=== PATIENT | female | born 1940 | race Caucasian/White ===

== ENCOUNTER 2016-09-22 15:59 | Inpatient (IN) | payer OTHER ==
[~2016-09-22] VITALS: Ht 182.9 cm; Wt 104.8 kg
[~2016-09-22 15:59] MED LIST: ADVAIR DISKUS 51 DSK IH; ATIVAN0.5 MG PO; CORDARONE200 MG PO; ECOTRIN81 MG PO; FLAGYL250 MG PO; LACTINEX1 TAB.CHEW PO; LASIX20 MG PO; LEVAQUIN250 MG IV; LEVAQUIN500 MG PO; LOPRESSOR25 MG PO; MACROBID100 M1 PO; PERCOCET 325 MG1 TA4 PO; PLAVIX75 MG PO; SOMA350 MG PO; SPIRIVA MD18 MCG/CAP INH; VENTOLIN H0.09 MG/Ac IH; ZOCOR20 MG PO
--- NOTE | 2016-09-22 15:59 | NUR ---
Patient was BIBA at this time.
--- NOTE | 2016-09-22 16:08 | NUR ---
Patient taken to bed 05.
--- NOTE | 2016-09-22 16:10 | NUR ---
PATIENT PRESENTS TO ED WITH S/P TRIPPED AND FALL GETTING UP FROM BED. DENIES NECK AND BACK PAIN. NO LOC PER RUBBER AND PLASTICS WORKER. RT. CHEST NA. CATH. DONE CHEMOTHERAPY X9 YRS. AGO. HX: LT. BREAST CA.COPD. X2 RESP.TX FIELD .DENIES N/V/D; SKIN IS PINK/WARM/DRY;PT IS SLIGYTLY CONFUSED.PATIENT STATES PAIN OF 10/10 AT THIS TIME;PATIENT POSITIONED FOR COMFORT; HOB ELEVATED; BEDRAILS UP X2; BED DOWN. ER MD MADE AWARE OF PT STATUS.
[2016-09-22] MEDS ORDERED: NACL 0.9% 1,000 ML IV SCH (16:18)
[2016-09-22 16:19] VITALS: BP 164/85
[2016-09-22] MEDS ORDERED: IPRATROPIUM 0.02% 0.5 MG/2.5 ML NEBU INH ONE ×2 (16:20→16:50)
[2016-09-22] MEDS ORDERED: ONDANSETRON 4 MG/2 ML VIAL IVP ONE (16:20)
[2016-09-22] MEDS ORDERED: ALBUTEROL 0.083% 2.5 MG/3 ML NEBU INH ONE ×2 (16:20→16:50)
[2016-09-22] MEDS ORDERED: HYDROXYZINE PO (16:34)
[2016-09-22] MEDS ORDERED: ZESTRIL5 MG PO (16:34)
[2016-09-22] MEDS ORDERED: KLONOPIN0.5 MG PO (16:34)
[2016-09-22] MEDS ORDERED: MAG SULF 2000 MG/WATER PREMIX 50 ML IV ONE (16:50)
--- NOTE | 2016-09-22 16:53 | NUR ---
RT at bedside to give patient another breathing treatment.
--- NOTE | 2016-09-22 17:46 | NUR ---
PT RESTING ON BED;PT VERBALIZES RELIEF FROMSOB;O2 SAT AT 95%.WILL CONTINUE TO MONITOR PT.
--- NOTE | 2016-09-22 18:20 | NUR ---
PT SLEEPING;ALL MONITORS IN PLACED;SAFETY MASURES DONE;NO ACUTE DISTRESS NOTED;WILL CONTINUE TO MONITOR PT.
[2016-09-22] MEDS ORDERED: MORPHINE SULFATE 4 MG/ML SYR IVP ONE ×2 (18:55→21:35)
--- NOTE | 2016-09-22 19:30 | NUR ---
REPORT GIVEN TO ANDREA SHAFFER.
--- NOTE | 2016-09-22 19:30 | NUR ---
REPORT RECEIVED FROM ANDREA REYES
--- NOTE | 2016-09-22 19:35 | NUR ---
I/O FOR UA COLLECTED, PT TOLERATED WELL.
[2016-09-22] MEDS ORDERED: NON-FORMULARY ITEM (Oxycodone HCl/Acetaminophen (Percocet 10-325 mg Tablet) 1 TAB) PO PRN (21:35)
[2016-09-22] MEDS ORDERED: ONDANSETRON 4 MG/2 ML VIAL IVP PRN (21:35)
[2016-09-22] MEDS ORDERED: LORazepam 2 MG/ML VIAL IVP PRN (21:35)
[2016-09-22] MEDS ORDERED: ACETAMINOPHEN 325 MG TAB PO PRN (21:35)
[2016-09-22] MEDS ORDERED: LIDOCAINE 1% 500 MG/50 ML VIAL INJ SCH (21:50)
[2016-09-22] MEDS ORDERED: methylPREDNISolone SS 125 MG/2 ML VIAL IVP SCH (21:55)
--- NOTE | 2016-09-22 22:00 | NUR ---
CLOSED REDUCTION PROCEDURE DONE BY DR STEWART.
[2016-09-22] MEDS ORDERED: LIDOCAINE 1% ED 50 ML ONE (22:06)
--- NOTE | 2016-09-22 22:45 | NUR ---
PT TOLERATED CLOSED REDUCTION PROCEDURE WELL.
--- NOTE | 2016-09-22 23:44 | NUR ---
Patient will be admitted to care of DR TORRES. Admited to TELE. Will go to room 109A. Belongings list completed. Report to ANDREA MERCHANT.
--- NOTE | 2016-09-22 23:55 | NUR ---
PATIENT ADMIT DX CHF AND COPD PATIENT IS AWAKE ALERT ORIENTED DROWSY CONTINUES TO HAVE OXYGEN AT 4L VIA NASAL CANNULA IN PLACE 02SAT 94% VITALS TAKEN WNL. PATIENT DENIES ANY CHEST PAIN UPON ADMISSION OR SOB.SKIN CHECK DONE WITH MULTIPLE COIL WINDERRUBI POLLACK SKIN HAS DISCOLORATION AND DRYNESS.PATIENT HAS A DISCOLORATION TO RT LOWER LEG AND LT ARM DISCOLORATION. PATIENT HAS ALSO HEALED SCARS ON HER BODY.NO SKIN BREAKDOWN NOTED.PLAN OF CARE DISCUSSED WITH THE PATIENT.ORDERS WILL BE CHECKED AND CARRIED OUT.PATIENT WAS PLACED ON FALL PRECAUTIONS AND ALLERGY BAND PLACED.[facility] OF THE [facility] COLLECTED AND WILL BE SEND TO THE LAB.CALL LIGHT WITHIN REACH WILL CONTINUE TO MONITOR.
--- NOTE | 2016-09-23 00:05 | NUR ---
PATIENT HAS BEEN GIVEN SOME WATER TO DRINK SHE IS CURRENTLY ON A CARDIAC DIET.
--- NOTE | 2016-09-23 00:10 | NUR ---
LILLI BAKER PAGED WILL REPORT CURRENT TROPONIN.
--- NOTE | 2016-09-23 00:15 | NUR ---
MD BRIAN ALBA CALLED BACK I INFORMED HIM PATIENT ARRIVED ON THE FLOOR AND HE GAVE SOME ORDERS.WILL CARRY THEM OUT.
--- NOTE | 2016-09-23 00:16 | NUR ---
I PAGED LILLI BAKER AND INFORMED HIM OF INCREASE IN TROPONIN 0.124 MD BRIAN REEDER GAVE NO NEW ORDERS.HE WAS INFORMED THAT PATIENT IS CURRENTLY READING 106 HR ON TELEMONITOR AND READING SINUS TACHYCARDIA.PATIENT IS ASYMPTOMATIC AT THIS TIME. NOTIFIED OF B/P 97/80 HR 106 MD TORRESY GAVE NO NEW ORDERS.
[2016-09-23 00:24] VITALS: BP 97/80
--- NOTE | 2016-09-23 00:40 | NUR ---
I RECEIVED AN ORDER FOR THE PATIENT TO HAVE MALHOTRA CATHETER INSERTED FR#14 I EXPLAINED TO THE PATIENT WHY SHE NEEDS THE MALHOTRA CATHETER AND I ASKED HER IF SHE AGREES TO HAVE THE MALHOTRA INSERTED PATIENT SAID,"YES." MALHOTRA WAS INSERTED AT FIRST ATTEMPT GOOD URINE FLOW YA IN COLOR CURRENTLY DRAINING TO GRAVITY. PATIENT TOLERATED PROCEDURE WELL.
--- NOTE | 2016-09-23 01:07 | NUR ---
PATIENT RESTING COMFORTABLY IN BED IN NO DISTRESS.
--- NOTE | 2016-09-23 02:30 | NUR ---
PATIENT SLEEPING AT THIS TIME NO DISTRESS WILL CONTINUE TO MONITOR CALL LIGHT WITHIN REACH.
[2016-09-23 04:40] VITALS: BP 114/42
--- NOTE | 2016-09-23 05:50 | NUR ---
PATIENT IS CURRENTLY RESTING IN BED CONTINUES TO HAVE OXYGEN IN PLACE VIA NASAL CANNULA AT 3L AWAKENED I ASKED HER IF SHE IS HAVING ANY PAIN.PATIENT DENIES PAIN AT THIS TIME. CAST TO HER LEFT LEG IN PLACE AND ELEVATED ON A PILLOW.MALHOTRA CATHETER IN PLACE DRAINING TO GRAVITY AND HAS SCD ONLY TO RT FOOT FOR DVT PROPHALAXIS.WILL CONTINUE TO MONITOR.
[2016-09-23] MEDS: HYDROcodone/APAP 5/325 MG 1 TAB TAB PO PRN ×2 (06:48→17:46)
--- NOTE | 2016-09-23 07:07 | NUR ---
PATIENT HAS BEEN SCREENED AND CATEGORIZED MODERATE NUTRITION RISK. PATIENT WILL BE SEEN WITHIN 3-5 DAYS OF ADMISSION. 09/24/16-09/26/16 KECIA AGUILAR MS, RDN
--- NOTE | 2016-09-23 07:20 | NUR ---
RECEIVED PATIENT REPORT AT BEDSIDE. PATIENT AWAKE, ALERT AND ORIENTED. NO S/S OF DISTRESS NOTED. PATIENT ON 4L O2. IV LINE NOTED TO THE RIGHT FOREARM SALINE LOCKED. JAREN BANDAGE DRESSING NOTED TO THE LEFT LEG. DRESSING CLEAN DRY AND INTACT. MALHOTRA CATHETER IN PLACE, DRAINING CLEAR YELLOW URINE. PATIENT ON TELE MONITORING. BED LOWERED WITH CALL LIGHT WITHIN REACH. WILL CONTINUE TO MONITOR
--- NOTE | 2016-09-23 07:25 | NUR ---
PATIENT STABLE REPORT ENDORSED TO ANDREA VILLAREAL AT BEDSIDE HE WILL RESUME CARE OF THE PATIENT ENDORSED ABOUT THE HIGH TROPONIN AND THE CONSULTS PENDING FOR THE PATIENT.
[2016-09-23 08:00] VITALS: BP 107/49
[2016-09-23] MEDS ORDERED: SALMETEROL IH SCH (09:00)
[2016-09-23] MEDS: LISINOPRIL 5 MG TAB PO SCH (09:00)
[2016-09-23] MEDS ORDERED: FLUTICASONE IH SCH (09:00)
[2016-09-23] MEDS ORDERED: ALBUTEROL HFA MDI 90 MCG/ACTUATION 8 GM INH SCH (09:00)
[2016-09-23] MEDS: ECOTRIN 81 MG TABEC PO SCH (09:07)
[2016-09-23] MEDS: AMIODARONE 200 MG TAB PO SCH (09:07)
[2016-09-23] MEDS: CLOPIDOGREL 75 MG TAB PO SCH (09:08)
[2016-09-23] MEDS: FUROSEMIDE 20 MG TAB PO SCH (09:08)
[2016-09-23] MEDS: CARISOPRODOL 350 MG TAB PO SCH (09:08)
[2016-09-23] MEDS: clonazePAM 0.5 MG TAB PO SCH ×3 (09:13→16:41)
--- NOTE | 2016-09-23 09:30 | NUR ---
THERE IS NO MDI IN PATIENTS BOX OR IN PIXES. DR BEAVERS IS IN TO SEE PT. ASKED HIM TO CHANGED IT TO [facility]. WILL WRITE NEW ORDERS. WILL FOLLOW.
--- NOTE | 2016-09-23 10:00 | NUR ---
PATIENT SEEN BY DR CASILLAS. DRESSING ON THE LEFT FRACTURE CHANGED AT BEDSIDE
--- NOTE | 2016-09-23 10:47 | NUR ---
PATIENT LEFT FOR CT OF THE CHEST
[2016-09-23] MEDS ORDERED: LEVOFLOXACIN 500 MG/D5W PREMIX 100 ML IV SCH (11:00)
[2016-09-23 12:00] VITALS: BP 110/44
[2016-09-23] MEDS: ALBUTEROL 0.083% 2.5 MG/3 ML NEBU INH PRN (12:55)
[2016-09-23] MEDS: IPRATROPIUM 0.02% 0.5 MG/2.5 ML NEBU INH PRN (12:55)
--- NOTE | 2016-09-23 13:06 | NUR ---
HHN PRN TX GIVEN FOR SOB AND WHEEZING. INDUCED SPUTUM WITH 3% SODIUM CHLORIDE. EXPLAINED TO PT THAT SHE NEEDS TO GIVE A SAMPLE. CUP IS WITHIN REACH. ANDREA BOWSER AWARE. WILL CONTINUE TO MONITOR.
[2016-09-23] MEDS: CLINDAMYCIN 600 MG in DEXTROSE 5% 50 ML IV SCH ×2 (13:45→20:07)
--- NOTE | 2016-09-23 14:30 | NUR ---
PATIENT COMFORTABLY RESTING IN BED. NO S/S OF DISTRESS NOTED
[2016-09-23 16:00] VITALS: BP 101/57
--- NOTE | 2016-09-23 19:17 | NUR ---
PATIENT REPORT GIVEN AT BEDSIDE. ENDORSED PATIENT IN STABLE CONDITION
--- NOTE | 2016-09-23 19:21 | NUR ---
RECEIVED REPORT FROM DAY SHIFT NURSE. PT IS RESTING, ON TELE MONITOR, NOT IN DISTRESS. HAS NO S/S OF RESPIRATORY DISTRESS/DISCOMFORT NOTED. IV SITE, PATENT, DRY, SALINE LOCK. SAFETY MEASURES CHECKED, CALL LIGHT WITHIN REACH. WILL CONTINUE TO MONITOR.
[2016-09-23 20:00] VITALS: BP 98/39
[2016-09-23] MEDS: methylPREDNISolone SS 40 MG/ML VIAL IVP SCH (20:06)
[2016-09-23] MEDS: hydrOXYzine HCL 10 MG TAB PO SCH (20:06)
--- NOTE | 2016-09-23 20:14 | NUR ---
DUE MEDS GIVEN. PROVIDED DRUG INFO, BENEFITS AND S/E, VERBALIZED UNDERSTANDING. PT TOLERATED WELL.
[2016-09-24] VITALS: BP 99/44
--- NOTE | 2016-09-24 00:49 | NUR ---
V/S CHECKED, BREATHING EVEN AND UNLABORED. CALL LIGHT WITHIN REACH.
--- NOTE | 2016-09-24 02:15 | NUR ---
EYES CLOSED, BREATHING EVEN AND UNLABORED. NO S/S OF DISTRESS. ON NASAL CANNULA, HAS NO S/S OF RESPIRATORY DISTRESS/DISCOMFORT. CALL LIGHT WITHIN REACH.
[2016-09-24] MEDS: HYDROcodone/APAP 5/325 MG 1 TAB TAB PO PRN ×4 (03:45→23:43)
--- NOTE | 2016-09-24 03:58 | NUR ---
PT COMPLAINED OF PAIN 11/19. V/S CHECKED AND STABLE. MEDICATED WITH PAIN MEDICATION PER MD ORDERED.
[2016-09-24 04:00] VITALS: BP 108/51
[2016-09-24] MEDS: CLINDAMYCIN 600 MG in DEXTROSE 5% 50 ML IV SCH ×3 (04:11→20:04)
--- NOTE | 2016-09-24 06:09 | NUR ---
PT UNABLE TO PRODUCE SPUTUM. PROVIDED HEALTH TEACHING, VERBALIZED UNDERSTANDING.
[2016-09-24] MEDS: ALBUTEROL 0.083% 2.5 MG/3 ML NEBU INH SCH ×4 (06:48→19:04)
--- NOTE | 2016-09-24 07:00 | NUR ---
PT UNABLE TO PRODUCE SPUTUM AT THIS TIME
--- NOTE | 2016-09-24 07:30 | NUR ---
REPORT GIVEN TO DAY SHIFT NURSE FOR CONTINUITY OF CARE. PT IN STABLE CONDITION.
--- NOTE | 2016-09-24 07:31 | NUR ---
RECEIVED PT FROM THE TIMBER TRIMMER NURSE AT BEDSIDE FOR CONTINUITY OF CARE. PT IS ASLEEP. WILL BE BACK TO ASSESS PT. NO SIGNS OF DISTRESS.
[2016-09-24 08:00] VITALS: BP 121/55
--- NOTE | 2016-09-24 08:00 | NUR ---
PT IS AWAKE AND ALERT. PT IS WEARING A NC, O2 AT 4L . PT HAS AN IV ON R FA 20G SL. PT ALSO HAS A PORT A CATH ON R UPPER CHEST. NOTED SOME BRUISING IN HER L ARM. PT HAS A L LOWER LEG CAST, WRAPPED. BREATHING IN NORMAL LIMITS. V/S IN NORMAL LIMITS. SHE IS COMPLAINING OF LEG PAIN 12/20. HELPED FEED HER BREAKFAST. ATE 15-20%. WILL BRING MORNING MEDS. WILL CONTINUE TO MONITOR PT.
[2016-09-24] MEDS: LEVOFLOXACIN 250 MG/D5 PREMIX 50 ML IV SCH (09:17)
[2016-09-24] MEDS: methylPREDNISolone SS 40 MG/ML VIAL IVP SCH ×2 (09:17→20:01)
[2016-09-24] MEDS: CLOPIDOGREL 75 MG TAB PO SCH (09:18)
[2016-09-24] MEDS: clonazePAM 0.5 MG TAB PO SCH ×3 (09:18→17:03)
[2016-09-24] MEDS: ECOTRIN 81 MG TABEC PO SCH (09:18)
[2016-09-24] MEDS: CARISOPRODOL 350 MG TAB PO SCH (09:19)
[2016-09-24] MEDS: AMIODARONE 200 MG TAB PO SCH (09:19)
[2016-09-24] MEDS: LISINOPRIL 5 MG TAB PO SCH (09:19)
[2016-09-24] MEDS: FUROSEMIDE 20 MG TAB PO SCH (09:20)
--- NOTE | 2016-09-24 09:25 | NUR ---
ADMINISTERED MORNING MEDS. PT TOLERATED WELL. WILL CONTINUE TO MONITOR PT.
--- NOTE | 2016-09-24 11:24 | NUR ---
PT GETTING BREATHING TX. PT IS RESTING COMFORTABLY. NO SIGNS OF DISTRESS. WILL CONTINUE TO MONITOR PT.
[2016-09-24 12:00] VITALS: BP 111/41
--- NOTE | 2016-09-24 12:44 | NUR ---
ADMINISTERED AFTERNOON MEDS. PT TOLERATED WELL. STARTED FEEDING HER LUNCH. EATING MUCH BETTER TODAY. EDUCATED PT ABOUT GOOD NUTRITION. WAX CUTTER TOOK OVER FEEDING PT. WILL CONTINUE TO MONITOR PT.
--- NOTE | 2016-09-24 13:40 | NUR ---
DR. SOMERS CAME AND ASSESSED PT. PER , PT HAS TO HAVE A BM. WILL ORDER SENNA AND MAYBE FLEET ENEMA. WILL MONITOR HER TODAY. HOPEFULLY HER KIDNEY FUNCTION WILL IMPROVE. NOTED HER MALHOTRA CATH. PT VERBALIZED UNDERSTANDING.
--- NOTE | 2016-09-24 15:00 | NUR ---
PT SLEEPING SOUNDLY. NO SIGNS OF DISTRESS. WILL CONTINUE TO MONITOR PT.
--- NOTE | 2016-09-24 15:31 | NUR ---
FAXED INFORMATION TO [facility] [phone] PHONE [phone]
[2016-09-24 16:00] VITALS: BP 109/49
--- NOTE | 2016-09-24 17:47 | NUR ---
PT RESTING COMFORTABLY. GETTING READY FOR DINNER. NO SIGNS OF DISTRESS. NORCO HELPED WITH THE PAIN. WILL CONTINUE TO MONITOR PT.
--- NOTE | 2016-09-24 19:28 | NUR ---
ENDORSED PT TO THE RESPIRATORY THERAPIST NURSE AT BEDSIDE FOR CONTINUITY OF CARE. PT IS IN STABLE CONDITION.
--- NOTE | 2016-09-24 19:30 | NUR ---
RECEIVED REPORT FROM DAY SHIFT NURSE. PT IS AAOX4, ON TELE MONITOR, DENIES PAIN. ON NASAL CANNULA, HAS NO S/S OF RESPIRATORY DISTRESS/DISCOMFORT NOTED. IV SITE IS PATENT AND INTACT, SALINE LOCK. LEFT LOWER EXTREMITY NOTED WITH CASTING, ELEVATED WITH PILLOW, ON AIR MATRES NOTED. PLAN OF CARE DISCUSSED, VERBALIZED UNDERSTANDING. SAFETY MEASURES CHECKED, CALL LIGHT WITHIN REACH. WILL CONTINUE TO MONITOR.
[2016-09-24 20:00] VITALS: BP 90/43
[2016-09-24] MEDS: SENNA 8.6 MG TAB PO SCH (20:01)
[2016-09-24] MEDS: hydrOXYzine HCL 10 MG TAB PO SCH (20:01)
--- NOTE | 2016-09-24 20:05 | NUR ---
DUE MEDS GIVEN. PROVIDED DRUG INFO, BENEFITS AND S/E, VERBALIZED UNDERSTANDING. PT TOLERATED WELL.
--- NOTE | 2016-09-24 21:00 | NUR ---
IV SITE LEAKED, DISCONTINUE IV SITE TO THE RIGHT FA.
[2016-09-25] VITALS: BP 91/45
--- NOTE | 2016-09-25 00:39 | NUR ---
CALLED DR LAINEZ, CLARIFIED ORDER FOR TOMORROW FOR X-RAY FOR SERVICE DATE. SAID OK TO CHANGE THE TIME TO 09/25/16 AT 0700.
--- NOTE | 2016-09-25 02:15 | NUR ---
PT AWAKE, WATCHING TV. DENIES ANY PAIN. CALL LIGHT WITHIN REACH. WILL CONTINUE TO MONITOR.
[2016-09-25 04:00] VITALS: BP 105/48
--- NOTE | 2016-09-25 04:00 | NUR ---
V/S CHECKED AND STABLE. NO S/S OF RESPIRATORY DISTRESS/DISCOMFORT NOTED. CALL LIGHT WITHIN REACH
[2016-09-25] MEDS: CLINDAMYCIN 600 MG in DEXTROSE 5% 50 ML IV SCH ×3 (04:37→21:17)
[2016-09-25] MEDS: ALBUTEROL 0.083% 2.5 MG/3 ML NEBU INH SCH ×4 (06:32→20:30)
--- NOTE | 2016-09-25 07:01 | NUR ---
RECEIVED A CRITICAL VALUE OF BUN 61, WILL REPORT TO ATTENDING MD.
--- NOTE | 2016-09-25 07:05 | NUR ---
NATHAN ISABEL. WAITING FOR CALL BACK.
--- NOTE | 2016-09-25 07:10 | NUR ---
CALL BACK RECEIVED. SPOKE TO Ruthy ENAMORADO REPORTED BUN VALUE OF 61. NO NEW ORDER MADE.
--- NOTE | 2016-09-25 07:15 | NUR ---
REPORT GIVEN TO DAY SHIFT NURSE FOR CONTINUITY OF CARE. PT IN STABLE CONDITION.
--- NOTE | 2016-09-25 07:25 | NUR ---
RECEIVED PT ON BED AAOX4. NO SOB NOTED. NO C/O PAIN AT THIS TIME. PORTACATH TO RT UPPER CHEST, DRY, CLEAN AND PATENT. LEFT UPPER EXTREMITY SWOLLEN +1 NON PITTING.CHEST, DIMINISHED AIR ENTRY TO THE BASES. ABDOMEN SOFT, BOWEL SOUNDS PRESENT. LEFT LEG ELEVATED IN BED WITH BRACE S/P CLOSED REDUCTION 09/22/2016. WITH MALHOTRA DRAINING MODERATE AMOUNTS OF CLEAR YA URINE. WILL REPOSITION PT EVERY 2 HRS. INSTRUCTED PT TO CALL FOR ASSISTANCE, CALL LIGHT WITHIN REACH. PT VERBALIZED UNDERSTANDING.
[2016-09-25 08:00] VITALS: BP_SYST 102; BP_SYST 107; BP_DIAS 52; BP_DIAS 64
--- NOTE | 2016-09-25 09:00 | NUR ---
PHYSICAL THERAPY ON GOING AT THE BEDSIDE.
[2016-09-25] MEDS: LEVOFLOXACIN 250 MG/D5 PREMIX 50 ML IV SCH (09:20)
[2016-09-25] MEDS: ECOTRIN 81 MG TABEC PO SCH (09:20)
[2016-09-25] MEDS: methylPREDNISolone SS 40 MG/ML VIAL IVP SCH ×2 (09:20→21:18)
[2016-09-25] MEDS: AMIODARONE 200 MG TAB PO SCH (09:21)
[2016-09-25] MEDS: FUROSEMIDE 20 MG TAB PO SCH (09:21)
[2016-09-25] MEDS: CLOPIDOGREL 75 MG TAB PO SCH (09:21)
[2016-09-25] MEDS: HYDROcodone/APAP 5/325 MG 1 TAB TAB PO PRN ×4 (09:22→22:25)
[2016-09-25] MEDS: clonazePAM 0.5 MG TAB PO SCH ×3 (09:22→18:38)
[2016-09-25] MEDS: CARISOPRODOL 350 MG TAB PO SCH (09:35)
[2016-09-25] MEDS: SENNA 8.6 MG TAB PO SCH ×2 (09:35→21:17)
--- NOTE | 2016-09-25 10:24 | NUR ---
LATE ENTRY, RECEIVED CALL FROM [facility] AT [facility] ON 09/24/16 STATING THEY CANNOT ACCEPT THE PATIENT. I INFORMED MIRA MENDEZ TO INFORM DR. Juvencio TORRES.
--- NOTE | 2016-09-25 11:55 | NUR ---
09/25/16 RD INITIAL ASSESSMENT COMPLETED PLEASE REFER TO NUTRITION ASSESSMENT UNDER CARE ACTIVITY FOR ESTIMATED NUTRITIONAL NEEDS. RD RECOMMENDATIONS: 1. CONTINUE ON CARDIAC DIET TOLERATED. 2. ENCOURAGE PO INTAKES, INCREASED PROTEIN NEEDS --NOTE RD WILL MONITOR RENAL LABS. 3. RD TO ADD HEALTH SHAKES BID FOR ADDED 600 KCAL AND 18 GM PROTEIN PER DAY. 3. RD WILL F/U 3-5 DAYS; MODERATE RISK. MIKE LEIGH, RD
[2016-09-25 12:00] VITALS: BP 106/53
[2016-09-25] MEDS: DEXTROSE 5% 1,000 ML IV SCH (13:44)
--- NOTE | 2016-09-25 14:30 | NUR ---
ERIC FROM [facility] (asset coordinator) IS AT THE BEDSIDE INTERVIEWING THE PT.
--- NOTE | 2016-09-25 15:09 | NUR ---
SS NOTE: PER ERIC FROM [facility] [place] ([phone]), THEY ARE ABLE TO ACCEPT PT UPON DISCHARGE.
[2016-09-25 16:00] VITALS: BP 102/52
--- NOTE | 2016-09-25 17:30 | NUR ---
PT SEEN BY DR. CASILLAS. LIST OF SUPPLIES FOR DRESSING CHANGE TOMORROW PLACED AT PT'S BEDSIDE.
--- NOTE | 2016-09-25 18:15 | NUR ---
LEFT FOOT XRAY ON GOING AT THE BEDSIDE.
--- NOTE | 2016-09-25 19:04 | NUR ---
PT AWAKE, WATCHING TV. NO SOB NOTED. NO COMPLAINTS MADE. WILL ENDORSE TO NEXT SHIFT NURSE FOR CONTINUITY OF CARE.
--- NOTE | 2016-09-25 19:32 | NUR ---
RECEIVED REPORT FROM DAY RN FOR CONTINUITY OF CARE. PATIENT IS A&OX4, DISCUSSED PLAN OF CARE WITH PATIENT, VERBALIZED UNDERSTANDING. SHIFT ASSESSMENT DONE, VS TAKEN, STABLE. NO S/S OF RESPIRATORY DISTRESS NOTED ON 3L NC. PT DENIES PAIN AT THIS TIME. PORTACATH TO LT UPPER CHEST PATENT AND INFUSING FLUIDS WELL. MALHOTRA CATHETER DRAINING CLEAR YELLOW URINE. PT ON WOUND BED FOR LT FOOT S/P CLOSED REDUCTION WRAPPED WITH BRACE. BRUISING NOTED TO RT LEG AND UPPER EXTREMITIES. APPLIED WRISTBAND TO LEFT EXTREMITY FOR NO B/P OR VENIPUNCTURE. PT STATES SHE HAS NOT HAD A BM SINCE 09/22 REFUSED FLEET ENEMA AT THIS TIME. SAFETY/ FALL PRECAUTIONS ENFORCED. CALL LIGHT WITHIN REACH. WILL CONTINUE TO MONITOR.
[2016-09-25 20:00] VITALS: BP 100/48
[2016-09-25] MEDS: hydrOXYzine HCL 10 MG TAB PO SCH (21:18)
--- NOTE | 2016-09-25 21:18 | NUR ---
DUE MEDICATIONS ADMINISTERED, TOLERATED WELL. CALL LIGHT WITHIN REACH.
--- NOTE | 2016-09-25 22:40 | NUR ---
SPOKE TO Juvencio LOWE, RECEIVED ORDERS FOR PAIN MEDICATION AND MUSCLE SPASMS, WILL FOLLOW OUT GIVEN.
[2016-09-25] MEDS: BACLOFEN 10 MG TAB PO SCH (23:30)
--- NOTE | 2016-09-25 23:30 | NUR ---
DUE MEDICATION ADMINISTERED, TOLERATED WELL. VS TAKEN, STABLE. PT REPOSITIONED FOR COMFORT. CALL LIGHT WITHIN REACH. WILL CONTINUE TO MONITOR.
[2016-09-26] VITALS: BP 127/71
[2016-09-26] MEDS: MORPHINE SULFATE 2 MG/ML SYR IVP PRN ×4 (01:43→23:18)
--- NOTE | 2016-09-26 01:43 | NUR ---
PT C/O SHORTNESS OF BREATH AND ABDOMINAL PAIN, PAGED RT FOR BREATHING TX, AND ADMINISTERED PAIN MEDICATION PER MD ORDER. VS STABLE, CALL LIGHT IN REACH.
[2016-09-26] MEDS: ALBUTEROL 0.083% 2.5 MG/3 ML NEBU INH PRN (02:10)
[2016-09-26 04:00] VITALS: BP 130/69
--- NOTE | 2016-09-26 04:00 | NUR ---
VS TAKEN, STABLE AT THIS TIME. REPOSITIONED PATIENT AND MADE COMFORTABLE. EMPTIED MALHOTRA CATHETER 1800 ML. CALL LIGHT WITHIN REACH.
[2016-09-26] MEDS: HYDROcodone/APAP 10/325 MG 1 TAB TAB PO PRN (05:49)
[2016-09-26] MEDS: CLINDAMYCIN 600 MG in DEXTROSE 5% 50 ML IV SCH ×3 (05:49→20:37)
--- NOTE | 2016-09-26 05:56 | NUR ---
PT C/O PANIC ATTACK, VS TAKEN, ELEVATED HR, MEDICATED WITH ATIVAN PER MD ORDER. WILL CONTINUE TO MONITOR.
[2016-09-26] MEDS: ALBUTEROL 0.083% 2.5 MG/3 ML NEBU INH SCH ×5 (06:39→23:46)
--- NOTE | 2016-09-26 06:39 | NUR ---
AWAKE AND ALERT RESPONSIVE TO EARLY CHILDHOOD DIRECTOR IN LFW POSITION C/O BACK PAIN WILL ADVISE AM RN PATIENT STATES THAT HOME OXYGEN USE AT 3 LPM POST HHN THERAPY INCREASED FIO2 TO 3LPM VIA NC JIM/RN NOTIFIED
--- NOTE | 2016-09-26 07:05 | NUR ---
SPOKE WITH DR. MIGUEL, PER MD IF OK WITH DR. TORRES HE WOULD LIKE TO DO SURGERY FOR PATIENT ON SATURDAY AND DISCHARGE CAN BE ARRANGED AFTER. DR. MIGUEL TO COME BY TODAY EXPLAIN PROCEDURE TO PATIENT AND OBTAIN CONSENT.
--- NOTE | 2016-09-26 07:20 | NUR ---
RECEIVED REPORT FROM NIGHT NURSE. PT IS AAOX4, ON O2 3L VIA NC, PORT A CATH RIGHT UPPER CHEST, MALHOTRA IN PLACE DRAINING CLEAR YELLOW URINE, BRUISES TO UPPER ARMS AND RIGHT LEG. LEFT LEG BRAISE S/P CLOSE ANKLE REDUCTION. INITIAL ASSESSMENT COMPLETED, REVIEWED PLAN OF CARE WITH PT, PT VERBALIZED UNDERSTANDING, ALL SAFETY PRECAUTIONS MET, ALL NEEDS MET. CALL LIGHT WITHIN REACH. WILL CONTINUE TO MONITOR.
--- NOTE | 2016-09-26 07:20 | NUR ---
ENDORSED PATIENT TO DAY RN FOR CONTINUITY OF CARE, PATIENT IS IN STABLE CONDITION.
[2016-09-26 08:00] VITALS: BP 127/67
[2016-09-26] MEDS: BACLOFEN 10 MG TAB PO SCH ×3 (09:26→16:16)
[2016-09-26] MEDS: SENNA 8.6 MG TAB PO SCH ×2 (09:26→20:37)
[2016-09-26] MEDS: ECOTRIN 81 MG TABEC PO SCH (09:26)
[2016-09-26] MEDS: CARISOPRODOL 350 MG TAB PO SCH (09:26)
[2016-09-26] MEDS: CLOPIDOGREL 75 MG TAB PO SCH (09:26)
[2016-09-26] MEDS: clonazePAM 0.5 MG TAB PO SCH ×3 (09:27→16:17)
[2016-09-26] MEDS: AMIODARONE 200 MG TAB PO SCH (09:27)
[2016-09-26] MEDS: methylPREDNISolone SS 40 MG/ML VIAL IVP SCH ×2 (09:27→20:36)
[2016-09-26] MEDS: LEVOFLOXACIN 250 MG/D5 PREMIX 50 ML IV SCH (09:28)
--- NOTE | 2016-09-26 09:33 | NUR ---
DUE MEDICATIONS GIVE, PT CURRENTLY WORKING WITH PT, PAIN MEDICATION GIVEN.
[2016-09-26] MEDS ORDERED: METHYLPREDNISOL IVP (09:52)
[2016-09-26] MEDS ORDERED: MORPHINE SU2 MG/1 ML IVP (09:52)
[2016-09-26] MEDS ORDERED: PROVENTIL2.5 MG/3 M INH (09:52)
[2016-09-26] MEDS ORDERED: ACETAMINOPHEN325 M2 PO (09:52)
[2016-09-26] MEDS ORDERED: BACLOFEN10 M1 PO (09:52)
[2016-09-26] MEDS ORDERED: ACETAMINOPHEN &1 TA1 PO (09:52)
[2016-09-26] MEDS ORDERED: LEVAQUIN750 MG PO (09:52)
[2016-09-26] MEDS ORDERED: SENNA CONCENTR8.6 MG PO (09:52)
[2016-09-26] MEDS ORDERED: ATROVENT 00.5 MG/3 M INH (09:52)
[2016-09-26 11:58] VITALS: BP 126/59
[2016-09-26] MEDS: DEXTROSE 5% 1,000 ML IV SCH (12:16)
--- NOTE | 2016-09-26 12:19 | NUR ---
DUE MEDICATIONS GIVEN, PT TOLERATED WELL. ALL NEEDS MET. CALL LIGHT WITHIN REACH. WILL CONTINUE TO MONITOR.
--- NOTE | 2016-09-26 14:19 | NUR ---
PT CURRENTLY SLEEPING, NO S/S OF RESPIRATORY DISTRESS NOTED. CALL LIGHT WITHIN REACH. WILL CONTINUE TO MONITOR.
[2016-09-26 16:00] VITALS: BP 143/75
--- NOTE | 2016-09-26 16:20 | NUR ---
PT C/O OF PAIN 02/19 AND SOB, RT CALLED AND BREATHING TREATMENT WAS GIVEN. MEDICATED FOR PAIN PER MD ORDERS. ALL NEEDS MET. CALL LIGHT WITHIN REACH. WILL CONTINUE TO MONITOR. Addendum: 09/26/16 at 1858 by Arlyn Barajas RN TIME OF INTERVENTION [id number]
--- NOTE | 2016-09-26 17:05 | NUR ---
PT CURRENTLY SLEEPING, NO S/S OF RESPIRATORY DISTRESS NOTED. CALL LIGHT WITHIN REACH WILL CONTINUE TO MONITOR.
--- NOTE | 2016-09-26 19:20 | NUR ---
RECEIVED PT SLEEPING, EASILY AROUSABLE, AAOX4, DENIES ANY PAIN, VITAL SIGNS STABLE, NO SOB NOTED, ON O2 AT 3L/NC, IVF INFUSING WELL VIA RT UPPER CHEST NA CATH, DRESSING DRY AND INTACT, LEFT LOWER LEG BRACE WITH JAREN BANDAGE NOTED, ABLE TO WIGGLE TOES AND GOOD CAP REFILL, LEFT LEG ELEVATED WITH PILLOW, MALHOTRA CATH IN PLACE DRAINING YELLOW OUTPUT, ON WOUND BED, POC DISCUSSED, SAFETY MEASURES IN PLACE, CALL LIGHT WITHIN REACH.
--- NOTE | 2016-09-26 19:20 | NUR ---
ENDORSED PLAN OF CARE TO NIGHT NURSE,PT IN STABLE CONDITION.
[2016-09-26 20:00] VITALS: BP 125/73
[2016-09-26] MEDS: hydrOXYzine HCL 10 MG TAB PO SCH (20:37)
--- NOTE | 2016-09-26 20:40 | NUR ---
DUE MEDICATIONS ADMINISTERED, REPOSITIONED Q2H AND OFFLOAD PRESSURE AREAS, ALL NEEDS ATTENDED.
--- NOTE | 2016-09-26 23:30 | NUR ---
PT WHEEZING, SAT-95%, HOB ELEVATED, REPOSITIONED FOR COMFORT, RT JOZEF MADE AWARE.
[2016-09-27] VITALS: BP 148/80
--- NOTE | 2016-09-27 02:10 | NUR ---
ROUNDED ON PT, SLEEPING, NO SIGNS OF DISTRESS, MONITORED CLOSELY.
[2016-09-27 04:00] VITALS: BP 138/72
--- NOTE | 2016-09-27 04:00 | NUR ---
VITAL SIGNS STABLE, CONTINUE TO REPOSITION Q2H, IVF INFUSING WELL.
[2016-09-27] MEDS: DEXTROSE 5% 1,000 ML IV SCH (04:40)
[2016-09-27] MEDS: MORPHINE SULFATE 2 MG/ML SYR IVP PRN (04:56)
[2016-09-27] MEDS: CLINDAMYCIN 600 MG in DEXTROSE 5% 50 ML IV SCH ×3 (04:57→20:17)
--- NOTE | 2016-09-27 05:00 | NUR ---
MEDICATED PRN FOR PAIN, DUE IV ANTIBIOTIC CONTINUED, MONITORED CLOSELY.
--- NOTE | 2016-09-27 06:40 | NUR ---
DR MIGUEL CALLED WITH NEW ORDERS, NPO AFTER MIDNIGHT, OBTAIN CONSENT FOR ORIF LEFT ANKLE, AM LABS, DR Williams TORRES FOR CARDIAC CLEARANCE, SUPERVISOR AGRICULTURAL EDUCATION FAIRY MADE AWARE.
--- NOTE | 2016-09-27 07:15 | NUR ---
PT SLEEPING, NO SIGNS OF DISTRESS, REPORT GIVEN TO ANDREA ECHOLS FOR CONTINUITY OF CARE.
--- NOTE | 2016-09-27 07:15 | NUR ---
RECEIVED REPORT FROM NIGHT NURSE. PT IS AAOX4, ON O2 3L VIA NC, PORT A CATH RIGHT UPPER CHEST, MALHOTRA IN PLACE DRAINING CLEAR YELLOW URINE, BRUISES TO UPPER ARMS AND RIGHT LEG. LEFT LEG BRACE S/P CLOSE ANKLE REDUCTION. INITIAL ASSESSMENT COMPLETED, REVIEWED PLAN OF CARE WITH PT, PT VERBALIZED UNDERSTANDING, ALL SAFETY PRECAUTIONS MET, ALL NEEDS MET. CALL LIGHT WITHIN REACH. WILL CONTINUE TO MONITOR.
[2016-09-27] MEDS: ALBUTEROL 0.083% 2.5 MG/3 ML NEBU INH SCH ×3 (07:35→18:57)
[2016-09-27 07:45] VITALS: BP 128/71
[2016-09-27] MEDS: methylPREDNISolone SS 40 MG/ML VIAL IVP SCH ×2 (08:51→20:17)
[2016-09-27] MEDS: ECOTRIN 81 MG TABEC PO SCH (08:51)
[2016-09-27] MEDS: LEVOFLOXACIN 250 MG/D5 PREMIX 50 ML IV SCH (08:51)
[2016-09-27] MEDS: CARISOPRODOL 350 MG TAB PO SCH (08:52)
[2016-09-27] MEDS: SENNA 8.6 MG TAB PO SCH ×2 (08:52→20:18)
[2016-09-27] MEDS: CLOPIDOGREL 75 MG TAB PO SCH (08:52)
[2016-09-27] MEDS: AMIODARONE 200 MG TAB PO SCH (08:52)
--- NOTE | 2016-09-27 08:57 | NUR ---
DUE MEDICATIONS GIVEN. PT TOLERATED WELL. ALL NEEDS MET. CALL LIGHT WITHIN REACH. WILL CONTINUE TO MONITOR.
[2016-09-27] MEDS: clonazePAM 0.5 MG TAB PO SCH ×3 (09:00→16:42)
[2016-09-27] MEDS: BACLOFEN 10 MG TAB PO SCH ×3 (09:09→16:41)
[2016-09-27] MEDS: HYDROcodone/APAP 10/325 MG 1 TAB TAB PO PRN ×2 (09:19→20:27)
[2016-09-27 12:00] VITALS: BP 128/62
--- NOTE | 2016-09-27 12:35 | NUR ---
DUE MEDICATION GIVEN. KLONOPIN NOT GIVEN, PT CURRENTLY ASLEEP AND ONLY AWAKENS TO TOUCH.
[2016-09-27] MEDS: ALBUTEROL 0.083% 2.5 MG/3 ML NEBU INH PRN (15:21)
--- NOTE | 2016-09-27 15:45 | NUR ---
PT CURRENTLY SLEEPING, NO S/S OF RESPIRATORY DISTRESS NOTED.
[2016-09-27 16:00] VITALS: BP 138/60
--- NOTE | 2016-09-27 18:15 | NUR ---
PT SLEEPING, AWAKENS TO VOICE, ENCOURAGE PT TO EAT DINNER. ALL NEEDS MET. CALL LIGHT WITHIN REACH. WILL CONTINUE TO MONITOR.
--- NOTE | 2016-09-27 19:21 | NUR ---
ENDORSED PLAN OF CARE TO NIGHT NURSE. PT IN STABLE CONDITION
--- NOTE | 2016-09-27 19:30 | NUR ---
RECEIVED REPORT FROM KINZA MENDEZ AT BEDSIDE. PT IS ALERT AWAKE ORIENTED X4. INITIAL ASSESSMENT DONE. NO S/S OF RESPIRATORY DISTRESS OR SOB NOTED. ON O2 @ 3L/MIN VIA NASAL CANULA. NO C/O PAIN OR ANY DISCOMFORT AT THIS TIME. PLAN OF CARE REVIEWED TO PT AND VERBALIZED UNDERSTANDING. CALL LIGHT WITHIN REACH. WILL CONTINUE TO MONITOR.
--- NOTE | 2016-09-27 19:45 | NUR ---
LILLI LOWE CAME TO SEE PT AND NEW ORDERS WERE GIVEN (PLS SEE CPOE). NEW ORDERS NOTED AND CARRIED OUT. WILL CONTINUE TO MONITOR.
[2016-09-27 20:00] VITALS: BP 148/75
[2016-09-27] MEDS: hydrOXYzine HCL 10 MG TAB PO SCH (20:18)
--- NOTE | 2016-09-27 21:00 | NUR ---
DR. AGUILAR CAME TO SEE PT AND NO NEW ORDERS WERE GIVEN. WILL CONTINUE TO MONITOR.
[2016-09-28] VITALS: BP 143/72
--- NOTE | 2016-09-28 00:30 | NUR ---
PT IS SLEEPING RIGHT NOW BUT EASILY AROUSABLE. NO S/S OF ANY DISCOMFORT AT THIS TIME. ALL NEEDS ARE ATTENDED. CALL LIGHT WITHIN REACH. WILL CONTINUE TO MONITOR.
[2016-09-28] MEDS: DEXTROSE 5% 1,000 ML IV SCH ×2 (00:35→19:59)
[2016-09-28 04:00] VITALS: BP 135/73
[2016-09-28] MEDS: CLINDAMYCIN 600 MG in DEXTROSE 5% 50 ML IV SCH ×3 (04:15→20:06)
--- NOTE | 2016-09-28 05:00 | NUR ---
AM CARE RENDERED. BED LINEN CHANGED. REPOSITIONED PATIENT. KEPT CLEAN AND DRY. CALL LIGHT WITHIN REACH. WILL CONTINUE TO MONITOR.
[2016-09-28] MEDS: HYDROcodone/APAP 10/325 MG 1 TAB TAB PO PRN ×2 (05:09→19:06)
--- NOTE | 2016-09-28 07:19 | NUR ---
PT HAS NO S/S OF ANY DISCOMFORT. PLAN OF CARE ENDORSED TO AM SHIFT NURSE FOR CONTINUITY OF CARE.
--- NOTE | 2016-09-28 07:25 | NUR ---
RECEIVED REPORT FROM ANDREA WELLINGTON. PT IS RESTING IN BED, A/OX4, PORT CATH ON THE RT SIDE OF THE CHEST, PATENT, INTACT, FLUSHING WELL, BRUISING NOTED ON BILATERAL ARMS, PT IS ON 3L O2 NC, NO S/S OF RESPIRATORY DISTRESS OR DISCOMFORT NOTED, MALHOTRA CATHETER IS IN PLACE WITH 400ML CLEAR YELLOW URINE, SAFETY/FALL PRECAUTIONS ARE IN PLACE, DISCUSSED PLAN OF CARE WITH PT, PT VERBALIZED UNDERSTANDING, CALL LIGHT IS WITHIN REACH, WILL CONTINUE TO MONITOR.
[2016-09-28] MEDS: ALBUTEROL 0.083% 2.5 MG/3 ML NEBU INH SCH ×4 (07:31→19:22)
--- NOTE | 2016-09-28 07:31 | NUR ---
AWAKE AND ALERT RESPONSIVE PATIENT C/O NASAL DRYNESS WITH SUPPLEMENTAL OXYGEN USE POST THERAPY ADDED HUMIDIFIER
[2016-09-28 08:00] VITALS: BP 135/65
[2016-09-28] MEDS: methylPREDNISolone SS 40 MG/ML VIAL IVP SCH ×2 (08:56→20:07)
[2016-09-28] MEDS: LEVOFLOXACIN 250 MG/D5 PREMIX 50 ML IV SCH (08:56)
[2016-09-28] MEDS: SENNA 8.6 MG TAB PO SCH ×2 (09:00→20:09)
[2016-09-28] MEDS: CARISOPRODOL 350 MG TAB PO SCH (09:00)
[2016-09-28] MEDS: BACLOFEN 10 MG TAB PO SCH ×3 (09:00→17:28)
[2016-09-28] MEDS: AMIODARONE 200 MG TAB PO SCH (09:00)
[2016-09-28] MEDS: clonazePAM 0.5 MG TAB PO SCH ×3 (09:00→17:29)
[2016-09-28] MEDS: MORPHINE SULFATE 2 MG/ML SYR IVP PRN ×2 (09:09→16:54)
--- NOTE | 2016-09-28 09:54 | NUR ---
PT OFF UNIT TO HAVE PROCEDURE DONE IN OR. PT LEFT IN STABLE CONDITIONS.
[2016-09-28] MEDS ORDERED: ONDANSETRON 4 MG/2 ML VIAL ONE (09:58)
[2016-09-28] MEDS ORDERED: DEXAMETHASONE 4 MG/ML VIAL ONE (09:58)
[2016-09-28] MEDS ORDERED: PROPOFOL 200 MG/20 ML VIAL IV ONE (09:58)
[2016-09-28] MEDS ORDERED: SEVOFLURANE 250 ML BTL INH ONE (09:58)
[2016-09-28] MEDS ORDERED: fentaNYL 0.05 MG/ML VIAL ONE (10:01)
[2016-09-28] MEDS ORDERED: BUPIVACAINE-MPF 0.5% 30 ML VIAL INJ ONE (10:23)
--- NOTE | 2016-09-28 10:56 | NUR ---
P.T. NOTES HOLD P.T. TX TODAY; POSSIBLE ANKLE ORIF TODAY; WILL AWAIT P.T. RE EVAL ORDER POST OP.
--- NOTE | 2016-09-28 11:44 | NUR ---
PATIENT OUT OF ROOM SURGERY CONFIRMED BY CHERYLE/RN FOAM GUN OPERATOR TO ATTEMPT HHN THERAPY AT A LATER TIME
[2016-09-28] MEDS ORDERED: ONDANSETRON 4 MG/2 ML VIAL IVP PRN (11:55)
[2016-09-28] MEDS ORDERED: fentaNYL 0.05 MG/ML VIAL IVP PRN (11:55)
[2016-09-28] MEDS ORDERED: HYDROmorphone PFS 2 MG/ML SYR ONE (12:04)
[2016-09-28 13:30] VITALS: BP 129/65
--- NOTE | 2016-09-28 13:30 | NUR ---
PT RETURNED TO UNIT FROM SURGERY, PT HAS A SPLIT CAST ON THE LEFT LEG WRAPPED WITH BANDAGE. PT STABLE UPON ARRIVAL.
[2016-09-28] MEDS ORDERED: CLINDAMYCIN 600 MG/4 ML VIAL ONE (14:31)
[2016-09-28] MEDS ORDERED: SODIUM POLYSTYRENE 15 GM/60 ML UDBTL PO SCH (15:00)
--- NOTE | 2016-09-28 15:35 | NUR ---
PT SLEEPING IN BED, NO S/S OF RESPIRATORY DISTRESSING OR DISCOMFORT NOTED, CALL LIGHT IS WITHIN REACH, WILL CONTINUE TO MONITOR.
[2016-09-28 16:00] VITALS: BP 117/70
--- NOTE | 2016-09-28 16:08 | NUR ---
AWAKE AND ALERT RESPONSIVE TOLERATED INCENTIVE SPIROMETRY (IS) PROCEDURE WELL WITHOUT INCIDENT ENCOURAGED PATIENT TO USE IS EVERY 2 HOURS WHILE AWAKE
--- NOTE | 2016-09-28 17:35 | NUR ---
PT SLEEPING IN BED AT THIS TIME.
--- NOTE | 2016-09-28 18:45 | NUR ---
RECEIVED A PHONE CALL FROM DR. MIGUEL, PER DR. MIGUEL HE IS OKAY WITH THE PT BEING DISCHARGED TO A SNF, IF PT STABLE.
--- NOTE | 2016-09-28 19:15 | NUR ---
ENDORSED PT TO [facility]. FOR CONTINUITY OF CARE, PT STABLE AT THIS TIME.
--- NOTE | 2016-09-28 19:20 | NUR ---
RECEIVED REPORT, ASSUMED CARE. AAOX4, LYING COMFORTABLY IN BED. PT DENIES PAIN AT THIS TIME. NO ACTIVE BLEEDING TO THE SURGICAL SITE AT THIS TIME. CAST TO LEFT LOWER EXT PRESENT, CLEAN AND DRY. MALHOTRA CATH IN PLACE, DRAINING WELL. NO HEMATURIA AT THIS TIME. NA CATH TO RIGHT UPPER CHEST, CLEAN, INTACT AND PATENT. CALL LIGHT PLACED WITHIN EASY REACH. WILL CONTINUE TO MONITOR.
--- NOTE | 2016-09-28 19:55 | NUR ---
DR. TORRES CALLED AND NOTIFIED PT'S CONDITION WITH V/S ARE STABLE NO S/S OF BLEEDING ON SURGICAL SITE. WILL CONTINUE TO MONITOR.
[2016-09-28] MEDS: hydrOXYzine HCL 10 MG TAB PO SCH (20:07)
[2016-09-28 20:38] VITALS: BP 138/68
[2016-09-28] MEDS: oxyCODONE/APAP 5/325 MG 1 TAB TAB PO PRN (21:32)
--- NOTE | 2016-09-28 22:35 | NUR ---
ROUNDS MADE, PT STILL AWAKE, COMPLAINS OF PAIN TO LEFT LOWER EXT. REPOSITIONED FOR COMFORT AND ENCOURAGED AND EDUCATED ABOUT DEEP BREATHING EXERCISES, RELAXATION. PT VERBALIZED UNDERSTANDING. WILL CONTINUE TO MONITOR. CALL LIGHT WITHIN REACH.
[2016-09-29] VITALS: BP 143/64
[2016-09-29] MEDS: HYDROcodone/APAP 10/325 MG 1 TAB TAB PO PRN (02:07)
[2016-09-29 04:00] VITALS: BP 130/57
[2016-09-29] MEDS: CLINDAMYCIN 600 MG in DEXTROSE 5% 50 ML IV SCH ×3 (04:56→20:31)
[2016-09-29] MEDS: MORPHINE SULFATE 2 MG/ML SYR IVP PRN ×3 (05:17→19:30)
[2016-09-29] MEDS: ALBUTEROL 0.083% 2.5 MG/3 ML NEBU INH SCH ×4 (07:28→19:17)
--- NOTE | 2016-09-29 07:28 | NUR ---
PT AWAKE AT THIS TIME, VERBALLY RESPONSIVE. NO C/O PAIN, NO S/S RESPIRATORY DISTRESS. ENDORSED TO NEXT SHIFT FOR CONTINUITY OF CARE. PT IN STABLE CONDITION
--- NOTE | 2016-09-29 07:29 | NUR ---
PT AWAKE AND ALERT AND ORIENTED X4, NO SIGNS OF ACUTE DISTRESS, BREATHING EVEN AND UNLABORED BILATERALLY, BOWEL SOUNDS ACTIVE IN ALL 4 QUADRANTS, BEDREST, SKIN INTACT EXCEPT S/P ORIF LEFT ANKLE, CAST COVERING LLE DRY AND INTACT NO DRAINAGE NOTED, PORT A CATH TO RIGHT UPPER CHEST PATENT WITH NO REDNESS AROUND SITE, BED IN LOW POSITION WITH BILATERAL HALF SIDE RAILS UP, CALL LIGHT WITHIN REACH.
[2016-09-29 08:00] VITALS: BP 135/63
[2016-09-29] MEDS: BACLOFEN 10 MG TAB PO SCH ×3 (08:33→16:35)
[2016-09-29] MEDS: AMIODARONE 200 MG TAB PO SCH (08:34)
[2016-09-29] MEDS: SENNA 8.6 MG TAB PO SCH ×2 (08:34→20:31)
[2016-09-29] MEDS: CARISOPRODOL 350 MG TAB PO SCH (08:34)
[2016-09-29] MEDS: methylPREDNISolone SS 40 MG/ML VIAL IVP SCH ×2 (08:35→20:31)
[2016-09-29] MEDS: clonazePAM 0.5 MG TAB PO SCH ×3 (08:35→16:36)
[2016-09-29] MEDS: oxyCODONE/APAP 5/325 MG 1 TAB TAB PO PRN ×2 (08:45→15:42)
--- NOTE | 2016-09-29 09:49 | NUR ---
09/29/16 RD FOLLOW UP COMPLETED PLEASE REFER TO NUTRITION PROGRESS NOTE UNDER CARE ACTIVITY FOR ESTIMATED NUTRITION NEEDS. RD RECOMMENDATIONS: 1. CONTINUE ON RENAL DIET TOLERATED. 2. RD WILL F/U 5-7 DAYS; LOW RISK. KECIA AGUILAR MS, RDN
[2016-09-29] MEDS ORDERED: SODIUM POLYSTYRENE 15 GM/60 ML UDBTL PO SCH (09:50)
[2016-09-29 12:00] VITALS: BP 114/62
[2016-09-29 16:00] VITALS: BP 115/47
[2016-09-29] MEDS: DEXTROSE 5% 1,000 ML IV SCH (16:37)
--- NOTE | 2016-09-29 19:30 | NUR ---
PT AWAKE AND ALERT, NO SIGNS OF ACUTE DISTRESS. BED IN LOW POSITION WITH BILATERAL HALF SIDE RAILS UP, CALL LIGHT WITHIN REACH. ENDORSED TO [employer]PER[employer] PRODUCER NURSE FOR CONTINUITY OF CARE.
--- NOTE | 2016-09-29 19:31 | NUR ---
RECEIVED REPORT, ASSUMED CARE. AAOX4, LYING COMFORTABLY IN BED. PT DENIES PAIN AT THIS TIME. NO ACTIVE BLEEDING TO THE SURGICAL SITE AT THIS TIME. CAST TO LEFT LOWER EXT PRESENT, CLEAN AND DRY. MALHOTRA CATH IN PLACE, DRAINING WELL. NO HEMATURIA AT THIS TIME. PORT A CATH TO RIGHT UPPER CHEST, CLEAN, INTACT AND PATENT. CALL LIGHT PLACED WITHIN EASY REACH. WILL CONTINUE TO MONITOR.
[2016-09-29 20:00] VITALS: BP 135/62
--- NOTE | 2016-09-29 20:24 | NUR ---
PT HAD THE URGE TO HAVE A BM, BED MARKHAM PROVIDED, PT SAID "ITS THERE BUT IT'S TOO HARD", SEEN WITH STOOL, DISIMPACT WITH VERY HARD STOOL MODERATE AMOUNT, NO BLEEDING NOTED, VERBALIZED FEELING BETTER, PERINEAL CARE DONE, REPOSITION Q2H.
[2016-09-29] MEDS: hydrOXYzine HCL 10 MG TAB PO SCH (20:31)
--- NOTE | 2016-09-29 22:49 | NUR ---
ROUNDS MADE, PT STILL AWAKE, WATCHING TV AT THIS TIME. ENCOURAGED TO TAKE SOME REST AND SLEEP. PT VERBALIZED UNDERSTANDING. PT INTERMITTENTLY C/O PAIN TO LEFT LEG S/P ORIF. REPOSITIONED FOR COMFORT. WILL CONTINUE TO MONITOR. CALL LIGHT WITHIN EASY REACH.
[2016-09-30] VITALS: BP 110/88
[2016-09-30] MEDS: MORPHINE SULFATE 2 MG/ML SYR IVP PRN (00:54)
--- NOTE | 2016-09-30 00:54 | NUR ---
PT C/O PAIN TO LEFT LOWER EXTREMITY SURGICAL SITE 02/19. ADMINISTER MORPHINE ORDERED. WILL CONTINUE TO MONITOR AND REASSESS FOR EFFECTIVENESS.
--- NOTE | 2016-09-30 02:30 | NUR ---
ROUNDS MADE, PT SOUND ASLEEP AT THIS TIME WITH NO S/S OF RESPIRATORY DISTRESS. NO FACIAL GRIMACING OR MOANING INDICATING PAIN. WILL CONTINUE TO MONITOR.
[2016-09-30 04:00] VITALS: BP 114/56
[2016-09-30] MEDS: oxyCODONE/APAP 5/325 MG 1 TAB TAB PO PRN ×2 (05:26→12:11)
--- NOTE | 2016-09-30 07:05 | NUR ---
RECEIVED REPORT FROM NIGHT NURSE AT BEDSIDE. PT IS SLEEPING COMFORTABLY WITH NO S/S OF DISTRESS ON 3L O2 VIA NC. PT HAS NOTED LFT LEG CAST DRY AND INTACT AND ELEVATED. PT HAS MALHOTRA CATHETER WITH YA URINE. PT BED IS LOWERED WITH CALL LIGHT WITHIN REACH. WILL CONTINUE TO MONITOR.
[2016-09-30] MEDS: ALBUTEROL 0.083% 2.5 MG/3 ML NEBU INH SCH ×2 (07:16→12:00)
--- NOTE | 2016-09-30 07:30 | NUR ---
PT SOUND ASLEEP AT THIS TIME. NO C/O PAIN, NO S/S RESPIRATORY DISTRESS. ENDORSED TO NEXT SHIFT FOR CONTINUITY OF CARE. PT IN STABLE CONDITION.
[2016-09-30 07:51] VITALS: BP 137/59
--- NOTE | 2016-09-30 08:00 | NUR ---
PT STATES SHE DOES NO WANT TO EAT BREAKFAST.
[2016-09-30] MEDS: BACLOFEN 10 MG TAB PO SCH ×2 (09:37→13:00)
[2016-09-30] MEDS: AMIODARONE 200 MG TAB PO SCH (09:38)
[2016-09-30] MEDS: SENNA 8.6 MG TAB PO SCH (09:39)
[2016-09-30] MEDS: methylPREDNISolone SS 40 MG/ML VIAL IVP SCH (09:40)
[2016-09-30] MEDS: clonazePAM 0.5 MG TAB PO SCH ×2 (09:43→13:00)
[2016-09-30] MEDS: HYDROcodone/APAP 10/325 MG 1 TAB TAB PO PRN (09:58)
--- NOTE | 2016-09-30 10:00 | NUR ---
ADMINISTERED SCHEDULED MEDICATION. PT TOLERATED WELL. PT IN BED AAOX4 ON 3L O2 VIA NC WITH NO S/S OF DISTRESS NOTED. WATCHING TV NOW.
[2016-09-30 12:00] VITALS: BP 109/62
--- NOTE | 2016-09-30 12:00 | NUR ---
GAVE REPORT TO KIMMIE AT [facility]. CALLED NEXT OF KIN HOWEVER NOT ABLE TO LEAVE A VOICEMAIL.
[2016-09-30] MEDS: IPRATROPIUM 0.02% 0.5 MG/2.5 ML NEBU INH PRN (12:04)
--- NOTE | 2016-09-30 12:15 | NUR ---
PT FOUND WITH SATURATION LEVEL OF 85%. PT IS BEING SEEN BY LV JOSE. WILL MONITOR.
--- NOTE | 2016-09-30 12:17 | NUR ---
POST HHN THERAPY INCREASED SUPPLEMENTAL OXYGEN TO 4 LPM VIA NC TO KEEP SATURATION GREATER THAN 88% LOW/RN AWARE FOUNDER AND CHIEF EXECUTIVE OFFICER TO MONITOR
--- NOTE | 2016-09-30 12:20 | NUR ---
PT IS BEING PLACED ON 4L VIA OXYMIZER. PT SATURATION AT 90%
[2016-09-30] MEDS: DEXTROSE 5% 1,000 ML IV SCH (12:40)
--- NOTE | 2016-09-30 13:00 | NUR ---
SCHEDULED MEDICATIONS NOT ADMINISTERED BC PT IN THE PROCESS OF BEING TRANSPORTED [place] [facility].
--- NOTE | 2016-09-30 13:30 | NUR ---
TRANSPORTERS ON SITE. GAVE REPORT TO VALERIE FROM [facility].
--- NOTE | 2016-09-30 14:00 | NUR ---
PT HAS BEEN DISCHARGED. ALL DISCHARGE INSTRUCTIONS GIVEN AND PAPERWORK SIGNED. ALL QUESTIONS ANSWERED. ALL BELONGINGS IN PT POSSESSION. TELE MONITOR REMOVED. [facility] TRANSFERRED PT [facility]. PT IN STABLE CONDITION.
[2016-12-03] MEDS ORDERED: ATIVAN0.5 MG PO (12:20)
[2016-12-07] MEDS ORDERED: LASIX40 MG PO (10:28)
[2016-12-07] MEDS ORDERED: PREDNISONE20 MG PO (10:28)
[2016-12-07] MEDS ORDERED: CARVEDILOL3.125 MG PO (11:13)
[2016-12-07] MEDS ORDERED: PULMICORT0.5 MG/2 M INH (11:13)
== END 2016-09-30 14:00 | DRG 853 ==
LOC: MED 15:59 → MTU 21:55
PROVIDERS: ADMIT Preventive Medicine Preventive Medicine/Occupational Environmental Medicine; ATTEND Preventive Medicine Preventive Medicine/Occupational Environmental Medicine
PROC: 2W3TX1Z Immobilization of Left Foot using Splint (ICD-10-PCS; principal; 2016-09-22)
PROC: 0QSHXZZ Reposition Left Tibia, External Approach (ICD-10-PCS; 2016-09-22)
PROC: 0QSKXZZ Reposition Left Fibula, External Approach (ICD-10-PCS; 2016-09-22)
PROC: 0QSH04Z Reposition Left Tibia with Internal Fixation Device, Open Approach (ICD-10-PCS; 2016-09-29)
PROC: BW1C1ZZ Fluoroscopy of Lower Extremity using Low Osmolar Contrast (ICD-10-PCS; 2016-09-29)
PROC: 0QSK04Z Reposition Left Fibula with Internal Fixation Device, Open Approach (ICD-10-PCS; 2016-09-29)
DX: A41.9 Sepsis, unspecified organism (principal); J18.9 Pneumonia, unspecified organism; E43 Unspecified severe protein-calorie malnutrition; N39.0 Urinary tract infection, site not specified; N17.9 Acute kidney failure, unspecified; J44.0 Chronic obstructive pulmonary disease with (acute) lower respiratory infection; J44.1 Chronic obstructive pulmonary disease with (acute) exacerbation; I13.0 Hypertensive heart and chronic kidney disease with heart failure and stage 1 through stage 4 chronic kidney disease, or unspecified chronic kidney disease; S82.852A Displaced trimalleolar fracture of left lower leg, initial encounter for closed fracture; D64.9 Anemia, unspecified; R73.9 Hyperglycemia, unspecified; I50.9 Heart failure, unspecified; N18.9 Chronic kidney disease, unspecified; I48.91 Unspecified atrial fibrillation; D47.3 Essential (hemorrhagic) thrombocythemia; E83.41 Hypermagnesemia; E88.09 Other disorders of plasma-protein metabolism, not elsewhere classified; E83.52 Hypercalcemia; E87.5 Hyperkalemia; R07.89 Other chest pain; K74.60 Unspecified cirrhosis of liver; T38.0X5A Adverse effect of glucocorticoids and synthetic analogues, initial encounter; W01.0XXA Fall on same level from slipping, tripping and stumbling without subsequent striking against object, initial encounter; Y92.009 Unspecified place in unspecified non-institutional (private) residence as the place of occurrence of the external cause; Z90.10 Acquired absence of unspecified breast and nipple; Z90.5 Acquired absence of kidney; Y93.89 Activity, other specified; Y99.8 Other external cause status; Z88.2 Allergy status to sulfonamides; Z79.899 Other long term (current) drug therapy; Z68.31 Body mass index [BMI] 31.0-31.9, adult; Z85.3 Personal history of malignant neoplasm of breast; Z86.73 Personal history of transient ischemic attack (TIA), and cerebral infarction without residual deficits

== ENCOUNTER 2016-12-03 11:57 | Inpatient (IN) | payer OTHER ==
[~2016-12-03] VITALS: Ht 167.6 cm; Wt 100.7 kg
--- NOTE | 2016-12-03 11:55 | NUR ---
PT BROUGHT TO ED ON CPAP FOR RESPIRATORY DISTRESS THEN AT [address] PL[address] ON JAIRO V60 BIPAP WITH SETTINGS 12\5 RR12 FIO2 40% B\S WHEEZING BILATERALLY, LARGE FACE MASK WITH PROTETIC GEL IN PLACE AMBU BAG AT SIDE OF BIPAP AND BIPAP PLUGGED INTO RED OUTLET ALARMS ON AND FUNCTIONING PROPERLY AT 1205 ABG DRAWN ON RR WITHOUT INCIDENT AND AT 1210 RESULTS GIVEN TO GHASSAN ABBOTT, CHANGED FACE MASK TO MED SIZE
[~2016-12-03 11:57] MED LIST changes: +ACET-1182 PO; +ACET-3783 PO; +ACET-4275 PO; -ADVAIR DISKUS 51 DSK IH; +ALBU0.0912 IH; +AMIO200T PO; +ASPI-1093 PO; +ATA10 PO; -ATIVAN0.5 MG PO; +ATRN INH; +BACL10TA4 PO; +CLON0.5T PO; +CLOP75TA PO; -CORDARONE200 MG PO; -ECOTRIN81 MG PO; -FLAGYL250 MG PO; +FLUT1DSK4 IH; -LACTINEX1 TAB.CHEW PO; -LASIX20 MG PO; -LEVAQUIN250 MG IV; -LEVAQUIN500 MG PO; -LOPRESSOR25 MG PO; -MACROBID100 M1 PO; -PERCOCET 325 MG1 TA4 PO; -PLAVIX75 MG PO; +PRON INH; +SENN8.6T99 PO; -SOMA350 MG PO; -SPIRIVA MD18 MCG/CAP INH; -VENTOLIN H0.09 MG/Ac IH; -ZOCOR20 MG PO
--- NOTE | 2016-12-03 11:57 | NUR ---
Patient BIBA to bed 3 at this time.
[2016-12-03 12:00] VITALS: BP 99/75
--- NOTE | 2016-12-03 12:00 | NUR ---
RT at bedside with Bi-pap
[2016-12-03] MEDS ORDERED: AZITHROMYCIN 500 MG in DEXTROSE 5% 250 ML IV ONE (12:05)
[2016-12-03] MEDS ORDERED: cefTRIAXone 1,000 MG in DEXT 5% MINI-BAG PLUS 50 ML IV ONE (12:05)
--- NOTE | 2016-12-03 12:05 | NUR ---
DR FERRELL EVALUATING PT AT BEDSIDE ON BIPAP
[2016-12-03 12:06] VITALS: BP 99/75
--- NOTE | 2016-12-03 12:10 | NUR ---
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 ER MD MADE AWARE OF PT STATUS.
[2016-12-03 12:13] LABS: BLOOD GAS PCO2 50.7 mmHg (20-50); BLOOD GAS PH 7.381 (7.35-7.45)
[2016-12-03 12:14] LABS: BLOOD GAS BASE EXCESS 3.5 mmol/L (-2.0-2.0); BLOOD GAS HCO3 29.4 mmol/L; BLOOD GAS O2 SAT% 99.7 % (92.0-98.5)
[2016-12-03] MEDS ORDERED: ALBUTEROL 0.083% 2.5 MG/3 ML NEBU INH ONE (12:15)
[2016-12-03] MEDS ORDERED: methylPREDNISolone SS 125 MG/2 ML VIAL IVP ONE (12:15)
[2016-12-03] MEDS ORDERED: ALBUTEROL SULFATE/IPRATROPIU 3 ML SOL IH ONE (12:15)
[2016-12-03] MEDS ORDERED: AZITHROMYCIN 500 MG INJ VIAL IV ONE (12:18)
[2016-12-03] MEDS ORDERED: cefTRIAXone 1,000 MG VIAL ONE (12:18)
[2016-12-03] MEDS ORDERED: ATI.5 PO (12:20)
[2016-12-03 12:34] LABS: HEMOGLOBIN 10.6 g/dL (12.0-16.0); MEAN CORPUSCULAR HEMOGLOBIN 29 pg (27-31); MEAN CORPUSCULAR HGB CONC 32 g/dL (33-37); MEAN CORPUSCULAR VOLUME 92 fL (80-94); PLATELET COUNT (AUTO) 303 K/uL (140-450); RED CELL DISTRIBUTION WIDTH 15.1 % (11.6-13.7); WHITE BLOOD COUNT (AUTO) 13.5 K/uL (4.8-10.8)
[2016-12-03 12:50] LABS: ANION GAP 9.2 (8-16); CALCIUM 8.8 mg/dL (8.5-10.1); CARBON DIOXIDE 32.4 mmol/L (21-32); CHLORIDE 99 mmol/L (98-107); CREATININE 1.1 mg/dL (0.6-1.3); GLUCOSE 152 mg/dL (74-106); POTASSIUM 4.6 mmol/L (3.5-5.1); SODIUM SERUM 136 mmol/L (136-145); UREA NITROGEN, BLOOD 18 mg/dL (7-18)
[2016-12-03 12:56] LABS: ALANINE AMINOTRANSFERASE 11 U/L (14-59); ALBUMIN 2.7 g/dL (3.4-5.0); ALKALINE PHOSPHATASE 106 U/L (46-116); ASPARTATE AMINOTRANSFERASE 12 U/L (15-37); BAND % (MANUAL) 8 % (0-8); LYMPHOCYTES % (MANUAL) 10 % (20-46); MONOCYTES % (MANUAL) 2 % (5-12); NEUTROPHILS % (MANUAL) 80 (43-65); TOTAL BILIRUBIN 0.6 mg/dL (0.0-1.0); TOTAL PROTEIN, SERUM 6.9 g/dL (6.4-8.2)
[2016-12-03 13:00] LABS: PARTIAL THROMBOPLASTIN TIME 30.2 secs (22-35.6); PROTHROMBIN TIME 10.5 secs (10.8-13.4)
[2016-12-03 13:14] LABS: LACTIC ACID 1.2 mmol/L (0.4-2.0)
--- NOTE | 2016-12-03 13:47 | NUR ---
BIPAP CHECK, READJUSTED FACE MASK, PT IS SLEEPING WITH FAMILY AT BEDSIDE NO CHANGES MADE TO BIPAP
[2016-12-03] MEDS: NACL 0.9% 1,000 ML IV SCH (14:09)
[2016-12-03] MEDS ORDERED: HYDROcodone/APAP 7.5/325 MG 1 TAB PO PRN (14:10)
[2016-12-03] MEDS ORDERED: DOCUSATE SODIUM 100 MG GELCAP PO PRN (14:10)
[2016-12-03] MEDS ORDERED: ACETAMINOPHEN 325 MG TAB PO PRN (14:10)
--- NOTE | 2016-12-03 14:10 | NUR ---
PT PLACED ON 45% VENTI MASK AND DR. FERRELL NOTIFIED OF CHANGES MADE
--- NOTE | 2016-12-03 14:35 | NUR ---
Patient will be admitted to care of DR PAREDES. Admited to TELE. Will go to room 124A. Belongings list completed. Report to ANDREA MCCORD.
[2016-12-03] MEDS ORDERED: FUROSEMIDE 20 MG/2 ML VIAL IVP SCH (14:47)
[2016-12-03 14:51] LABS: CHOL/HDL RATIO 2.9 (1-4.5); FREE T4 (FREE THYROXINE) 1.59 ng/dL (0.76-1.46)
--- NOTE | 2016-12-03 14:52 | NUR ---
RECEIVED REPORT FROM JOSE MENDEZ IN ER. PT AWAKE AND ALERT, NO SIGNS OF ACUTE DISTRESS. BOWEL SOUNDS ACTIVE IN ALL 4 QUADRANTS, BOWEL AND BLADDER INCONTINENCE. SKIN INTACT WITH DRESSING AROUND LEFT ANKLE FROM PREVIOUS FRACTURE. BEDBOUND. PORT O CATH ON RIGHT UPPER CHEST PATENT AND ASYMPTOMATIC. ORIENTED PATIENT TO HOSPITAL AND TO UNIT, PT VERBALIZED UNDERSTANDING, NEEDS REINFORCEMENT. BED IN LOW POSITION WITH BED ALARM ON, CALL LIGHT WITHIN REACH, TELE MONITOR IN PLACE. WILL CONTINUE TO MONITOR.
[2016-12-03] MEDS ORDERED: ALBUTEROL SULFATE/IPRATROPIU 3 ML SOL IH PRN (14:55)
--- NOTE | 2016-12-03 15:13 | NUR ---
PT PLACED ON 3LNC TO KEEP O2 SAT ABOVE 92%. O2 SAT IS 95% PT IS RESTING WITH NO SIGNS OF DISTRESS NOTED AT THIS TIME
--- NOTE | 2016-12-03 17:00 | NUR ---
PATIENT SLEEPING, NO SIGNS OF ACUTE DISTRESS. BED IN LOW POSTION WITH SAFETY CHECKS ON, CALL LIGHT WITHIN REACH. OXYGEN SATURATION 94% ON 3L NC. WILL CONTINUE TO MONITOR.
[2016-12-03 18:15] VITALS: BP 112/72
[2016-12-03] MEDS: ALBUTEROL SULFATE/IPRATROPIU 3 ML SOL IH SCH (19:04)
--- NOTE | 2016-12-03 19:29 | NUR ---
PT SLEEPING, NO SIGNS OF ACUTE DISTRESS. ENDORSED TO SATIN FINISHER NURSE FOR CONTINUITY OF CARE.
--- NOTE | 2016-12-03 19:30 | NUR ---
RECEIVED REPORT FROM AM NURSE. PT IS AOX4, ASLEEP, BUT AROUSABLE TO VOICE. NO S/S OF DISTRESS. NO COMPLAINTS OF PAIN AT THIS TIME. WITH AN IV ON THE RIGHT CHEST PORTACATH, INTACT. WITH AN O2 INHALATION VIA NC AT 3L, SATURATING AT 94%. RE-ORIENTED PT TO UNIT. WILL CONTINUE TO MONITOR. CALL LIGHT WITHIN REACH. SAFETY CHECKS IN PLACE.
[2016-12-03 20:00] VITALS: BP 126/59
[2016-12-03] MEDS: MORPHINE SULFATE 2 MG/ML SYR IVP PRN (20:24)
[2016-12-03] MEDS ORDERED: traZODone 50 MG TAB PO SCH (21:25)
--- NOTE | 2016-12-03 21:30 | NUR ---
DUE MEDS GIVEN, NO S/S OF DISTRESS. WILL CONTINUE TO MONITOR.
[2016-12-03] MEDS: methylPREDNISolone SS 125 MG/2 ML VIAL IVP SCH (21:35)
[2016-12-04] VITALS (10 sets, daily range): BP systolic 104–133; BP diastolic 47–74
--- NOTE | 2016-12-04 | NUR ---
VITAL SIGNS TAKEN AND IS STABLE. NO S/S OF DISTRESS. NO COMPLAINTS OF PAIN. WILL CONTINUE TO MONITOR. CALL LIGHT WITHIN REACH. SAFETY CHECKS IN PLACE.
[2016-12-04] MEDS: ALBUTEROL SULFATE/IPRATROPIU 3 ML SOL IH SCH ×5 (01:36→23:00)
[2016-12-04] MEDS: BUDESONIDE 0.5 MG/2 ML NEBU INH SCH ×3 (01:39→19:02)
--- NOTE | 2016-12-04 02:20 | NUR ---
MADE ROUNDS, PT SEEN ASLEEP. NO S/S OF DISTRESS. WILL CONTINUE TO MONITOR. SAFETY CHECKS IN PLACE. CALL LIGHT WITHIN REACH.
--- NOTE | 2016-12-04 04:15 | NUR ---
VS TAKEN, STABLE. NO S/S OF DISTRESS. NO COMPLAINTS OF PAIN. WILL CONTINUE TO MONITOR. SAFETY CHECKS IN PLACE.
[2016-12-04] MEDS: methylPREDNISolone SS 125 MG/2 ML VIAL IVP SCH ×2 (04:40→12:40)
--- NOTE | 2016-12-04 04:50 | NUR ---
EDUCATED TO THE PATIENT THAT WHEN HE NEEDS TO GO URINATE TO URINATE INTO THE CUP, NEEDS RE-INFORCEMENT.
[2016-12-04] MEDS: MORPHINE SULFATE 2 MG/ML SYR IVP PRN (05:42)
[2016-12-04 06:14] LABS: BASOPHILS % (AUTO) 0.3 % (0.0-2.0); EOSINOPHILS # (AUTO) 0.1 K/uL (0-0.4); EOSINOPHILS % (AUTO) 1.4 % (0.0-4.0); HEMATOCRIT 31.3 % (36-48); LYMPHOCYTES # (AUTO) 0.3 K/uL (2.5-16.5); LYMPHOCYTES % (AUTO) 6.1 % (20.5-51.1); MEAN CORPUSCULAR HEMOGLOBIN 29 pg (27-31); MEAN CORPUSCULAR HGB CONC 32 g/dL (33-37); MEAN CORPUSCULAR VOLUME 91 fL (80-94); MONOCYTES % (AUTO) 0.4 % (1.7-9.3); NEUTROPHILS # (AUTO) 4.7 K/uL (1.8-7.7); NEUTROPHILS % (AUTO) 91.8 % (42.2-75.2); PLATELET COUNT (AUTO) 274 K/uL (140-450); RED BLOOD CELL COUNT(AUTO) 3.43 MIL/uL (4.20-5.40); RED CELL DISTRIBUTION WIDTH 14.5 % (11.6-13.7)
[2016-12-04 06:33] LABS: ALBUMIN 2.4 g/dL (3.4-5.0); PHOSPHORUS 4.6 mg/dL (2.5-4.9)
[2016-12-04] MEDS: NACL 0.9% 1,000 ML IV SCH (06:45)
[2016-12-04 07:03] LABS: CHLORIDE 100 mmol/L (98-107); POTASSIUM 4.5 mmol/L (3.5-5.1); SODIUM SERUM 139 mmol/L (136-145); WHITE BLOOD COUNT (AUTO) 5.1 K/uL (4.8-10.8)
[2016-12-04 07:04] LABS: ANION GAP 8.2 (8-16); CALCIUM 8.8 mg/dL (8.5-10.1); CARBON DIOXIDE 35.3 mmol/L (21-32); CREATININE 1.2 mg/dL (0.6-1.3); GLUCOSE 145 mg/dL (74-106); UREA NITROGEN, BLOOD 21 mg/dL (7-18)
--- NOTE | 2016-12-04 07:07 | NUR ---
PLACED PT ON 3L N\C PER PT HOME USE AT 3L
--- NOTE | 2016-12-04 07:17 | NUR ---
ENDORSED TO AM NURSE FOR CONTINUITY OF CARE. IN STABLE CONDITION.
--- NOTE | 2016-12-04 07:18 | NUR ---
RECEIVED PT IN BED. AWAKE. ALERT ORIENTEDX3. NO SOB NOTED. ON O2 AT 3LPM VIA NC. SATING AT 96%. DENIES ANY PAIN OR DISCOMFORT AT THIS TIME. POSITIVE BOWEL SOUNDS NOTED ON FOUR QUADRANTS. PT ON BEDREST. PT INCONTINENT. KEPT CLEAN AND DRY. SAFETY PRECAUTION IN PLACE. CALL LIGHT WITHIN REACH.
[2016-12-04] MEDS ORDERED: FUROSEMIDE 100 MG/10 ML VIAL IV SCH (08:44)
[2016-12-04 08:49] LABS: T4 (THYROXINE) 13.3 ug/dL (4.5-12.0)
[2016-12-04] MEDS: CLOPIDOGREL 75 MG TAB PO SCH (08:56)
[2016-12-04] MEDS: oxyCODONE/APAP 5/325 MG 1 TAB TAB PO PRN ×3 (08:56→21:45)
[2016-12-04] MEDS: ECOTRIN 81 MG TABEC PO SCH (08:56)
[2016-12-04] MEDS: AMIODARONE 200 MG TAB PO SCH (08:56)
--- NOTE | 2016-12-04 09:00 | NUR ---
PHYSICAL THERAPIST CAME TO SEE PT.
--- NOTE | 2016-12-04 09:15 | NUR ---
DR. CARVALHO MADE AWARE OF LATEST BLOOD PRESSURE 105/47 HR 92 AND PT HAS AN ORDER FOR LASIX 40MG IVP. WITH ORDERS MADE AND CARRIED OUT
--- NOTE | 2016-12-04 09:15 | NUR ---
PATIENT HAS BEEN SCREENED AND CATEGORIZED HIGH NUTRITION RISK. PATIENT WILL BE SEEN WITHIN 1-2 DAYS OF ADMISSION. 12/04/16-12/05/[address]
[2016-12-04] MEDS ORDERED: FUROSEMIDE 20 MG/2 ML VIAL IVP SCH (09:26)
--- NOTE | 2016-12-04 10:29 | NUR ---
RADIOLOGY STAFF KAVITHA CAME TO RIDING COACH PT FOR CT OF HEAD. PT AWAKE. ALERT ORIENTEDX3. PT ON O2 AT 3LPM NC. TRANSPORTED WITH BED. LATEST VITAL SIGNS FOLLOWS. BP 127/65 HR 98 RR 21. NO SOB NOTED. DENIES ANY PAIN OR DISCOMFORT AT THIS TIME. PROVIDED TICKET TO RIDE. PAIR OF EARRINGS AND NECKLACE WAS REMOVED AND PLACED IN A LOCK DOORS PREFITTER MST STATION. TO BE RETURNED WHEN PT COMES BACK AND PT VERBALIZED UNDERSTANDING.
--- NOTE | 2016-12-04 10:54 | NUR ---
RADIOLOGY STAFF KAVITHA CAME TO BRING PT BACK FROM HEAD CT. PT ALERT, AWAKE ABLE TO MAKE NEEDS KNOW. PAIR OF ROUND EARRINGS GIVEN BACK TO PT AND HER NECKLACE. ASSISTED PT ON PUTTING THEM ON. PT VERBALIZED THAT THOSE ARE HER JEWELRY AND SAFETY LOCKED UPON WEARING IT BACK. CHARGE NURSE MIRA MENDEZ WITNESSED. HOOKED BACK TO IVF. AND PT MAINTAINED ON O2 AT 3LPM VIA NC.
--- NOTE | 2016-12-04 11:38 | NUR ---
COLLECTED URINE SPECIMEN FOR URINALYSIS PROFILE AND URINE DRUG SCREEN VIA STRAIGHT CATHETER. PT COOPERATIVE. SENT TO LABS.
[2016-12-04 11:56] LABS: APPEARANCE,URINE CLEAR (CLEAR); BILIRUBIN,URINE NEGATIVE (NEGATIVE); BLOOD, URINE NEGATIVE (NEGATIVE); COLOR,URINE YELLOW (YELLOW); LEUKOCYTE ESTERASE ,URINE NEGATIVE (NEGATIVE); NITRITE, URINE NEGATIVE (NEGATIVE); PROTEIN,URINE NEGATIVE (NEGATIVE); UGLUCOSE NEGATIVE (NEGATIVE); UROBILINOGEN,URINE 0.2 EU/dL (0.2 - 1)
[2016-12-04 12:02] LABS: AMPHETAMINE, URINE NEG. ng/ml (NEG <=1000); BARBITURATE, URINE NEG. ng/ml (NEG <=200); BENZODIAZEPINE, URINE NEG. ng/mL (NEG <=200); CANNABINOID, URINE NEG. ng/mL (NEG <=50); COCAINE, URINE NEG. ng/mL (NEG <=300); OPIATE, URINE POS. ng/mL (NEG <=2000); PHENCYCLIDINE SCREEN,URINE NEG. ng/mL (NEG <=25)
[2016-12-04 12:48] LABS: BACTERIA,URINE None Seen /HPF (None Seen); RBC,URINE NONE SEEN /HPF (0-5); SQUAMOUS EPITHELIAL CELL,UR 0-3 (FEW) /LPF (0-3 (FEW)); WBC,URINE 0-5 (RARE) /HPF (0-5)
--- NOTE | 2016-12-04 19:28 | NUR ---
PT KEPT CLEAN, DRY AND COMFORTABLE, NEEDS ATTENDED. DENIES ANY PAIN OR DISCOMFORT AT THIS TIME. MAINTAINED ON O2 AT 3LPM SATING AT 94-96%. ENDORSED TO NEXT SHIFT ON STABLE CONDITION FOR CONTINUITY OF CARE.
--- NOTE | 2016-12-04 19:30 | NUR ---
RECEIVED PT IN STABLE CONDITION FROM AM NURSE. AWAKE,ALERT AND ORIENTED X4. ON TELE MONITOR. BEDREST. WITH O23L/NC. NO ACUTE DISTRESS NOR DISCOMFORT NOTED. IVF INFUSING WELL ON THE RT CHEST NA CATH. CLEAR AND PATENT. LT FOOT WITH JAREN WRAP ELEVATED ON PILLOW. NO C/O PAIN AT THIS TIME. PLAN OF CARE DISCUSSED AND VERBALIZED UNDERSTANDING. BED ON LOW POSITION. CALL LIGHT PLACED WITHIN EASY REACH. WILL CONTINUE TO MONITOR.
[2016-12-04] MEDS ORDERED: methylPREDNISolone SS 40 MG/ML VIAL IVP SCH (20:50)
[2016-12-04] MEDS: methylPREDNISolone SS 40 MG/ML VIAL IVP SCH (21:35)
--- NOTE | 2016-12-04 21:35 | NUR ---
dr Francois order bipap for the pt, placed bipap in the room, explained pt that she needs to keep the mask for the night, and pt start yelling that she can not do it, refusing to used.RN notified and on nc her sat are 98%, without any resp distress,
[2016-12-04] MEDS ORDERED: methylPREDNISolone SS 40 MG/ML VIAL ONE (21:39)
--- NOTE | 2016-12-04 23:59 | NUR ---
PT C/O ANXIETY. PAGED DR. BUCHANAN AND CALLED BACK. MADE AWARE .
[2016-12-05] MEDS: LORazepam 0.5 MG TAB PO PRN ×2 (00:29→21:21)
[2016-12-05] MEDS: ALBUTEROL SULFATE/IPRATROPIU 3 ML SOL IH SCH ×2 (03:00→07:00)
--- NOTE | 2016-12-05 03:35 | NUR ---
PT REFUSED HHN TX AGAIN, SHE SAID THAT SHE STEEL SHAKING , RN NOTIFIED , RN KNEW THAT PT COMPLAINED. PT IS NOT SOB, SAT 98% ON 3L NC, BS ARE BILAT DIMINISHED
[2016-12-05 04:00] VITALS: BP 136/70
[2016-12-05] MEDS: methylPREDNISolone SS 40 MG/ML VIAL IVP SCH ×2 (05:35→13:03)
[2016-12-05] MEDS ORDERED: LORazepam 2 MG/ML VIAL IVP PRN (05:55)
[2016-12-05 06:12] LABS: BASOPHILS % (AUTO) 0.4 % (0.0-2.0); EOSINOPHILS # (AUTO) 0.1 K/uL (0-0.4); EOSINOPHILS % (AUTO) 1.1 % (0.0-4.0); HEMATOCRIT 30.9 % (36-48); HEMOGLOBIN 9.9 g/dL (12.0-16.0); LYMPHOCYTES # (AUTO) 0.4 K/uL (2.5-16.5); LYMPHOCYTES % (AUTO) 6.2 % (20.5-51.1); MEAN CORPUSCULAR HEMOGLOBIN 29 pg (27-31); MEAN CORPUSCULAR HGB CONC 32 g/dL (33-37); MEAN CORPUSCULAR VOLUME 91 fL (80-94); MONOCYTES # (AUTO) 0.1 K/uL (0.8-1.0); NEUTROPHILS # (AUTO) 5.4 K/uL (1.8-7.7); NEUTROPHILS % (AUTO) 90.3 % (42.2-75.2); PLATELET COUNT (AUTO) 336 K/uL (140-450); RED BLOOD CELL COUNT(AUTO) 3.41 MIL/uL (4.20-5.40); RED CELL DISTRIBUTION WIDTH 14.8 % (11.6-13.7)
[2016-12-05 06:31] LABS: PARTIAL THROMBOPLASTIN TIME 26.8 secs (22-35.6); PROTHROMBIN TIME 10.1 secs (10.8-13.4)
[2016-12-05 06:37] LABS: CALCIUM 8.6 mg/dL (8.5-10.1); CREATININE 1.2 mg/dL (0.6-1.3); GLUCOSE 138 mg/dL (74-106); UREA NITROGEN, BLOOD 32 mg/dL (7-18)
[2016-12-05 06:41] LABS: MAGNESIUM 2.2 mg/dL (1.8-2.4); PHOSPHORUS 3.7 mg/dL (2.5-4.9)
[2016-12-05 06:42] LABS: ANION GAP 8.9 (8-16); CARBON DIOXIDE 34.7 mmol/L (21-32); CHLORIDE 99 mmol/L (98-107); POTASSIUM 4.6 mmol/L (3.5-5.1); SODIUM SERUM 138 mmol/L (136-145)
[2016-12-05] MEDS: NACL 0.9% 1,000 ML IV SCH (06:49)
--- NOTE | 2016-12-05 07:20 | NUR ---
TALKED TO DR. FRANK @4797 RE: ATIVAN PRN WHICH IS NOT DUE YET AND PT STILL ANXIOUS. HE SAID WILL SEE PT THIS AM AND WILL TAKE CARE OF THIS. ENDORSED IN STABLE CONDITION TO AM NURSE FOR CONTINUITY OF CARE.
--- NOTE | 2016-12-05 07:21 | NUR ---
RECEIVED PT FROM TRINY RN AT BEDSIDE. PT IS ALERT AWAKE AND ORIENTED. PT HAS R CHEST ISBELL CATH RUNNING NS@10ML/HR. NO DISTRESS NOTED. PT IS ON NC 2L SAT 94%. PT STATED SHE IS ANXIOUS. WILL SPEAK TO REGARDING ATIVAN ORDER. NO OTHER COMPLAINTS NO PAIN AT THIS TIME. CALL LIGHT WITHIN REACH. WILL CONTINUE TO MONITOR.
[2016-12-05 08:00] VITALS: BP 139/70
[2016-12-05] MEDS ORDERED: LORazepam 2 MG/ML VIAL IM/IVP PRN (08:00)
[2016-12-05] MEDS: BUDESONIDE 0.5 MG/2 ML NEBU INH SCH ×2 (08:00→19:30)
--- NOTE | 2016-12-05 08:00 | NUR ---
AWAKE AND ALERT RESPONSIVE TO MRI ASSISTANT VERBAL COMMANDS DR. ROX MANN AT BEDSIDE PATIENT REFUSING [place]ONE[place] HHN THERAPY DUE TO ADVERSE REACTIONS OF INCREASED HR AND SHAKINESS DR. ROX MANN TO DC Q4 AND LEAVE PRN PULMICORT GIVEN ORDERED RECEIVED ON SUPPLEMENTAL OXYGEN AT 2 LPM PATIENT STATES THAT SHE "STRUGGLES WITH THIS LPM" INCREASED FIO2 TO 3 LPM JAIRO V60 BIPAP AT BEDSIDE
[2016-12-05] MEDS ORDERED: IPRATROPIUM 0.02% 0.5 MG/2.5 ML NEBU INH PRN (08:25)
[2016-12-05 08:26] LABS: BLOOD GAS BASE EXCESS 8.3 mmol/L (-2.0-2.0); BLOOD GAS HCO3 33.1 mmol/L; BLOOD GAS O2 SAT% 93.7 % (92.0-98.5); BLOOD GAS PCO2 47.3 mmHg (20-50); BLOOD GAS PH 7.463 (7.35-7.45); BLOOD GAS PO2 69.9 mmHg
[2016-12-05] MEDS: ONDANSETRON 4 MG/2 ML VIAL IM/IVP PRN ×2 (08:45→13:04)
[2016-12-05] MEDS: FUROSEMIDE 20 MG/2 ML VIAL IVP SCH (08:45)
[2016-12-05] MEDS: CLOPIDOGREL 75 MG TAB PO SCH (08:51)
[2016-12-05] MEDS: CARVEDILOL 3.125 MG TAB PO SCH ×2 (08:51→20:47)
[2016-12-05] MEDS: ECOTRIN 81 MG TABEC PO SCH (08:51)
[2016-12-05] MEDS: AMIODARONE 200 MG TAB PO SCH (08:51)
[2016-12-05] MEDS: LORazepam 0.5 MG TAB PO SCH ×3 (08:51→16:47)
[2016-12-05] MEDS ORDERED: FUROSEMIDE 100 MG/10 ML VIAL IV SCH (09:00)
--- NOTE | 2016-12-05 09:00 | NUR ---
PT TOLERATED MORNING MEDS WELL. CALL LIGHT WITHIN REACH. WILL CONTINUE TO MONITOR.
--- NOTE | 2016-12-05 11:15 | NUR ---
REVIEWED PATIENT REFUSAL TO USE BIPAP WITH DR. NYDIA CARVALHO MD REFERRED TO DR. IBETH LAND PATIENT REFUSAL DOCUMENTED BY DR. CARVALHO BIPAP REMOVED FROM ROOM
--- NOTE | 2016-12-05 11:30 | NUR ---
PT HAS NO COMPLAINTS AT THIS TIME. CALL LIGHT WITHIN REACH. WILL CONTINUE TO MONITOR.
[2016-12-05] MEDS: IPRATROPIUM 0.02% 0.5 MG/2.5 ML NEBU INH SCH ×4 (11:58→23:18)
[2016-12-05 12:00] VITALS: BP 139/76
--- NOTE | 2016-12-05 13:00 | NUR ---
PT TOLERATED 1300 MEDS WELL. CALL LIGHT WITHIN REACH. WILL CONTINUE TO MONITOR.
[2016-12-05] MEDS: oxyCODONE/APAP 5/325 MG 1 TAB TAB PO PRN ×2 (13:55→21:21)
--- NOTE | 2016-12-05 14:12 | NUR ---
12/05/16 RD INITIAL ASSESSMENT COMPLETED PLEASE REFER TO NUTRITION ASSESSMENT UNDER CARE ACTIVITY FOR ESTIMATED NUTRITIONAL NEEDS. 1. CONTINUE CARDIAC DIET 2. RD TO FOLLOW-UP 2-3 DAYS; HIGH RISK GEORGINA RESENDEZ RD
--- NOTE | 2016-12-05 14:30 | NUR ---
PHYSICAL THERAPY WORKED WITH PT. PT WAS ABLE TO SIT AT THE EDGE OF BED FOR A WHILE BUT QUICKLY BECAME TIRED. BACK TO BED. CALL LIGHT WITHIN REACH. WILL CONTINUE TO MONITOR.
--- NOTE | 2016-12-05 15:56 | NUR ---
PHYSICAL THERAPY CO-SIGN The Physical Therapy Progress Notes documented by Field Marketing Specialist have been reviewed. Reviewed/Co-Signed by: Linnea Song PT Documentation Done by:MICHAEL SAEED PHARM SPEC POC REVIEWED W/PHARM SPEC; Pt STATES SHE IS NWB (L)MAHESH, H/O L ANKLE FX ORIF, USES CAMBOOT IN SNF, HOME O2, ABLE TO PROPEL W/C IN SNF; WILL BENEFIT W/ P.T. AFTER ACUTE STAY. Addendum: 12/05/16 at 1557 by Linnea Song PT Amended: Links added.
[2016-12-05 16:00] VITALS: BP 122/59
--- NOTE | 2016-12-05 16:00 | NUR ---
CLARICE LOBO. PT HAS NO COMPLAINTS AT THIS TIME. CALL LIGHT WITHIN REACH. WILL CONTINUE TO MONITOR.
--- NOTE | 2016-12-05 17:42 | NUR ---
ASSISTED PT WITH SETTING UP DINNER TRAY. PT SAT UP IN BED TO EAT DINNER. TOLERATING WELL. CALL LIGHT WITHIN REACH. WILL CONTINUE TO MONITOR.
--- NOTE | 2016-12-05 19:10 | NUR ---
ENDORSED CARE TO PROFESSOR OF LAW NURSE AT BEDSIDE. PT IN STABLE CONDITION.
--- NOTE | 2016-12-05 19:15 | NUR ---
RECEIVED REPORT FROM AM NURSE. PT RESTING IN BED, SEMIFOWLERS, AOX4, ABLE TO VERBALIZE NEEDS. PT DENIES CHEST PAIN, SOB OR S/S OF ACUTE DISTRESS. PT C/O PAIN ON LLE BUT CAN TOLERATE PAIN AT THIS TIME, DENIES PAIN MEDICATION AT THIS TIME, PT ENCOURAGED TO USE CALL LIGHT WHEN NEEDED. PT ON 3L O2 NC. RIGHT CHEST PORTACATH NOTED. JAREN BANDAGE ON LLE NOTED, CLEAN DRY AND INTACT. LEFT UPPER EXTREMITY PRECAUTIONS ENSURED. RIGHT CHEST PORTACATH, ASYMPTOMATIC, PATENT AND INTACT. IVF INFUSING WELL. DISCUSSED AND REVIEWED PLAN OF CARE WITH PT. PT VERBALIZED UNDERSTANDING. SAFETY MEASURES ENSURED. CALL LIGHT WITHIN REACH. WILL CONTINUE TO MONITOR.
[2016-12-05 20:00] VITALS: BP 116/58
[2016-12-05] MEDS: LISINOPRIL 5 MG TAB PO SCH (20:47)
--- NOTE | 2016-12-05 20:54 | NUR ---
ADMINISTERED DUE MEDICATIONS WITH EDUCATION. PT VERBALIZED UNDERSTANDING, TOLERATED MEDS WELL. SAFETY MEASURES ENSURED. CALL LIGHT WITHIN REACH. WILL CONTINUE TO MONITOR.
--- NOTE | 2016-12-05 21:22 | NUR ---
PT C/O ANXIETY, PRN ATIVAN ADMINISTERED WITH EDUCATION. PT C/O PAIN. SEE PAIN ASSESSMENT. ADMINISTERED PRN PERCOCET ORDERED. SAFETY MEASURES ENSURED. CALL LIGHT WITHIN REACH.
--- NOTE | 2016-12-05 22:00 | NUR ---
PT TURNED AND REPOSITIONED, OFFLOADED PRESSURE AREAS. PT TOLERATED WELL. SAFETY MEASURES ENSURED. CALL LIGHT WITHIN REACH. WILL CONTINUE TO MONITOR.
[2016-12-06] VITALS: BP 116/59
[2016-12-06] MEDS: IPRATROPIUM 0.02% 0.5 MG/2.5 ML NEBU INH SCH ×6 (03:00→23:00)
--- NOTE | 2016-12-06 03:30 | NUR ---
PT REFUSED HHN TX. WILL CONTINUE TO MONITOR.
--- NOTE | 2016-12-06 04:00 | NUR ---
PT CLEANED, TURNED AND REPOSITIONED BY CNAs, OFFLOADED PRESSURE AREAS. PT TOLERATED WELL. CONDITION STABLE. ALL NEEDS MET. SAFETY MEASURES ENSURED. CALL LIGHT WITHIN REACH. WILL CONTINUE TO MONITOR.
[2016-12-06 06:29] LABS: ANION GAP 6.5 (8-16); CALCIUM 8.5 mg/dL (8.5-10.1); CARBON DIOXIDE 38.9 mmol/L (21-32); CHLORIDE 99 mmol/L (98-107); CREATININE 1.2 mg/dL (0.6-1.3); GLUCOSE 106 mg/dL (74-106); POTASSIUM 4.4 mmol/L (3.5-5.1); SODIUM SERUM 140 mmol/L (136-145); UREA NITROGEN, BLOOD 34 mg/dL (7-18)
[2016-12-06 06:37] LABS: MAGNESIUM 2.2 mg/dL (1.8-2.4)
[2016-12-06] MEDS: NACL 0.9% 1,000 ML IV SCH (07:02)
--- NOTE | 2016-12-06 07:20 | NUR ---
RECEIVED REPORT FROM CHEVY MENDEZ AT BEDSIDE. PT IS A&OX4. PT C/O PAIN, WILL MEDICATE. PT HAS R UPPER CHEST PORT-A-CATH RUNNING NS@10. PT HAS ON 3L NC, O2 SAT 95-96%. NO DISTRESS NOTED. PT HAS L FOOT FRACTURE WRAPPED IN JAREN BANDAGE. CALL LIGHT WITHIN REACH. WILL CONTINUE TO MONITOR.
[2016-12-06] MEDS: BUDESONIDE 0.5 MG/2 ML NEBU INH SCH ×2 (07:48→18:57)
[2016-12-06 08:00] VITALS: BP 126/69
[2016-12-06] MEDS: FUROSEMIDE 20 MG/2 ML VIAL IVP SCH (08:52)
[2016-12-06] MEDS: CLOPIDOGREL 75 MG TAB PO SCH (08:53)
[2016-12-06] MEDS: oxyCODONE/APAP 5/325 MG 1 TAB TAB PO PRN ×3 (08:53→21:33)
[2016-12-06] MEDS: CARVEDILOL 3.125 MG TAB PO SCH ×2 (08:53→21:35)
[2016-12-06] MEDS: LORazepam 0.5 MG TAB PO SCH ×3 (08:53→16:52)
[2016-12-06] MEDS: ECOTRIN 81 MG TABEC PO SCH (08:53)
[2016-12-06] MEDS: ONDANSETRON 4 MG/2 ML VIAL IM/IVP PRN (09:06)
[2016-12-06] MEDS: AMIODARONE 200 MG TAB PO SCH (09:06)
--- NOTE | 2016-12-06 09:30 | NUR ---
PT TOLERATED MORNING MEDS WELL. NO COMPLAINTS AT THIS TIME. CALL LIGHT WITHIN REACH. WILL CONTINUE TO MONITOR.
--- NOTE | 2016-12-06 10:34 | NUR ---
SS NOTE: PER LUIS ENRIQUE FROM [facility] ([phone]), PT CAN GO TO ROOM 32B UNDER DR. ZAYDA ANDRDAE WHEN PT IS READY FOR DISCHARGE
--- NOTE | 2016-12-06 11:55 | NUR ---
PT SAT UP IN BED TO EAT LUNCH. TOLERATED WELL. CALL LIGHT WITHIN REACH. WILL CONTINUE TO MONITOR.
--- NOTE | 2016-12-06 12:10 | NUR ---
AWAKE AND ALERT RESPONSIVE TO ALUMINUM POLISHER VERBAL COMMANDS TOLERATED INCENTIVE SPIROMETRY THERAPY WELL WITHOUT ADVERSE REACTIONS NOTED ENCOURAGED PATIENT WITH ACKNOWLEDGEMENT TO USE EVERY 1-2 HOURS WHILE AWAKE
--- NOTE | 2016-12-06 13:00 | NUR ---
PT IS RESTING COMFORTABLY IN BED. CALL LIGHT WITHIN REACH. WILL CONTINUE TO MONITOR.
--- NOTE | 2016-12-06 14:00 | NUR ---
PT IS RESTING IN BED. NO DISTRESS NOTED. NO COMPLAINTS AT THIS TIME. CALL LIGHT WITHIN REACH. WILL CONTINUE TO MONITOR.
--- NOTE | 2016-12-06 14:00 | NUR ---
PT NOTES CHART REVIEWED AND CLEARED FOR PT BY LYDIA LAU. ATTEMPTED TO SEE PATIENT IN MORNING AND AT 1400 AFTER LUNCH. PT REFUSED ALL SKILLED INTERVENTION TODAY WITH BOTH ATTEMPTS. EDUCATED PT IMPORTANCE/BENEFITS WITH PERFORMING THER EX, THER ACT, AND OOB ACTIVITIES WITH PT HAVING A GOOD UNDERSTANDING. PT STATES, " I DO NOT WANT TO PARTICIPATE TODAY AND I AM SUPPOSED TO BE D/C BACK TO SNF TOMORROW. I WILL SIT AT [facility] TOMORROW." DISCUSSED WITH LYDIA LAU WITH PT REFUSING THERAPY TODAY. PVE(2) Addendum: 12/06/16 at 1510 by Linnea Song PT PHYSICAL THERAPY CO-SIGN The Physical Therapy Progress Notes documented by Leadlighter have been reviewed. Reviewed/Co-Signed by: Linnea Song PT Documentation Done by:MICHAEL SAEED BRIDGE CRANE OPERATOR WILL BENEFIT W/ P.T. AFTER ACUTE STAY, EMPHASIS ON SAFE TRANSFER TRNG, W/C MGMT, STRENGTHENING EXER, PRE GAIT TRNG.; NEEDS TO BE MOTIVATED.
[2016-12-06 16:00] VITALS: BP 120/50
--- NOTE | 2016-12-06 16:00 | NUR ---
VS WNL. NO DISTRESS NOTED. NO COMPLAINTS AT THIS TIME. CALL LIGHT WITHIN REACH. WILL CONTINUE TO MONITOR.
--- NOTE | 2016-12-06 18:00 | NUR ---
PT IS RESTING COMFORTABLY IN BED. NO DISTRESS NOTED. CALL LIGHT WITHIN REACH. WILL CONTINUE TO MONITOR.
--- NOTE | 2016-12-06 19:25 | NUR ---
RECEIVED PT IN STABLE CONDITION FROM AM NURSE. AWAKE,ALERT AND ORIENTED X4. ON O23L/NC. MED RSURG. WITH NO ACUTE DISTRESS NOTED. DENIES ANY PAIN . HAS IVF INFUSING WELL ON THE RT UPPER CHEST MEDIPORT. BEDREST. WITH LT ANKLE DRESSING, WRAPPED WITH JAREN BANDAGE. PLAN OF CARE DISCUSSED AND VERBALIZED UNDERSTANDING. CALL LIGHT PLACED WITHIN EASY REACH. WILL CONTINUE TO MONITOR.
--- NOTE | 2016-12-06 19:30 | NUR ---
ENDORSED CARE TO TRINY RN AT BEDSIDE. PT IN STABLE CONDITION.
[2016-12-06 21:27] VITALS: BP 120/59
[2016-12-06] MEDS: LISINOPRIL 5 MG TAB PO SCH (21:30)
--- NOTE | 2016-12-06 21:33 | NUR ---
C/O PAIN ON THE LT ANKLE. MEDICATED ORDERED. WILL CONTINUE TO MONITOR.
--- NOTE | 2016-12-06 23:08 | NUR ---
PATIENT STATED SHE FEELS GOOD AND REFUSED HER HHN AT THIS TIME
--- NOTE | 2016-12-07 00:30 | NUR ---
VITAL SIGNS TAKEN. STABLE. INCONTINENT, CLEANED AND KEPT DRY. REPOSITIONED FOR COMFORT.
--- NOTE | 2016-12-07 02:45 | NUR ---
MADE ROUNDS. PT IS ASLEEP. NO S/S OF ANY DISCOMFORT NOR PAIN NOTED. WILL CONTINUE TO MONITOR.
[2016-12-07] MEDS: IPRATROPIUM 0.02% 0.5 MG/2.5 ML NEBU INH SCH ×3 (03:00→10:52)
--- NOTE | 2016-12-07 04:30 | NUR ---
PT STILL SLEEPING . WITH NO S/S OF ANY DISCOMFORT NOR DISTRESS NOTED.
[2016-12-07 06:27] LABS: ANION GAP 6.9 (8-16); CALCIUM 8.7 mg/dL (8.5-10.1); CARBON DIOXIDE 37.3 mmol/L (21-32); CHLORIDE 100 mmol/L (98-107); CREATININE 1.2 mg/dL (0.6-1.3); GLUCOSE 97 mg/dL (74-106); POTASSIUM 4.2 mmol/L (3.5-5.1); SODIUM SERUM 140 mmol/L (136-145); UREA NITROGEN, BLOOD 30 mg/dL (7-18)
[2016-12-07 06:43] LABS: MAGNESIUM 2.1 mg/dL (1.8-2.4); PHOSPHORUS 3.3 mg/dL (2.5-4.9)
[2016-12-07] MEDS: NACL 0.9% 1,000 ML IV SCH (06:49)
[2016-12-07] MEDS: BUDESONIDE 0.5 MG/2 ML NEBU INH SCH (07:23)
--- NOTE | 2016-12-07 07:30 | NUR ---
ENDORSED PT IN STABLE CONDITION TO AM NURSE.
--- NOTE | 2016-12-07 07:31 | NUR ---
RECEIVED REPORT FROM THE TIP FIXER NURSE AT BEDSIDE FOR CONTINUITY OF CARE. PT IS AWAKE AND ORIENTED. R/T IS HERE FOR HER BREATHING TX. PT IS TOLERATING WELL. INTRODUCED MYSELF AND UPDATED THE BOARD. WILL BE BACK TO ASSESS PT.
[2016-12-07 08:00] VITALS: BP 144/76
--- NOTE | 2016-12-07 08:00 | NUR ---
PT IS RESTING COMFORTABLY. PT V/S WITHIN NORMAL RANGE. PT IS WEARING NC 3L O2. PT DENIES HAVING BM SINCE SHE ARRIVED ON UNIT. WILL SPEAK TO DR SINCLAIR. LAXATIVES. PT ALREADY ON COLACE. PT HAS A PORT ON R UPPER CHEST. NS AT 10ML. PT STATES SHE IS ANXIOUS. WOULD LIKE HER ATIVAN. WILL MEDICATE WITH MORNING MEDS. Addendum: 12/07/16 at 0845 by Kareen Freed RN SHE ALSO C/O NAUSEA. WILL ALSO GIVE HER ZOFRAN ALONG WITH HER MORNING MEDS.
[2016-12-07] MEDS: ECOTRIN 81 MG TABEC PO SCH (08:03)
[2016-12-07] MEDS: ONDANSETRON 4 MG/2 ML VIAL IM/IVP PRN (08:03)
[2016-12-07] MEDS: FUROSEMIDE 20 MG/2 ML VIAL IVP SCH (08:03)
[2016-12-07] MEDS: CARVEDILOL 3.125 MG TAB PO SCH (08:03)
[2016-12-07] MEDS: LORazepam 0.5 MG TAB PO SCH (08:03)
[2016-12-07] MEDS: AMIODARONE 200 MG TAB PO SCH (08:04)
[2016-12-07] MEDS: CLOPIDOGREL 75 MG TAB PO SCH (08:04)
--- NOTE | 2016-12-07 08:10 | NUR ---
ADMINISTERED MORNING MEDS. INCLUDING SCHEDULED ATIVAN AND ZOFRAN. PT TOLERATED WELL. PT WILL TRY AND EAT HER BREAKFAST. WILL CONTINUE TO MONITOR PT.
--- NOTE | 2016-12-07 09:55 | NUR ---
PT NOTE 939 Pt WAS CLEARED FOR PT PER RN; WAS SEEN ASLEEP BUT EASILY ROUSABLE TO VERBAL STIMULI, C/O NAUSEA BUT WAS MEDICATED PER Pt. Pt STATES THAT SHE IS BEING DC TODAY, REFUSED PT TX DESPITE OF EDUCATION ON BENEFITS OF PARTICIPATION WITH OOB. INSTRUCTED Pt TO PERFORM HEP IN BED INSTEAD, EXPRESSED UNDERSTANDING. RN NOTIFIED. PVE(1)
--- NOTE | 2016-12-07 10:09 | NUR ---
CM NOTE SPOKE WITH ANGELITA OF [facility] [phone], PATIENT WILL BE PICKED UP TODAY AT 1330 TIME GOING TO [facility] [place] RM 32B, NUMBER TO CALL FOR REPORT [phone]. NURSE SAJAN AND TOOL OPERATOR GEOFF STANLEY.
[2016-12-07] MEDS ORDERED: PRED20TA5 PO (10:28)
[2016-12-07] MEDS ORDERED: FURO-570 PO (10:28)
--- NOTE | 2016-12-07 10:53 | NUR ---
PT REFUSED HHN TX. WILL CONTINUE TO MONITOR.
[2016-12-07] MEDS ORDERED: CARV3.122 PO (11:13)
[2016-12-07] MEDS ORDERED: PUL.5N INH (11:13)
--- NOTE | 2016-12-07 11:15 | NUR ---
CALLED [facility] [phone], SPOKE TO ANDREA CHANG. GAVE FULL REPORT. PT IS TO BE GOING TO ROOM 32B, DR. ANDRADE ATTENDING. PT IS TO BE D/C'D HERE AT 1330. [facility] WILL BE HERE TO TRANSPORT. CALLED AND SPOKE TO JEN, SISTER, AND LET HERE KNOW OF THE TRANSFER.
[2016-12-07] MEDS: LORazepam 0.5 MG TAB PO PRN (11:52)
--- NOTE | 2016-12-07 12:02 | NUR ---
GAVE DISCHARGE INSTRUCTIONS. ANSWERED ALL QUESTIONS. PT VERBALIZED UNDERSTANDING. PT SIGNED APPROPRIATE FORMS. REMOVED ALL ID BANDS. DISCONNECTED HER IV. PT HAS A WAGNER NEEDLE IN HER PORT. WILL LEAVE. PT C/O BEING ANXIOUS. GAVE HER ANOTHER PRN ATIVAN. MISSILE INSPECTOR WILL GET HER READY TO BE TRANSPORTED. REFUSED LUNCH. SHE IS FEELING A BIT NAUSEATED AND ANXIOUS TO EAT. WILL AWAIT TRANSPORT.
--- NOTE | 2016-12-07 13:30 | NUR ---
GAVE REPORT TO [facility]. ANSWERED ALL QUESTION. PT IS READY TO GO.
--- NOTE | 2016-12-07 13:50 | NUR ---
[facility] CAME TO TRANSPORT PT. PT IN [facility] W/ O2. PT IN STABLE CONDITION.
== END 2016-12-07 13:50 | DRG 280 ==
LOC: MED 12:00 → MTU 14:23
PROVIDERS: ADMIT Family Medicine; ATTEND Family Medicine
PROC: 5A09357 Assistance with Respiratory Ventilation, Less than 24 Consecutive Hours, Continuous Positive Airway Pressure (ICD-10-PCS; principal; 2016-12-03)
DX: I11.0 Hypertensive heart disease with heart failure (principal); J96.22 Acute and chronic respiratory failure with hypercapnia; I21.4 Non-ST elevation (NSTEMI) myocardial infarction; E43 Unspecified severe protein-calorie malnutrition; J44.1 Chronic obstructive pulmonary disease with (acute) exacerbation; I50.43 Acute on chronic combined systolic (congestive) and diastolic (congestive) heart failure; I42.0 Dilated cardiomyopathy; I48.91 Unspecified atrial fibrillation; E78.5 Hyperlipidemia, unspecified; D64.9 Anemia, unspecified; E66.01 Morbid (severe) obesity due to excess calories; Z53.29 Procedure and treatment not carried out because of patient's decision for other reasons; R25.1 Tremor, unspecified; K59.00 Constipation, unspecified; G47.33 Obstructive sleep apnea (adult) (pediatric); F40.240 Claustrophobia; G62.82 Radiation-induced polyneuropathy; I27.2 Other secondary pulmonary hypertension; F41.1 Generalized anxiety disorder; I34.0 Nonrheumatic mitral (valve) insufficiency; R32 Unspecified urinary incontinence; I25.10 Atherosclerotic heart disease of native coronary artery without angina pectoris; E78.00 Pure hypercholesterolemia, unspecified; E05.80 Other thyrotoxicosis without thyrotoxic crisis or storm; Z85.3 Personal history of malignant neoplasm of breast; Z87.891 Personal history of nicotine dependence; Z88.2 Allergy status to sulfonamides; Z79.899 Other long term (current) drug therapy; Z90.12 Acquired absence of left breast and nipple; Z90.5 Acquired absence of kidney; Z90.710 Acquired absence of both cervix and uterus; Z82.49 Family history of ischemic heart disease and other diseases of the circulatory system; Z82.5 Family history of asthma and other chronic lower respiratory diseases; Z68.36 Body mass index [BMI] 36.0-36.9, adult
CPT/HCPCS: 36415; 36600; 70450; 71010; 80048; 80053; 80305; 81001; 82040; 82140; 82150; 82550; 82553; 82803; 83605; 83690; 83735; 83874; 83880; 84100; 84436; 84439; 84443; 84479; 84484; 85025; 85610; 85730; 87040; 87081; 87086; 93005; 93308; 94640; 94660; 97110; 97140; 97530; C1758; J0456; J0696; J1644; J1940; J2060; J2270; J2405; J2920; J2930; J7030; J7060; J7613; J7620; J7626; J7644; Q0092

== ENCOUNTER 2017-01-12 15:16 | Inpatient (IN) | payer OTHER ==
[~2017-01-12] VITALS: Ht 167.6 cm; Wt 94.8 kg
[~2017-01-12 15:16] MED LIST changes: -ALBU0.0912 IH; +ATI.5 PO; +CARV3.122 PO; -CLON0.5T PO; +FURO-570 PO; +PRED20TA5 PO; -PRON INH
--- NOTE | 2017-01-12 15:16 | NUR ---
PATIENT BIB [facility] TO ER BED 7.
[2017-01-12 15:20] VITALS: BP 126/62
--- NOTE | 2017-01-12 15:20 | NUR ---
PATIENT BIB EMS FROM HOME WITH C/O SOB X 1 DAY; RECENTLY D/[place] [facility] [place]NEE; HX; COPD, EMPHYSEMA, BRONCHITIS, LEFT BREAST CA, HTN, CHF, ANXIETY RX; --- DENIES N/V/D; SKIN IS PINK/WARM/DRY; AAOX4 WITH EVEN AND STEADY GAIT; LUNGS CLEAR BL; HR EVEN AND REGULAR; PT DENIES ANY FEVER, CP, OR COUGH AT THIS TIME; PATIENT STATES PAIN OF 0/10 AT THIS TIME; VSS; PATIENT POSITIONED FOR COMFORT; HOB ELEVATED; BEDRAILS UP X2; BED DOWN. ER MD MADE AWARE OF PT STATUS.
--- NOTE | 2017-01-12 15:20 | NUR ---
PATIENT BEING EVALUATED BY DR. MILLARD.
[2017-01-12] MEDS ORDERED: IPRATROPIUM 0.02% 0.5 MG/2.5 ML NEBU INH ONE (15:50)
[2017-01-12] MEDS ORDERED: methylPREDNISolone SS 125 MG/2 ML VIAL IVP ONE (15:50)
[2017-01-12] MEDS ORDERED: ASPIRIN 81 MG TAB.CHEW PO ONE (15:50)
[2017-01-12] MEDS ORDERED: ALBUTEROL 0.083% 2.5 MG/3 ML NEBU INH ONE (15:50)
[2017-01-12 16:21] LABS: BASOPHILS # (AUTO) 0.1 K/uL (0.00-0.22); BASOPHILS % (AUTO) 1.3 % (0.0-2.0); EOSINOPHILS # (AUTO) 0.1 K/uL (0-0.4); HEMATOCRIT 35.5 % (36-48); LYMPHOCYTES # (AUTO) 0.9 K/uL (2.5-16.5); LYMPHOCYTES % (AUTO) 15.5 % (20.5-51.1); MEAN CORPUSCULAR HEMOGLOBIN 28 pg (27-31); MEAN CORPUSCULAR HGB CONC 31 g/dL (33-37); MEAN CORPUSCULAR VOLUME 92 fL (80-94); MONOCYTES # (AUTO) 0.3 K/uL (0.8-1.0); MONOCYTES % (AUTO) 5.2 % (1.7-9.3); NEUTROPHILS # (AUTO) 4.3 K/uL (1.8-7.7); PLATELET COUNT (AUTO) 281 K/uL (140-450); RED BLOOD CELL COUNT(AUTO) 3.86 MIL/uL (4.20-5.40); RED CELL DISTRIBUTION WIDTH 16.7 % (11.6-13.7); WHITE BLOOD COUNT (AUTO) 5.7 K/uL (4.8-10.8)
[2017-01-12 16:38] LABS: ANION GAP 9.4 (8-16); CARBON DIOXIDE 33.8 mmol/L (21-32); CHLORIDE 101 mmol/L (98-107); CREATININE 1.3 mg/dL (0.6-1.3); GLUCOSE 126 mg/dL (74-106); POTASSIUM 4.2 mmol/L (3.5-5.1); SODIUM SERUM 140 mmol/L (136-145); UREA NITROGEN, BLOOD 20 mg/dL (7-18)
[2017-01-12 16:40] LABS: PROTHROMBIN TIME 10.3 secs (10.8-13.4)
[2017-01-12 16:43] LABS: ALBUMIN 3.2 g/dL (3.4-5.0); ASPARTATE AMINOTRANSFERASE 16 U/L (15-37); TOTAL BILIRUBIN 0.4 mg/dL (0.0-1.0)
[2017-01-12 17:52] LABS: APPEARANCE,URINE SL CLOUDY (CLEAR); BILIRUBIN,URINE NEGATIVE (NEGATIVE); BLOOD, URINE TRACE-L (NEGATIVE); COLOR,URINE YELLOW (YELLOW); LEUKOCYTE ESTERASE ,URINE 3+ (NEGATIVE); NITRITE, URINE POSITIVE (NEGATIVE); PH,URINE 6.5 (5.0-9.0); UGLUCOSE NEGATIVE (NEGATIVE)
[2017-01-12 17:54] LABS: RBC,URINE 3-10 (FEW) /HPF (0-5); WBC,URINE TOO MANY TO COUNT /HPF (0-5)
[2017-01-12] MEDS ORDERED: LEVOFLOXACIN 500 MG/D5W PREMIX 100 ML IV ONE ×2 (18:00→18:15)
[2017-01-12] MEDS ORDERED: ACETAMINOPHEN 325 MG TAB PO PRN ×2 (18:05→20:25)
[2017-01-12] MEDS ORDERED: ONDANSETRON 4 MG/2 ML VIAL IM/IVP PRN (18:05)
[2017-01-12] MEDS ORDERED: DOCUSATE SODIUM 100 MG GELCAP PO PRN (18:05)
[2017-01-12] MEDS ORDERED: ALBUTEROL 0.083% 2.5 MG/3 ML NEBU INH PRN (18:15)
[2017-01-12] MEDS ORDERED: ALBUTEROL SULFATE/IPRATROPIU 3 ML SOL IH SCH (19:00)
[2017-01-12 19:03] LABS: MAGNESIUM 2.1 mg/dL (1.8-2.4); PHOSPHORUS 4.1 mg/dL (2.5-4.9); THYROID STIMULATING HORMONE 1.63 uIU/mL (0.34-3.74)
[2017-01-12] MEDS: ALBUTEROL SULFATE/IPRATROPIU 3 ML SOL IH SCH ×2 (19:09→23:15)
[2017-01-12] MEDS: BUDESONIDE 0.25 MG/2 ML NEBU INH SCH (19:10)
--- NOTE | 2017-01-12 19:21 | NUR ---
Patient will be admitted to care of DR HAWLEY. Admited to TELE. Will go to room 120A. Belongings list completed. Report to ANDREA MICHEL.
[2017-01-12 19:40] VITALS: BP 113/51
--- NOTE | 2017-01-12 19:40 | NUR ---
ADMITTED A 76F FROM ER. CAME BY [facility] . ON TELE MONITOR. CAME DUE TO SOB FROM HOME. AWAKE ,ALERT AND ORIENTED X4. NO C/O ANY DISCOMFORT NOR PAIN AT THIS TIME. VITAL SIGNS STABLE. NO BP ON LT [id number] SAT 93%. BEDREST. GEN WEAKNESS. WITH SOME REDNESS ON THE LT INNER THIGH AND SKIN DISCOLORATIONS ,ALMOST HEALED SKIN DRYNESS ON LT LOWER LEG. PLAN OF CARE DISCUSSED AND VERBALIZED UNDERSTANDING. PLACED COMFORTABLY IN BED. BED ON LOW POSITION,. CALL LIGHT PLACED WITHIN REACH.
--- NOTE | 2017-01-12 20:00 | NUR ---
DR. MCCLAIN ,RESIDENT CAME AND SEEN PT.
[2017-01-12] MEDS ORDERED: FUROSEMIDE 40 MG TAB PO SCH (20:25)
[2017-01-12] MEDS: NACL 0.9% 1,000 ML IV SCH (20:53)
[2017-01-12] MEDS ORDERED: LEVOFLOXACIN 500 MG/D5W PREMIX 100 ML IV SCH (20:55)
[2017-01-12] MEDS: CARVEDILOL 3.125 MG TAB PO SCH (21:00)
[2017-01-12] MEDS: SENNA 8.6 MG TAB PO SCH (21:41)
[2017-01-12] MEDS: hydrOXYzine HCL 10 MG TAB PO SCH (21:43)
[2017-01-12] MEDS ORDERED: LORazepam 0.5 MG TAB PO SCH (21:50)
--- NOTE | 2017-01-12 22:00 | NUR ---
SLEEPING AT THIS TIME. WILL HOLD ATIVAN PO .
[2017-01-13 00:04] VITALS: BP 134/58
[2017-01-13] MEDS: NACL 0.9% 1,000 ML IV SCH ×4 (03:53→23:54)
[2017-01-13] MEDS: ALBUTEROL SULFATE/IPRATROPIU 3 ML SOL IH SCH ×3 (04:30→18:55)
--- NOTE | 2017-01-13 04:33 | NUR ---
PT ASLEEP COMFORTABLY, REQUESTS TO SLEEP AND HAVE TX GIVEN AT NEXT SCHEDULED TIME NO DISTRESS NOTED
[2017-01-13 04:45] VITALS: BP 134/65
[2017-01-13] MEDS ORDERED: HYDRAGUARD CREAM TP ONE (05:05)
--- NOTE | 2017-01-13 05:30 | NUR ---
PT VOIDED ON THE BEDPAN. CLEANED WITH MILD SOAP AND WATER . HYDRA GUARD NOT AVAILABLE . WILL ENDORSE TO AM NURSE.
--- NOTE | 2017-01-13 06:30 | NUR ---
MADE ROUNDS. ASLEEP. NO S/S OF ANY DISCOMFORT NOTED.
[2017-01-13] MEDS: BUDESONIDE 0.25 MG/2 ML NEBU INH SCH ×2 (06:48→18:53)
[2017-01-13] MEDS ORDERED: ALBUTEROL SULFATE/IPRATROPIU 3 ML SOL IH SCH (07:00)
--- NOTE | 2017-01-13 07:13 | NUR ---
ENDORSED PT IN STABLE CONDITION TO AM NURSE.
--- NOTE | 2017-01-13 07:15 | NUR ---
RECEIVED REPORT FROM PM NURSE FOR CONTINUITY OF CARE. PT AAO. ON TELE MONITOR. RESP EVEN AND UNLABORED. IV INTACT, NO REDNESS OR SWELLING NOTED. NO S/S OF DISTRESS, RESTLESSNESS OR SOB. SKIN IS WARM, LESIONS AND ERYTHEMA NOTED ON LEFT LOWER LEG. DISCUSSED PLAN OF CARE WITH PATIENT. PT VERBALIZED UNDERSTANDING. SAFETY MEASURES IN PLACED. SIDE RAILS UP, BED LOCKED IN LOW POSITION, CALL LIGHT WITHIN REACH. WILL CONTINUE TO MONITOR.
--- NOTE | 2017-01-13 07:28 | NUR ---
PATIENT HAS BEEN SCREENED AND CATEGORIZED MODERATE NUTRITION RISK. PATIENT WILL BE SEEN WITHIN 3-5 DAYS OF ADMISSION. 01/14/17-01/16/17 KECIA AGUILAR MS, RDN
[2017-01-13 08:00] VITALS: BP 116/53
[2017-01-13] MEDS ORDERED: predniSONE 20 MG TAB PO SCH (09:00)
[2017-01-13] MEDS: CARVEDILOL 3.125 MG TAB PO SCH ×2 (09:00→21:00)
[2017-01-13] MEDS: ECOTRIN 81 MG TABEC PO SCH (09:22)
[2017-01-13] MEDS: BACLOFEN 10 MG TAB PO SCH ×3 (09:23→17:34)
[2017-01-13] MEDS: LORazepam 0.5 MG TAB PO SCH ×3 (09:23→17:34)
[2017-01-13] MEDS: CLOPIDOGREL 75 MG TAB PO SCH (09:24)
[2017-01-13] MEDS: AMIODARONE 200 MG TAB PO SCH (09:24)
[2017-01-13] MEDS: SENNA 8.6 MG TAB PO SCH ×2 (09:24→21:49)
--- NOTE | 2017-01-13 10:03 | NUR ---
PT C/O LOWER LEG PAIN. OFFERED TYLENOL PER MD'S ORDER. PT REFUSED TYLENOL AND STATED SHE WANTS NORCO. INFORMED MD. AWAITING FOR ORDERS. WILL CONTINUE TO MONITOR.
[2017-01-13 12:00] VITALS: BP 124/59
[2017-01-13 13:52] LABS: BASOPHILS # (AUTO) 0.1 K/uL (0.00-0.22); BASOPHILS % (AUTO) 1.5 % (0.0-2.0); HEMATOCRIT 31.1 % (36-48); HEMOGLOBIN 9.9 g/dL (12.0-16.0); LYMPHOCYTES # (AUTO) 0.5 K/uL (2.5-16.5); LYMPHOCYTES % (AUTO) 9.7 % (20.5-51.1); MEAN CORPUSCULAR HEMOGLOBIN 29 pg (27-31); MEAN CORPUSCULAR HGB CONC 32 g/dL (33-37); MEAN CORPUSCULAR VOLUME 92 fL (80-94); MONOCYTES # (AUTO) 0.1 K/uL (0.8-1.0); MONOCYTES % (AUTO) 2.2 % (1.7-9.3); NEUTROPHILS # (AUTO) 4.2 K/uL (1.8-7.7); NEUTROPHILS % (AUTO) 85.6 % (42.2-75.2); PLATELET COUNT (AUTO) 255 K/uL (140-450); RED CELL DISTRIBUTION WIDTH 16.4 % (11.6-13.7); WHITE BLOOD COUNT (AUTO) 4.9 K/uL (4.8-10.8)
[2017-01-13] MEDS: methylPREDNISolone SS 125 MG/2 ML VIAL IVP SCH ×2 (13:54→21:12)
[2017-01-13] MEDS ORDERED: HYDRAGUARD CREAM TP SCH (14:00)
--- NOTE | 2017-01-13 14:00 | NUR ---
PT RESTING QUIETLY, AWAKENS EASILY. DENIES PAIN OR DISCOMFORT. NO S/S OF DISTRESS, SOB. SAFETY MEASURES IN PLACED. WILL CONTINUE TO MONITOR.
[2017-01-13 14:23] LABS: ANION GAP 9.5 (8-16); CARBON DIOXIDE 34.6 mmol/L (21-32); CHLORIDE 101 mmol/L (98-107); CREATININE 1.4 mg/dL (0.6-1.3); GLUCOSE 124 mg/dL (74-106); POTASSIUM 4.1 mmol/L (3.5-5.1); SODIUM SERUM 141 mmol/L (136-145); UREA NITROGEN, BLOOD 20 mg/dL (7-18)
[2017-01-13 14:29] LABS: PHOSPHORUS 3.9 mg/dL (2.5-4.9)
[2017-01-13 16:00] VITALS: BP 113/52
[2017-01-13] MEDS: HYDROcodone/APAP 5/325 MG 1 TAB TAB PO PRN (16:50)
--- NOTE | 2017-01-13 17:41 | NUR ---
PT SLEEPING, EASILY AWAKENS. RESP EVEN AND UNLABORED. DENIES ANY NEEDS AT THIS TIME. NO S/S OF DISTRESS, SOB, OR RESTLESSNESS. SAFETY MEASURES IN PLACED. WILL CONTINUE TO MONITOR.
--- NOTE | 2017-01-13 19:44 | NUR ---
ENDORSED CARE TO PM NURSE FOR CONTINUITY OF CARE. PT IN STABLE CONDITION.
--- NOTE | 2017-01-13 19:45 | NUR ---
RECD RESTING IN BED AWAKE, A/OX4, RESPIRATION EVEN AND UNLABORED. IV OF NS AT 90 ML/H INFUSING, RIGHT HAND G 22. ON AT 2 LITERS VIA N/C, SAT- 93%. PLAN OF CARE FOR THE SHIFT DISCUSSED. INSTRUCTED TO CALL NURSE WHEN NEEDING HELP. VERBALIZED UNDERSTANDING. ON BILATERAL LEG SEQUENTIALS. DENIES PAIN 0/10.
[2017-01-13 20:00] VITALS: BP 100/43
[2017-01-13] MEDS ORDERED: LEVOFLOXACIN 500 MG/D5W PREMIX 100 ML IV SCH (21:00)
--- NOTE | 2017-01-13 21:27 | NUR ---
Patient's Plan of Care was discussed and reviewed with RAIL TRACK MAINTAINER: OREN OCAMPO.
[2017-01-13] MEDS: hydrOXYzine HCL 10 MG TAB PO SCH (21:49)
--- NOTE | 2017-01-13 21:50 | NUR ---
PO MEDICATIONS FOR THE NIGHT GIVEN. HOLD COREG, BP IN THE LOW SIDE.
--- NOTE | 2017-01-13 22:00 | NUR ---
ASSISTED WITH BEDPAN, VOIDED ONLY 100 ML.
[2017-01-14] VITALS (8 sets, daily range): BP systolic 84–137; BP diastolic 40–58
--- NOTE | 2017-01-14 | NUR ---
SLEEPING COMFORTABLY IN BED.
[2017-01-14] MEDS: ALBUTEROL SULFATE/IPRATROPIU 3 ML SOL IH SCH ×4 (01:21→19:23)
[2017-01-14] MEDS: NACL 0.9% 1,000 ML IV SCH ×2 (02:07→13:14)
[2017-01-14] MEDS: HYDROcodone/APAP 5/325 MG 1 TAB TAB PO PRN ×3 (03:32→22:26)
[2017-01-14] MEDS ORDERED: hydrOXYzine 50 MG/ML VIAL IM ONE (04:55)
[2017-01-14] MEDS: methylPREDNISolone SS 125 MG/2 ML VIAL IVP SCH (05:21)
[2017-01-14 06:19] LABS: BASOPHILS # (AUTO) 0.1 K/uL (0.00-0.22); EOSINOPHILS # (AUTO) 0.1 K/uL (0-0.4); EOSINOPHILS % (AUTO) 1.5 % (0.0-4.0); HEMATOCRIT 31.5 % (36-48); LYMPHOCYTES # (AUTO) 0.4 K/uL (2.5-16.5); LYMPHOCYTES % (AUTO) 10.5 % (20.5-51.1); MEAN CORPUSCULAR HEMOGLOBIN 29 pg (27-31); MEAN CORPUSCULAR HGB CONC 32 g/dL (33-37); MEAN CORPUSCULAR VOLUME 92 fL (80-94); MONOCYTES % (AUTO) 1.1 % (1.7-9.3); NEUTROPHILS # (AUTO) 3.2 K/uL (1.8-7.7); NEUTROPHILS % (AUTO) 84.9 % (42.2-75.2); PLATELET COUNT (AUTO) 226 K/uL (140-450); RED BLOOD CELL COUNT(AUTO) 3.45 MIL/uL (4.20-5.40); RED CELL DISTRIBUTION WIDTH 16.2 % (11.6-13.7); WHITE BLOOD COUNT (AUTO) 3.8 K/uL (4.8-10.8)
[2017-01-14 06:51] LABS: ANION GAP 8.6 (8-16); CARBON DIOXIDE 33.7 mmol/L (21-32); CHLORIDE 102 mmol/L (98-107); CREATININE 1.2 mg/dL (0.6-1.3); GLUCOSE 122 mg/dL (74-106); POTASSIUM 4.3 mmol/L (3.5-5.1); SODIUM SERUM 140 mmol/L (136-145); UREA NITROGEN, BLOOD 19 mg/dL (7-18)
[2017-01-14] MEDS: BUDESONIDE 0.25 MG/2 ML NEBU INH SCH ×2 (07:16→19:23)
--- NOTE | 2017-01-14 07:25 | NUR ---
CONDITION REMAIN STABLE. SAFETY MAINTAINED DURING SHIFT. ENDORSED TO ANDREA FERNANDEZ FOR CONTINUITY OF CARE.
--- NOTE | 2017-01-14 07:32 | NUR ---
RECEIVED REPORT FROM RITA LOTT. PT IS AAOX4. PT IS ON O2 2L/MIN NC. IV TO RIGHT HAND #22 PATENT AND INTACT. REDNESS NOTED TO LEFT INNER THIGH WITH DRYNESS NOTED TO LEFT LOWER EXTREMITY. SKIN IS OTHERWISE INTACT. SAFETY PRECAUTIONS IN PLACE WITH BED IN LOWEST POSITION AND SIDE RAILS UP X2. CALL LIGHT WITHIN REACH. WILL CONTINUE TO MONITOR.
[2017-01-14 07:55] LABS: MAGNESIUM 2.1 mg/dL (1.8-2.4); PHOSPHORUS 3.7 mg/dL (2.5-4.9)
[2017-01-14] MEDS: SENNA 8.6 MG TAB PO SCH ×2 (08:21→20:57)
[2017-01-14] MEDS: CARVEDILOL 3.125 MG TAB PO SCH ×2 (08:21→20:57)
[2017-01-14] MEDS: CLOPIDOGREL 75 MG TAB PO SCH (08:21)
[2017-01-14] MEDS: AMIODARONE 200 MG TAB PO SCH (08:21)
[2017-01-14] MEDS: LORazepam 0.5 MG TAB PO SCH ×3 (08:21→16:08)
[2017-01-14] MEDS: ECOTRIN 81 MG TABEC PO SCH (08:22)
[2017-01-14] MEDS: BACLOFEN 10 MG TAB PO SCH ×3 (08:22→16:08)
--- NOTE | 2017-01-14 08:23 | NUR ---
CHECKED HR: 71 AND BP: 127/53. ADMINISTERED MEDICATION ORDERED. PT TOLERATED WELL.
[2017-01-14] MEDS ORDERED: HYDRAGUARD CREAM TP SCH (09:18)
[2017-01-14] MEDS: LACTOBACILLUS RHAMNOSUS GG 1 EACH CAP PO SCH ×2 (09:59→20:56)
--- NOTE | 2017-01-14 11:00 | NUR ---
CHECKED ON PT. ALL NEEDS MET AT THIS TIME. CALL LIGHT WITHIN REACH.
--- NOTE | 2017-01-14 11:29 | NUR ---
DR. ROSAS IN TO SEE PT. WILL FOLLOW UP ON ORDERS.
[2017-01-14] MEDS: methylPREDNISolone SS 40 MG/ML VIAL IVP SCH ×2 (12:38→20:56)
--- NOTE | 2017-01-14 12:46 | NUR ---
PT TOLERATED MEDS WELL.
--- NOTE | 2017-01-14 13:58 | NUR ---
PT C/O PAIN, 6/10 TO LEFT LOWER LEG. ADMINISTERED NORCO ORDERED FOR PRN PAIN. PT TOLERATED WELL. WILL REASSESS.
--- NOTE | 2017-01-14 14:48 | NUR ---
PT PLACED ON CONTACT ISOLATION WITH SIGNS POSTED OUTSIDE OF PT'S ROOM
--- NOTE | 2017-01-14 15:39 | NUR ---
DR. WATSON IN TO SEE PT. WILL FOLLOW UP ON ORDERS.
--- NOTE | 2017-01-14 16:16 | NUR ---
PT TOLERATED MEDS WELL.
--- NOTE | 2017-01-14 19:10 | NUR ---
ENDORSED CARE TO ANDREA WOLF. PT IN STABLE CONDITION.
--- NOTE | 2017-01-14 19:24 | NUR ---
RECEIVED FROM AM RN IN BED AWAKE AND ALERT. WITH 02 AT 2LPM/NC. NO SOB. ABLE TO VERBALIZE NEEDS WELL. NO COMPLAINTS OF ANY PAIN AT THIS TIME. CALL LIGHT WITH IN REACH AND CARE PLANS FOR THE NIGHT DISCUSSED WITH HER. AFEBRILE. TELEMETRY MONITORING. DX. OF COPD EXACERBATION WITH UTI.
[2017-01-14] MEDS: hydrOXYzine HCL 10 MG TAB PO SCH (20:57)
[2017-01-14] MEDS: HYDRAGUARD CREAM TP SCH (20:58)
--- NOTE | 2017-01-14 22:27 | NUR ---
AWAKE STILL AND WANTED PAIN RELIEVER. RE-CHECKED BP IF STILL LOW. WILL MEDICATE WITH NORCO NOW RT BP IS WNL. C/O LEG PAIN. ABLE TO VERBALIZE NEEDS WELL IN [place]. CALL LIGHT WITH IN REACH.
--- NOTE | 2017-01-14 23:30 | NUR ---
SLEEPING AT THIS TIME. TELEMETRY MONITORING. NO RESTLESSNESS NOTED.
[2017-01-15] MEDS: NACL 0.9% 1,000 ML IV SCH ×3 (00:21→22:35)
[2017-01-15 00:43] VITALS: BP 113/53
--- NOTE | 2017-01-15 01:00 | NUR ---
AWAKE AND ASSISTED TO BEDPAN USE. NO RESTLESSNESS NOTED.
[2017-01-15] MEDS: ALBUTEROL SULFATE/IPRATROPIU 3 ML SOL IH SCH ×3 (01:15→18:50)
--- NOTE | 2017-01-15 03:00 | NUR ---
SLEEPING. TELEMETRY MONITORING.
[2017-01-15 04:01] VITALS: BP 125/68
[2017-01-15] MEDS: methylPREDNISolone SS 40 MG/ML VIAL IVP SCH (04:46)
--- NOTE | 2017-01-15 06:15 | NUR ---
SLEEPING. NO RESTLESSNESS. KEPT COMFORTABLE. NO COMPLAINTS DONE THIS SHIFT.
[2017-01-15 06:29] LABS: BASOPHILS % (AUTO) 0.6 % (0.0-2.0); EOSINOPHILS # (AUTO) 0.1 K/uL (0-0.4); EOSINOPHILS % (AUTO) 1.5 % (0.0-4.0); HEMATOCRIT 31.3 % (36-48); HEMOGLOBIN 9.9 g/dL (12.0-16.0); LYMPHOCYTES # (AUTO) 0.5 K/uL (2.5-16.5); LYMPHOCYTES % (AUTO) 8.9 % (20.5-51.1); MEAN CORPUSCULAR HEMOGLOBIN 29 pg (27-31); MEAN CORPUSCULAR HGB CONC 32 g/dL (33-37); MEAN CORPUSCULAR VOLUME 92 fL (80-94); MONOCYTES # (AUTO) 0.1 K/uL (0.8-1.0); MONOCYTES % (AUTO) 1.9 % (1.7-9.3); NEUTROPHILS # (AUTO) 4.5 K/uL (1.8-7.7); NEUTROPHILS % (AUTO) 87.1 % (42.2-75.2); PLATELET COUNT (AUTO) 204 K/uL (140-450); RED BLOOD CELL COUNT(AUTO) 3.41 MIL/uL (4.20-5.40); RED CELL DISTRIBUTION WIDTH 16.3 % (11.6-13.7); WHITE BLOOD COUNT (AUTO) 5.2 K/uL (4.8-10.8)
[2017-01-15 06:50] LABS: ANION GAP 8.4 (8-16); CARBON DIOXIDE 33.7 mmol/L (21-32); CHLORIDE 104 mmol/L (98-107); CREATININE 1.1 mg/dL (0.6-1.3); GLUCOSE 131 mg/dL (74-106); POTASSIUM 4.1 mmol/L (3.5-5.1); SODIUM SERUM 142 mmol/L (136-145); UREA NITROGEN, BLOOD 20 mg/dL (7-18)
[2017-01-15 06:57] LABS: MAGNESIUM 2.3 mg/dL (1.8-2.4); PHOSPHORUS 3.5 mg/dL (2.5-4.9)
--- NOTE | 2017-01-15 07:15 | NUR ---
RECEIVED REPORT FROM MEDICAL CODING TECHNICIAN NURSE AT BEDSIDE FOR CONTINUITY OF CARE. PT IS AWAKE AND ORIENTED. INTRODUCED SELF AND UPDATED BOARD. PT ASSISTED TO BEDPAN BY TANK CAR MECHANIC. WILL CONTINUE TO MONITOR.
[2017-01-15] MEDS: BUDESONIDE 0.25 MG/2 ML NEBU INH SCH ×2 (07:45→18:50)
[2017-01-15 08:00] VITALS: BP 122/74
[2017-01-15] MEDS: LACTOBACILLUS RHAMNOSUS GG 1 EACH CAP PO SCH ×2 (09:20→21:13)
[2017-01-15] MEDS: CLOPIDOGREL 75 MG TAB PO SCH (09:20)
[2017-01-15] MEDS: SENNA 8.6 MG TAB PO SCH ×2 (09:20→21:13)
[2017-01-15] MEDS: ECOTRIN 81 MG TABEC PO SCH (09:20)
[2017-01-15] MEDS: BACLOFEN 10 MG TAB PO SCH ×3 (09:20→16:53)
--- NOTE | 2017-01-15 09:20 | NUR ---
ADMINISTERED SCHEDULED MEDS. PT TOLERATED WELL. VS ARE WNL. PT IS ON O2 NC @2L/MIN. ALERT AND ORIENTED X4. DENIES PAIN. IV IS ON RIGHT HAND 22G NS AT 90ML/HR. ERYTHEMA ON INNER THIGHS. PT HAS NO COMPLAINTS AT THIS TIME WILL CONTINUE TO MONITOR.
[2017-01-15] MEDS: CARVEDILOL 3.125 MG TAB PO SCH ×2 (09:21→21:14)
[2017-01-15] MEDS: AMIODARONE 200 MG TAB PO SCH (09:21)
[2017-01-15] MEDS: LORazepam 0.5 MG TAB PO SCH ×3 (09:22→16:53)
[2017-01-15] MEDS: HYDRAGUARD CREAM TP SCH ×2 (09:22→21:14)
[2017-01-15 12:00] VITALS: BP 131/67
[2017-01-15] MEDS: HYDROcodone/APAP 5/325 MG 1 TAB TAB PO PRN ×2 (12:04→18:25)
--- NOTE | 2017-01-15 12:04 | NUR ---
CHECKED ON PT IN ROOM. AWAKE AND STATED PAIN ON SCALE 6/10 ON LLE. ADMINISTERED NORCO FOR PAIN. PT TOLERATED WELL. CHECKED BS WAS 124. NO COVERAGE NEEDED. PT HAS NO COMPLAINTS AT THIS TIME. VS ARE WNL. WILL CONTINUE TO MONITOR.
--- NOTE | 2017-01-15 13:45 | NUR ---
PT IS SLEEPING IN ROOM. NO SIGNS OF DISTRESS. WILL CONTINUE TO MONITOR
[2017-01-15 16:00] VITALS: BP 124/54
--- NOTE | 2017-01-15 16:14 | NUR ---
SS NOTE: SENT PT INFORMATION TO [facility], RECEIVED FAX CONFIRMATION
--- NOTE | 2017-01-15 16:50 | NUR ---
ADMINISTERED SCHEDULED MEDS. PT TOLERATED WELL. PT IS TALKING ON PHONE AT THIS TIME. DENIES PAIN. WILL CONTINUE TO MONITOR.
--- NOTE | 2017-01-15 17:15 | NUR ---
CHECKED ON PT. RESTING COMFORTABLY IN BED. BS WAS 89. NO COVERAGE NEEDED. CHANGED EMPTY BAG OF NS 1,000ML TO NEW ONE. NS INFUSING AT 160ML/HR IV. PT HAS NO COMPLAINTS AT THIS TIME. WILL CONTINUE TO MONITOR. Addendum: 01/15/17 at 1725 by Kimberly Jackson RN CHARTED ON WRONG PT. DISMISS THIS NOTE.
--- NOTE | 2017-01-15 18:27 | NUR ---
PT STATED PAIN 6/10 ON LLE. ADMINISTERED NORCO FOR MODERATE PAIN. PT TOLERATED WELL. PT STATED SHE ATE MOST OF HER DINNER. SITTING IN BED WATCHING TV. NO COMPLAINTS AT THIS TIME. WILL CONTINUE TO MONITOR.
--- NOTE | 2017-01-15 19:15 | NUR ---
ENDORSED PT REPORT TO INTERNATIONAL ACCOUNTANT NURSE AT BEDSIDE FOR CONTINUITY OF CARE. PT IN STABLE CONDITION.
--- NOTE | 2017-01-15 19:30 | NUR ---
RECEIVED REPORT FROM AM NURSE. PT RESTING IN BED, AOX4, ABLE TO VERBALIZE NEEDS. PT DENIES CHEST PAIN, SOB OR S/S OF ACUTE DISTRESS. SPO2 95% AT O2 2L NC, 18 RR UNLABORED. RUNNER WORKER IN PLACE. RIGHT PORTACATH NOTED, UNUSED AT THIS TIME. ERYTHEMA NOTED AT BILAT INNER THIGH, WILL ADMINISTER HYDRAGUARD ORDERED. SCDs IN PLACE. IV ACCESS PATENT AND INTACT, IVF INFUSING WELL. PT ASSISTED TO TURN SELF, OFFLOADED PRESSURE AREAS. PT TOLERATED WELL. DISCUSSED AND REVIEWED PLAN OF CARE WITH PT. PT VERBALIZED UNDERSTANDING. ALL NEEDS MET. SAFETY MEASURES ENSURED. CALL LIGHT WITHIN REACH. WILL CONTINUE TO MONITOR.
[2017-01-15 20:00] VITALS: BP 121/50
[2017-01-15] MEDS: hydrOXYzine HCL 10 MG TAB PO SCH (21:13)
--- NOTE | 2017-01-15 21:17 | NUR ---
ADMINISTERED DUE MEDICATIONS WITH EDUCATION. PT VERBALIZED UNDERSTANDING, TOLERATED MEDS WELL. ASSISTED TO PT TO TURN SELF, OFFLOADED PRESSURE AREAS. PT TOLERATED WELL. IV ACCESS INFILTRATED, IV SITE REMOVED, CANNULA INTACT. WILL INSERT NEW IV LATER. ALL NEEDS MET. SAFETY MEASURE ENSURED. CALL LIGHT WITHIN REACH. WILL CONTINUE TO MONITOR.
[2017-01-16] VITALS: BP 122/51
--- NOTE | 2017-01-16 | NUR ---
PT SLEEPING COMFORTABLY IN BED BUT AROUSABLE. SPO2 96% AT O2 2L NC, RR 16 UNLABORED. NO S/S OF ACUTE DISTRESS. ASSISTED PT TO REPOSITION SELF, OFFLOADED PRESSURE AREAS. PT TOLERATED WELL. ALL NEEDS MET. IVF INFUSING WELL. SAFETY MEASURES ENSURED. CALL LIGHT WITHIN REACH. WILL CONTINUE TO MONITOR.
[2017-01-16] MEDS: ALBUTEROL SULFATE/IPRATROPIU 3 ML SOL IH SCH ×4 (00:08→18:59)
[2017-01-16 04:00] VITALS: BP 146/67
--- NOTE | 2017-01-16 04:00 | NUR ---
PT SLEEPING COMFORTABLY IN BED BUT AROUSABLE. SPO2 95% AT O2 2L NC, RR 18 UNLABORED. NO S/S OF ACUTE DISTRESS. ASSISTED PT TO REPOSITION SELF, OFFLOADED PRESSURE AREAS. PT TOLERATED WELL. ALL NEEDS MET. IVF INFUSING WELL. SAFETY MEASURES ENSURED. CALL LIGHT WITHIN REACH. WILL CONTINUE TO MONITOR.
--- NOTE | 2017-01-16 07:15 | NUR ---
ENDORSED PLAN OF CARE TO AM NURSE. CONDITION STABLE.
--- NOTE | 2017-01-16 07:17 | NUR ---
RECEIVED REPORT FROM PM NURSE FOR CONTINUITY OF CARE. PT SLEEPING BUT AWAKENS EASILY. INITIAL ASSESSMENT DONE. RESP EVEN AND UNLABORED. IV INTACT, NO SWELLING OR REDNESS NOTED. SKIN IS WARM AND DRY, ERYTHEMA NOTED ON BILAT INNER THIGHS, AND LESIONS ON LEFT LOWER LEG. DISCUSSED PLAN OF CARE WITH PT, VERBALIZED UNDERSTANDING. RESP TECH AT BEDSIDE. PT DENIES ANY FURTHER NEEDS AT THIS TIME. SAFETY MEASURES IN PLACED. BED LOCKED ON LOW POSITION, SIDE RAILS UP, CALL LIGHT WITHIN REACH. WILL CONTINUE TO MONITOR.
[2017-01-16] MEDS: BUDESONIDE 0.25 MG/2 ML NEBU INH SCH ×2 (07:30→19:00)
--- NOTE | 2017-01-16 07:55 | NUR ---
PATIENT C/O OF NASAL DRYNESS WITH SUPPLEMENTAL OXYGEN USE ADDED HUMIDIFIER
[2017-01-16 08:00] VITALS: BP 136/62
[2017-01-16 08:42] LABS: T4 (THYROXINE) 3.4 ug/dL (4.5 - 12.0)
[2017-01-16] MEDS: HYDRAGUARD CREAM TP SCH ×2 (09:00→21:11)
--- NOTE | 2017-01-16 09:29 | NUR ---
SS NOTE: PER CRISTAL FROM [facility], [facility] ARE UNABLE TO ACCEPT PT. SHE ALSO STATED THAT THEY EVALUATED PT LAST WEEK AT [facility] [place] AND THEY DECLINED PT AT THAT TIME WELL.
[2017-01-16] MEDS: LORazepam 0.5 MG TAB PO SCH ×3 (09:39→17:03)
[2017-01-16] MEDS: AMIODARONE 200 MG TAB PO SCH (09:39)
[2017-01-16] MEDS: BACLOFEN 10 MG TAB PO SCH ×3 (09:39→17:02)
[2017-01-16] MEDS: ECOTRIN 81 MG TABEC PO SCH (09:39)
[2017-01-16] MEDS: CARVEDILOL 3.125 MG TAB PO SCH ×2 (09:40→21:00)
[2017-01-16] MEDS: CLOPIDOGREL 75 MG TAB PO SCH (09:40)
[2017-01-16] MEDS: LACTOBACILLUS RHAMNOSUS GG 1 EACH CAP PO SCH ×2 (09:40→21:06)
[2017-01-16] MEDS: SENNA 8.6 MG TAB PO SCH ×2 (09:40→21:06)
--- NOTE | 2017-01-16 10:05 | NUR ---
PT RESTING QUIETLY, NO S/S OF DISTRESS, SOB OR DISCOMFORT. RESP EVEN AND UNLABORED. PT IN CONTACT ISOLATION. PURPLE DISCOLORATION NOTED ON PT'S BACK. PT DENIES FURTHER NEEDS AT THIS TIME. SAFETY MEASURE IN PLACED. WILL CONTINUE TO MONITOR.
--- NOTE | 2017-01-16 11:17 | NUR ---
SS NOTE: I SPOKE WITH PT BEDSIDE AND ASKED HER ABOUT THE OPTION OF [facility] SINCE SHE WAS NOT ACCEPTED WITH [facility]. PT STATED THAT SHE IS IN AGREEMENT WITH GOING TO [facility] IF ACCEPTED. SHE ALSO STATED THAT SHE WILL PAY FOR HOME CARE IF SHE IS NOT ACCEPTED TO [facility]. Addendum: 01/16/17 at 1511 by Pippa Gomes SS I ALSO INFORMED PT THAT I RECEIVED A CALL FROM PT'S SISTER, ELIGIO VIEIRA ([phone]). PT REPORTED THAT IT WAS OKAY TO GIVE HER AN UPDATE ON HER DISCHARGE PLAN.
[2017-01-16] MEDS: HYDROcodone/APAP 5/325 MG 1 TAB TAB PO PRN ×2 (11:56→21:07)
[2017-01-16 12:00] VITALS: BP 137/70
--- NOTE | 2017-01-16 12:00 | NUR ---
RN FROM [facility] AT BEDSIDE FOR EVALUATION
--- NOTE | 2017-01-16 12:05 | NUR ---
PHYSICAL THERAPIST AT BEDSIDE. PT AMBULATED WITH WALKER.
--- NOTE | 2017-01-16 13:15 | NUR ---
01/16/17 RD INITIAL ASSESSMENT COMPLETED PLEASE REFER TO NUTRITION ASSESSMENT UNDER CARE ACTIVITY FOR ESTIMATED NUTRITIONAL NEEDS. 1. CONTINUE CARDIAC DIET 2. ENCOURAGE INCREASED PO INTAKE TO TOLERANCE 3. PROVIDE NUTRITION THERAPY EDUCATION NEEDED 4. RD TO FOLLOW-UP 3-5 DAYS, MODERATE RISK GEORGINA RESENDEZ, KAILA
--- NOTE | 2017-01-16 14:18 | NUR ---
PT WATCHING TV. RESP EVEN AND UNLABORED. NO S/S OF DISTRESS, SOB, OR RESTLESSNESS. DENIES ANY FURTHER NEEDS AT THIS TIME. SAFETY MEASURES IN PLACED. WILL CONTINUE TO MONITOR.
--- NOTE | 2017-01-16 14:24 | NUR ---
SS NOTE: PER CLARISA FROM [facility] ([phone]), THEY ARE ABLE TO ACCEPT PT AND ARE WORKING ON A BED FOR HER. SHE ALSO STATED THAT THEY WILL TRY TO GET A BED FOR PT TODAY BUT THEY WILL PROBABLY HAVE A BED TOMORROW.
--- NOTE | 2017-01-16 14:30 | NUR ---
PHYSICAL THERAPY CO-SIGN The Physical Therapy Progress Notes documented by Health Program Analyst have been reviewed. Reviewed/Co-Signed by: Jayleen Baldwin, PT Documentation Done by: Tre Montes PTA I concur with the documentation of this BOOKING CLERK. Plan: continue PT as per plan of care if she remains in this hospital. Addendum: 01/16/17 at 1504 by Jayleen Baldwin PT Amended: Links added.
--- NOTE | 2017-01-16 14:41 | NUR ---
SS NOTE: I SPOKE WITH PT'S SISTER, ELIGIO ([phone]) AND PROVIDED HER WITH AN UPDATE ON PT'S ACCEPTANCE TO [facility].
[2017-01-16 16:00] VITALS: BP 117/51
--- NOTE | 2017-01-16 16:05 | NUR ---
ADMITTING CALLED TO SECURE PT'S VALUABLES.
--- NOTE | 2017-01-16 16:45 | NUR ---
PT WATCHING TV. RESP EVEN AND UNLABORED. NO S/S OF DISTRESS, SOB, OR RESTLESSNESS. DENIES ANY NEEDS AT THIS TIME. SAFETY MEASURES IN PLACED. WILL CONTINUE TO MONITOR.
--- NOTE | 2017-01-16 17:00 | NUR ---
DR MEDEROS AT BEDSIDE. Addendum: 01/16/17 at 1719 by Emilie Cox RN WRONG ENTRY, WRONG PATIENT.
--- NOTE | 2017-01-16 18:30 | NUR ---
PT UP TO BEDSIDE COMMODE WITH SOME ASSIST, + BM, PT RETURNED BACK TO BED. PT DENIES PAIN OR DISCOMFORT, DENIES ANY NEEDS, CALL LITTLE WITHIN REACH, WILL CONTINUE TO MONITOR.
--- NOTE | 2017-01-16 19:01 | NUR ---
24G R HAND IV CLOGGED, UNABLE TO FLUSH, NEW IV 22G STARTED TO RIGHT FOREARM, PT BELTRAN WELL, NS INFUSION RESUMED.
--- NOTE | 2017-01-16 19:16 | NUR ---
ENDORSED CARE TO PM NURSE FOR CONTINUITY OF CARE. PT IN STABLE CONDITION.
--- NOTE | 2017-01-16 19:17 | NUR ---
RECEIVED REPORT FROM DAY NURSE, PT IN STABLE CONDITION. PT IS AAOX4, PT IS ON 2L 02 VIA N/C. IV TO RIGHT HAND 22 G, INFUSING WELL, DRY AND INTACT. RESPIRATIONS ARE EVEN AND UNLABORED. BOWEL SOUNDS PRESENT IN ALL FOUR QUADRANTS. INITIAL ASSESSMENT COMPLETED. PLAN OF CARE DISCUSSED WITH PT, PT VERBALIZED UNDERSTANDING. ALL SAFETY PRECAUTIONS MET, CALL LIGHT WITHIN REACH, WILL CONTINUE TO MONITOR.
[2017-01-16 21:00] VITALS: BP 116/49
[2017-01-16] MEDS: hydrOXYzine HCL 10 MG TAB PO SCH (21:07)
--- NOTE | 2017-01-16 21:30 | NUR ---
DUE MEDICATIONS GIVEN, HELD PT'S B/P MEDICATION, CARVEDILOL BECAUSE PTS B/P LOW 116/49. ALL SAFETY PRECAUTIONS MET, CALL LIGHT WITHIN REACH, WILL CONTINUE TO MONITOR.
--- NOTE | 2017-01-16 22:30 | NUR ---
CHECKED IN ON PT. NO S/S OF DISTRESS NOTED. PT RESTING COMFORTABLY IN BED. ALL SAFETY PRECAUTIONS MET, CALL LIGHT WITHIN REACH, WILL CONTINUE TO MONITOR.
[2017-01-17] VITALS: BP 109/46
--- NOTE | 2017-01-17 00:15 | NUR ---
CHECKED IN ON PT, PT RESTING COMFORTABLY IN BED. NO S/S OF DISTRESS NOTED. ALL SAFETY PRECAUTIONS MET, CALL LIGHT WITHIN REACH, WILL CONTINUE TO MONITOR.
[2017-01-17] MEDS: NACL 0.9% 1,000 ML IV SCH ×2 (01:20→18:00)
[2017-01-17] MEDS: ALBUTEROL SULFATE/IPRATROPIU 3 ML SOL IH SCH ×4 (01:30→19:22)
--- NOTE | 2017-01-17 02:15 | NUR ---
CHECKED IN ON PT. PT RESTING IN BED COMFORTABLY, NO S/S OF DISTRESS NOTED. ALL SAFETY PRECAUTIONS MET, CALL LIGHT WITHIN REACH, WILL CONTINUE TO MONITOR.
[2017-01-17] MEDS: HYDROcodone/APAP 5/325 MG 1 TAB TAB PO PRN ×3 (03:07→20:46)
--- NOTE | 2017-01-17 03:07 | NUR ---
CHECKED IN ON PT. PT HAS 6/10 PAIN IN LEGS BILATERALLY, PT MEDICATED PER MD ORDERS. ALL SAFETY PRECAUTIONS MET, WILL REASSESS IN ONE HOUR
--- NOTE | 2017-01-17 04:30 | NUR ---
CHECKED IN ON PT. PT RESTING IN BED COMFORTABLY, NO S/S OF DISTRESS NOTED. ALL SAFETY PRECAUTIONS MET, CALL LIGHT WITHIN REACH, WILL CONTINUE TO MONITOR.
--- NOTE | 2017-01-17 07:18 | NUR ---
ENDORSED PLAN OF CARE TO DAY NURSE, PT IN STABLE CONDITION, NO S/S OF DISTRESS NOTED. ALL SAFETY PRECAUTIONS MET, CALL LIGHT WITHIN REACH.
--- NOTE | 2017-01-17 07:20 | NUR ---
RECEIVED REPORT FROM PM NURSE FOR CONTINUITY OF CARE. PT IS RESTING. INITIAL ASSESSMENT DONE. RESP EVEN AND UNLABORED. IV INTACT, NO SWELLING OR REDNESS NOTED. SKIN IS WARM AND DRY, ERYTHEMA NOTED ON BILAT INNER THIGHS, AND LESIONS ON LEFT LOWER LEG. DISCUSSED PLAN OF CARE WITH PT, VERBALIZED UNDERSTANDING. PT DENIES ANY FURTHER NEEDS AT THIS TIME. SAFETY MEASURES IN PLACED. BED LOCKED ON LOW POSITION, SIDE RAILS UP, CALL LIGHT WITHIN REACH. WILL CONTINUE TO MONITOR.
[2017-01-17] MEDS: BUDESONIDE 0.25 MG/2 ML NEBU INH SCH ×2 (07:25→19:22)
[2017-01-17 08:00] VITALS: BP 141/65
[2017-01-17] MEDS: SENNA 8.6 MG TAB PO SCH ×2 (09:00→20:51)
[2017-01-17] MEDS: CLOPIDOGREL 75 MG TAB PO SCH (09:00)
[2017-01-17] MEDS: LORazepam 0.5 MG TAB PO SCH ×3 (09:00→16:17)
[2017-01-17] MEDS: BACLOFEN 10 MG TAB PO SCH ×3 (09:00→16:17)
[2017-01-17] MEDS: ECOTRIN 81 MG TABEC PO SCH (09:00)
[2017-01-17] MEDS: CARVEDILOL 3.125 MG TAB PO SCH ×2 (09:00→20:52)
[2017-01-17] MEDS: HYDRAGUARD CREAM TP SCH ×2 (09:00→20:54)
[2017-01-17] MEDS: LACTOBACILLUS RHAMNOSUS GG 1 EACH CAP PO SCH ×2 (09:01→20:51)
[2017-01-17] MEDS: AMIODARONE 200 MG TAB PO SCH (09:01)
--- NOTE | 2017-01-17 09:31 | NUR ---
SS NOTE: PER CLARISA FROM [facility], THEIR PROTEIN PURIFICATION SCIENTIST HAS DECLINED PT. SHE ALSO STATED THAT THEY DO NOT FEEL THAT PT HAS A STRONG DISCHARGE PLAN AND DOES NOT HAVE SECONDARY INSURANCE.
--- NOTE | 2017-01-17 09:36 | NUR ---
PT WATCHING TV. RESP EVEN AND UNLABORED. PT DENIES FURTHER NEEDS AT THIS TIME. NO S/S OF DISTRESS OR DISCOMFORT. SAFETY MEASURES IN PLACED. WILL CONTINUE TO MONITOR.
--- NOTE | 2017-01-17 10:11 | NUR ---
PHYSICAL THERAPIST AT BEDSIDE. PT AMBULATED WITH WALKER IN THE ROOM.
--- NOTE | 2017-01-17 10:42 | NUR ---
PT C/O PAIN ON LOWER EXTREMITIES. MEDICATED PT WITH NORCO PER MD ORDER. TOLERATED WELL. WILL REASSESS THE PT IN AN HOUR. WILL CONTINUE TO MONITOR.
--- NOTE | 2017-01-17 11:09 | NUR ---
SS NOTE: I SPOKE WITH DONIS FROM A [facility] AND SHE STATED THAT SHE WILL COME AT NOON TO MEET WITH PT. I SPOKE WITH PT BEDSIDE AND INFORMED HER THAT WE WILL WORK ON FINDING HER AN ASSISTED LIVING FACILITY SINCE SHE WILL NOT RECEIVE ADDITIONAL SUPPORT AT HOME. PT STATED THAT SHE IS IN AGREEMENT WITH MEETING WITH DONIS AND BEING PLACED IN AN ASSISTED LIVING FACILITY.
[2017-01-17 11:33] LABS: FOLIC ACID 5.1 ng/mL (>3.0)
--- NOTE | 2017-01-17 11:59 | NUR ---
PT RESTING IN BED COMFORTABLY. RESP EVEN AND UNLABORED. NO S/S OF DISTRESS, OR SOB. PT DENIES NEEDS AT THIS TIME. SAFETY MEASURES IN PLACED. WILL CONTINUE TO MONITOR.
--- NOTE | 2017-01-17 13:31 | NUR ---
SS NOTE: PER RAGHU FROM [facility] ([phone]), SHE WILL COME TO MEET WITH PT THIS AFTERNOON TO PROVIDE HER WITH MORE INFORMATION REGARDING THEIR FACILITY.
--- NOTE | 2017-01-17 13:59 | NUR ---
PT WATCHING TV. RESP EVEN AND UNLABORED. NO S/S OF DISTRESS, SOB, OR RESTLESSNESS. DENIES NEEDS AT THIS TIME. SAFETY MEASURE IN PLACED. WILL CONTINUE TO MONITOR.
--- NOTE | 2017-01-17 14:52 | NUR ---
PT SLEEPING, EASILY AWAKENS. NO S/S OF SOB, OR DISTRESS, RESP EVEN AND UNLABORED. SAFETY MEASURES IN PLACED. WILL CONTINUE TO MONITOR.
--- NOTE | 2017-01-17 15:38 | NUR ---
SS NOTE: PER JANETH FROM [facility], THEY ARE UNABLE TO WORK WITH PT'S BUDGET PER RAGHU FROM [facility], SHE MET WITH PT BEDSIDE AND PT INFORMED HER THAT SHE IS ONLY WILLING TO SPEND $600 DUE TO HER OTHER BILLS. MESSAGE LEFT FOR TIMMY AT [facility] ([phone]) TO SEE IF SHE WOULD BE ABLE TO COME TO ASSESS PT TODAY
[2017-01-17 16:00] VITALS: BP 133/56
--- NOTE | 2017-01-17 17:05 | NUR ---
PT WATCHING TV. NO S/S OF DISTRESS. RESP EVEN AND UNLABORED. DENIES DISCOMFORT, PAIN, OR NEEDS AT THIS TIME. SAFETY MEASURES IN PLACED. WILL CONTINUE TO MONITOR.
--- NOTE | 2017-01-17 18:42 | NUR ---
PT ON THE PHONE. PT AAO. RESP EVEN AND UNLABORED. DENIES ANY NEEDS AT THIS TIME. NO S/S OF DISTRESS. NEPHEWPATRICIA, AT BEDSIDE.
--- NOTE | 2017-01-17 19:26 | NUR ---
ENDORSED TO PM SHIFT FOR CONTINUITY OF CARE, PT IN STABLE CONDITION.
--- NOTE | 2017-01-17 19:27 | NUR ---
RECEIVED REPORT FROM DAY NURSE, PT IN STABLE CONDITION. PT IS AAOX4, PT IS ON 2L 02 VIA N/C. IV TO RIGHT HAND 22 G, INFUSING WELL, DRY AND INTACT. PT HAS ERYTHEMA ON INNER THIGHS. RESPIRATIONS ARE EVEN AND UNLABORED. BOWEL SOUNDS PRESENT IN ALL FOUR QUADRANTS. INITIAL ASSESSMENT COMPLETED. PLAN OF CARE DISCUSSED WITH PT, PT VERBALIZED UNDERSTANDING. ALL SAFETY PRECAUTIONS MET, CALL LIGHT WITHIN REACH, WILL CONTINUE TO MONITOR.
[2017-01-17] MEDS: hydrOXYzine HCL 10 MG TAB PO SCH (20:51)
--- NOTE | 2017-01-17 20:55 | NUR ---
DUE MEDICATIONS GIVEN, PT TOLERATED WELL. ALL SAFETY PRECAUTIONS MET, CALL LIGHT WITHIN REACH WILL CONTINUE TO MONITOR.
--- NOTE | 2017-01-17 22:30 | NUR ---
PT SITTING IN BED WATCHING TV, NO S/S OF DISTRESS NOTED. ALL SAFETY PRECAUTIONS MET, CALL LIGHT WITHIN REACH WILL CONTINUE TO MONITOR.
--- NOTE | 2017-01-18 00:05 | NUR ---
CHECKED PTS VITALS, PT IN STABLE CONDITION. NO S/S OF DISTRESS NOTED. PT RESTING IN BED COMFORTABLY WITH TV ON. CALL LIGHT WITHIN REACH
[2017-01-18 00:30] VITALS: BP 137/49
[2017-01-18] MEDS: ALBUTEROL SULFATE/IPRATROPIU 3 ML SOL IH SCH ×3 (01:32→14:03)
--- NOTE | 2017-01-18 02:19 | NUR ---
PT RESTING IN BED, PT RESPONDS TO NAME. PT IS COMFORTABLE, GAVE PT EXTRA BLANKET, ALL SAFETY PRECAUTIONS MET, CALL LIGHT WITHIN REACH.
--- NOTE | 2017-01-18 04:41 | NUR ---
CHECKED IN ON PT, PT RESTING COMFORTABLY IN BED NO S/S OF DISTRESS NOTED. ALL SAFETY PRECAUTIONS MET, CALL LIGHT WITHIN REACH WILL CONTINUE TO MONITOR.
--- NOTE | 2017-01-18 05:15 | NUR ---
CHECKED IN ON PT, PT STATED SHE HAD 6/10 PAIN IN LEGS. PT WAS MEDICATED PER MD ORDERS, WILL CONTINUE TO MONITOR
[2017-01-18] MEDS: HYDROcodone/APAP 5/325 MG 1 TAB TAB PO PRN ×2 (05:17→11:36)
[2017-01-18] MEDS: NACL 0.9% 1,000 ML IV SCH ×2 (06:30→10:40)
--- NOTE | 2017-01-18 07:18 | NUR ---
ENDORSED PLAN OF CARE TO DAY NURSE, PT IN STABLE CONDITION NO S/S OF DISTRESS NOTED.
--- NOTE | 2017-01-18 07:20 | NUR ---
RECEIVED PATIENT REPORT AT BEDSIDE FROM NIGHT NURSE. PATIENT IS AAOX4 AND SHOWS NO S/S OF ACUTE DISTRESS ON O2 2L VIA NC. PATIENT DENIES PAIN AT THIS TIME. IV NOTED ON THE R H WITH IVF'S INFUSING WELL. ERYTHEMA ON CLIFFORD INNER THIGHS WITH BROWN DISCOLORATION TO CLIFFORD THIGHS; OTHERWISE, SKIN IS INTACT.. LLE NOTED HEALED SCABS. PATIENT IS AWARE OF POC FOR TODAY AND VERBALIZED UNDERSTANDING. PATIENT STATES SHE KNOWS HOW TO USE CALL LIGHT WHEN ASSISTANCE IS NEEDED. THE BED IS IN THE LOW POSITION WITH CALL LIGHT WITHIN REACH. WILL CONTINUE TO MONITOR.
[2017-01-18] MEDS: BUDESONIDE 0.25 MG/2 ML NEBU INH SCH (07:32)
[2017-01-18 08:00] VITALS: BP 132/60
[2017-01-18] MEDS: LACTOBACILLUS RHAMNOSUS GG 1 EACH CAP PO SCH (09:22)
[2017-01-18] MEDS: AMIODARONE 200 MG TAB PO SCH (09:22)
[2017-01-18] MEDS: ECOTRIN 81 MG TABEC PO SCH (09:22)
[2017-01-18] MEDS: LORazepam 0.5 MG TAB PO SCH ×2 (09:22→13:50)
--- NOTE | 2017-01-18 09:22 | NUR ---
ADMINISTERED SCHEDULED MEDICATIONS. PATIENT TOLERATED ACTIVITY WELL. PATIENT HAD MODERATE FORMED BROWN BM IN BSC AND CLEAR YELLOW URINE. PATIENT'S NEEDS MET AT THIS TIME. PATIENT SHOWS NO S/S OF ACUTE DISTRESS ON O2 2L VIA NC. BED IS LOW POSITION WITH CALL LIGHT WITHIN REACH.
[2017-01-18] MEDS: BACLOFEN 10 MG TAB PO SCH ×2 (09:23→13:51)
[2017-01-18] MEDS: CARVEDILOL 3.125 MG TAB PO SCH (09:23)
[2017-01-18] MEDS: CLOPIDOGREL 75 MG TAB PO SCH (09:23)
[2017-01-18] MEDS: HYDRAGUARD CREAM TP SCH (09:24)
[2017-01-18] MEDS: SENNA 8.6 MG TAB PO SCH (09:24)
--- NOTE | 2017-01-18 10:30 | NUR ---
PATIENT ASKED TO SPEAK WITH CARBIDE DIE MAKER, CALLED MICHAEL BOTELLO AND SAID SHE WILL SEE PATIENT.
--- NOTE | 2017-01-18 11:08 | NUR ---
Social Service Note: I met with patient at bedside and spoke with her regarding her discharge plan. Per patient, she stated her sister Yenni Chong hired a private caregiver to provide her with assistance with adls at home. Patient reported caregiver will be at her home 8 hours per day, 7 days per week. She also stated her nephew Remy Chong will be visiting her at home and help her with adls as well. She stated she would like to return home via [facility] [employer], reported she has returned home via [employer] before and is aware transportation cost is private pay and she is in agreement with paying, charge nurse [facility].
[2017-01-18] MEDS ORDERED: METH4TAB3 PO (11:12)
--- NOTE | 2017-01-18 11:20 | NUR ---
PATIENT BEING SEEN BY PHYSICAL THERAPY.
--- NOTE | 2017-01-18 11:35 | NUR ---
PATIENT C/O LLE 7/10 PAIN. ADMINISTERED NORCO 5/325 MG PO. WILL REASSESS IN ONE HR. PATIENT IS AWARE OF [facility] TO COME PICK HER UP AT 1500.
--- NOTE | 2017-01-18 12:07 | NUR ---
1120 Met with pt at bedside and discussed with her discharge plan for today. Pt stated that her sister has hired a caregiver. Informed pt that [facility] transport with [facility] has been arranged for 3pm today as she had informed the SW she has used the company prior and she is willing to pay. Provided pt with cost of transport per [facility]. Per Lulu at [facility] [phone] pt is in the system and to inform pt that the cost of transport with [facility] will be $61.50. After discussing with pt the discharge arrangements she then stated that she could not go home today as her hired caregiver would not start until tomorrow. Discussed with pt that her sister had also informed the SW that her nephew would be helping also. Informed pt that I would have the SW call her sister to inform her that the physician has written for discharge today.
--- NOTE | 2017-01-18 12:11 | NUR ---
Social Service Note: I called and spoke with patient's sister Yenni Chong , per Yenni, patient's new caregiver will be visiting patient at home today. I informed Yenni guy health services will be arranged for patient. She verbalized understanding. She is aware patient will be returning home today. I faxed inquiry to [facility], phone number , fax . Per Ashia from [facility], patient has been accepted and they will send a nurse to patient's home tomorrow.
--- NOTE | 2017-01-18 14:00 | NUR ---
ADMINISTERED SCHEDULED MEDICATIONS. PATIENT TOLERATED WELL. PATIENT'S BED IS IN LOW POSITION WITH CALL LIGHT WITHIN REACH. PATIENT IS AWARE [facility] WILL COME BY AT 1500 TO SPR[facility] INST[employer]ER .
--- NOTE | 2017-01-18 14:50 | NUR ---
PATIENT REFUSED TO HAVE PICTURES TAKEN OF LLE AND INNER THIGH.
--- NOTE | 2017-01-18 15:15 | NUR ---
[facility] ARRIVED ON UNIT. PATIENT IS AAOX4 AND SHOWS NO S/S OF ACUTE DISTRESS ON O2 2L VIA NC. PATIENT WAS GIVEN PERINEAL CARE AND DRESSED TO BE TRANSPORTED HOME. ALL DISCHARGE INSTRUCTION WERE GIVEN. PATIENT INDICATED PHARMACY WAS INCORRECT. DR MEDEROS IS AWARE AND WILL SEND OVER PRESCRIPTIONS TO [facility] IN [place]. ALL PAPER WORK WAS SIGNED. ALL QUESTIONS ANSWERED. PATIENT VERBALIZED UNDERSTANDING OF CONTINUITY OF CARE. ALL BELONGINGS IN PATIENT'S POSSESSION. IV WAS DISCONTINUED WITH CANNULA INTACT. PATIENT WAS TRANSFERRED FROM BED TO WHEELCHAIR. PATIENT LEFT UNIT IN STABLE CONDITION.
[2017-01-18] MEDS ORDERED: METH4TAB1 PO (15:36)
== END 2017-01-18 15:15 | disposition home health service (06) | DRG 291 ==
LOC: MED 15:16 → MTU 18:14
PROVIDERS: ADMIT Family Medicine; ATTEND Family Medicine
DX: I13.0 Hypertensive heart and chronic kidney disease with heart failure and stage 1 through stage 4 chronic kidney disease, or unspecified chronic kidney disease (principal); J96.22 Acute and chronic respiratory failure with hypercapnia; N17.0 Acute kidney failure with tubular necrosis; E44.0 Moderate protein-calorie malnutrition; E11.22 Type 2 diabetes mellitus with diabetic chronic kidney disease; I48.91 Unspecified atrial fibrillation; E11.42 Type 2 diabetes mellitus with diabetic polyneuropathy; I42.2 Other hypertrophic cardiomyopathy; J44.1 Chronic obstructive pulmonary disease with (acute) exacerbation; I50.43 Acute on chronic combined systolic (congestive) and diastolic (congestive) heart failure; N39.0 Urinary tract infection, site not specified; Z99.81 Dependence on supplemental oxygen; F41.9 Anxiety disorder, unspecified; N18.9 Chronic kidney disease, unspecified; S71.112A Laceration without foreign body, left thigh, initial encounter; E66.9 Obesity, unspecified; Z68.32 Body mass index [BMI] 32.0-32.9, adult; D64.9 Anemia, unspecified; Z85.3 Personal history of malignant neoplasm of breast; Z90.710 Acquired absence of both cervix and uterus; Z90.10 Acquired absence of unspecified breast and nipple; Z88.2 Allergy status to sulfonamides; Z82.49 Family history of ischemic heart disease and other diseases of the circulatory system; Z82.5 Family history of asthma and other chronic lower respiratory diseases; Z90.5 Acquired absence of kidney; Z87.891 Personal history of nicotine dependence; Z92.3 Personal history of irradiation; Z83.3 Family history of diabetes mellitus
CPT/HCPCS: 36415; 36600; 71010; 76770; 80048; 80053; 81001; 82607; 82728; 82746; 82803; 83036; 83540; 83605; 83735; 83880; 84100; 84436; 84443; 84479; 84484; 85025; 85045; 85610; 85730; 87040; 87081; 87086; 87186; 93005; 94640; 96374; 97110; 97116; 97140; 97530; 99285; J0696; J1956; J2405; J2920; J2930; J7030; J7060; J7512; J7613; J7620; J7626; J7644; Q0092

== ENCOUNTER 2017-01-19 03:53 | Inpatient (IN) | payer OTHER, MEDICARE ==
[~2017-01-19] VITALS: Ht 167.6 cm; Wt 93.4 kg
[~2017-01-19 03:53] MED LIST changes: -ACET-3783 PO; -ACET-4275 PO; +ACET-5636 PO; +HYDR-4924 PO; +METH4TAB1 PO; -PRED20TA5 PO; +SENN-89 PO; -SENN8.6T99 PO
--- NOTE | 2017-01-19 03:53 | NUR ---
PATIENT BIB [facility] TO ER BED 4.
[2017-01-19 03:56] VITALS: BP 142/60
--- NOTE | 2017-01-19 04:01 | NUR ---
76/F biba from home for evaluation of generalized weakness. Pt was discharged from here earlier this afternoon 1500. Pt states she went home and does not feel better. AOX4, clear speech. VSS.
--- NOTE | 2017-01-19 04:05 | NUR ---
PATIENT BEING EVALUATED BY DR. ALICEA.
[2017-01-19] MEDS ORDERED: ALBUTEROL SULFATE/IPRATROPIU 3 ML SOL IH ONE (04:10)
[2017-01-19] MEDS ORDERED: methylPREDNISolone SS 125 MG in WATER STERILE 2 ML IV ONE (04:25)
[2017-01-19 05:01] LABS: ANION GAP 8.2 (8-16); CARBON DIOXIDE 29.9 mmol/L (21-32); CHLORIDE 109 mmol/L (98-107); CREATININE 0.9 mg/dL (0.6-1.3); GLUCOSE 105 mg/dL (74-106); POTASSIUM 4.1 mmol/L (3.5-5.1); SODIUM SERUM 143 mmol/L (136-145); UREA NITROGEN, BLOOD 12 mg/dL (7-18)
[2017-01-19 05:07] LABS: ALBUMIN 2.8 g/dL (3.4-5.0); ASPARTATE AMINOTRANSFERASE 30 U/L (15-37); TOTAL BILIRUBIN 0.4 mg/dL (0.0-1.0)
[2017-01-19 05:08] LABS: HEMATOCRIT 31.8 % (36-48); HEMOGLOBIN 10.5 g/dL (12.0-16.0); MEAN CORPUSCULAR HEMOGLOBIN 30 pg (27-31); MEAN CORPUSCULAR HGB CONC 33 g/dL (33-37); MEAN CORPUSCULAR VOLUME 90 fL (80-94); PLATELET COUNT (AUTO) 185 K/uL (140-450); RED BLOOD CELL COUNT(AUTO) 3.53 MIL/uL (4.20-5.40); RED CELL DISTRIBUTION WIDTH 16.7 % (11.6-13.7); WHITE BLOOD COUNT (AUTO) 7.3 K/uL (4.8-10.8)
[2017-01-19 05:12] LABS: BASOPHILS % (MANUAL) 0 % (0-2); EOSINOPHILS % (MANUAL) 0 % (0-4); LYMPHOCYTES % (MANUAL) 19 % (20-46); MONOCYTES % (MANUAL) 7 % (5-12)
[2017-01-19 05:16] LABS: PROTHROMBIN TIME 10.1 secs (10.8-13.4)
[2017-01-19] MEDS ORDERED: ACETAMINOPHEN 325 MG TAB PO PRN ×2 (05:30→07:35)
[2017-01-19] MEDS ORDERED: HYDROcodone/APAP 7.5/325 MG 1 TAB PO PRN (05:30)
[2017-01-19] MEDS ORDERED: MORPHINE SULFATE 2 MG/ML SYR IVP PRN (05:30)
--- NOTE | 2017-01-19 05:56 | NUR ---
Patient resting comfortably in bed. VSS.
--- NOTE | 2017-01-19 06:41 | NUR ---
Patient will be admitted to care of Dr. Montes. Admited to Tele. Will go to room 118. Belongings list completed. Report to Garland MENDEZ.
--- NOTE | 2017-01-19 07:20 | NUR ---
REPORT RECEIVED FROM PM NURSE. PT IS SLEEPING SHOWING NO SIGNS OF ACUTE DISTRESS. IV ACCESS ON RIGHT HAND, PATENT AND ASYMPTOMATIC. BOWEL SOUNDS PRESENT ON ALL FOUR QUADRANTS. BEDBOUND, 02 2L VIA NC. SKIN IS INTACT, SWOLLEN LEFT UPPER OUTER ARMPIT AREA NOTED. BED ON LOW POSITION , BILATERAL HALF SIDE RAILS UP, CALL LIGHT WITHIN REACH. WILL CONTINUE TO MONITOR.
[2017-01-19 07:23] LABS: MAGNESIUM 2.1 mg/dL (1.8-2.4); PHOSPHORUS 3.1 mg/dL (2.5-4.9)
--- NOTE | 2017-01-19 07:26 | NUR ---
PT ON UNIT FROM ER. PT RESTING IN BED. NO S/S OF ACUTE DISTRESS. AAOX4. IV SITE PATENT AND INTACT. PT DENIES PAIN. PT ORIENTED TO ROOM. ENDORSED PLAN OF CARE TO DAY RN. PT REMAINS STABLE.
[2017-01-19 08:00] VITALS: BP 131/61
[2017-01-19] MEDS ORDERED: FUROSEMIDE 40 MG TAB PO SCH (08:14)
[2017-01-19] MEDS: PSYLLIUM 12.2 GM/PKT PO SCH (09:00)
--- NOTE | 2017-01-19 09:15 | NUR ---
STARTED PATIENT ON IVF NS.
[2017-01-19] MEDS: CLOPIDOGREL 75 MG TAB PO SCH (09:27)
[2017-01-19] MEDS: CARVEDILOL 3.125 MG TAB PO SCH ×2 (09:27→20:42)
[2017-01-19] MEDS: HYDROcodone/APAP 10/325 MG 1 TAB TAB PO PRN ×2 (09:28→23:25)
[2017-01-19] MEDS: SENNA 8.6 MG TAB PO SCH ×2 (09:28→20:42)
[2017-01-19] MEDS: AMIODARONE 200 MG TAB PO SCH (09:29)
[2017-01-19] MEDS: LORazepam 0.5 MG TAB PO SCH ×3 (09:30→17:00)
[2017-01-19] MEDS: BACLOFEN 10 MG TAB PO SCH ×3 (09:30→17:00)
--- NOTE | 2017-01-19 09:30 | NUR ---
ASSISTED PT TO USE BEDPAN, PT TOLERATED WELL. BED IN LOW POSITION, BILATERAL HALF SIDE RAILS UP, BED ALARM ON, CALL LIGHT WITHIN REACH, WILL CONTINUE TO MONITOR
[2017-01-19] MEDS: ECOTRIN 81 MG TABEC PO SCH (09:31)
[2017-01-19] MEDS: HYDRAGUARD CREAM TP SCH ×2 (09:31→20:46)
[2017-01-19] MEDS: NACL 0.9% 1,000 ML IV SCH ×2 (09:37→15:29)
--- NOTE | 2017-01-19 11:45 | NUR ---
PT WATCHING TV IN BED, NO SIGNS OF ACUTE DISTRESS. BED IN LOW POSITION, BILATERAL HALF SIDE RAILS UP, BED ALARM ON, CALL LIGHT WITHIN REACH, WILL CONTINUE TO MONITOR
[2017-01-19 12:00] VITALS: BP 132/68
--- NOTE | 2017-01-19 14:00 | NUR ---
ASSISTED PT WITH BEDPAN, NO SIGNS OF ACUTE DISTRESS. BED IN LOW POSITION, BILATERAL HALF SIDE RAILS UP, BED ALARM ON, CALL LIGHT WITHIN REACH, WILL CONTINUE TO MONITOR
[2017-01-19] MEDS: ALBUTEROL SULFATE/IPRATROPIU 3 ML SOL IH SCH ×2 (15:29→23:25)
[2017-01-19 16:00] VITALS: BP 123/49
--- NOTE | 2017-01-19 16:00 | NUR ---
ADMINISTERED BACLOFEN AND ATIVAN PO AT 1600, ORDERED FOR 1300. WILL NON-ADMIN 1700 DOSES, THEY ARE TOO CLOSE TOGETHER.
--- NOTE | 2017-01-19 17:48 | NUR ---
PT IS EATING DINNER COMFORTABLY IN BED, NO SIGNS OF ACUTE DISTRESS. BED IN LOW POSITION, BILATERAL HALF SIDE RAILS UP, BED ALARM ON, CALL LIGHT WITHIN REACH, WILL CONTINUE TO MONITOR
--- NOTE | 2017-01-19 17:49 | NUR ---
RECEIVED NEW ORDER FROM DR. FRANCO TO CHANGE NS FLUIDS TO 10 ML/HR NOTED, WILL CARRY OUT.
--- NOTE | 2017-01-19 19:05 | NUR ---
GAVE REPORT TO PM NURSE FOR CONTINUITY OF CARE. PT IS STABLE.
--- NOTE | 2017-01-19 19:28 | NUR ---
RECEIVED FROM AM RN IN BED SITTING UP AND EATING DINNER. ABLE TO VERBALIZE NEEDS WELL. NO SOB AT THIS TIME. NO COMPLAINT OF PAIN . RE-ORIENTED TO CALL LIGHT USE FOR ANY HELP SHE MAY NEED OR IF SHE IS IN PAIN. NEEDS WILL BE ANTICIPATED AND WILL BE MET. LEFT HAND IVF INTACT AND WITH NS AT 10 ML/H. GOOD BLOOD RETURN. SEQUENTIALS IN PLACE.
[2017-01-19 20:36] VITALS: BP 130/64
[2017-01-19] MEDS: hydrOXYzine HCL 10 MG TAB PO SCH (20:42)
[2017-01-19 23:23] VITALS: BP 132/62
--- NOTE | 2017-01-19 23:26 | NUR ---
PT. STILL AWAKE WATCHING TV. MEDICATED WITH PAIN RELIEVER REQUESTED. ABLE TO VERBALIZE NEEDS WELL.
--- NOTE | 2017-01-20 01:14 | NUR ---
SLEEPING AT THIS TIME. CALL LIGHT WITH N REACH. NO SOB. ON AT 3LPM/NC. NEEDS ANTICIPATED AND WILL BE MET. TURNED Q 2H.
[2017-01-20 04:21] VITALS: BP 122/50
--- NOTE | 2017-01-20 04:29 | NUR ---
PT. REQUESTED FOR BEDPAN. KEPT CLEAN AND DRY. PT. TURNED Q 2H . ABLE TO HELP TURN HERSELF. PILLOW SUPPORT TO PRESSURE AREAS.
--- NOTE | 2017-01-20 06:00 | NUR ---
PT. TURNED TO SIDES BY NATURALIST AND PILLOW SUPPORT TO PRESSURE AREAS. NO COMPLAINTS DONE. ISOLATION PRECAUTION IN PLACE RT HX. URINE MDRO. TELEMETR MONITORING. ABLE TO VERBALIZE NEEDS WELL. NO SOB.
[2017-01-20] MEDS: ALBUTEROL SULFATE/IPRATROPIU 3 ML SOL IH SCH ×3 (07:07→23:42)
--- NOTE | 2017-01-20 07:23 | NUR ---
ENDORSED TO THE NEXT RN FOR CONTINUITY OF CARE. AWAKE AND ALERT. BREATHING TREATMENT ON GOING.
--- NOTE | 2017-01-20 07:24 | NUR ---
RECEIVED REPORT FROM PARK GUIDE NURSE AT BEDSIDE FOR CONTINUITY OF CARE. PT IS AWAKE AND ORIENTED. INTRODUCED SELF AND UPDATED BOARD. RT IS GIVING BREATHING TREATMENT TO PT RIGHT NOW. WILL RETURN WITH SCHEDULED MEDS.
[2017-01-20 08:00] VITALS: BP 135/54
[2017-01-20] MEDS: ECOTRIN 81 MG TABEC PO SCH (08:16)
[2017-01-20] MEDS: BACLOFEN 10 MG TAB PO SCH ×3 (08:17→16:49)
[2017-01-20] MEDS: CLOPIDOGREL 75 MG TAB PO SCH (08:17)
[2017-01-20] MEDS: SENNA 8.6 MG TAB PO SCH ×2 (08:18→20:47)
[2017-01-20] MEDS: CARVEDILOL 3.125 MG TAB PO SCH ×2 (08:18→20:47)
[2017-01-20] MEDS: LORazepam 0.5 MG TAB PO SCH ×3 (08:18→16:49)
[2017-01-20] MEDS: AMIODARONE 200 MG TAB PO SCH (08:18)
[2017-01-20] MEDS: HYDROcodone/APAP 10/325 MG 1 TAB TAB PO PRN ×2 (08:19→14:47)
[2017-01-20] MEDS: PSYLLIUM 12.2 GM/PKT PO SCH (08:19)
[2017-01-20] MEDS: HYDRAGUARD CREAM TP SCH ×2 (08:19→20:58)
--- NOTE | 2017-01-20 08:19 | NUR ---
PT IS EATING BREAKFAST RIGHT NOW. PT STATED PAIN 10/20. ADMINISTERED NORCO FOR MODERATE PAIN AND SCHEDULED MEDS. PT TOLERATED WELL. INFORMED PT OF NEED FOR URINE SAMPLE AND TO CALL WHEN NEEDING TO USE BEDPAN. PT VERBALIZED UNDERSTANDING. PT HAS NO COMPLAINTS AT THIS TIME. WILL CONTINUE TO MONITOR.
[2017-01-20] MEDS: NACL 0.9% 1,000 ML IV SCH (08:59)
--- NOTE | 2017-01-20 10:45 | NUR ---
1044 D/C'D NS. SWITCHED FROM OBSERVATION TO ADMISSION PER MD ORDERS.
--- NOTE | 2017-01-20 11:45 | NUR ---
CHECKED ON PT IN ROOM. RESTING COMFORTABLY IN BED. DENIES ANY DIFFICULTY BREATHING. STATED PAIN IS RELIEVED. WILL CONTINUE TO MONITOR.
[2017-01-20 12:00] VITALS: BP 125/44
--- NOTE | 2017-01-20 14:47 | NUR ---
PT COMPLAINED OF PAIN ON HER LE 10/20. ADMINISTERED NORCO FOR MODERATE PAIN. PT TOLERATED WELL. SHANK BONER IS ASSISTING PT TO USE BEDPAN. WILL CONTINUE TO MONITOR.
--- NOTE | 2017-01-20 15:10 | NUR ---
REFUSED HHN THERAPY "WANTS TO SLEEP" NO SOB NOTED
[2017-01-20 16:00] VITALS: BP 124/55
--- NOTE | 2017-01-20 16:50 | NUR ---
ADMINISTERED SCHEDULED MEDS. PT TOLERATED WELL. PT IS TALKING ON PHONE WITH FAMILY MEMBER. STATED PAIN IN BLE IS RELIEVED. NO COMPLAINTS AT THIS TIME. WILL CONTINUE TO MONITOR.
[2017-01-20 18:23] LABS: BILIRUBIN,URINE NEGATIVE (NEGATIVE); BLOOD, URINE NEGATIVE (NEGATIVE); COLOR,URINE YELLOW (YELLOW); LEUKOCYTE ESTERASE ,URINE 3+ (NEGATIVE); NITRITE, URINE NEGATIVE (NEGATIVE); UGLUCOSE NEGATIVE (NEGATIVE)
[2017-01-20 18:24] LABS: APPEARANCE,URINE SLIGHTLY HAZY (CLEAR)
[2017-01-20 18:27] LABS: RBC,URINE 0-5 (RARE) /HPF (0-5); WBC,URINE 16-25 (MOD) /HPF (0-5)
--- NOTE | 2017-01-20 19:20 | NUR ---
ENDORSED PT TO THE PAINT PREP TECHNICIAN NURSE AT BEDSIDE FOR CONTINUITY OF CARE. PT IS IN STABLE CONDITION.
--- NOTE | 2017-01-20 19:25 | NUR ---
RECEIVED REPORTS FROM DAY RN, PATIENT RESTING IN BED, AWAKE ALERT ORIENTED X4. NO S/S OF ACUTE DISTRESS NOTED, PATIENT IS ON 02 NC 2L, RESPIRATION EVEN AND UNLABORED, FLUSHED 10ML NS TO THE IV, INTACT AND PATENT. PLAN OF CARE DISCUSSED, VERBALIZED UNDERSTANDING, CALL LIGHT WITHIN REACH, SAFETY MEASURE ENSURED, WILL CONTINUE TO MONITOR.
[2017-01-20 20:00] VITALS: BP 121/53
[2017-01-20] MEDS: hydrOXYzine HCL 10 MG TAB PO SCH (20:47)
--- NOTE | 2017-01-20 21:00 | NUR ---
PM MEDICATION GIVEN, PATIENT TOLERATED WELL. NO S/S OF ACUTE DISTRESS NOTED, RESPIRATION EVEN AND UNLABORED, REPOSITIONED PATIENT TO HER COMFORTABLE POSITION WITH THE CAN, DHYRAGUARD APPLIED TO THE LEFT INNER THIGH. CALL LIGHT WITHIN REACH, SAFETY MEASURE ENSURED, WILL CONTINUE TO MONITOR.
--- NOTE | 2017-01-20 22:50 | NUR ---
PATIENT RESTING IN BED, NO S/S OF ACUTE DISTRESS NOTED, RESPIRATION EVEN AND UNLABORED, WILL CONTINUE TO MONITOR.
[2017-01-21] VITALS: BP 123/54
--- NOTE | 2017-01-21 00:25 | NUR ---
VITAL SIGNS WITH IN NORMAL RANGE, NO S/S OF ACUTE DISTRESS NOTED, RESPIRATION EVEN AND UNLABORED, CHANGED GOWN FOR THE PATIENT AND REPOSITIONED PATIENT TO HER COMFORTABLE POSITION. CALL LIGHT WITHIN REACH, SAFETY MEASURE ENSURED, WILL CONTINUE TO MONITOR.
[2017-01-21] MEDS: HYDROcodone/APAP 10/325 MG 1 TAB TAB PO PRN ×4 (02:51→21:25)
--- NOTE | 2017-01-21 02:55 | NUR ---
PATIENT REPORTED ANKLE PAIN, 6/10. PAIN MEDICATION GIVEN ORDERED, CALL LIGHT WITHIN REACH, SAFETY MEASURE ENSURED, WILL CONTINUE TO MONITOR.
[2017-01-21 04:00] VITALS: BP 119/60
--- NOTE | 2017-01-21 04:27 | NUR ---
ASSISTED PATIENT TO USE THE BEDPAN, VOID X1. NO S/S OF ACUTE DISTRESS, RESPIRATION EVEN AND UNLABORED, CALL LIGHT WITHIN REACH, SAFETY MEASURE ENSURED, WILL CONTINUE TO MONITOR.
[2017-01-21] MEDS: NACL 0.9% 1,000 ML IV SCH (05:16)
--- NOTE | 2017-01-21 06:19 | NUR ---
PATIENT IS SLEEPING AT THIS TIME. NO S/S OF ACUTE DISTRESS NOTED, RESPIRATION EVEN AND UNLABORED, CALL LIGHT WITHIN REACH, SAFETY MEASURE ENSURED, WILL CONTINUE TO MONITOR.
--- NOTE | 2017-01-21 07:05 | NUR ---
ENDORSED PLAN OF CARE TO DAY RN, PATIENT IS SLEEPING, NO S/S OF ACUTE DISTRESS NOTED, RESPIRATION EVEN AND UNLABORED.
--- NOTE | 2017-01-21 07:06 | NUR ---
RECEIVED PATIENT REPORT AT BEDSIDE FROM EVENING NURSE. PATIENT IS ASLEEP IN BED. NO SIGNS AND SYMPTOMS OF DISTRESS NOTED. IV SITE NOTED ON RIGHT HAND. IVF INFUSING WELL. BED IN LOWEST POSITION, SIDE RAILS UP AND CALL LIGHT WITH REACH. WILL CONTINUE TO MONITOR.
[2017-01-21] MEDS: ALBUTEROL SULFATE/IPRATROPIU 3 ML SOL IH SCH ×3 (07:29→22:12)
[2017-01-21 08:00] VITALS: BP 127/62
[2017-01-21] MEDS: AMIODARONE 200 MG TAB PO SCH (08:51)
[2017-01-21] MEDS: SENNA 8.6 MG TAB PO SCH ×2 (08:51→21:25)
[2017-01-21] MEDS: CLOPIDOGREL 75 MG TAB PO SCH (08:51)
[2017-01-21] MEDS: BACLOFEN 10 MG TAB PO SCH ×3 (08:51→16:49)
[2017-01-21] MEDS: LORazepam 0.5 MG TAB PO SCH ×3 (08:51→16:49)
[2017-01-21] MEDS: CARVEDILOL 3.125 MG TAB PO SCH ×2 (08:52→21:24)
[2017-01-21] MEDS: ECOTRIN 81 MG TABEC PO SCH (08:52)
[2017-01-21] MEDS: PSYLLIUM 12.2 GM/PKT PO SCH (09:00)
--- NOTE | 2017-01-21 09:14 | NUR ---
PATIENT HAS BEEN SCREENED AND CATEGORIZED MODERATE NUTRITION RISK. PATIENT WILL BE SEEN WITHIN 3-5 DAYS OF ADMISSION. 01/22/17-01/24/[address]
[2017-01-21] MEDS: Z-GUARD PASTE TP SCH (09:25)
[2017-01-21] MEDS: HYDRAGUARD CREAM TP SCH ×2 (09:25→21:27)
--- NOTE | 2017-01-21 09:30 | NUR ---
ASSISTED PATIENT WITH BED MARKHAM. PATIENT VOIDED A SMALL AMOUNT. URINE WAS LIGHT YELLOW. LENNY CARE DONE. NO SIGNS AND SYMPTOMS OF DISTRESS NOTED.
--- NOTE | 2017-01-21 11:30 | NUR ---
RECRUITING SPECIALIST AT BEDSIDE
[2017-01-21 11:51] VITALS: BP 134/58
--- NOTE | 2017-01-21 11:59 | NUR ---
PATIENT SEEN BY DR. BRENNAN
--- NOTE | 2017-01-21 13:12 | NUR ---
DR ANDRADE TO BEDSIDE, DR ANDRADE WOULD LIKE TO BE NOTIFIED OF WHERE PT WILL GET DISCHARGED TO, WILL CALL DR ANDARDE WITH NAME OF ASSISTED LIVING FACILITY WHEN DETERMINED.
--- NOTE | 2017-01-21 14:11 | NUR ---
Social Service Note: I met with patient at bedside and spoke with her regarding her discharge plan. At first she stated she wanted to pay to stay at [facility] for one week. She explained to me she is planning to move into one of her friend's home after that one week. When I inquired if she had confirmed whether she could move into her friend's home, she replied she has not and has not talked to her friend since September 2016. She reported her home is too small for her and that is one of the main reasons why she would like to move out. I asked her if she had considered moving into an assisted living facility; I explained to her that the cost of snfs were much higher than assisted living facilities and she would have the option of staying longer at an assisted living facility within her financial budge. She verbalized understanding. She stated she is agreeable to moving into an assisted living. At first she stated she could only afford $1,630 per month. I explained to her I was going to call agency/agencies which could assist with placement. She verbalized understanding. I called and spoke with Anastacio from [facility] . He stated the cost of assisted livings are usually at least $2,000 (monthly). I asked him if he could speak with patient, he agreed. I called Anastacio again, this time using hospital phone in patient's room. Anastacio spoke with patient and she agreed to pay $2,000 for assisted living. Per Anastacio, liaisons from different assisted living facilities will come and evaluate patient today.
--- NOTE | 2017-01-21 14:15 | NUR ---
1130 MET WITH PT AT BEDSIDE TO DISCUSS DISCHARGE PLAN AND WHY PT WAS READMITTED TO HOSPITAL. PT STATED THAT SHE HAD GONE TO THE BR AND HER SISTER WAS UNABLE TO ASSIST HER BACK TO BED AND BECAME FRUSTRATED AND CALLED 911. PT STATES THAT HER SISTER JEN SAID THAT SHE CANNOT RETURN TO HER HOME SHE CANNOT TAKE CARE OF HER. DISCUSSED WITH PT THAT SHE COULD OBTAIN A BEDSIDE COMMODE AND PT STATED "MY SISTER WON'T ALLOW IT". DISCUSSED WITH HER THAT SHE WAS ABLE TO GET UP WITH PT WITH MIN ASSIST AND IF SHE HAD A COMMODE SHE WOULD BE ABLE TO USE IT INDEPENDENTLY. PT INSISTED THAT HER SISTER WILL NOT ALLOW HER TO RETURN TO THE HOME. DISCUSSED WITH PT THAT IT WAS DISCUSSED WITH HER LAST VISIT THE POSSIBILITY OF AN ASSISTED LIVING BUT SHE WAS NOT WILLING TO RELINQUISH HER INCOME AND SHE WOULD NOT BE ABLE TO FIND AN ASSISTED LIVING FOR $800-1000 A MONTH. INFORMED HER THAT I WOULD HAVE SW CALL HER SISTER.
--- NOTE | 2017-01-21 14:22 | NUR ---
[address] PT WITH DR MEDEROS PRESENT AND INFORMED PT THAT DORITA MICHAEL HAD TALKED TO SISTERS NEPHEW AND HE INDICATED THAT THEY WERE GETTING THE SAME CAREGIVER THAT THEY HAD LAST WEEK TO COME AND ASSIST PT. PT SEEMED VERY RELUCTANT TO GO HOME AND SHE INSISTED THAT HER SISTER WOULD NOT ALLOW HER TO GO HOME. SHE THEN ASKED WHO THE NEPHEW WAS AND I INFORMED HER THAT I WOULD HAVE MICHAEL KEVIN SPEAK TO HER SHE WAS THE ONE TO HAVE THE CONVERSATION. INFORMED HER THAT HE HAD EXPRESSED THAT PT WAS DIFFICULT TO MANAGE AND FELT IT WAS DUE TO TOO MUCH MEDICATION. PT THEN STATED THAT SHE HAD A SON IN [place] AND WHEN ASKED IF SHE COULD POSSIBLY MOVE THERE SHE SAID "NO HE JUST GOT A NEW JOB AND WOULDN'T BE ABLE TO COME HERE". PT THEN STATED THAT SHE WOULD BE WILLING TO PAY [facility]. DISCUSSED WITH HER THAT IT WOULD BE MORE COST EFFECTIVE TO USE THAT MONEY FOR AN ASSISTED LIVING. PT IS RELUCTANT TO TRY ANY SUGGESTIONS AND PUTS UP BARRIERS TO DISCHARGE.
[2017-01-21 16:00] VITALS: BP 134/59
--- NOTE | 2017-01-21 16:22 | NUR ---
PT C/O LEFT LEG PAIN, 6/, NORCO GIVEN PER PRN ORDER, WILL CONTINUE TO MONITOR.
[2017-01-21] MEDS: LACTOBACILLUS RHAMNOSUS GG 1 EACH CAP PO SCH (16:49)
--- NOTE | 2017-01-21 18:38 | NUR ---
TELE MONITOR REMOVED PER ORDER TO TRANSFER PT TO MEDSUR STATUS.
--- NOTE | 2017-01-21 19:26 | NUR ---
PATIENT REPORT GIVEN AT BEDSIDE TO EVENING NURSE. PATIENT IS IN STABLE CONDITION.
--- NOTE | 2017-01-21 19:27 | NUR ---
RECD. RESTING IN BED, AWAKE, A/0X3, RESPIRATION EVEN AND UNLABORED. ON 02 AT 2 LITERS VIA N/C, 02 SAT - 94%. IV OF NS AT 10 ML PER/HR INFUSING, RIGHT HAND G22. WITH LET SUBCLAVIAN BONNIE CATH. BRUISING NOTED AT THE RIGHT UPPER ARM. WITH SKIN DISCOLORATION AT THE THIGHS AND BUTTOCKS, STATED DUE TO HER ALLERGIC REACTION TO SOME MEDICATIONS. USES BED MARKHAM. WITH SCABS AT THE LEFT LOWER EXTREMITY. ON BILATERAL LEG SEQUENTIALS. SAFETY MEASURES ENFORCED. DENIES PAIN 0/10.
[2017-01-21 20:00] VITALS: BP 131/70
--- NOTE | 2017-01-21 20:00 | NUR ---
Patient's Plan of Care was discussed and reviewed with RELAY TECHNICIAN: TERRENCE.
[2017-01-21] MEDS: hydrOXYzine HCL 10 MG TAB PO SCH (21:24)
--- NOTE | 2017-01-21 21:25 | NUR ---
DUE PO MEDICATIONS GIVEN AND CRACKERS REQUESTED.
[2017-01-22] VITALS: BP 124/62
--- NOTE | 2017-01-22 | NUR ---
SLEEPING COMFORTABLY IN BED.
--- NOTE | 2017-01-22 04:00 | NUR ---
CLEANSED AND MADE COMFORTABLE IN BED WITH PILLOWS AND WARM BLANKETS.
[2017-01-22] MEDS: NACL 0.9% 1,000 ML IV SCH (05:29)
[2017-01-22] MEDS: ALBUTEROL SULFATE/IPRATROPIU 3 ML SOL IH SCH ×3 (06:33→22:44)
--- NOTE | 2017-01-22 07:00 | NUR ---
ASSISTED WITH BEDPAN TWO TIMES DURING SHIFT.
--- NOTE | 2017-01-22 07:30 | NUR ---
ENDORSED TO ANDREA ZAPIEN FOR CONTINUITY OF CARE.
--- NOTE | 2017-01-22 07:31 | NUR ---
REPORT RECEIVED FROM BATCH ROLLER OPERATOR NURSE OREN PT SLEEPING QUIETLY IN NAD, RESP EVEN UNLABORED ON 2L NC, PT AROUSES EASILY, DENIES PAIN OR DISCOMFORT, PLAN OF CARE REVIEWED, PT VERBALIZED UNDERSTANDING, SAFETY MEASURES IN PLACE, CALL LITTLE WITHIN REACH, SIDE RAILS UP X2, BED LOCKED IN LOW POSITION, WILL CONTINUE TO MONITOR.
[2017-01-22 08:00] VITALS: BP 118/63
[2017-01-22] MEDS: ECOTRIN 81 MG TABEC PO SCH (08:57)
[2017-01-22] MEDS: LACTOBACILLUS RHAMNOSUS GG 1 EACH CAP PO SCH ×2 (08:57→16:30)
[2017-01-22] MEDS: AMIODARONE 200 MG TAB PO SCH (08:58)
[2017-01-22] MEDS: LORazepam 0.5 MG TAB PO SCH ×3 (08:58→16:31)
[2017-01-22] MEDS: CLOPIDOGREL 75 MG TAB PO SCH (08:59)
[2017-01-22] MEDS: CARVEDILOL 3.125 MG TAB PO SCH ×2 (08:59→21:34)
[2017-01-22] MEDS: BACLOFEN 10 MG TAB PO SCH ×3 (08:59→16:31)
[2017-01-22] MEDS: PSYLLIUM 12.2 GM/PKT PO SCH (09:00)
[2017-01-22] MEDS: SENNA 8.6 MG TAB PO SCH ×2 (09:00→21:34)
--- NOTE | 2017-01-22 09:02 | NUR ---
Social Service Note: Rajiv Meza from [facility] , one of their liaison will come today and evaluate patient. She requested HNP to be fax to her, fax number . I faxed info. Addendum: 01/22/17 at 0913 by Priscilla Bean SS Rajiv Meza from [facility] , they have a shared room available.
[2017-01-22] MEDS: HYDRAGUARD CREAM TP SCH ×2 (09:27→21:37)
[2017-01-22] MEDS: HYDROcodone/APAP 10/325 MG 1 TAB TAB PO PRN ×3 (09:27→21:34)
[2017-01-22] MEDS: Z-GUARD PASTE TP SCH (09:27)
--- NOTE | 2017-01-22 09:27 | NUR ---
PT C/O LEFT LEG PAIN, NORCO GIVEN PER PRN ORDER, PERICARE DONE.
--- NOTE | 2017-01-22 13:15 | NUR ---
DUE MEDS GIVEN, PT BELTRAN WELL, PT TALKING ON THE PHONE IN NAD, DENIES PAIN NOW, ALL SAFETY MEASURES MET, WILL CONTINUE TO MONITOR.
--- NOTE | 2017-01-22 13:57 | NUR ---
Social Service Note: Per Ashlie from [facility] , she will come to our hospital and evaluate patient today within 1 hour. Per Yulisa Kenyon from [facility] their nurse Cadence will come to our hospital and evaluate patient today between 3pm-4pm.
--- NOTE | 2017-01-22 15:34 | NUR ---
PHYSICAL THERAPY CO-SIGN The Physical Therapy Progress Notes documented by Cutting Machine Tender Decorative have been reviewed. Reviewed/Co-Signed by: Linnea Song PT Documentation Done by:HALLEY SUAZO ALMOND SORTER POC REVIEWED W/ ALMOND SORTER; WILL BENEFIT W/ P.T. AFTER ACUTE STAY. Addendum: 01/22/17 at 1535 by Linnea Song PT Amended: Links added.
--- NOTE | 2017-01-22 15:36 | NUR ---
1515 ROBERT FROM [facility] MEETING WITH PT.
[2017-01-22 16:00] VITALS: BP 133/67
--- NOTE | 2017-01-22 16:14 | NUR ---
Social Service Note: Ashlie from [facility] came to evaluate patient. Per Ashlie, according to her evaluation the cost of patient's care alone is $1,795, this does not include cost of rent of room, unable to accept patient. Cadence from [facility] came to evaluate patient, she stated patient is medically appropriate for their facility and does not have any concerns, she reported she needs a form to be filled out by physician. Cadence and I spoke with and informed her of form. Per , she will fill out form.
--- NOTE | 2017-01-22 19:30 | NUR ---
REPORT GIVEN TO ROUTE DELIVERY SERVICE DRIVER NURSE, PT STABLE
--- NOTE | 2017-01-22 19:31 | NUR ---
RECD. RESTING IN BED, AWAKE, A/OX4. RESPIRATION EVEN AND UNLABORED. ON 02 AT 2 LITERS VIA N/C. IV SALINE LOCK AT THE RIGHT HAND G22, PATENT AND INTACT. ON BILATERAL LEG SEQUENTIALS. SAFETY MEASURES ENFORCED. ON BILATERAL LEG SEQUENTIALS. PLAN OF CARE FOR THE SHIFT DISCUSSED. VERBALIZED UNDERSTANDING. DENIES PAIN 0/10.
[2017-01-22] MEDS: hydrOXYzine HCL 10 MG TAB PO SCH (21:34)
--- NOTE | 2017-01-22 21:34 | NUR ---
SPEAKING WITH SOMEBODY IN THE PHONE, DUE PO MEDICATIONS GIVEN.
--- NOTE | 2017-01-22 22:24 | NUR ---
Patient's Plan of Care was discussed and reviewed with AUTO RADIO MECHANIC: OREN OCAMPO.
--- NOTE | 2017-01-22 22:44 | NUR ---
PATIENT REFUSED HHN TREATMENT, STATED SHE WILL CALL LATER IF SHE NEEDS IT
[2017-01-23] VITALS: BP 129/54
[2017-01-23] MEDS ORDERED: BISACODYL 10 MG SUPP RC ONE ×2 (00:05→00:42)
--- NOTE | 2017-01-23 00:59 | NUR ---
WANTS TO HAVE BM BUT UNABLE TO PASSED STOOLS, MEDICATED WITH DULCOLAX SUPPOSITORY ORDERED BY .
--- NOTE | 2017-01-23 02:00 | NUR ---
HAD MODERATE AMOUNT OF HARD ROUND STOOLS. CLEANSED AND MADE COMFORTABLE IN BED.
--- NOTE | 2017-01-23 04:00 | NUR ---
SLEEPING COMFORTABLY. NO COMPLAINT OF PAIN 0/10.
[2017-01-23] MEDS: NACL 0.9% 1,000 ML IV SCH (05:29)
--- NOTE | 2017-01-23 06:20 | NUR ---
HAD ANOTHER BM, MEDIUM HARD STOOLS BROWN IN COLOR.
--- NOTE | 2017-01-23 06:40 | NUR ---
CONDITION REMAIN STABLE. PAPERS FOR TRANSFER SIGNED. WILL ENDORSE TO AM NURSE FOR CONTINUITY OF CARE.
[2017-01-23] MEDS: ALBUTEROL SULFATE/IPRATROPIU 3 ML SOL IH SCH ×2 (06:58→23:37)
--- NOTE | 2017-01-23 07:15 | NUR ---
ENDORSED TO RITA COOPER FOR CONTINUITY OF CARE.
--- NOTE | 2017-01-23 07:16 | NUR ---
ASSUMED CONTINUITY OF CARE. NO SIGNS AND SYMPTOMS OF ACUTE DISTRESS NOTICED. INITIAL ASSESSMENT DONE. KEEP COMFORTABLE ON BED. EXPLAINED DIAGNOSIS, PLAN OF CARE, PAIN MANAGEMENT TEACHING, CONTACT ISOLATION PRECAUTION, USE OF CALL LIGHT/BED/TV/BATHROOM. VERBALIZED UNDERSTANDING. FALL PRECAUTION APPLIED. CALL LIGHT WITHIN REACH.
--- NOTE | 2017-01-23 07:29 | NUR ---
Patient's Plan of Care was discussed and reviewed with ROUTE SALES TRAINEE: KENNETH JIMENEZ. RECEIVED PT IN BED. AWAKE. ALERT ORIENTEDX4. NO SOB NOTED ON 2LPM O2 VIA NC. DENIES ANY PAIN OR DISCOMFORT AT HIS TIME. PT ON BEDREST,SAFETY PRECAUTION IN PLACE. CALL LIGHT WITHIN REACH.
[2017-01-23 08:00] VITALS: BP 133/63
[2017-01-23] MEDS: SENNA 8.6 MG TAB PO SCH ×2 (08:33→21:30)
[2017-01-23] MEDS: LACTOBACILLUS RHAMNOSUS GG 1 EACH CAP PO SCH ×2 (08:33→17:51)
[2017-01-23] MEDS: CARVEDILOL 3.125 MG TAB PO SCH ×2 (08:33→21:30)
[2017-01-23] MEDS: AMIODARONE 200 MG TAB PO SCH (08:33)
[2017-01-23] MEDS: ECOTRIN 81 MG TABEC PO SCH (08:34)
[2017-01-23] MEDS: BACLOFEN 10 MG TAB PO SCH ×3 (08:34→17:51)
[2017-01-23] MEDS: PSYLLIUM 12.2 GM/PKT PO SCH (08:34)
[2017-01-23] MEDS: LORazepam 0.5 MG TAB PO SCH ×3 (08:34→17:51)
[2017-01-23] MEDS: CLOPIDOGREL 75 MG TAB PO SCH (08:34)
[2017-01-23] MEDS: Z-GUARD PASTE TP SCH (08:35)
[2017-01-23] MEDS: HYDRAGUARD CREAM TP SCH ×2 (08:35→21:34)
--- NOTE | 2017-01-23 09:46 | NUR ---
Social Service Note: I called and spoke with Vita from [facility] [place] requested [place] number so I could fax "Physician's report for residential care facilities for the elderly (RCFE)" which was filled out by . Vita provided me with fax number, , . I faxed info.
--- NOTE | 2017-01-23 10:25 | NUR ---
DR. HERNANDEZ CAME, REVIEWED PT. CHART. NO ORDER RECEIVED.
[2017-01-23 12:00] VITALS: BP 125/54
[2017-01-23] MEDS: HYDROcodone/APAP 10/325 MG 1 TAB TAB PO PRN ×2 (12:35→21:31)
--- NOTE | 2017-01-23 14:46 | NUR ---
Social Service Note: I called and spoke with Susana from [facility] and inquired if they could accept patient. Per Susana, she still needs to speak with patient regarding cost of assisted living. I offered to transfer phone call to patient's room, transferred phone call to patient's room. Susana called me back and stated patient informed her she could only pay $1,200 and would have to put it on her credit card. Per Susana, they cannot accommodate patient on a $1,200 budget or charge cost on her credit card.
--- NOTE | 2017-01-23 19:40 | NUR ---
RECEIVED REPORT FROM DAY RN. PATIENT RESTING IN BED, NO S/S OF ACUTE DISTRESS NOTED, RESPIRATION EVEN AND UNLABORED PATIENT IS ON O2 NC 2L. PATIENT AWAKE ALERT ORIENTED X4. IV INTACT AND PATENT, INFUSING NS AT 10ML/HR. PLAN OF CARE DISCUSSED, VERBALIZED UNDERSTANDING. CALL LIGHT WITHIN REACH, SAFETY MEASURE ENSURED, WILL CONTINUE TO MONITOR.
[2017-01-23] MEDS: hydrOXYzine HCL 10 MG TAB PO SCH (21:31)
--- NOTE | 2017-01-23 21:35 | NUR ---
PM MEDICATION GIVEN, PATIENT TOLERATED WELL. HYDRAGUARD APPLIED TO THE LEFT INNER THIGH. CALL LIGHT WITHIN REACH, SAFETY MEASURE ENSURED, WILL CONTINUE TO MONITOR.
--- NOTE | 2017-01-23 23:50 | NUR ---
PATIENT SLEEPING IN BED, VITAL SIGNS STABLE. NO S/S OF ACUTE DISTRESS NOTED, RESPIRATION EVEN AND UNLABORED, CALL LIGHT WITHIN REACH, SAFETY MEASURE ENSURED, WILL CONTINUE TO MONITOR.
--- NOTE | 2017-01-24 02:12 | NUR ---
PATIENT IS SLEEPING IN BED, NO S/S OF ACUTE DISTRESS NOTED, RESPIRATION EVEN AND UNLABORED, CALL LIGHT WITHIN REACH, SAFETY MEASURE ENSURED, WILL CONTINUE TO MONITOR.
[2017-01-24 04:00] VITALS: BP 137/65
--- NOTE | 2017-01-24 04:42 | NUR ---
PATIENT IS SLEEPING IN BED AT THIS TIME, NO S/S OF ACUTE DISTRESS NOTED, RESPIRATION EVEN AND UNLABORED, CALL LIGHT WITHIN REACH, SAFETY MEASURE ENSURED, WILL CONTINUE TO MONITOR.
[2017-01-24] MEDS: NACL 0.9% 1,000 ML IV SCH (05:29)
--- NOTE | 2017-01-24 05:37 | NUR ---
PATIENT IS IN STABLE CONDITION, NO S/S OF ACUTE DISTRESS NOTED, RESPIRATION EVEN AND UNLABORED, CALL LIGHT WITHIN REACH, SAFETY MEASURE ENSURED, WILL CONTINUE TO MONITOR.
--- NOTE | 2017-01-24 07:10 | NUR ---
ENDORSED PLAN OF CARE TO DAY RN. PATIENT IS IN STABLE CONDITION.
--- NOTE | 2017-01-24 07:11 | NUR ---
ASSUMED CONTINUITY OF CARE. NO SIGNS AND SYMPTOMS OF ACUTE DISTRESS NOTED. INITIAL ASSESSMENT DONE. KEEP COMFORTABLE ON BED. EXPLAINED DIAGNOSIS, PLAN OF CARE, PAIN MANAGEMENT TEACHING, CONTACT ISOLATION PRECAUTION, USE OF CALL LIGHT/BED/TV/BATHROOM. VERBALIZED UNDERSTANDING. FALL PRECAUTION APPLIED. CALL LIGHT WITHIN REACH.
[2017-01-24] MEDS: ALBUTEROL SULFATE/IPRATROPIU 3 ML SOL IH SCH ×3 (07:48→23:19)
[2017-01-24 08:00] VITALS: BP 134/70
--- NOTE | 2017-01-24 08:00 | NUR ---
MET WITH PATIENT, HECTOROX4. RESPIRATION EVEN AND UNLABORED,NO SOB, DENIES PAIN AT THIS TIME. EDUCATION ON SAFETY AND FALL PREVENTION. PT VERBALIZED UNDERSTANDING. CALL LIGHT PLACED WITHIN REACH. WILL CONTINUE TO MONITOR.
[2017-01-24] MEDS: CLOPIDOGREL 75 MG TAB PO SCH (08:56)
[2017-01-24] MEDS: CARVEDILOL 3.125 MG TAB PO SCH ×2 (08:56→20:55)
[2017-01-24] MEDS: ECOTRIN 81 MG TABEC PO SCH (08:56)
[2017-01-24] MEDS: SENNA 8.6 MG TAB PO SCH ×2 (08:56→20:55)
[2017-01-24] MEDS: LACTOBACILLUS RHAMNOSUS GG 1 EACH CAP PO SCH ×2 (08:56→17:03)
[2017-01-24] MEDS: BACLOFEN 10 MG TAB PO SCH ×3 (08:56→17:03)
[2017-01-24] MEDS: PSYLLIUM 12.2 GM/PKT PO SCH (08:57)
[2017-01-24] MEDS: LORazepam 0.5 MG TAB PO SCH ×3 (08:57→17:00)
[2017-01-24] MEDS: HYDRAGUARD CREAM TP SCH ×2 (08:57→20:56)
[2017-01-24] MEDS: Z-GUARD PASTE TP SCH (08:58)
[2017-01-24] MEDS: AMIODARONE 200 MG TAB PO SCH (08:59)
--- NOTE | 2017-01-24 11:51 | NUR ---
Social Service Note: Late entry for 01/23/17: I called and spoke with Delfina from [facility] , informed her patient needed placement. She came to the hospital and met/evaluated patient.
--- NOTE | 2017-01-24 11:55 | NUR ---
Social Service Note: Per Delfina from [facility] , patient has been accepted at [facility] and can be transfer upon discharge to the following address, [address] [place] [id number]. Delfina is aware patient's isolation has been colonized. Delfina stated patient's home O2 needs to be delivered to their [facility] before patient is transfer there. I called [facility] and spoke with David from Customer Service Dept . Per David, they have to set up oxygen through their office located in [place], [place], since patient is moving from [place] to [place]. He stated they would product picker patient's existing home 02 concentrator and portable tank from patient's home and deliver new home O2 to patient's new home at [place]. Per David, he is unsure if home O2 will be deliver to [facility] but has made referral "urgent" so they can hopefully deliver it today.
[2017-01-24 12:00] VITALS: BP 125/59
--- NOTE | 2017-01-24 12:14 | NUR ---
01/24/17 RD INITIAL ASSESSMENT COMPLETED PLEASE REFER TO NUTRITION ASSESSMENT UNDER CARE ACTIVITY FOR ESTIMATED NUTRITIONAL NEEDS. 1. CONTINUE REGULAR DIET 2. CONTINUE TO ENCOURAGE INCREASED PO INTAKE TO TOLERANCE 3. RD TO FOLLOW-UP 3-5 DAYS, MODERATE RISK GEORGINA RESENDEZ, [place]
--- NOTE | 2017-01-24 12:59 | NUR ---
PT REFUSED HHN TX. NO SOB OR DISTRESS NOTED. WILL CONTINUE TO MONITOR.
--- NOTE | 2017-01-24 14:20 | NUR ---
WENT TO BEDSIDE COMMODE WITH ASSISTANCE FROM NEERAJ NAPOLES. TOLERATED WELL.
--- NOTE | 2017-01-24 15:00 | NUR ---
PHYSICAL THERAPIST CAME FOR PT. PHYSICAL THERAPY EVAL AND TREATMENT.
--- NOTE | 2017-01-24 15:45 | NUR ---
CALLED SERVICE ADVISORIRA BRANHAM AND ASKED PT. DISCHARGE TO [facility]. PER SOCIAL IRA BRANHAM O2 NOT SET UP YET BY [facility] AND SHE (MICHAEL) WILL CALL BACK IF O2 SET UP IS READY. INFORMED CHARGE NURSE IRISH CORREIA.
[2017-01-24] MEDS: HYDROcodone/APAP 10/325 MG 1 TAB TAB PO PRN ×2 (15:53→23:46)
--- NOTE | 2017-01-24 16:52 | NUR ---
Social Service Note: Per Shant from [facility] from Customer Service Dept , portable O2 will be delivered to hospital today between 4:30pm-8:30pm. Shant stated O2 concentrator will be delivered to [facility] today, unable to provide me with time of delivery. I called and spoke with Delfina from [facility] and requested she contact our charge nurse once O2 concentrator is delivered to [facility].
--- NOTE | 2017-01-24 17:03 | NUR ---
PHYSICAL THERAPY CO-SIGN The Physical Therapy Progress Notes documented by Radio Interference Supervisor have been reviewed. Reviewed/Co-Signed by: Linnea Song PT Documentation Done by:HALLEY SUAZO DIESEL POWERPLANT MECHANIC POC REVIEWED W/ DIESEL POWERPLANT MECHANIC; PROGRESS BELTRAN Addendum: 01/24/17 at 1705 by Linnea Song PT Amended: Links added.
--- NOTE | 2017-01-24 17:04 | NUR ---
PHYSICAL THERAPY CO-SIGN The Physical Therapy Progress Notes documented by Accountant Budget have been reviewed. Reviewed/Co-Signed by: Linnea Song PT Documentation Done by:HALLEY SUAZO LEARNING AND DEVELOPMENT COORDINATOR POC REVIEWED W/ LEARNING AND DEVELOPMENT COORDINATOR; WILL BENEFIT W/ P.T. AFTER ACUTE STAY. Addendum: 01/24/17 at 1705 by Linnea Song PT Amended: Links added.
--- NOTE | 2017-01-24 17:26 | NUR ---
HUNG IV ROCEPHIN ORDERED. NO ADVERSE REACTION AT THIS TIME. WILL CONTINUE TO MONITOR.
--- NOTE | 2017-01-24 19:08 | NUR ---
REPORT GIVEN TO ANA CORREIA. IVF INFUSING WELL. IN STABLE CONDITION. ALSO ENDORSED ABOUT PT. POSSIBLE D/C TO [facility].
--- NOTE | 2017-01-24 19:10 | NUR ---
RECEIVED REPORT FROM DAY RN. PATIENT RESTING IN BED, AWAKE ALERT ORIENTED X4, NO S/S OF ACUTE DISTRESS NOTED, RESPIRATION EVEN AND UNLABORED, IV PATENT AND INTACT, INFUSING NS AT 10ML/HR. PLAN OF CARE DISCUSSED, VERBALIZED UNDERSTANDING, CALL LIGHT WITHIN REACH, SAFETY MEASURE ENSURED, WILL CONTINUE TO MONITOR.
[2017-01-24] MEDS: hydrOXYzine HCL 10 MG TAB PO SCH (20:55)
--- NOTE | 2017-01-24 21:01 | NUR ---
PM MEDICATION GIVEN, HYDRAGYARD APPLIED TO THE LEFT INNER THIGH, PATIENT TOLERATED WELL. NO S/S OF ACUTE DISTRESS NOTED, RESPIRATION EVEN AND UNLABORED, CALL LIGHT WITHIN REACH, SAFETY MEASURE ENSURED, WILL CONTINUE TO MONITOR.
--- NOTE | 2017-01-24 23:52 | NUR ---
PATIENT STATED ANKLE PAIN 5/10, MEDICATED ORDERED, ASSISTED PATIENT TO USE THE BEDPAN, VOIDED X1, PATIENT IS RESTING IN BED, NO S/S OF ACUTE DISTRESS NOTED, RESPIRATION EVEN AND UNLABORED, CALL LIGHT WITHIN REACH, SAFETY MEASURE ENSURED, WILL CONTINUE TO MONITOR.
[2017-01-25] VITALS: BP 129/54
--- NOTE | 2017-01-25 02:01 | NUR ---
PATIENT ASLEEP IN BED, NO S/S OF ACUTE DISTRESS NOTED, RESPIRATION EVEN AND UNLABORED, CALL LIGHT WITHIN REACH, SAFETY MEASURE ENSURED, WILL CONTINUE TO MONITOR.
--- NOTE | 2017-01-25 04:32 | NUR ---
ASSISTED PATIENT TO USE THE BEDPAN. VOIDED X1. NO S/S OF ACUTE DISTRESS NOTED, RESPIRATION EVEN AND UNLABORED, CALL LIGHT WITHIN REACH, SAFETY MEASURE ENSURED, WILL CONTINUE TO MONITOR.
[2017-01-25] MEDS: NACL 0.9% 1,000 ML IV SCH (05:47)
--- NOTE | 2017-01-25 07:31 | NUR ---
ENDORSED PLAN OF CARE TO DAY RN, PATIENT IS IN STABLE CONDITION.
--- NOTE | 2017-01-25 07:32 | NUR ---
RECEIVED REPORT FROM NIGHT NURSE AT PT BEDSIDE. PATIENT IS ALERT AND ORIENTED. FOLLOWS COMMANDS. ON O2 2L NC, NO S/S OF ACUTE DISTRESS NOTED. DENIES PAIN. IV SITE PATENT AND INTACT. CALL LIGHT WITHIN REACH. WILL CONTINUE TO MONITOR.
[2017-01-25] MEDS: ALBUTEROL SULFATE/IPRATROPIU 3 ML SOL IH SCH ×3 (07:39→23:20)
[2017-01-25 08:00] VITALS: BP 114/54
--- NOTE | 2017-01-25 08:20 | NUR ---
PATIENT ASSISTED TO BEDSIDE COMMODE. MEDIUM SIZE BM NOTED. MODERATE URINE OUTPUT. NO S/S OF ACUTE DISTRESS NOTED.
[2017-01-25] MEDS: BACLOFEN 10 MG TAB PO SCH ×3 (08:47→16:21)
[2017-01-25] MEDS: CLOPIDOGREL 75 MG TAB PO SCH (08:47)
[2017-01-25] MEDS: ECOTRIN 81 MG TABEC PO SCH (08:47)
[2017-01-25] MEDS: SENNA 8.6 MG TAB PO SCH ×2 (08:48→21:02)
[2017-01-25] MEDS: AMIODARONE 200 MG TAB PO SCH (08:48)
[2017-01-25] MEDS: LACTOBACILLUS RHAMNOSUS GG 1 EACH CAP PO SCH ×2 (08:48→16:21)
[2017-01-25] MEDS: LORazepam 0.5 MG TAB PO SCH ×3 (08:48→16:21)
[2017-01-25] MEDS: CARVEDILOL 3.125 MG TAB PO SCH ×2 (08:48→21:02)
[2017-01-25] MEDS: PSYLLIUM 12.2 GM/PKT PO SCH (08:50)
[2017-01-25] MEDS: Z-GUARD PASTE TP SCH (08:53)
[2017-01-25] MEDS: HYDRAGUARD CREAM TP SCH ×2 (08:53→21:09)
--- NOTE | 2017-01-25 09:05 | NUR ---
Social Service Note: A message was left on my answering machine yesterday in the afternoon from Sherwin from [facility] . She stated [facility] does not have the Medicare Bid for the [place], [place] and they are unable to deliver O2, Director of Case Management and Outdoor Education Teacher Dept Sue made aware.
--- NOTE | 2017-01-25 09:44 | NUR ---
Social Service Note: I called [facility] ([facility]) , fax number and spoke with Kaya. Per Kaya, they have Medicare Bid for home O2 and serve the [facility]. I informed case briefer Lesli recent ABGs are needed.
--- NOTE | 2017-01-25 10:30 | NUR ---
Social Service Note: I called and spoke with Dunia from [facility] ([facility]) . Per Dunia, they have Medicare bid for home O2 and serve [facility]. Per Dunia, they are capable of delivering concentrator and portable O2 same day. Dunia came to hospital, I provided her with inquiry. She stated she would call me back with update.
--- NOTE | 2017-01-25 10:50 | NUR ---
PATIENT SPO2 AT 88% ON ROOM AIR AT REST. PATIENT REQUIRES 24 HOUR OXYGEN AT HOME. Addendum: 01/25/17 at 1103 by Jeffrey Rolon RN PATIENT SPO2 DROPS TO 85%.
--- NOTE | 2017-01-25 10:55 | NUR ---
PATIENT C/O FEELING SOB, PATIENT PLACED BACK ON O2 2L NC.
[2017-01-25] MEDS: HYDROcodone/APAP 10/325 MG 1 TAB TAB PO PRN ×2 (11:14→18:59)
--- NOTE | 2017-01-25 13:36 | NUR ---
PATIENT TOLERATED LUNCH. NO S/S OF ACUTE DISTRESS. PO MEDICATIONS ADMINISTERED TOLERATED WELL. RESTING IN BED. CALL LIGHT WITHIN REACH.
--- NOTE | 2017-01-25 13:54 | NUR ---
Social Service Note: Per Dunia from [facility] ([facility] , portable O2 will be delivered to hospital before 3pm today and concentrator will be delivered before 3pm today as well at [facility], [address] [place] [id number]. I informed district court administrator of [facility] Leila concentrator will be delivered before 3pm today to their facility.
--- NOTE | 2017-01-25 14:21 | NUR ---
Patient will be orange picker machine operator by [facility] at 1900 to [facility] in [place]. [address].
--- NOTE | 2017-01-25 14:21 | NUR ---
Social Service Note: Per clerical administrator from [facility] , O2 concentrator has been delivered.
--- NOTE | 2017-01-25 15:45 | NUR ---
Social Service Note: Per Delfina from [facility] , , they will send a nurse to [facility] and care tomorrow. I faxed info to [facility].
[2017-01-25 16:00] VITALS: BP 106/41
--- NOTE | 2017-01-25 17:40 | NUR ---
PATIENT RESTING IN BED. OXYGEN TANK AT BEDSIDE AND ALSO ANOTHER READ[facility] AT [facility]. NO S/S OF ACUTE DISTRESS ON 2L NC.
--- NOTE | 2017-01-25 19:10 | NUR ---
SPOKE WITH [facility] AND [facility]. THERE IS NO NURSE, ONLY FOLLOW UP HOME HEALTH NURSE. [facility] CALLED AND STATED THEY WILL BE 2 HOURS LATE FROM 1900 TO 2100 TONIGHT. PATIENT MADE AWARE, PATIENT DOES NOT WANT FAMILY TO BE NOTIFIED OF TRANSFER, PATIENT WILL CALL FAMILY.
--- NOTE | 2017-01-25 19:45 | NUR ---
ENDORSED PLAN OF CARE TO NIGHT NURSE SHONDA AT PT BEDSIDE. PT RESTING IN BED. NO S/S OF ACUTE DISTRESS NOTED.
--- NOTE | 2017-01-25 19:45 | NUR ---
PATIENT IS WAITING TO BE SENT [facility] PATIENT IS AWARE.WILL DISCONTINUE IV LINE.WILL WAIT FOR [facility] TO COME.
[2017-01-25 20:00] VITALS: BP 115/53
--- NOTE | 2017-01-25 20:00 | NUR ---
IV WAS DISCONTINUED.
--- NOTE | 2017-01-25 20:00 | NUR ---
Patient's Plan of Care was discussed and reviewed with LAMINATING MACHINE OPERATOR HELPER: SHONDA DALLAS
--- NOTE | 2017-01-25 20:35 | NUR ---
I GOT A CALL FROM CHRISTELLE REINA SHE SAID SHE WILL SCHEDULE [facility] TO [facility] [employer] TRUCK DRIVER THE PATIENT TOMORROW AROUND 4PM. PATIENT WILL GO TOMORROW TO [facility] IN [place]. NUNO SAID TO NOTIFY MD AND KEEP THE PATIENT TONIGHT.WILL NOTIFY MD.
--- NOTE | 2017-01-25 20:44 | NUR ---
I CALLED RESIDENT MD JUDITH ROSAS AND I EXPLAINED TO HIM THAT I SPOKE TO NUNO THE SPORTING GOODS SALES MANAGER.THEN INFORMED ME THAT HE WAS JUST THRU TALKING ON THE PHONE WITH THE SPORTING GOODS SALES MANAGER AND HE IS AWARE OF THE SITUATION. CAR SUPERVISOR NURSE JAKI INFORMED AND ALSO SPRAY WORKER HAS BEEN INFORMED.
--- NOTE | 2017-01-25 20:45 | NUR ---
I RECEIVED A CALL FROM [facility] AND SHE ASKED ME WHAT TIME PATIENT WILL BE PICKED UP BY [facility] I TOLD HER THAT ANDREA BERMEO HAD SAID 1900 BUT THEN TOLD ME IT WILL BE TWO MORE HOURS SO AROUND 2200 PATIENT WILL BE PICKED UP.I INFORMED NUNO THAT I COULDN'T GET A HOLD OF SOMEONE FROM THE [facility] AND [facility] FACILITY SO I CAN BE SURE WHO IS RECEVING THE PATIENT AND IF THE [facility] AND [facility] IF AWARE THAT PATIENT WILL BE TRANSFERRED [facility]. I TRIED CALLING ISMA BUT I WAS UNSUCCESSFUL. ANDREA REINA SAID SHE WILL CALL THE [facility] AND [facility] AND THEN SHE WILL CALL ME BACK. Addendum: 01/25/17 at 2341 by Vania Quiros LVN ACTUAL TIME WAS 2016 WHEN I RECEIVED THE CALL FROM CHRISTELLE REINA.
--- NOTE | 2017-01-25 20:45 | NUR ---
[facility] WAS HERE ALREADY TO ELECTROGALVANIZING MACHINE OPERATOR THE PATIENT AND I TOLD THEM THAT PATIENT WILL BE STAYING FOR TONIGHT BUT [employer] CARTRIDGE TESTER NUNO WILL RESCHEDULE THE ELECTROGALVANIZING MACHINE OPERATOR WITH [facility] FOR TOMORROW.ROMI AND JOSE DE JESUS TRANSPORT TEAM FROM [facility] HAVE BEEN INFORMED.
--- NOTE | 2017-01-25 20:46 | NUR ---
PATIENT HAS BEEN INFORMED THAT SHE WILL NOT BE TRANSPORTED [facility] PATIENT VERBALIZES UNDERSTANDING BUT TOMORROW SHE WILL GO TO [facility]ARE IN [place] VIA [facility] IN THE AFTERNOON.PATIENT VERBALIZES UNDERSTANDING.
--- NOTE | 2017-01-25 20:55 | NUR ---
NEW IV LINE RESTARTED TO RT SIDE OF WRIST G#22 AT FIRST ATTEMPT WITH GOOD BLOOD RETURN.
[2017-01-25] MEDS: hydrOXYzine HCL 10 MG TAB PO SCH (21:02)
--- NOTE | 2017-01-25 21:08 | NUR ---
PATIENT HAS HYDRAGUARD ORDERED FOR LT INNER THIGH I APPLIED IT AND I ALSO GAVE PATIENT THE BEDPAN PER PATIENT'S REQUENT PATIENT IS ABLE TO TURN AND REPOSITION.GOOD PERICARE GIVEN BUT CONTINUES TO HAVE SOME PERINEAL REDNESS NOTED I APPLIED SOME Z-GUARD CREAM TO REDNESS AREA.GOOD PERICARE GIVEN AREA KEPT CLEAN AND DRY. PATIENT EDUCATED AND ASSISTED TO TURN AND REPOSITION SELF IN BED AND IF SHE NEEDS ASSISTANCE TO CALL PATIENT VERBALIZES UNDERSTANDING. I ALSO GAVE THE PATIENT AN EXTRA BLANKET.WILL CONTINUE TO MONITOR.
--- NOTE | 2017-01-25 23:57 | NUR ---
PATIENT SLEEPING IN BED NEEDS MET CONTINUES TO HAVE OXYGEN AT 2LITER VIA NASAL CANNULA.NEEDS MET WILL CONTINUE TO MONITOR.PATIENT ABLE TO MAKE NEEDS KNOWN CALL LIGHT WITHIN REACH.
[2017-01-26] VITALS: BP 114/49
--- NOTE | 2017-01-26 00:24 | NUR ---
RALPH FISCHER IS AWARE THAT PATIENT WASN'T DISCHARGE LAST NIGHT I ASKED HIM FOR THE SECOND TIME IF HE WAS GOING TO CANCEL THE DISCHARGE FOR 01/25/17 MD SAID HE WILL TAKE CARE OF IT.
--- NOTE | 2017-01-26 00:30 | NUR ---
PATIENT IS CURRENTLY RESTING IN BED SLEEPING.
--- NOTE | 2017-01-26 02:29 | NUR ---
PATIENT STABLE KEPT CLEAN AND DRY.PATIENT CURRENTLY SLEEPING NO PAIN OR DISCOMFORT NOTED.CALL LIGHT WITHIN REACH WILL CONTINUE TO MONITOR.
--- NOTE | 2017-01-26 04:34 | NUR ---
PATIENT IS CURRENTLY RESTING IN BED SLEEPING CONTINUES TO BE KEPT CLEAN AND DRY.NEEDS MET.NO PAIN OR DISCOMFORT NOTED.PATIENT IS ABLE TO MAKE NEEDS KNOWN.WILL CONTINUE TO MONITOR.
[2017-01-26] MEDS: NACL 0.9% 1,000 ML IV SCH (05:29)
--- NOTE | 2017-01-26 06:29 | NUR ---
PATIENT STABLE RESTING COMFORTABLY IN BED IN NO DISTRESS.WILL CONTINUE TO MONITOR CALL LIGHT WITHIN REACH.
[2017-01-26] MEDS: ALBUTEROL SULFATE/IPRATROPIU 3 ML SOL IH SCH ×3 (06:47→23:00)
--- NOTE | 2017-01-26 06:47 | NUR ---
RECEIVED ON SUPPLEMENTAL OXYGEN ON AND FUNCTIONING WELL AT 3 LPM VIA NC PATIENT TOLERATING WELL WITHOUT ADVERSE REACTIONS NOTED PATIENT DENIES NASAL AND ORAL DRYNESS
--- NOTE | 2017-01-26 07:08 | NUR ---
REPORT ENDORSED TO ANDREA RODRIGUEZ SHE WILL FOLLOW UP ON PATIENT DISCHARGE TODAY AND WILL RESUME PATIENT CARE.
--- NOTE | 2017-01-26 07:09 | NUR ---
RECEIVED REPORT FROM PM NURSE MERCHANT FOR CONTINUITY OF CARE. PT SLEEPING, EASILY AWAKENS. RESP EVEN AND UNLABORED. NO S/S OF DISTRESS, SOB, OR RESTLESSNESS. IV INTACT, NO REDNESS OR SWELLING NOTED. PT DENIES PAIN OR DISCOMFORT AT THIS TIME. PLAN OF CARE DISCUSSED WITH PT, PT VERBALIZED UNDERSTANDING. SAFETY MEASURES IN PLACED. CALL LIGHT WITHIN REACH. BED LOCKED ON LOW POSITION. SIDE RAILS UP. WILL CONTINUE TO MONITOR.
[2017-01-26 08:00] VITALS: BP 126/55
[2017-01-26] MEDS: ECOTRIN 81 MG TABEC PO SCH (08:28)
[2017-01-26] MEDS: LACTOBACILLUS RHAMNOSUS GG 1 EACH CAP PO SCH ×2 (08:29→16:30)
[2017-01-26] MEDS: BACLOFEN 10 MG TAB PO SCH ×3 (08:29→16:30)
[2017-01-26] MEDS: CLOPIDOGREL 75 MG TAB PO SCH (08:29)
[2017-01-26] MEDS: HYDROcodone/APAP 10/325 MG 1 TAB TAB PO PRN ×2 (08:29→16:30)
[2017-01-26] MEDS: AMIODARONE 200 MG TAB PO SCH (08:29)
[2017-01-26] MEDS: SENNA 8.6 MG TAB PO SCH ×2 (08:29→20:12)
[2017-01-26] MEDS: LORazepam 0.5 MG TAB PO SCH ×3 (08:30→16:30)
[2017-01-26] MEDS: Z-GUARD PASTE TP SCH (09:00)
[2017-01-26] MEDS: CARVEDILOL 3.125 MG TAB PO SCH ×2 (09:00→20:12)
[2017-01-26] MEDS: PSYLLIUM 12.2 GM/PKT PO SCH (09:00)
[2017-01-26] MEDS: HYDRAGUARD CREAM TP SCH ×2 (09:00→21:00)
--- NOTE | 2017-01-26 09:30 | NUR ---
PT RESTRING QUIETLY. RESP EVEN AND UNLABORED. DENIES PAIN, DISCOMFORT, OR ANY FURTHER NEEDS AT THIS TIME. NO S/S OF DISTRESS, SOB. SAFETY MEASURES IN PLACED. WILL CONTINUE TO MONITOR.
--- NOTE | 2017-01-26 12:50 | NUR ---
PT SITTING, EATING LUNCH. DENIES PAIN, OR DISCOMFORT. RESP EVEN AND UNLABORED. NO S/S OF DISTRESS. SAFETY MEASURES IN PLACED. WILL CONTINUE TO MONITOR.
--- NOTE | 2017-01-26 15:24 | NUR ---
WATER INSPECTOR AT BEDSIDE FOR PATIENT URINATION VIA BED [place] AND PHYSICAL HYGIENE COOKER SODA TO ATTEMPT HHN THERAPY AT A LATER TIME Addendum: 01/26/17 at 1527 by Norm Cortes RT NO PULMONARY DISTRESS NOTED
--- NOTE | 2017-01-26 15:40 | NUR ---
ISMA FROM [facility] CALLED AND STATED SHE HAD A CAR PROBLEM WONT BE HOME AT FIVE PM AND SHE WANTED THE PATIENT AT 7PM CALLED [facility] NOTIFIED THEM BUT THEY DON'T HAVE A TRANSPORT BETWEEN 6-7 THE EARLIEST IS 8:30 PM ,CALLED BACK ISMA AND NOTIFIED HER PATIENT WILL BE PICKED UP BY 8:30 AND ARRIVAL TIME WILL BE 9-9:30 PM AND ISMA AGREED AND NOTIFIED PATIENT.
[2017-01-26 16:00] VITALS: BP 128/59
--- NOTE | 2017-01-26 16:35 | NUR ---
PT IN BED WATCHING TV. PM MEDICATION GIVEN, PT TOLERATED WELL. RESP EVEN AND UNLABORED. NO S/S OF DISTRESS. DENIES FURTHER NEEDS AT THIS TIME. SAFETY MEASURES IN PLACED. WILL CONTINUE TO MONITOR.
--- NOTE | 2017-01-26 18:30 | NUR ---
PT EATING DINNER. DENIES PAIN, DISCOMFORT, OR ANY FURTHER NEEDS. NO S/S OF DISTRESS. WILL CONTINUE TO MONITOR.
--- NOTE | 2017-01-26 19:18 | NUR ---
REPORT ENDORSED TO ANDREA REECE FOR CONTINUITY OF CARE. PT IS IN STABLE CONDITION.
--- NOTE | 2017-01-26 19:30 | NUR ---
RECEIVED REPORT FROM AM NURSE. PT RESTING IN BED, AOX4, ABLE TO VERBALIZE NEEDS. PT DENIES CHEST PAIN, SOB OR S/S OF ACUTE DISTRESS. MULTIPLE ECCHYMOSIS NOTED ON BUE, MULTIPLE SCABS NOTED ON BLE, PERINEAL REDNESS NOTED. IV ACCESS ASYMPTOMATIC, PATENT AND INTACT. IVF WELL. DISCUSSED AND REVIEWED PLAN OF CARE WITH PT. PT VERBALIZED UNDERSTANDING. ALL NEEDS MET. SAFETY MEASURES ENSURED. CALL LIGHT WITHIN REACH. WILL CONTINUE TO MONITOR. Addendum: 01/26/17 at 2319 by Martinez Gaxiola RN PT ON O2 2L NC, SPO2 97%, RR 18 UNLABORED.
[2017-01-26 19:44] VITALS: BP 115/77
[2017-01-26 20:00] VITALS: BP 115/77
[2017-01-26] MEDS: hydrOXYzine HCL 10 MG TAB PO SCH (20:12)
--- NOTE | 2017-01-26 20:15 | NUR ---
ADMINISTERED DUE MEDS WITH EDUCATION. PT VERBALIZED UNDERSTANDING, TOLERATED MEDS WELL. ALL NEEDS MET. SAFETY MEASURES ENSURED. CALL LIGHT WITHIN REACH. WILL CONTINUE TO MONITOR.
--- NOTE | 2017-01-26 21:25 | NUR ---
REMOVED PT IV ACCESS AT THIS TIME, CANNULA INTACT, PT TOLERATED WELL. [facility] AT BEDSIDE AT THIS TIME, ENDORSED PLAN OF CARE AND REPORT.
--- NOTE | 2017-01-26 21:35 | NUR ---
BELONGINGS CHECKED AND GATHERED FOR PT. PT ON O2 2L NC, CONDITION STABLE. PT TAKEN OFF UNIT BY [facility].
--- NOTE | 2017-01-26 23:09 | NUR ---
NOTIFIED BY CHARGE NURSE THAT PT WAS NOT ACCEPTED AT [facility] DUE TO FACILITY NOT ACCEPTING PT'S COLONIZED ORGANISMS.
--- NOTE | 2017-01-26 23:40 | NUR ---
PT TRANSFERRED TO [facility].ISMA SINGH CALLED AND SAID BECAUSE PT IS ISOLATION THEY CAN NOT ACCEPT PT.CALLED [facility]O.SHE CALLED AND TALKED WITH THEM AND EXPLAINED IT IS CLONIZATION NOT ISOLATION.BUT STILL THEY DIDN'T ACCEPT PT.I TALKED WITH RESIDENT .SHE CALLED [facility] AND [facility] AND TALKED WITH OPAL SINGH [employer] [facility] [facility] AND EXPLAINED FOR HIM BUT STILL DIDN'T ACCEPT PT. TOLD HIM GIVE US YOUR FAX NUMBER WE CAN FAX THE REPORT THAT IT IS CLONIZATION NOT ISOLATION.HE SAID WE DON'T HAVE FAX.SO FINALLY PT WILL COME BACK.
[2017-01-27] VITALS: BP 106/60
--- NOTE | 2017-01-27 | NUR ---
PT TRANSPORTED BACK TO BEDSIDE, ROOM 118 BY [facility] AT THIS TIME. VS NOTED. PT AOX4, ABLE TO VERBALIZE NEEDS. PT DENIES CHEST PAIN, SOB OR S/S OF ACUTE DISTRESS. PT ON O2 2L NC. DISCUSSED AND REVIEWED PLAN OF CARE WITH PT. PT VERBALIZED UNDERSTANDING. ALL NEEDS MET. SAFETY MEASURES ENSURED. CALL LIGHT WITHIN REACH.
[2017-01-27] MEDS: NACL 0.9% 1,000 ML IV SCH ×2 (00:52→04:48)
[2017-01-27] MEDS: HYDROcodone/APAP 10/325 MG 1 TAB TAB PO PRN ×2 (00:52→08:31)
--- NOTE | 2017-01-27 00:52 | NUR ---
PT C/O PAIN. SEE PAIN ASSESSMENT. ADMINISTERED NORCO PO PRN WITH EDUCATION ORDERED. PT VERBALIZED UNDERSTANDING. ATTEMPTED TO INSERT IV ON RIGHT ARM, UNSUCCESSFUL 3X. WILL NOTIFY CHARGE NURSE TO TRY TO INSERT IV.
--- NOTE | 2017-01-27 01:30 | NUR ---
NOTIFIED BY CHARGE NURSE THAT SHE ATTEMPTED TO INSERT IV ON RIGHT ARM, UNSUCCESSFUL 3X AT THIS TIME.
--- NOTE | 2017-01-27 04:01 | NUR ---
ER CHARGE NURSE AT BEDSIDE TO INSERT NEW IV 22G ON RIGHT HAND, SUCCESSFUL AFTER ONE ATTEMPT. PT TOLERATED WELL. WILL ADMINISTER IVF ORDERED.
[2017-01-27] MEDS: HYDRAGUARD CREAM TP SCH ×3 (04:49→20:44)
[2017-01-27] MEDS: Z-GUARD PASTE TP SCH ×2 (04:49→09:00)
--- NOTE | 2017-01-27 04:50 | NUR ---
ASSISTED PT TO BEDPAN, PT TOLERATED WELL. PT CLEANED, Z-GUARD AND HYDRAGUARD APPLIED ORDERED. ASSISTED PT TO TURN AND REPOSITION, OFFLOADED PRESSURE AREAS. ALL NEEDS MET. SAFETY MEASURES ENSURED. CALL LIGHT WITHIN REACH. WILL CONTINUE TO MONITOR.
[2017-01-27] MEDS: ALBUTEROL SULFATE/IPRATROPIU 3 ML SOL IH SCH ×3 (07:00→23:15)
--- NOTE | 2017-01-27 07:14 | NUR ---
ENDORSED PLAN OF CARE TO AM NURSE. CONDITION STABLE.
--- NOTE | 2017-01-27 07:15 | NUR ---
RECEIVED REPORT FROM PM NURSE FOR CONTINUITY OF CARE. PT SLEEPING, EASILY AWAKENS. RESP EVEN AND UNLABORED. NO S/S OF DISTRESS, SOB, OR RESTLESSNESS. IV INTACT, NO REDNESS OR SWELLING NOTED. SKIN IS WARM AND DRY. ECCHYMOSIS NOTED ON UE, AND SCAB ON LLE. PT DENIES PAIN OR DISCOMFORT AT THIS TIME. PLAN OF CARE DISCUSSED WITH PT, PT VERBALIZED UNDERSTANDING. SAFETY MEASURES IN PLACED. CALL LIGHT WITHIN REACH. BED LOCKED ON LOW POSITION. SIDE RAILS UP. WILL CONTINUE TO MONITOR.
[2017-01-27 08:00] VITALS: BP 127/66
[2017-01-27] MEDS: AMIODARONE 200 MG TAB PO SCH (08:20)
[2017-01-27] MEDS: BACLOFEN 10 MG TAB PO SCH ×3 (08:20→17:08)
[2017-01-27] MEDS: ECOTRIN 81 MG TABEC PO SCH (08:20)
[2017-01-27] MEDS: LACTOBACILLUS RHAMNOSUS GG 1 EACH CAP PO SCH ×2 (08:20→17:09)
[2017-01-27] MEDS: CLOPIDOGREL 75 MG TAB PO SCH (08:21)
[2017-01-27] MEDS: CARVEDILOL 3.125 MG TAB PO SCH ×2 (08:22→20:44)
[2017-01-27] MEDS: SENNA 8.6 MG TAB PO SCH ×2 (08:31→20:44)
[2017-01-27] MEDS: PSYLLIUM 12.2 GM/PKT PO SCH (08:34)
--- NOTE | 2017-01-27 09:40 | NUR ---
PT RESTING IN BED QUIETLY. RESP EVEN AND UNLABORED. NO S/S OF DISTRESS. DENIES PAIN OF FURTHER NEEDS AT THIS TIME. SAFETY MEASURES IN PLACED. WILL CONTINUE TO MONITOR.
--- NOTE | 2017-01-27 12:50 | NUR ---
PT WATCHING TV. RESP EVEN AND UNLABORED. NO S/S OF DISTRESS. DENIES PAIN OF FURTHER NEEDS AT THIS TIME. SAFETY MEASURES IN PLACED. WILL CONTINUE TO MONITOR
[2017-01-27 16:00] VITALS: BP 121/57
--- NOTE | 2017-01-27 16:00 | NUR ---
PT ON THE PHONE. RESP EVEN AND UNLABORED. NO S/S OF DISTRESS. DENIES PAIN OF FURTHER NEEDS AT THIS TIME. SAFETY MEASURES IN PLACED. WILL CONTINUE TO MONITOR
--- NOTE | 2017-01-27 18:00 | NUR ---
PT RESTING IN BED QUIETLY. RESP EVEN AND UNLABORED. NO S/S OF DISTRESS. DENIES PAIN OF FURTHER NEEDS AT THIS TIME. SAFETY MEASURES IN PLACED. WILL CONTINUE TO MONITOR
--- NOTE | 2017-01-27 19:30 | NUR ---
ENDORSED CARE TO PM NURSE FOR CONTINUITY OF CARE. PT IS IN STABLE CONDITION.
--- NOTE | 2017-01-27 19:35 | NUR ---
RECEIVED REPORT FROM DAY RN, PATIENT RESTING IN BED, AWAKE ALERT ORIENTED X4, NO S/S OF ACUTE DISTRESS NOTED, RESPIRATION EVEN AND UNLABORED, IV PATENT AND INTACT, INFUSING NS AT 10ML/HR. CALL LIGHT WITHIN REACH, SAFETY MEASURE ENSURED, WILL CONTINUE TO MONITOR.
[2017-01-27] MEDS ORDERED: LORazepam 0.5 MG TAB PO SCH (21:05)
--- NOTE | 2017-01-27 21:28 | NUR ---
PATIENT STATED," I AM ANXIOUS, CAN YOU ASK DOCTOR GIVE ME SOMETHING FOR THAT." VITAL SIGNS TAKEN, READ T 98.2, BP 136/59, HR 82, RR 19 O2SAT 98%. MADE DR. MARIO AWARE. RECEIVED ORDER OF 0.5MG ATIVAN PO. MEDICATION GIVEN, PATIENT TOLERATED WELL. WILL CONTINUE TO MONITOR.
[2017-01-28] VITALS: BP 128/60
[2017-01-28] MEDS: HYDROcodone/APAP 10/325 MG 1 TAB TAB PO PRN ×4 (00:04→22:13)
--- NOTE | 2017-01-28 00:10 | NUR ---
PATIENT STATED LT ANKLE PAIN 5/10. NORCO GIVEN ORDERED. PATIENT RESTING IN BED, NO S/S OF ACUTE DISTRESS, RESPIRATION EVEN AND UNLABORED, SAFETY MEASURE ENSURED, WILL CONTINUE TO MONITOR.
--- NOTE | 2017-01-28 02:35 | NUR ---
ASSISTED PATIENT USED BEDPAN, VOIDED X1, PATIENT RESTING IN BED, NO S/S OF ACUTE DISTRESS NOTED, RESPIRATION EVEN AND UNLABORED, CALL LIGHT WITHIN REACH, SAFETY MEASURE ENSURED, WILL CONTINUE TO MONITOR.
--- NOTE | 2017-01-28 04:59 | NUR ---
ASSISTED PATIENT TO USE THE BEDPAN. VOIDED X1. NO S/S OF ACUTE DISTRESS NOTED, RESPIRATION EVEN AND UNLABORED, CALL LIGHT WITHIN REACH, SAFETY MEASURE ENSURED ,WILL CONTINUE TO MONITOR.
[2017-01-28] MEDS: NACL 0.9% 1,000 ML IV SCH (05:56)
[2017-01-28] MEDS: ALBUTEROL SULFATE/IPRATROPIU 3 ML SOL IH SCH ×3 (06:21→23:45)
--- NOTE | 2017-01-28 06:31 | NUR ---
PATIENT REMAIN IN STABLE CONDITION, SLEEPING IN BED, NO S/S OF ACUTE DISTRESS NOTED, RESPIRATION EVEN AND UNLABORED, CALL LIGHT WITHIN REACH, SAFETY MEASURE ENSURED, WILL CONTINUE TO MONITOR.
--- NOTE | 2017-01-28 07:19 | NUR ---
ENDORSED PLAN OF CARE TO DAY RN. PATIENT IS IN STABLE CONDITION. NO S/S OF ACUTE DISTRESS NOTED.
--- NOTE | 2017-01-28 07:20 | NUR ---
RECEIVED BEDSIDE REPORT FROM BUFFING WHEEL FORMER AUTOMATIC RN. PT AWAKE AND ALERT, NO SIGNS OF ACUTE DISTRESS. BOWEL SOUNDS ACTIVE IN ALL 4 QUADRANTS. SKIN INTACT. IV PATENT AND ASYMPTOMATIC. BOWEL AND BLADDER CONTINENCE, CALLS FOR BEDPAN. PATIENT DENIES PAIN AT THIS TIME. RE-ORIENTED TO HOSPITAL AND TO UNIT, PATIENT VERBALIZES UNDERSTANDING. BED IN LOW POSITION WITH BILATERAL HALF SIDE RAILS UP, BED ALARM ON, CALL LIGHT WITHIN REACH. WILL CONTINUE TO MONITOR.
[2017-01-28 08:00] VITALS: BP 115/45
[2017-01-28] MEDS: SENNA 8.6 MG TAB PO SCH ×2 (08:41→20:45)
[2017-01-28] MEDS: AMIODARONE 200 MG TAB PO SCH (08:42)
[2017-01-28] MEDS: CLOPIDOGREL 75 MG TAB PO SCH (08:42)
[2017-01-28] MEDS: LACTOBACILLUS RHAMNOSUS GG 1 EACH CAP PO SCH ×2 (08:42→17:25)
[2017-01-28] MEDS: CARVEDILOL 3.125 MG TAB PO SCH ×2 (08:42→20:45)
[2017-01-28] MEDS: ECOTRIN 81 MG TABEC PO SCH (08:42)
[2017-01-28] MEDS: BACLOFEN 10 MG TAB PO SCH ×3 (08:42→17:25)
[2017-01-28] MEDS: Z-GUARD PASTE TP SCH (09:00)
[2017-01-28] MEDS: PSYLLIUM 12.2 GM/PKT PO SCH (09:00)
[2017-01-28] MEDS: HYDRAGUARD CREAM TP SCH ×2 (09:00→20:45)
--- NOTE | 2017-01-28 09:30 | NUR ---
PT RESTING IN BED, NO SIGNS OF ACUTE DISTRESS. BED IN LOW POSITION WITH BILATERAL HALF SIDE RAILS UP, BED ALARM ON, CALL LIGHT WITHIN REACH. WILL CONTINUE TO MONITOR.
--- NOTE | 2017-01-28 10:30 | NUR ---
ASSISTED PATIENT WITH BEDPAN, NO SIGNS OF ACUTE DISTRESS. BED ALARM ON, BED IN LOW POSITION WITH BILATERAL HALF SIDE RAILS UP, CALL LIGHT WITHIN REACH. WILL CONTINUE TO MONITOR.
--- NOTE | 2017-01-28 12:00 | NUR ---
PT SITTING UPRIGHT IN BED EATING LUNCH, NO SIGNS OF ACUTE DISTRESS. BED IN LOW POSITION WITH BED ALARM ON, BILATERAL HALF SIDE RAILS UP, CALL LIGHT WITHIN REACH. WILL CONTINUE TO MONITOR.
--- NOTE | 2017-01-28 12:16 | NUR ---
RECEIVED AM LABS FOR 12/[address] MEDEROS. NOTED, WILL CARRY OUT.
--- NOTE | 2017-01-28 13:52 | NUR ---
PT RESTING COMFORTABLY IN BED, NO SIGNS OF ACUTE DISTRESS. WILL CONTINUE TO MONITOR. BED IN LOW POSITION WITH BED ALARM ON, BILATERAL HALF SIDE RAILS UP, CALL LIGHT WITHIN REACH. WILL CONTINUE TO MONITOR.
--- NOTE | 2017-01-28 15:30 | NUR ---
PHYSICAL THERAPY CO-SIGN The Physical Therapy Progress Notes documented by Hand Binder Cutter have been reviewed. I CONCUR W/CROSSCUTTER ROLLED GLASS NOTE; CONT PER TX PLAN Reviewed/Co-Signed by: Citlalli Carlos PT Documentation Done by: HALLEY SUAZO CROSSCUTTER ROLLED GLASS Addendum: 01/28/17 at 1530 by Citlalli Carlos PT Amended: Links added.
--- NOTE | 2017-01-28 15:50 | NUR ---
PT RESTING COMFORTABLY IN BED, NO SIGNS OF ACUTE DISTRESS. BED IN LOW POSITION WITH BILATERAL HALF SIDE RAILS UP, BED ALARM ON, CALL LIGHT WITHIN REACH. WILL CONTINUE TO MONITOR.
[2017-01-28 16:00] VITALS: BP 122/47
--- NOTE | 2017-01-28 17:50 | NUR ---
ASSISTED PATIENT WITH BEDPAN, PT TOLERATED WELL NO SIGNS OF ACUTE DISTRESS. BED ALARM ON, BED IN LOW POSITION WITH BILATERAL HALF SIDE RAILS UP, CALL LIGHT WITHIN REACH. WILL CONTINUE TO MONITOR.
--- NOTE | 2017-01-28 19:30 | NUR ---
PT AWAKE AND ALERT, NO SIGNS OF ACUTE DISTRESS. GAVE REPORT TO FOOT DRILL OPERATOR NURSE FOR CONTINUITY OF CARE.
--- NOTE | 2017-01-28 19:30 | NUR ---
ASSUMED CARE OF PATIENT, AWAKE, NO COMPLAINS. NO DISTRESS. CALL LIGHT WITHIN REACH.
--- NOTE | 2017-01-28 20:00 | NUR ---
PERICARE DONE, BEDPAN RENDERED. CALL LIGHT WITHIN REACH. PLAN OF CARE DISCUSSED WITH PATIENT, VERBALIZED UNDERSTANDING WELL.
[2017-01-28] MEDS ORDERED: LORazepam 0.5 MG TAB PO SCH (22:00)
[2017-01-28 23:53] VITALS: BP 106/40
--- NOTE | 2017-01-28 23:54 | NUR ---
AWAKE. NO COMPLAINS. VITAL SIGNS STABLE. AFEBRILE. CALL LIGHT WITHIN REACH.
[2017-01-29] MEDS: NACL 0.9% 1,000 ML IV SCH (05:29)
[2017-01-29 06:48] LABS: BASOPHILS # (AUTO) 0.1 K/uL (0.00-0.22); BASOPHILS % (AUTO) 1.6 % (0.0-2.0); EOSINOPHILS # (AUTO) 0.1 K/uL (0-0.4); EOSINOPHILS % (AUTO) 2.2 % (0.0-4.0); HEMATOCRIT 29.4 % (36-48); HEMOGLOBIN 9.5 g/dL (12.0-16.0); LYMPHOCYTES # (AUTO) 1.2 K/uL (2.5-16.5); LYMPHOCYTES % (AUTO) 25.2 % (20.5-51.1); MEAN CORPUSCULAR HEMOGLOBIN 30 pg (27-31); MEAN CORPUSCULAR HGB CONC 33 g/dL (33-37); MEAN CORPUSCULAR VOLUME 91 fL (80-94); MONOCYTES # (AUTO) 0.4 K/uL (0.8-1.0); MONOCYTES % (AUTO) 8.1 % (1.7-9.3); NEUTROPHILS # (AUTO) 2.8 K/uL (1.8-7.7); NEUTROPHILS % (AUTO) 62.9 % (42.2-75.2); PLATELET COUNT (AUTO) 192 K/uL (140-450); RED BLOOD CELL COUNT(AUTO) 3.23 MIL/uL (4.20-5.40); WHITE BLOOD COUNT (AUTO) 4.7 K/uL (4.8-10.8)
[2017-01-29 06:59] LABS: CREATININE 0.9 mg/dL (0.6-1.3); GLUCOSE 94 mg/dL (74-106); UREA NITROGEN, BLOOD 12 mg/dL (7-18)
[2017-01-29 07:08] LABS: PHOSPHORUS 4.3 mg/dL (2.5-4.9)
[2017-01-29 07:09] LABS: ANION GAP 6.8 (8-16); CARBON DIOXIDE 33.4 mmol/L (21-32); CHLORIDE 107 mmol/L (98-107); POTASSIUM 4.2 mmol/L (3.5-5.1); SODIUM SERUM 143 mmol/L (136-145)
[2017-01-29] MEDS: ALBUTEROL SULFATE/IPRATROPIU 3 ML SOL IH SCH ×3 (07:09→22:57)
--- NOTE | 2017-01-29 07:33 | NUR ---
ENDORSED CARE AT BEDSIDE WITH LYNNETTE MENDEZ, PATIENT IN STABLE CONDITION.
--- NOTE | 2017-01-29 07:34 | NUR ---
RECEIVED BEDSIDE REPORT FROM MIDDLEWARE DEVELOPER NURSE. PT AWAKE AND ALERT, NO SIGNS OF ACUTE DISTRESS. BOWEL SOUNDS ACTIVE IN ALL 4 QUADRANTS. BRUISING ON RIGHT UPPER EXTREMITY WITH SCABS ON LLE WAY[place]. IV PATENT AND ASYMPTOMATIC. PATIENT DENIES PAIN AT THIS TIME. BEDREST. OXYGEN 3L VIA NC. RE-ORIENTED TO HOSPITAL AND TO UNIT, PT UNABLE TO VERBALIZE AND COMPREHEND. BED ALARM ON, BED IN LOW POSITION WITH BILATERAL HALF SIDE RAILS UP, CALL LIGHT WITHIN REACH. WILL CONTINUE TO MONITOR.
[2017-01-29 08:00] VITALS: BP 138/58
[2017-01-29] MEDS: HYDROcodone/APAP 10/325 MG 1 TAB TAB PO PRN ×3 (08:22→20:53)
[2017-01-29] MEDS: SENNA 8.6 MG TAB PO SCH ×2 (08:23→20:53)
[2017-01-29] MEDS: LACTOBACILLUS RHAMNOSUS GG 1 EACH CAP PO SCH ×2 (08:23→17:48)
[2017-01-29] MEDS: CLOPIDOGREL 75 MG TAB PO SCH (08:23)
[2017-01-29] MEDS: BACLOFEN 10 MG TAB PO SCH ×3 (08:23→17:49)
[2017-01-29] MEDS: ECOTRIN 81 MG TABEC PO SCH (08:23)
[2017-01-29] MEDS: CARVEDILOL 3.125 MG TAB PO SCH ×2 (08:23→20:53)
[2017-01-29] MEDS: HYDRAGUARD CREAM TP SCH ×2 (08:24→21:00)
[2017-01-29] MEDS: AMIODARONE 200 MG TAB PO SCH (08:24)
[2017-01-29] MEDS: Z-GUARD PASTE TP SCH (08:24)
[2017-01-29] MEDS: PSYLLIUM 12.2 GM/PKT PO SCH (08:24)
--- NOTE | 2017-01-29 09:20 | NUR ---
PT RESTING COMFORTABLY IN BED, NO SIGNS OF ACUTE DISTRESS. BED IN LOW POSITION WITH BILATERAL HALF SIDE RAILS UP, CALL LIGHT WITHIN REACH. WILL CONTINUE TO MONITOR.
--- NOTE | 2017-01-29 11:30 | NUR ---
PATIENT RESTING COMFORTABLY IN BED WATCHING TV, NO SIGNS OF ACUTE DISTRESS. SAFETY CHECKS IN PLACE. WILL CONTINUE TO MONITOR.
--- NOTE | 2017-01-29 11:33 | NUR ---
Social Service Note: [facility] Genaro [facility] Ext [phone], no answer, left message regarding starting an application for [employer], Director of Case Management and Lead Infrastructure Architect, Sue gerard.
--- NOTE | 2017-01-29 11:43 | NUR ---
01/29/17 RD FOLLOW-UP ASSESSMENT COMPLETED PLEASE REFER TO NUTRITION ASSESSMENT UNDER CARE ACTIVITY FOR ESTIMATED NUTRITIONAL NEEDS. 1. CONTINUE REGULAR DIET 2. CONTINUE TO ENCOURAGE INCREASED PO INTAKE TO TOLERANCE 3. RD TO FOLLOW-UP 3-5 DAYS, MODERATE RISK GEORGINA RESENDEZ, KAILA
--- NOTE | 2017-01-29 13:30 | NUR ---
ADMINISTERED MEDICATION ORDERED, NO SIGNS OF ACUTE DISTRESS. SAFETY CHECKS IN PLACE. WILL CONTINUE TO MONITOR.
--- NOTE | 2017-01-29 14:15 | NUR ---
Social Service Note: I called Genaro from [facility] Ext [phone] again, no answer, left message regarding starting an application for [employer].
--- NOTE | 2017-01-29 15:00 | NUR ---
PT RESTING COMFORTABLY IN BED, NO SIGNS OF ACUTE DISTRESS. SAFETY CHECKS IN PLACE, WILL CONTINUE TO MONITOR.
[2017-01-29 16:00] VITALS: BP 120/41
--- NOTE | 2017-01-29 17:20 | NUR ---
PATIENT COMPLAINING OF PAIN AND FEELING ANXIOUS, WILL ADMINISTER ANTI ANXIETY MEDICATION AND PAIN MEDICATION ORDERED.
[2017-01-29] MEDS: LORazepam 0.5 MG TAB PO PRN (17:49)
--- NOTE | 2017-01-29 17:49 | NUR ---
ADMINISTERED ANTI ANXIETY MEDICATION AND PAIN MEDICATION ORDERED. WILL CONTINUE TO MONITOR.
--- NOTE | 2017-01-29 19:35 | NUR ---
PT AWAKE AND ALERT, NO SIGNS OF ACUTE DISTRESS. ENDORSED TO INVENTORY AUDIT CLERK NURSE FOR CONTINUITY OF CARE.
--- NOTE | 2017-01-29 19:35 | NUR ---
RECEIVED PATIENT REPORT FROM MORNING NURSE. PATIENT AWAKE, ALERT AND ORIENTED. NO SIGNS AND SYMPTOMS OF DISTRESS NOTED. NO COMPLAINTS OF PAIN AT THIS TIME. PATIENT ON O2 VIA NC. IV SITE NOTED ON RIGHT HAND. IVF INFUSING WELL. BED IN LOWEST POSITION, SIDE RAILS UP AND CALL LIGHT WITHIN REACH. WILL CONTINUE TO MONITOR.
--- NOTE | 2017-01-29 20:20 | NUR ---
ASSISTED PATIENT WITH BEDPAN. PATIENT VOIDED. URINE IS CLEAR AND YELLOW. NO SIGNS AND SYMPTOM OF DISTRESS NOTED.
--- NOTE | 2017-01-29 22:30 | NUR ---
CHECKED ON PATIENT. PATIENT IS ASLEEP. NO SIGNS AND SYMPTOMS OF DISTRESS NOTED. WILL CONTINUE TO MONITOR.
[2017-01-30] VITALS: BP 135/60
--- NOTE | 2017-01-30 | NUR ---
CHECKED ON PATIENT. PATIENT IS ASLEEP. NO SIGNS AND SYMPTOMS OF DISTRESS NOTED. WILL CONTINUE TO MONITOR.
--- NOTE | 2017-01-30 03:00 | NUR ---
CHECKED ON PATIENT. PATIENT IS ASLEEP. NO SIGNS AND SYMPTOMS OF DISTRESS NOTED. WILL CONTINUE TO MONITOR.
[2017-01-30] MEDS: NACL 0.9% 1,000 ML IV SCH (05:29)
--- NOTE | 2017-01-30 07:27 | NUR ---
PATIENT REPORT GIVEN AT BEDSIDE TO MORNING NURSE. PATIENT IS IN STABLE CONDITION.
--- NOTE | 2017-01-30 07:28 | NUR ---
RECEIVED REPORT FROM THE COMMUNICATIONS STRATEGIST NURSE AT BEDSIDE FOR CONTINUITY OF CARE. PT IS AWAKE AND ORIENTED. INTRODUCED OURSELVES AND UPDATED THE BOARD. PT HAS NC AT 3L. IV ON R HAND 22G TKO. NO SIGNS OF RESPIRATORY DISTRESS. DENIES PAIN AT THIS TIME. BEDSIDE COMMODE IN THE ROOM. NO COMPLAINTS AT THIS TIME. WILL CONTINUE TO MONITOR PT. PLAN FOR TODAY: SS FOR PLACEMENT.
[2017-01-30] MEDS: ALBUTEROL SULFATE/IPRATROPIU 3 ML SOL IH SCH ×3 (07:36→23:02)
[2017-01-30 08:00] VITALS: BP 118/59
[2017-01-30] MEDS: SENNA 8.6 MG TAB PO SCH ×2 (09:00→20:18)
[2017-01-30] MEDS: PSYLLIUM 12.2 GM/PKT PO SCH (09:00)
[2017-01-30] MEDS: BACLOFEN 10 MG TAB PO SCH ×3 (09:14→17:20)
[2017-01-30] MEDS: CARVEDILOL 3.125 MG TAB PO SCH ×2 (09:16→20:19)
[2017-01-30] MEDS: AMIODARONE 200 MG TAB PO SCH (09:16)
[2017-01-30] MEDS: CLOPIDOGREL 75 MG TAB PO SCH (09:17)
[2017-01-30] MEDS: ECOTRIN 81 MG TABEC PO SCH (09:17)
[2017-01-30] MEDS: LACTOBACILLUS RHAMNOSUS GG 1 EACH CAP PO SCH ×2 (09:19→17:19)
[2017-01-30] MEDS: LORazepam 0.5 MG TAB PO PRN ×2 (09:20→17:25)
--- NOTE | 2017-01-30 09:20 | NUR ---
ADMINISTERED MORNING MEDS. HELD ALL LAXATIVES PER PT'S REQUEST. PT HAD BM YESTERDAY. APPLIED THE Z GUARD AND HYDRO GUARD ORDERED. TOLERATED WELL. NO COMPLAINTS AT THIS TIME. WILL CONTINUE TO MONITOR PT.
[2017-01-30] MEDS: Z-GUARD PASTE TP SCH (09:23)
[2017-01-30] MEDS: HYDRAGUARD CREAM TP SCH ×2 (09:23→20:19)
--- NOTE | 2017-01-30 10:20 | NUR ---
PT AMBULATING IN THE HALLS WITH P/T.
[2017-01-30] MEDS: HYDROcodone/APAP 10/325 MG 1 TAB TAB PO PRN ×2 (11:41→20:29)
--- NOTE | 2017-01-30 11:43 | NUR ---
ADMINISTERED PAIN MEDS, REQUESTED. PT IS 6/10. PT TOLERATED WELL. WILL CONTINUE TO MONITOR PT.
--- NOTE | 2017-01-30 12:00 | NUR ---
Social Service Note Per Genaro from [facility] he will be out of the office covering another facility the next two days, and will return on Saturday02/01/17. He requested patient's face sheet to be fax to Priscilla Delcid fax number . I faxed face sheet to Priscilla Delcid, Director of Case Management/Retail Performance Coach Dept Spur moustapha.
--- NOTE | 2017-01-30 13:45 | NUR ---
ADMINISTERED AFTERNOON MED. PT TOLERATED WELL. WILL CONTINUE TO MONITOR PT.
--- NOTE | 2017-01-30 15:00 | NUR ---
PT IS SLEEPING SOUNDLY. NOT SIGNS OF DISTRESS. WILL CONTINUE TO MONITOR PT.
[2017-01-30 17:01] VITALS: BP 102/45
--- NOTE | 2017-01-30 17:25 | NUR ---
ADMINISTERED AFTERNOON MEDS. PT TOLERATED WELL. REQUESTED ATIVAN. ADMINISTERED. PT TOLERATED WELL. WILL CONTINUE TO MONITOR PT.
--- NOTE | 2017-01-30 19:40 | NUR ---
PT CALLED AND WANTS TO GO BATHROOM. TWO DEVELOPMENT DISABILITY SPECIALIST WENT TO HELP PT GET UP TO THE BEDSIDE COMMODE.
[2017-01-30 20:20] VITALS: BP 102/51
--- NOTE | 2017-01-30 20:20 | NUR ---
SEEN PT AWAKE, ALERT AND ORIENTED COMPLAINING OF PAIN. INITIAL ASSESSMENT DONE. VITAL SIGNS CHECKED. DUE MEDICATIONS INCLUDING PAIN MEDICATION GIVEN W/ TEACHINGS. PT VERBALIZED UNDERSTANDING. CALL LIGHT W/IN REACH. INSTRUCTED TO CALL WHEN IN NEED.
--- NOTE | 2017-01-30 22:10 | NUR ---
PT GOT UP TO THE BEDSIDE COMMODE. PT INFORMED THAT MD WANTS HER TO GET UP TO THE BATHROOM. PT STATES " MY LEGS ARE NOT STRONG TONIGHT." TEACHINGS PROVIDED.
--- NOTE | 2017-01-31 04:30 | NUR ---
SEEN PT AWAKE. VITAL SIGNS CHECKED. PT COMPLAINING OF LEG PAIN. WILL MEDICATE FOR PAIN ORDERED.
[2017-01-31] MEDS: HYDROcodone/APAP 10/325 MG 1 TAB TAB PO PRN ×4 (04:38→20:33)
[2017-01-31] MEDS: NACL 0.9% 1,000 ML IV SCH (05:29)
[2017-01-31 06:01] VITALS: BP 109/56
--- NOTE | 2017-01-31 07:20 | NUR ---
RECEIVED REPORT FROM THE MANAGER ENTERPRISE CONTENT MANAGEMENT NURSE AT BEDSIDE FOR CONTINUITY OF CARE. PT IS AAO X 4. INTRODUCED MYSELF AND UPDATED THE BOARD. R/T IS HERE FOR BREATHING TX. PT V/S WITHIN NORMAL LIMITS. PT C/O OF ANXIETY. REQUESTED ATIVAN WITH HER MORNING MEDS. NS AT 3L O2. IV ON R HAND 22G TKO. LBM THIS MORNING. PT NEEDS 2 MAN ASSIST WHEN GETTING UP TO USE THE BSC. JUST WAITING FOR SS TO FIND NEW PLACEMENT. WILL CONTINUE TO MONITOR PT.
[2017-01-31] MEDS: ALBUTEROL SULFATE/IPRATROPIU 3 ML SOL IH SCH ×3 (07:26→23:35)
[2017-01-31 08:00] VITALS: BP 103/44
[2017-01-31] MEDS: LACTOBACILLUS RHAMNOSUS GG 1 EACH CAP PO SCH ×2 (08:00→16:45)
[2017-01-31] MEDS: AMIODARONE 200 MG TAB PO SCH (08:51)
[2017-01-31] MEDS: CLOPIDOGREL 75 MG TAB PO SCH (08:51)
[2017-01-31] MEDS: CARVEDILOL 3.125 MG TAB PO SCH ×2 (08:51→20:33)
[2017-01-31] MEDS: BACLOFEN 10 MG TAB PO SCH ×3 (08:51→16:45)
[2017-01-31] MEDS: ECOTRIN 81 MG TABEC PO SCH (08:51)
[2017-01-31] MEDS: PSYLLIUM 12.2 GM/PKT PO SCH (08:52)
[2017-01-31] MEDS: LORazepam 0.5 MG TAB PO PRN ×3 (08:52→20:34)
[2017-01-31] MEDS: SENNA 8.6 MG TAB PO SCH ×2 (08:52→20:34)
[2017-01-31] MEDS: HYDRAGUARD CREAM TP SCH ×2 (08:53→20:33)
[2017-01-31] MEDS: Z-GUARD PASTE TP SCH (08:53)
--- NOTE | 2017-01-31 09:51 | NUR ---
REQUESTED A NORCO BEFORE THE P/T GETS HERE. WILL ADMINISTER.
--- NOTE | 2017-01-31 11:50 | NUR ---
PT IS RESTING COMFORTABLY, WATCHING TV. NO P/T OF YET. NO COMPLAINTS. WILL CONTINUE TO MONITOR PT.
--- NOTE | 2017-01-31 13:47 | NUR ---
PT REQUESTS FOR NORCO PRIOR WORK OUT WITH PT. PT C/O BLE PAIN 10/20. ADMINISTERED NORCO 10/325MG PO. ENDORSED TO PRIMARY NURSE FOR REASSESSMENT.
--- NOTE | 2017-01-31 14:50 | NUR ---
P/T HERE TO WORK WITH PTYuliana LOPEZ IV.
--- NOTE | 2017-01-31 15:17 | NUR ---
AWAKE AND ALERT FIO2 AT 3 LPM VIA NC DURING AND POST PHYSICAL THERAPY POST HHN THERAPY TITRATED FIO2 TO 2 LPM
[2017-01-31 15:56] VITALS: BP 124/49
--- NOTE | 2017-01-31 16:15 | NUR ---
PHYSICAL THERAPY CO-SIGN The Physical Therapy Progress Notes documented by Hand Finisher have been reviewed. Reviewed/Co-Signed by: Linnea Song PT Documentation Done by:HALLEY SUAZO CLINICAL APPEALS AUDITOR Addendum: 01/31/17 at 1616 by Linnea Song PT Amended: Links added.
--- NOTE | 2017-01-31 17:17 | NUR ---
PT WATCHING TV. NO SIGNS OF DISTRESS. NO COMPLAINTS. WILL CONTINUE TO MONITOR PT.
--- NOTE | 2017-01-31 19:25 | NUR ---
ENDORSED PT TO THE TONG HOOKER NURSE AT BEDSIDE FOR CONTINUITY OF CARE. PT IS IN STABLE CONDITION.
--- NOTE | 2017-01-31 19:26 | NUR ---
RECEIVED REPORT AT PT BEDSIDE FROM DAY SHIFT RN FOR CONTINUITY OF CARE. PT IS AAOX4, SHE IS ON 2.0L OF O2 VIA NASAL CANNULA. PT SKIN IS INTACT, BUT ECCHYMOSIS AND ERYTHEMA PRESENT TO BILATERAL UPPER EXTREMITIES, AND ERYTHEMA PRESENT TO PERINEAL AREA. 22 GAUGE IV TO RIGHT HAND TKO. DISCUSSED PLAN OF CARE WITH PT, PT VERBALIZED UNDERSTANDING. BED IN LOW POSITION, CALL LIGHT WITHIN REACH. WILL CONTINUE TO MONITOR.
--- NOTE | 2017-01-31 20:35 | NUR ---
ADMINISTERED SCHEDULED MEDICATIONS. PT TOLERATED WELL. PT STABLE, NO SIGNS OF DISTRESS NOTED. BED IN LOW POSITION, CALL LIGHT WITHIN REACH. WILL CONTINUE TO MONITOR.
--- NOTE | 2017-01-31 22:45 | NUR ---
PT ASKED TO BE DISCONNECTED FROM IV TUBING SO THAT SHE COULD AMBULATE TO RESTROOM. DISCONNECTED PT AND WAITED TO CONNECT HER AGAIN. PT STABLE, NO SIGNS OF DISTRESS NOTED. BED IN LOWEST POSITION, CALL LIGHT WITHIN REACH. WILL CONTINUE TO MONITOR.
[2017-02-01] VITALS: BP 137/61
--- NOTE | 2017-02-01 01:25 | NUR ---
PT STABLE, NO SIGNS OF DISTRESS NOTED. BED IN LOWEST POSITION, CALL LIGHT WITHIN REACH. WILL CONTINUE TO MONITOR.
--- NOTE | 2017-02-01 05:00 | NUR ---
PT REQUESTED HYDROGUARD TO BE APPLIED TO OUTER THIGHS AND ZGUARD TO BE APPLIED TO HER INNER THIGHS/PERINEAL AREA. PT TOLERATED WELL. PT STABLE, NO SIGNS OF DISTRESS NOTED. BED IN LOWEST POSITION, CALL LIGHT WITHIN REACH. WILL CONTINUE TO MONITOR.
[2017-02-01] MEDS: NACL 0.9% 1,000 ML IV SCH (05:29)
--- NOTE | 2017-02-01 07:10 | NUR ---
ENDORSED PT TO DAY SHIFT RN FOR CONTINUITY OF CARE, PT IN STABLE CONDITION.
--- NOTE | 2017-02-01 07:15 | NUR ---
RECEIVED REPORT FROM CREDIT CONTROL MANAGER NURSE, PT A/OX4, AMBULATES WITH ASSIST, IV IS ON THE RIGHT HAND, PATENT, INTACT, FLUSHING WELL, PT HAS RIGHT UPPER EXTREMITY DISCOLORATION, PT IS ON O2 2L NC, NO S/S OF RESPIRATORY DISTRESS OR DISCOMFORT NOTED, DISCUSSED PLAN OF CARE WITH PT, PT VERBALIZED UNDERSTANDING, SAFETY/FALL PRECAUTIONS ARE IN PLACE,CALL LIGHT WITHIN REACH, WILL CONTINUE TO MONITOR.
[2017-02-01] MEDS: ALBUTEROL SULFATE/IPRATROPIU 3 ML SOL IH SCH ×3 (07:18→22:56)
[2017-02-01 08:00] VITALS: BP 129/54
[2017-02-01] MEDS: ECOTRIN 81 MG TABEC PO SCH (08:19)
[2017-02-01] MEDS: LACTOBACILLUS RHAMNOSUS GG 1 EACH CAP PO SCH ×2 (08:19→17:54)
[2017-02-01] MEDS: HYDROcodone/APAP 10/325 MG 1 TAB TAB PO PRN ×2 (08:19→17:54)
[2017-02-01] MEDS: CLOPIDOGREL 75 MG TAB PO SCH (08:20)
[2017-02-01] MEDS: BACLOFEN 10 MG TAB PO SCH ×3 (08:20→17:54)
[2017-02-01] MEDS: SENNA 8.6 MG TAB PO SCH ×2 (08:20→20:51)
[2017-02-01] MEDS: AMIODARONE 200 MG TAB PO SCH (08:21)
[2017-02-01] MEDS: CARVEDILOL 3.125 MG TAB PO SCH ×2 (08:21→20:51)
--- NOTE | 2017-02-01 08:21 | NUR ---
DUE MEDICATIONS GIVEN, PT TOLERATED WELL, CALL LIGHT WITHIN REACH, WILL CONTINUE TO MONITOR.
[2017-02-01] MEDS: PSYLLIUM 12.2 GM/PKT PO SCH (08:46)
[2017-02-01] MEDS: HYDRAGUARD CREAM TP SCH ×2 (09:37→20:51)
[2017-02-01] MEDS: Z-GUARD PASTE TP SCH (09:37)
--- NOTE | 2017-02-01 12:15 | NUR ---
PT SITTING IN BED EATING LUNCH, CALL LIGHT WITHIN REACH.
[2017-02-01] MEDS: LORazepam 0.5 MG TAB PO PRN (13:58)
[2017-02-01] MEDS: ONDANSETRON 4 MG/2 ML VIAL IM/IVP PRN (13:58)
--- NOTE | 2017-02-01 15:11 | NUR ---
ENTRY FOR 01/31 1645 RECEIVED CALL FROM RADHA MAYORGA [facility] REGARDING POSSIBLE [facility] AVAILABILITY AND SHE WILL FAX OVER THE PHYSICIANS REPORT FOR RESIDENTIAL CARE FORM FOR PHYSICIAN TO COMPLETE. 02/01 FORM RECEIVED. 1100 CALLED RADHA REGARDING INSTRUCTION AND WHO TO FAX FORM TOO. FAXED TO RADHA AT [phone]. RADHA WILL HAVE [facility] REVIEW AND CALL IF PT ACCEPTED FOR ADMISSION. PT INFORMED OF POSSIBILITY OF B&[facility] AND SHE IS STILL IN AGREEMENT WITH PLACEMENT. PER MANAV OF [employer] MEDICAL APPLICATION HAS BEEN FILED. STATED THAT HE HAS TALKED TO PT AND TO HER SISTER JEN WHO IS WILLING TO ASSIST WITH THE PROCESS.
--- NOTE | 2017-02-01 15:20 | NUR ---
PT RESTING IN BED WATCHING TV, CALL LIGHT IS WITHIN REACH.
[2017-02-01 16:00] VITALS: BP 104/62
--- NOTE | 2017-02-01 17:45 | NUR ---
PT RESTING IN BED, ALL NEEDS ARE MET, CALL LIGHT IS WITHIN REACH.
--- NOTE | 2017-02-01 19:20 | NUR ---
PATIENT IS CURRENTLY RESTING IN BED AWAKE ALERT ORIENTED HAS OXYGEN AT 2LITERS VIA NASAL CANNULA.PATIENT IS A ABLE TO TURN AND REPOSITION WITH MINIMAL ASSISTANCE.PATIENT CONTINUES TO HAVE SOME REDNESS TO BOTH LEFT AND RIGHT INNER THIGH.IV SALINE LOCK TO RT HAND G#22 CURRENTLY PATENT.PATIENT ABLE TO MAKE NEEDS KNOWN.PATIENT HAS NO COMPLAINS OF PAIN.CALL LIGHT WITHIN REACH WILL CONTINUE TO MONITOR.
--- NOTE | 2017-02-01 19:20 | NUR ---
ENDORSED PT TO POWER LINE INSTALLER NURSE FOR CONTINUITY OF CARE, PT STABLE AT THIS TIME.
[2017-02-01 20:00] VITALS: BP 110/69
--- NOTE | 2017-02-01 20:00 | NUR ---
PATIENT RESTING COMFORTABLY IN BED WATCHING TV NO COMPLAINS OF PAIN AT THIS TIME.
--- NOTE | 2017-02-01 20:00 | NUR ---
Patient's Plan of Care was discussed and reviewed with PAYROLL AND BENEFITS MANAGER: SHONDA DALLAS
--- NOTE | 2017-02-01 22:30 | NUR ---
PATIENT IS CURRENTLY RESTING IN BED NEEDS MET.CALL LIGHT WITHIN REACH.
[2017-02-02] VITALS: BP 127/56
--- NOTE | 2017-02-02 00:30 | NUR ---
PATIENT WAS GIVEN A WARM BLANKET.NEEDS MET.CALL LIGHT WITHIN REACH.
[2017-02-02] MEDS: HYDROcodone/APAP 10/325 MG 1 TAB TAB PO PRN ×4 (01:48→20:30)
--- NOTE | 2017-02-02 03:30 | NUR ---
PATIENT IS CURRENTLY AWAKE ALERT RESTING IN BED DENIES PAIN.WILL CONTINUE TO MONITOR.WILL CONTINUE TO OBSERVE.
[2017-02-02] MEDS: NACL 0.9% 1,000 ML IV SCH (05:42)
--- NOTE | 2017-02-02 06:15 | NUR ---
PATIENT IS CURRENTLY STABLE KEPT CLEAN AND DRY. PATIENT DENIES PAIN.CALL LIGHT WITHIN REACH WILL CONTINUE TO MONITOR.
--- NOTE | 2017-02-02 07:16 | NUR ---
PATIENT STABLE REPORT ENDORSED TO RN MARTÍN AT BEDSIDE SHE WILL RESUME CARE OF THE PATIENT.
--- NOTE | 2017-02-02 07:23 | NUR ---
RECEIVED REPORT FROM DISPLAY ARTIST NURSE, PT A/OX4, PT IS SLEEPING IN BED BUT EASILY AWAKEN, AMBULATES WITH ASSIST, IV IS ON THE RIGHT HAND, PATENT, INTACT, FLUSHING WELL, PT HAS RIGHT UPPER EXTREMITY DISCOLORATION, PT IS ON O2 2L NC, NO S/S OF RESPIRATORY DISTRESS OR DISCOMFORT NOTED, DISCUSSED PLAN OF CARE WITH PT, PT VERBALIZED UNDERSTANDING, SAFETY/FALL PRECAUTIONS ARE IN PLACE,CALL LIGHT WITHIN REACH, WILL CONTINUE TO MONITOR.
[2017-02-02 08:00] VITALS: BP 133/55
[2017-02-02] MEDS: ALBUTEROL SULFATE/IPRATROPIU 3 ML SOL IH SCH (08:01)
[2017-02-02] MEDS: CLOPIDOGREL 75 MG TAB PO SCH (08:36)
[2017-02-02] MEDS: LACTOBACILLUS RHAMNOSUS GG 1 EACH CAP PO SCH ×2 (08:36→16:13)
[2017-02-02] MEDS: SENNA 8.6 MG TAB PO SCH ×2 (08:36→20:55)
[2017-02-02] MEDS: BACLOFEN 10 MG TAB PO SCH ×3 (08:36→16:14)
[2017-02-02] MEDS: ECOTRIN 81 MG TABEC PO SCH (08:36)
--- NOTE | 2017-02-02 08:36 | NUR ---
DUE MEDICATIONS GIVEN, PT TOLERATED WELL, CALL LIGHT IS WITHIN REACH, WILL CONTINUE TO MONITOR.
[2017-02-02] MEDS: AMIODARONE 200 MG TAB PO SCH (08:37)
[2017-02-02] MEDS: CARVEDILOL 3.125 MG TAB PO SCH ×2 (08:37→20:54)
[2017-02-02] MEDS: HYDRAGUARD CREAM TP SCH ×2 (08:42→20:56)
[2017-02-02] MEDS: PSYLLIUM 12.2 GM/PKT PO SCH (08:42)
[2017-02-02] MEDS: Z-GUARD PASTE TP SCH (08:43)
--- NOTE | 2017-02-02 10:43 | NUR ---
PT IS SLEEPING IN BED AT THIS TIME.
--- NOTE | 2017-02-02 11:39 | NUR ---
02/02/17 RD FOLLOW UP COMPLETED REFER TO NUTRITION PROGRESS NOTE UNDER CARE ACTIVITY FOR ESTIMATED NEEDS. RD RECOMMENDATIONS: 1. CONTINUE REGULAR DIET 2. CONTINUE TO ENCOURAGE PO INTAKES PRN 3. RD TO FOLLOW-UP 3-5 DAYS, MODERATE RISK DINORAH CHOE, RD
--- NOTE | 2017-02-02 12:27 | NUR ---
DUE MEDICATION GIVEN, PT SITTING UP IN BED, EATING LUNCH, CALL LIGHT WITHIN REACH.
--- NOTE | 2017-02-02 14:20 | NUR ---
PATIENT SLEEPING IN BED AT THIS TIME, CALL LIGHT WITHIN REACH.
[2017-02-02 16:00] VITALS: BP 112/57
--- NOTE | 2017-02-02 16:13 | NUR ---
DUE MEDICATIONS GIVEN, PT TOLERATED WELL, CALL LIGHT WITHIN REACH.
[2017-02-02] MEDS: LORazepam 0.5 MG TAB PO PRN (16:14)
--- NOTE | 2017-02-02 18:45 | NUR ---
PATIENT RESTING IN BED, NO S/S OF RESPIRATORY DISTRESS OR DISCOMFORT NOTED, CALL LIGHT WITHIN REACH.
--- NOTE | 2017-02-02 19:13 | NUR ---
ENDORSED PT TO CONTINUOUS MINING MACHINE LODE MINER NURSE FOR CONTINUITY OF CARE, PT STABLE AT THIS TIME.
--- NOTE | 2017-02-02 19:13 | NUR ---
PATIENT IS CURRENTLY RESTING IN BED AWAKE ALERT ALERT ORIENTED WITH OXYGEN VIA NASAL CANNULA AT 2L NO SOB NOTED.PATIENT WATCHING TV.IVF INFUSING WELL CONTINUES TO HAVE SOME REDNESS TO PERINEAL AREA AND RT AND LT INNER THIGH WILL APPLY OINTMENT INDICATED.PATIENT IS ABLE TO TURN AND REPOSITION FOR COMFORT AND ALSO WHEN USING THE BEDPAN.PATIENT IS ABLE TO MAKE NEEDS KNOWN WILL CONTINUE TO MONITOR.CALL LIGHT WITHIN REACH.
[2017-02-02 20:00] VITALS: BP 122/48
--- NOTE | 2017-02-02 21:00 | NUR ---
Patient's Plan of Care was discussed and reviewed with ENVIRONMENTAL ENGINEERING TECHNICIAN: SHONDA DALLAS
--- NOTE | 2017-02-02 21:35 | NUR ---
PATIENT IS CURRENTLY WATCHING TV NEEDS MET WILL CONTINUE TO MONITOR.
--- NOTE | 2017-02-03 00:06 | NUR ---
PATIENT IS CURRENTLY SLEEPING NEEDS MET WILL CONTINUE TO MONITOR.CALL LIGHT WITHIN REACH.
--- NOTE | 2017-02-03 02:26 | NUR ---
PATIENT IS SLEEPING COMFORTABLY IN BED NO PAIN OR DISCOMFORT NOTED.
--- NOTE | 2017-02-03 03:48 | NUR ---
PATIENT CONTINUES TO BE ASSISTED TO USE THE BEDPAN CONTINUES TO BE CLEAN AND DRY CREAM APPLIED TO PERIAREA AND INNER THIGHS.CALL LIGHT WITHIN REACH.
--- NOTE | 2017-02-03 04:45 | NUR ---
PATIENT IS CURRENTLY RESTING IN BED AT THIS TIME SLEEPING WILL CONTINUE TO MONITOR.
[2017-02-03 05:01] VITALS: BP 128/48
[2017-02-03] MEDS: NACL 0.9% 1,000 ML IV SCH (05:29)
--- NOTE | 2017-02-03 06:13 | NUR ---
PATIENT IS CURRENTLY SLEEPING CONTINUES TO HAVE OXYGEN AT 2L VIA NASAL CANNULA.NO PAIN OR DISCOMFORT NOTED.WILL CONTINUE TO MONITOR CALL LIGHT WITHIN REACH.
--- NOTE | 2017-02-03 07:25 | NUR ---
IM ENDORSING AT BEDSIDE PATIENT COMPLAINS OF FEELING ANXIOUS AND FEELING VERY NAUSEATED AND IS SOB PATIENT REQUESTED TO BE SEEN BY RESP THERAPIST S RESP THERAPIST GRABIEL INFORMED HE WILL COME.ANDREA RESENDIZ WILL RESUME CARE OF THE PATIENT.
--- NOTE | 2017-02-03 07:30 | NUR ---
RECEIVED REPORT FROM SURGICAL ATTENDANT NURSE, PT IS RESTING IN BED, A/OX4, AMBULATES WITH ASSIST, IV IS ON THE RIGHT HAND, PATENT, INTACT, FLUSHING WELL, PT HAS RIGHT UPPER EXTREMITY DISCOLORATION, PT IS ON O2 2L NC, NO S/S OF RESPIRATORY DISTRESS OR DISCOMFORT NOTED, DISCUSSED PLAN OF CARE WITH PT, PT VERBALIZED UNDERSTANDING, SAFETY/FALL PRECAUTIONS ARE IN PLACE,CALL LIGHT WITHIN REACH, WILL CONTINUE TO MONITOR.
--- NOTE | 2017-02-03 07:40 | NUR ---
ASSESSED PT, BS CLEAR BILATERALLY. PT STATES SHE FEELS ANXIOUS AND NAUSEOUS. PT GIVEN VOMIT BAG. NURSE NOTIFIED.
[2017-02-03] MEDS: LORazepam 0.5 MG TAB PO PRN ×2 (07:52→18:07)
--- NOTE | 2017-02-03 07:52 | NUR ---
PATIENT STATED SHE WAS FEELING ANXIOUS AND NAUSEAS. WILL MEDICATE THE PATIENT WITH ATIVAN AND ZOFRAN AT THIS TIME.
[2017-02-03] MEDS: ONDANSETRON 4 MG/2 ML VIAL IM/IVP PRN ×2 (07:53→18:07)
[2017-02-03 08:00] VITALS: BP 153/73
[2017-02-03] MEDS: LACTOBACILLUS RHAMNOSUS GG 1 EACH CAP PO SCH ×2 (08:00→17:16)
--- NOTE | 2017-02-03 08:14 | NUR ---
PATIENT REFUSED CULTURELLE DUE AT THIS TIME, PT STATED SHE WAS FEELING NAUSEAS AND WANTED TO HOLD OFF ON HER MEDICATION.
--- NOTE | 2017-02-03 08:17 | NUR ---
PT STATED SHE WAS FEELING SHORT OF BREATH, I CALLED RT TO REQUEST A BREATHING TREATMENT FOR THE PT.
[2017-02-03] MEDS: ALBUTEROL SULFATE/IPRATROPIU 3 ML SOL IH PRN (08:18)
[2017-02-03] MEDS: PSYLLIUM 12.2 GM/PKT PO SCH (09:00)
[2017-02-03] MEDS: AMIODARONE 200 MG TAB PO SCH (09:15)
[2017-02-03] MEDS: CLOPIDOGREL 75 MG TAB PO SCH (09:16)
[2017-02-03] MEDS: SENNA 8.6 MG TAB PO SCH ×2 (09:16→20:32)
[2017-02-03] MEDS: BACLOFEN 10 MG TAB PO SCH ×3 (09:16→17:15)
[2017-02-03] MEDS: CARVEDILOL 3.125 MG TAB PO SCH ×2 (09:16→20:32)
[2017-02-03] MEDS: ECOTRIN 81 MG TABEC PO SCH (09:16)
[2017-02-03] MEDS: Z-GUARD PASTE TP SCH (09:19)
[2017-02-03] MEDS: HYDRAGUARD CREAM TP SCH ×2 (09:19→20:59)
[2017-02-03] MEDS: HYDROcodone/APAP 10/325 MG 1 TAB TAB PO PRN ×2 (12:01→20:57)
--- NOTE | 2017-02-03 12:01 | NUR ---
PATIENT COMPLAINED OF A 6/10 PAIN, WILL MEDICATE WITH PRN PAIN MEDICATION AT THIS TIME.
--- NOTE | 2017-02-03 13:00 | NUR ---
PATIENT SLEEPING IN BED AT THIS TIME, CALL LIGHT WITHIN REACH.
--- NOTE | 2017-02-03 15:00 | NUR ---
PATIENT IS RESTING IN BED, TALKING ON THE PHONE AT THIS TIME.
[2017-02-03 16:00] VITALS: BP 114/59
--- NOTE | 2017-02-03 17:50 | NUR ---
PATIENT ENDORSED TO ANDREA MCCORD FOR CONTINUITY OF CARE, PT STABLE AT THIS TIME.
--- NOTE | 2017-02-03 17:54 | NUR ---
RECEIVED BEDSIDE REPORT FROM CHERYLE MENDEZ. PT AWAKE AND ALERT, NO SIGNS OF ACUTE DISTRESS. BOWEL SOUNDS ACTIVE IN ALL 4 QUADRANTS, BEDREST, USES BEDPAN. RUE BRUISING, PERINEAL REDNESS, BILATERAL THIGH REDNESS. PATIENT DENIES PAIN AT THIS TIME. IV PATENT AND ASYMPTOMATIC. BED IN LOW POSITION WITH BILATERAL HALF SIDE RAILS UP, BED ALARM ON, CALL LIGHT WITHIN REACH. WILL CONTINUE TO MONITOR.
--- NOTE | 2017-02-03 17:58 | NUR ---
PT STATED THAT SHE IS FEELING ANXIOUS AND NAUSEOUS. WILL ADMINISTER PRN MEDICATIONS ORDERED AND CONTINUE TO MONITOR.
--- NOTE | 2017-02-03 19:05 | NUR ---
PATIENT IS CURRENTLY AWAKE ALERT RESTING IN BED CONTINUES TO HAVE OXYGEN AT 2L VIA NASAL CANNULA.PATIENT HAS NO COMPLAINS OF FEELING ANXIOUS.PATIENT CONTINUES TO BE ASSISTED TO TURN AND CONTINUES TO BE GIVEN THE BEDPAN NEEDED.IVF INFUSING WELL WILL CONTINUE TO MONITOR.CALL LIGHT WITHIN REACH.
--- NOTE | 2017-02-03 19:05 | NUR ---
PT AWAKE AND ALERT, NO SIGNS OF ACUTE DISTRESS. ENDORSED TO IT SYSTEMS MANAGER NURSE FOR CONTINUITY OF CARE.
--- NOTE | 2017-02-03 19:06 | NUR ---
PATIENT IS CURRENTLY AWAKE ALERT ORIENTED RESTING IN BED CONTINUES TO HAVE OXYGEN AT 2L NASAL CANNULA SHE IS CURRENTLY WATCHING TV.PATIENT IS CLEAN AND DRY AT THIS TIME.IVF INFUSING WELL.PATIENT IS ABLE TO MAKE NEEDS KNOWN.WILL CONTINUE TO MONITOR.CALL LIGHT WITHIN REACH.
--- NOTE | 2017-02-03 19:30 | NUR ---
Patient's Plan of Care was discussed and reviewed with KIDNEY TRIMMER: RITA
[2017-02-03 20:00] VITALS: BP 108/46
[2017-02-03] MEDS: FLUTICASONE NASAL 50 MCG/ACTUATION 16 GM BTL NS SCH (20:58)
--- NOTE | 2017-02-03 22:30 | NUR ---
PATIENT STABLE CURRENTLY TALKING ON THE PHONE WITH FAMILY.CALL LIGHT WITHIN REACH WILL CONTINUE TO MONITOR.
[2017-02-04] VITALS: BP 109/52
--- NOTE | 2017-02-04 00:50 | NUR ---
PATIENT SLEEPING COMFORTABLY IN BED CONTINUES TO BE KEPT CLEAN AND DRY WILL CONTINUE TO MONITOR.
--- NOTE | 2017-02-04 02:20 | NUR ---
PATIENT SLEEPING COMFORTABLY IN BED IN NO DISTRESS WILL CONTINUE TO MONITOR.
[2017-02-04] MEDS: HYDROcodone/APAP 10/325 MG 1 TAB TAB PO PRN (04:29)
[2017-02-04] MEDS: LORazepam 0.5 MG TAB PO PRN (04:33)
--- NOTE | 2017-02-04 04:50 | NUR ---
PATIENT IS CURRENTLY STABLE SHE REQUESTED A WARM BLANKET AND IT WAS GIVEN TO HER REQUESTED.PATIENT AWAKE WATCHING TV SHE WAS ALSO MEDICATED WITH ATIVAN BECAUSE PATIENT STATES SHE WAS FEELING ANXIOUS.CALL LIGHT WITHIN REACH WILL CONTINUE TO MONITOR.
[2017-02-04] MEDS: NACL 0.9% 1,000 ML IV SCH (05:29)
--- NOTE | 2017-02-04 07:04 | NUR ---
PATIENT IS SLEEPING IN BED AT THIS TIME WILL CONTINUE TO MONITOR.
--- NOTE | 2017-02-04 07:24 | NUR ---
PATIENT STABLE REPORT ENDORSED TO ANDREA DAVILA AT BEDSIDE SHE WILL RESUME CARE OF THE PATIENT.
--- NOTE | 2017-02-04 07:26 | NUR ---
RECEIVED HANDOFF REPORT FROM PM RN. PATIENT A&OX4. PATIENT STATES 5/10 PAIN. WILL MEDICATE ORDERED. IV SITE PATENT AND INTACT. NO SIGNS OR SYMPTOMS OF ACUTE DISTRESS NOTED. CALL LIGHT WITHIN REACH. WILL CONTINUE TO MONITOR.
[2017-02-04 08:00] VITALS: BP 137/52
[2017-02-04] MEDS: CLOPIDOGREL 75 MG TAB PO SCH (08:49)
[2017-02-04] MEDS: ECOTRIN 81 MG TABEC PO SCH (08:49)
[2017-02-04] MEDS: BACLOFEN 10 MG TAB PO SCH ×3 (08:49→17:01)
[2017-02-04] MEDS: LACTOBACILLUS RHAMNOSUS GG 1 EACH CAP PO SCH ×2 (08:49→17:01)
[2017-02-04] MEDS: AMIODARONE 200 MG TAB PO SCH (08:50)
[2017-02-04] MEDS: CARVEDILOL 3.125 MG TAB PO SCH ×2 (08:50→21:00)
[2017-02-04] MEDS: SENNA 8.6 MG TAB PO SCH ×2 (08:50→21:00)
[2017-02-04] MEDS: HYDRAGUARD CREAM TP SCH ×2 (08:51→21:00)
[2017-02-04] MEDS: FLUTICASONE NASAL 50 MCG/ACTUATION 16 GM BTL NS SCH ×2 (08:51→21:00)
--- NOTE | 2017-02-04 08:51 | NUR ---
AM MEDS GIVEN WITH EDUCATION. PATIENT VERBALIZED UNDERSTANDING. PATIENT NNAMDI PAIN, STATES NAUSEA WILL MEDICATE ORDERED. NO SIGNS OR SYMPTOMS OF ACUTE DISTRESS NOTED. CALL LIGHT WITHIN REACH. WILL CONTINUE TO MONITOR.
[2017-02-04] MEDS: PSYLLIUM 12.2 GM/PKT PO SCH (09:00)
[2017-02-04] MEDS: Z-GUARD PASTE TP SCH (09:00)
[2017-02-04] MEDS: ONDANSETRON 4 MG/2 ML VIAL IM/IVP PRN ×2 (09:39→18:10)
--- NOTE | 2017-02-04 12:49 | NUR ---
AFTERNOON MEDS GIVEN WITH EDUCATION. PATIENT VERBALIZED UNDERSTANDING. PATIENT DENIES PAIN. UP IN BED FOR LUNCH. NO SIGNS OR SYMPTOMS OF ACUTE DISTRESS NOTED. CALL LIGHT WITHIN REACH. WILL CONTINUE TO MONITOR.
[2017-02-04] MEDS ORDERED: LORATADINE 10 MG TAB PO SCH (14:00)
[2017-02-04] MEDS ORDERED: LORazepam 0.5 MG TAB PO SCH (14:01)
--- NOTE | 2017-02-04 15:17 | NUR ---
[id number] SPOKE WITH MARIANNA AT [facility] [phone] AND SHE REQUESTED INFORMATION ON PT'S CURRENT MEDS, CXR AND DIET BE FAXED TO [phone]. ALSO INQUIRED REGARDING PT'S FAMILY. I INFORMED HER THAT PT MAKES HER OWN DECISIONS AND IF MORE INFORMATION REGARDING FINANCES NEEDED TO CALL AND SPEAK WITH PT SHE MANAGES HER OWN DECISION MAKING AND FINANCES.
[2017-02-04 16:00] VITALS: BP 142/64
--- NOTE | 2017-02-04 16:48 | NUR ---
PATIENT SLEEPING. NO SIGNS OR SYMPTOMS OF ACUTE DISTRESS NOTED. CALL LIGHT WITHIN REACH. WILL CONTINUE TO MONITOR.
--- NOTE | 2017-02-04 19:28 | NUR ---
ENDORSED PLAN OF CARE TO PM RN. PATIENT IN STABLE CONDITION. NO SIGNS OR SYMPTOMS OF ACUTE DISTRESS NOTED. CALL LIGHT WITHIN REACH.
--- NOTE | 2017-02-04 19:29 | NUR ---
RECEIVED PATIENT REPORT AT BEDSIDE FROM MORNING NURSE. PATIENT IS AWAKE, ALERT, AND ORIENTED. NO SIGNS AND SYMPTOMS OF DISTRESS NOTED. NO COMPLAINTS OF PAIN AT THIS TIME. IV SITE NOTED ON RIGHT HAND, IVF INFUSING WELL. PATIENT ON O2 2L NC. BED IN LOWEST POSITION, SIDE RAILS UP AND CALL LIGHT IN REACH. WILL CONTINUE TO MONITOR.
[2017-02-04] MEDS: TRIAMCINOLONE 0.025% CRM 15 GM TUBE TP SCH (21:00)
--- NOTE | 2017-02-04 22:30 | NUR ---
ASSISTED PATIENT WITH BEDPAN. PATIENT VOIDED MODERATE AMOUNT OF YELLOW URINE. PERICARE DONE.
[2017-02-05] VITALS: BP 121/54
[2017-02-05] MEDS: NACL 0.9% 1,000 ML IV SCH (05:04)
--- NOTE | 2017-02-05 07:13 | NUR ---
PATIENT REPORT GIVEN TO MORNING NURSE. PATIENT IN STABLE CONDITION
--- NOTE | 2017-02-05 07:14 | NUR ---
RECEIVED HANDOFF REPORT FROM PM RN. PATIENT SLEEPING. PATIENT A&OX4. IV SITE PATENT AND INTACT. NO SIGNS OR SYMPTOMS OF ACUTE DISTRESS NOTED. CALL LIGHT WITHIN REACH. WILL CONTINUE TO MONITOR.
[2017-02-05 08:00] VITALS: BP 138/59
[2017-02-05] MEDS: LACTOBACILLUS RHAMNOSUS GG 1 EACH CAP PO SCH ×2 (08:27→16:18)
[2017-02-05] MEDS: ECOTRIN 81 MG TABEC PO SCH (08:28)
[2017-02-05] MEDS: FLUTICASONE NASAL 50 MCG/ACTUATION 16 GM BTL NS SCH ×2 (08:28→22:05)
--- NOTE | 2017-02-05 08:28 | NUR ---
AM MEDS GIVEN WITH EDUCATION. PATIENT VERBALIZED UNDERSTANDING. PAIN MEDICATION GIVEN ORDERED. NO SIGNS OR SYMPTOMS OF ACUTE DISTRESS NOTED. CALL LIGHT WITHIN REACH. WILL CONTINUE TO MONITOR.
[2017-02-05] MEDS: LORATADINE 10 MG TAB PO SCH (08:29)
[2017-02-05] MEDS: CARVEDILOL 3.125 MG TAB PO SCH ×2 (08:30→22:05)
[2017-02-05] MEDS: AMIODARONE 200 MG TAB PO SCH (08:30)
[2017-02-05] MEDS: BACLOFEN 10 MG TAB PO SCH ×3 (08:31→16:18)
[2017-02-05] MEDS: CLOPIDOGREL 75 MG TAB PO SCH (08:31)
[2017-02-05] MEDS: SENNA 8.6 MG TAB PO SCH ×2 (08:32→22:06)
[2017-02-05] MEDS: HYDROcodone/APAP 10/325 MG 1 TAB TAB PO PRN ×3 (08:33→22:06)
[2017-02-05] MEDS: TRIAMCINOLONE 0.025% CRM 15 GM TUBE TP SCH ×2 (08:34→22:08)
[2017-02-05] MEDS: HYDRAGUARD CREAM TP SCH ×2 (08:34→22:07)
[2017-02-05] MEDS ORDERED: hydrOXYzine HCL 10 MG TAB PO PRN (08:35)
[2017-02-05] MEDS: Z-GUARD PASTE TP SCH (08:35)
[2017-02-05] MEDS: PSYLLIUM 12.2 GM/PKT PO SCH (08:41)
[2017-02-05] MEDS: ONDANSETRON 4 MG/2 ML VIAL IM/IVP PRN (09:24)
--- NOTE | 2017-02-05 11:32 | NUR ---
PATIENT SLEEPING. NO SIGNS OR SYMPTOMS OF ACUTE DISTRESS NOTED. CALL LIGHT WITHIN REACH. WILL CONTINUE TO MONITOR.
--- NOTE | 2017-02-05 14:01 | NUR ---
PATIENT AWAKE IN BED. PATIENT DENIES PAIN. NO SIGNS OR SYMPTOMS OF ACUTE DISTRESS NOTED. CALL LIGHT WITHIN REACH. WILL CONTINUE TO MONITOR.
[2017-02-05 16:00] VITALS: BP 113/47
--- NOTE | 2017-02-05 19:32 | NUR ---
ENDORSED PLAN OF CARE TO PM RN. PATIENT IN STABLE CONDITION. NO SIGNS OR SYMPTOMS OF ACUTE DISTRESS NOTED.
--- NOTE | 2017-02-05 19:33 | NUR ---
RECEIVED REPORT FROM AM NURSE. PT RESTING IN BED, AOX4, ABLE TO VERBALIZE NEEDS. PT C/O BLE PAIN, SEE PAIN ASSESSMENT, WILL MEDICATE ORDERED. PT DENIES CHEST PAIN, SOB OR S/S OF ACUTE DISTRESS. IV ACCESS ASYMPTOMATIC, PATENT AND INTACT. IVF INFUSING WELL. DISCUSSED AND REVIEWED PLAN OF CARE WITH PT. PT STATED "OK." ALL NEEDS MET. SAFETY MEASURES ENSURED. CALL LIGHT WITHIN REACH. WILL CONTINUE TO MONITOR.
[2017-02-05 20:00] VITALS: BP 116/48
--- NOTE | 2017-02-05 21:14 | NUR ---
1041 CALL TO [facility] ASS[facility]IV[facility] REGARDING STATUS ON PT'S ACCEPTANCE FOR ADMISSION PER MARIANNA THEIR SUBWAY TRAIN OPERATOR CHERYL WAS SCHEDULED TO EVALUATE PT'S FUNCTIONAL STATUS TODAY. VERIFIED WITH ASSIGNED NURSE CHANO THAT CHERYL HAD VISITED EARLIER.. INFORMED MARIANNA THAT CHERYL HAD VISITED. MARIANNA STATED THAT SHE WOULD COORDINATE WITH CHERYL HER ASSESSMENT OF PT'S APPROPRIATENESS FOR ASSISTED LIVING. 1050 MET WITH PT AND SHE VERIFIED THAT [facility] HAD VISITED. DISCUSSED WITH PT IF SHE WAS IN AGREEMENT WITH PLACEMENT IN [facility] IF ACCEPTED AND SHE STATED THAT SHE WAS SHE KNOWS THAT SHE DOES NEED MORE ASSISTANCE THAN HER SISTER CAN PROVIDE. INFORMED HER THAT I WILL KEEP HER INFORMED OF THE PROGRESS ON ASSISTED LIVING PLACEMENT. PT DID ACKNOWLEDGE THAT SHE HAS PROGRESSED WITH PT AND WOULD LIKE TO HAVE PT SERVICES CONTINUED WHEN DISCHARGED. INFORMED HER THAT SERVICES FOR NURSING AND PT WOULD BE ARRANGED ON DISCHARGE WITH [facility] AND SHE IS IN AGREEMENT WITH THAT ARRANGEMENT. 1320 RECEIVED CALL FROM MARIANNA AT [facility] [phone] AND SHE STATED THAT PT HAS BEEN ACCEPTED FOR ADMISSION AND THAT DUE TO PT'S LIMITED FINANCES THEY WILL PROVIDE HER WITH A DISCOUNTED RATE FOR UP TO ONE YEAR. MARIANNA DID STATE THAT SHE HAS ADMISSION AGREEMENT PAPERWORK THAT PT NEEDS TO FILL OUT AND WILL EMAIL PAPERWORK TO [facility] TO PROVIDE TO PT. WILL MEET WITH PT IN AM AND PROVIDE HER WITH THE PAPERWORK WHEN RECEIVED.
--- NOTE | 2017-02-05 23:08 | NUR ---
PT C/O PAIN. SEE PAIN ASSESSMENT. ADMINISTERED PAIN MED ORDERED. ADMINISTERED DUE MEDS WITH EDUCATION. PT VERBALIZED UNDERSTANDING. ALL NEEDS MET. IVF INFUSING WELL. SAFETY MEASURES ENSURED. CALL LIGHT WITHIN REACH. WILL CONTINUE TO MONITOR.
[2017-02-06] VITALS: BP 121/56
--- NOTE | 2017-02-06 00:55 | NUR ---
PT SLEEPING, AROUSABLE TO NAME. NO S/S OF ACUTE DISTRESS. ALL NEEDS MET. IVF INFUSING WELL. SAFETY MEASURES ENSURED. CALL LIGHT WITHIN REACH. WILL CONTINUE TO MONITOR.
--- NOTE | 2017-02-06 03:46 | NUR ---
ASSISTED PT TO REPOSITION SELF, TOLERATED WELL. NO S/S OF ACUTE DISTRESS. ALL NEEDS MET. IVF INFUSING WELL. SAFETY MEASURES ENSURED. CALL LIGHT WITHIN REACH. WILL CONTINUE TO MONITOR.
[2017-02-06] MEDS: NACL 0.9% 1,000 ML IV SCH (04:38)
[2017-02-06] MEDS: HYDROcodone/APAP 10/325 MG 1 TAB TAB PO PRN (06:49)
--- NOTE | 2017-02-06 07:29 | NUR ---
ENDORSED PLAN OF CARE TO AM NURSE. CONDITION STABLE.
--- NOTE | 2017-02-06 08:00 | NUR ---
Patient's Plan of Care was discussed and reviewed with DYER AND WASHER: DINORAH CHAVIS
[2017-02-06] MEDS: PSYLLIUM 12.2 GM/PKT PO SCH (09:00)
[2017-02-06] MEDS: CLOPIDOGREL 75 MG TAB PO SCH (09:13)
[2017-02-06] MEDS: LACTOBACILLUS RHAMNOSUS GG 1 EACH CAP PO SCH ×2 (09:15→16:25)
[2017-02-06] MEDS: FLUTICASONE NASAL 50 MCG/ACTUATION 16 GM BTL NS SCH ×2 (09:17→20:41)
[2017-02-06] MEDS: ECOTRIN 81 MG TABEC PO SCH (09:21)
[2017-02-06] MEDS: LORATADINE 10 MG TAB PO SCH (09:22)
[2017-02-06] MEDS: CARVEDILOL 3.125 MG TAB PO SCH ×2 (09:24→20:31)
[2017-02-06] MEDS: AMIODARONE 200 MG TAB PO SCH (09:25)
[2017-02-06] MEDS: BACLOFEN 10 MG TAB PO SCH ×3 (09:26→17:03)
[2017-02-06] MEDS: SENNA 8.6 MG TAB PO SCH ×2 (09:29→20:34)
[2017-02-06] MEDS: TRIAMCINOLONE 0.025% CRM 15 GM TUBE TP SCH ×2 (09:30→20:35)
[2017-02-06] MEDS: ONDANSETRON 4 MG/2 ML VIAL IM/IVP PRN (12:44)
[2017-02-06] MEDS ORDERED: FLONAS NS (12:59)
[2017-02-06] MEDS ORDERED: KEN.025C TP (12:59)
[2017-02-06] MEDS ORDERED: LORA10TA19 PO (12:59)
[2017-02-06] MEDS: LORazepam 0.5 MG TAB PO PRN ×2 (13:06→20:31)
[2017-02-06] MEDS: Z-GUARD PASTE TP SCH (16:20)
[2017-02-06] MEDS: HYDRAGUARD CREAM TP SCH ×2 (16:23→20:35)
--- NOTE | 2017-02-06 19:35 | NUR ---
RECEIVED FROM AM RN IN BED WATCHING TV. NO SOB. NO COMPLAINTS OF ANY PAIN. TELEMETRY MONITORING. CALL LIGHT WITH IN REACH. CARE PLANS FOR THE NIGHT DISCUSSED WITH HER. A/O X 4. ROM X 4.
[2017-02-06 19:52] VITALS: BP 138/72
--- NOTE | 2017-02-06 20:00 | NUR ---
ALL MEDICATIONS P.O. GIVEN TO PT. AND TOLERATED WELL. NO COMPLAINTS DONE. ENCOURAGED PT. TO USE CALL LIGHT FOR ANY HELP SHE MAY NEED. ALL P.O. MEDS INDICATIONS GIVEN EXPLAINED TO HER . ABLE TO VERBALIZE NEEDS WELL.
[2017-02-06 20:29] VITALS: BP 148/66
--- NOTE | 2017-02-06 21:51 | NUR ---
CHECKED ON PT. AND SLEEPING. NEEDS WILL BE ANTICIPATED AND WILL BE MET. CALL LIGHT WITH IN REACH AND IS AT BEDSIDE. BED ALARM ON.
--- NOTE | 2017-02-06 22:48 | NUR ---
ROUNDS MADE. PT. SLEEPING . CALL LIGHT WITH IN REACH. NO RESTLESSNESS NOTED. IVF SITE INTACT AND NO INFILTRATION.
--- NOTE | 2017-02-07 00:21 | NUR ---
PT. AWAKE AT THIS TIME AND PLACED ON BEDPAN TO URINATE REQUESTED. ADDED WARM BLANKET RT COMPLAINED THAT IT IS TOO COLD FOR HER. TURNED DOWN AIRCON. REQUESTED FOR PAIN RELIEVER. WILL MEDICATE REQUESTED. ABLE TO VERBALIZE SIMPLE NEEDS WELL. USES CALL LIGHT FOR HELP.
[2017-02-07 00:26] VITALS: BP 138/70
[2017-02-07] MEDS: HYDROcodone/APAP 10/325 MG 1 TAB TAB PO PRN ×4 (00:28→23:21)
--- NOTE | 2017-02-07 00:28 | NUR ---
NORCO MEDICATION P.O. ADMINISTERED REQUESTED. TOLERATED WELL.
--- NOTE | 2017-02-07 01:42 | NUR ---
SLEEPING WELL. FLACC 0-. ON 02 AT 2LPM/NC.
--- NOTE | 2017-02-07 04:02 | NUR ---
SLEEPING. NO RESTLESSNESS NOTED. CALL LIGHT WITH IN REACH AT BEDSIDE.
[2017-02-07] MEDS: NACL 0.9% 1,000 ML IV SCH (04:37)
--- NOTE | 2017-02-07 05:05 | NUR ---
SLEEPING. FLACC 0- USES CALL LIGHT FOR SIMPLE NEEDS. NO RESTLESSNESS NOTED.
--- NOTE | 2017-02-07 07:07 | NUR ---
PT. SLEEPING WELL THIS SHIFT. ABLE TO USE CALL LIGHT FOR HELP. AM PERSONAL HYGIENE RENDERED. NO COMPLAINTS DONE.
--- NOTE | 2017-02-07 07:22 | NUR ---
ENDORSED TO THE AM RN FOR CONTINUITY OF CARE. NO FURTHER COMPLAINTS DONE. AFEBRILE . NO SOB. DENIES PAIN AT THIS TIME. VERBALIZES WELL.
--- NOTE | 2017-02-07 07:25 | NUR ---
RECEIVED PT REPORT AT BEDSIDE FROM NIGHT NURSE. PATIENT IS AAOX4 AND STATES PAIN OF 6/10 BLE PAIN AND IS ANXIOUS. PT HAS PRN ANXIETY MEDICATION AND NORCO FOR MODERATE PAIN. PT HAS NOTED SKIN DISCOLORATION, PT STATES "I HAVE THIS RASH FOR TWO WEEKS NOW." SCD'S IN PLACE. IV NOTED ON THE R H WITH IVF'S INFUSING WELL. PT ON O2 @ 4LPM. PATIENT WAS EXPLAINED POC FOR TODAY AND VERBALIZED UNDERSTANDING. THE BED IS IN LOW POSITION, CALL LIGHT WITHIN REACH, CONTACT PRECAUTIONS IN PLACE. WILL CONTINUE TO MONITOR.
[2017-02-07 08:00] VITALS: BP 138/56
[2017-02-07] MEDS: LACTOBACILLUS RHAMNOSUS GG 1 EACH CAP PO SCH ×2 (08:29→16:47)
[2017-02-07] MEDS: FLUTICASONE NASAL 50 MCG/ACTUATION 16 GM BTL NS SCH ×2 (08:29→20:49)
[2017-02-07] MEDS: ECOTRIN 81 MG TABEC PO SCH (08:30)
[2017-02-07] MEDS: AMIODARONE 200 MG TAB PO SCH (08:30)
[2017-02-07] MEDS: LORATADINE 10 MG TAB PO SCH (08:30)
[2017-02-07] MEDS: CARVEDILOL 3.125 MG TAB PO SCH ×2 (08:30→20:49)
[2017-02-07] MEDS: PSYLLIUM 12.2 GM/PKT PO SCH (08:31)
[2017-02-07] MEDS: BACLOFEN 10 MG TAB PO SCH ×3 (08:31→16:47)
[2017-02-07] MEDS: CLOPIDOGREL 75 MG TAB PO SCH (08:31)
[2017-02-07] MEDS: HYDRAGUARD CREAM TP SCH ×2 (08:32→20:50)
[2017-02-07] MEDS: SENNA 8.6 MG TAB PO SCH ×2 (08:32→20:50)
[2017-02-07] MEDS: Z-GUARD PASTE TP SCH (08:33)
[2017-02-07] MEDS: TRIAMCINOLONE 0.025% CRM 15 GM TUBE TP SCH ×2 (08:33→20:50)
[2017-02-07] MEDS: ONDANSETRON 4 MG/2 ML VIAL IM/IVP PRN ×2 (08:33→12:42)
[2017-02-07] MEDS: LORazepam 0.5 MG TAB PO PRN ×2 (08:34→14:48)
--- NOTE | 2017-02-07 08:35 | NUR ---
ADMINISTERED SCHEDULED MEDICATIONS PATIENT TOLERATED ACTIVITY WELL. PATIENT C/O 6/10 BLE PAIN ADMINISTERED NORCO 10/325 MG, ALSO C/O NAUSEA AND ADMINISTERED ZOFRAN 4 MG IVP. PATIENT'S NEEDS MET AT THIS TIME. BED IN LOW POSITION WITH CALL LIGHT WITHIN REACH.
--- NOTE | 2017-02-07 10:23 | NUR ---
1000 ADMISSION PAPERWORK WAS RECEIVED FROM [facility] AND PROVIDED TO PT TO COMPLETE. 1315 RECEIVED CALL FROM PATRICIA PTS NEPHEW AND HE SAID THAT HE DID NOT WANT PT GOING TO [place] IT WAS TOO FAR FOR THE FAMILY. INFORMED HIM THAT PT HAD BEEN IN AGREEMENT IT WAS WITHIN HER FINANCIAL RANGE. PATRICIA SEEMED AGITATED AND SAID "SHE'S NOT GOING ITS TOO FAR". ASKED IF THE FAMILY HAD AN ALTERNATE PLAN OR IF FAMILY COULD TAKE PT HOME AND HE SAID THAT HIS MOTHER (PT'S SISTER) COULDN'T TAKE CARE OF HER AND NEITHER COULD HE. I ASKED IF FAMILY COULD SUPPLEMENT PTS COST FOR AN ASSISTED LIVING TO FIND A FACILITY IN THE AREA AND HE SAID NO THEY COULD NOT. 1400 MET WITH PT AND SHE STATED THAT SHE HAD DECIDED NOT TO GO TO [facility] HER FAMILY SAID IT WAS TOO FAR FOR THEM TO TRAVEL AND SHE REQUESTED SOMETHING CLOSER. DISCUSSED WITH HER THAT [facility] HAD BEEN WILLING TO PROVIDE HER WITH A DISCOUNTED RATE AND THAT THE FACILITIES WITHIN THIS AREA ARE OUT OF HER QUOTED [place] RANGE OF $200.00. PT WAS ADAMANT THAT SHE WOULD NOT GO. ASKED HER IF SHE HAD AN ALTERNATE PLAN AND SHE SAID SHE DID NOT BUT HER NEPHEW WAS GOING TO COME TO THE HOSPITAL TODAY. INFORMED HER THAT PHYSICIAN HAD WRITTEN DISCHARGE. INFORMED PT OF THE MEDICARE IM AND PROVIDED HER WITH A COPY AFTER SHE SIGNED. PT STATED THAT SHE WOULD APPEAL THE DISCHARGE. REVIEWED THE INSTRUCTIONS WITH HER AND INDICATED TO HER THE PHONE NUMBER ON THE FORM. Addendum: 02/08/17 at 1436 by Sue Birmingham CM ENTRY IS A LATE ENTRY FROM 02/06/17 Addendum: 02/12/17 at 0830 by Sue Birmingham CM PT'S QUOTED [place] RANGE IS $2000.00
--- NOTE | 2017-02-07 12:55 | NUR ---
ADMINISTERED SCHEDULED MEDICATIONS. PATIENT'S NEEDS WERE ALL MET AT THIS TIME. BED IS IN LOW POSITION WITH CALL LIGHT WITHIN REACH.
--- NOTE | 2017-02-07 14:04 | NUR ---
02/07/17 RD FOLLOW-UP ASSESSMENT COMPLETED 1. CONTINUE REGULAR DIET 2. CONTINUE TO ENCOURAGE PO INTAKE TOLERATED 3. RD TO FOLLOW-UP 3-5 DAYS, MODERATE RISK GEORGINA RESENDEZ RD
--- NOTE | 2017-02-07 14:45 | NUR ---
PT C/O ANXIETY AND PAIN OF 6/10 BLE PAIN. ADMINISTERED ATIVAN 0.5 MG PO AND NORCO 7.5/325 MG PO. WILL REASSESS IN A HR.
[2017-02-07 16:00] VITALS: BP 125/51
--- NOTE | 2017-02-07 16:48 | NUR ---
ADMINISTERED SCHEDULED MEDIATIONS. PT TOLERATED WELL. ALL NEEDS MET AT THIS TIME. WILL CONTINUE TO MONITOR.
--- NOTE | 2017-02-07 19:30 | NUR ---
RECEIVED FROM AM RN IN BED AWAKE AND IN BEDSIDE COMMODE. PT. COMPLAINED THAT SHE CAN NOT GO [facility]. REQUESTED FOR MEDICINE TO MOVE BOWELS. CALLED RESIDENT RPG PROGRAMMER AND INFORMED HIM ABOUT PT.S REQUEST. AWARE AND SAID HE WILL ORDER. PT. ASSISTED WITH ADLS.
--- NOTE | 2017-02-07 19:30 | NUR ---
GAVE REPORT TO NIGHT NURSE. PT AAOX4 AND SHOWS NO S/S OF ACUTE DISTRESS ON O2 @ 4 LPM. PT ENDORSED IN STABLE CONDITION.
[2017-02-07] MEDS ORDERED: BISACODYL 10 MG SUPP RC SCH (19:50)
[2017-02-07 20:27] VITALS: BP 126/60
[2017-02-07 23:22] VITALS: BP 138/74
--- NOTE | 2017-02-07 23:36 | NUR ---
PT. ABLE TO GO [facility] RT INSERTED [facility] SUPPOSITORY REQUESTED BY PT.AND ORDERED BY MD. PT. HAPPY AND NO COMPLAINTS DONE. STATED SHE WILL SLEEP NOW BUT WANTS PAIN RELIEVER. EXPLAINED THAT HER NARCOTIC PAIN RELIEVER SIDE EFFECT IS CONSTIPATION TOO. PT. STATED "YES I KNOW". MEDICATED REQUESTED.
--- NOTE | 2017-02-08 01:30 | NUR ---
PT. SLEEPING. NO RESTLESSNESS. CALL LIGHT WITH IN REACH AT ALL TIMES.
--- NOTE | 2017-02-08 04:00 | NUR ---
SLEEPING WELL. NO RESTLESSNESS. CALL LIGHT WITH IN REACH.
[2017-02-08] MEDS: NACL 0.9% 1,000 ML IV SCH (05:29)
--- NOTE | 2017-02-08 06:06 | NUR ---
SLEPT WELL THIS SHIFT. NEEDS ANTICIPATED AND MET. USES CALL LIGHT FOR HELP. ABLE TO VERBALIZE NEEDS WELL.
--- NOTE | 2017-02-08 07:25 | NUR ---
RECEIVED PT IN BED. AWAKE. ALERT ORIENTED X4. NO SOB NOTED. DENIES ANY PAIN OR DISCOMFORT AT THIS TIME. PT ON BED =REST. SAFETY PRECAUTION IN PLACE. CALL LIGHT WITHIN REACH.
[2017-02-08 08:00] VITALS: BP 145/68
[2017-02-08] MEDS: AMIODARONE 200 MG TAB PO SCH (08:15)
[2017-02-08] MEDS: BACLOFEN 10 MG TAB PO SCH ×3 (08:15→16:40)
[2017-02-08] MEDS: LACTOBACILLUS RHAMNOSUS GG 1 EACH CAP PO SCH ×2 (08:15→16:40)
[2017-02-08] MEDS: SENNA 8.6 MG TAB PO SCH ×2 (08:15→20:42)
[2017-02-08] MEDS: CARVEDILOL 3.125 MG TAB PO SCH ×2 (08:15→20:42)
[2017-02-08] MEDS: ECOTRIN 81 MG TABEC PO SCH (08:15)
[2017-02-08] MEDS: CLOPIDOGREL 75 MG TAB PO SCH (08:15)
[2017-02-08] MEDS: LORATADINE 10 MG TAB PO SCH (08:16)
[2017-02-08] MEDS: FLUTICASONE NASAL 50 MCG/ACTUATION 16 GM BTL NS SCH ×2 (08:16→20:43)
[2017-02-08] MEDS: PSYLLIUM 12.2 GM/PKT PO SCH (08:16)
[2017-02-08] MEDS: ONDANSETRON 4 MG/2 ML VIAL IM/IVP PRN (08:22)
[2017-02-08] MEDS: HYDRAGUARD CREAM TP SCH ×2 (09:58→20:45)
[2017-02-08] MEDS: Z-GUARD PASTE TP SCH (09:58)
[2017-02-08] MEDS: TRIAMCINOLONE 0.025% CRM 15 GM TUBE TP SCH ×2 (09:58→20:45)
[2017-02-08] MEDS: HYDROcodone/APAP 10/325 MG 1 TAB TAB PO PRN ×2 (12:18→20:48)
[2017-02-08] MEDS: LORazepam 0.5 MG TAB PO PRN (12:36)
--- NOTE | 2017-02-08 14:36 | NUR ---
LATE ENTRY FOR 02/07/17 0953 VM RECEIVED FROM [facility] STATING THAT PT HAD FILED A DISCHARGE APPEAL AND CASE # IS [id number]. ALSO RECEIVED A FAX REQUEST FOR RECORDS AND ALL RECORDS REQUESTED INCLUDING MCR IM AND THE DNOD FAXED TO [phone]. INFORMED PT OF REQUEST FOR RECORDS.
--- NOTE | 2017-02-08 14:42 | NUR ---
1415. SPOKE WITH MANAV FROM [facility] AND HE STATED THAT PT'S FAMILY STILL HAVE NOT PRESENTED SOME OF THE PAPERWORK NEEDED TO PROCESS MEDICAL APPLICATION. MET WITH PT AT BEDSIDE AND INQUIRED IF SHE AND HER FAMILY HAD MADE ANY PLANS FOR DISCHARGE SINCE SHE IS NOT GOING TO [place] [facility] ASSISTED LIVING. INFORMED HER THAT THE QIO WOULD CONTACT HER DIRECTLY WITH THE OUTCOME OF THE APPEAL AND IF THE DETERMINATION FOR DISCHARGE IS UPHELD SHE NEEDS TO HAVE DISCHARGE PLAN IN PLACE. STATED THAT HER FAMILY ARE COMING TO SEE HER TODAY. INQUIRED ABOUT THE PAPERWORK STILL NEEDED TO PROCESS THE MEDICAL APPLICATION WHICH COULD BE OF HELP IN GETTING CUSTODIAL CARE BUT CANNOT BE COMPLETED UNTIL ALL THE PAPERWORK IS IN. STATED HER FAMILY WILL BRING THAT ALSO.
[2017-02-08 16:00] VITALS: BP 135/60
--- NOTE | 2017-02-08 19:05 | NUR ---
PT KEPT CLEAN, DRY AND COMFORTABLE, NEEDS ATTENDED. WILL ENDORSE PT TO NEXT SHIFT. PT ON STABLE CONDITION. FOR CONTINUITY OF CARE.
--- NOTE | 2017-02-08 19:06 | NUR ---
RECEIVED REPORT FROM AM NURSE. PT IS AOX4, ABLE TO MAKE NEEDS KNOWN. IS ON O2 VIA NC AT 3 L WELL TOLERATED. NO S/S OF DISTRESS. NO COMPLAINTS OF PAIN. WITH AN IV TO THE RIGHT HAND, INTACT AND PATENT. NOTED WITH BLE AND BUE SCABS, INTACT AND DRY. NOTED WITH PERIREDNESS. INITIAL ASSESSMENT DONE. REORIENTED PT TO THE UNIT, VERBALIZED UNDERSTANDING. WILL CONTINUE TO MONITOR. ALL NEEDS ATTENDED. CALL LIGHT WITHIN REACH. SAFETY CHECKS IN PLACE.
[2017-02-08 20:40] VITALS: BP 120/51
--- NOTE | 2017-02-08 20:50 | NUR ---
DUE MEDS GIVEN, WELL TOLERATED BY PATIENT. GAVE NORCO PRN FOR BILATERAL LEG PAIN. WILL CONTINUE TO MONITOR FOR ANY CHANGES.
[2017-02-09] VITALS: BP 123/53
--- NOTE | 2017-02-09 | NUR ---
VITALS STABLE. NO S/S OF DISTRESS. NO COMPLAINTS OF PAIN. WILL CONTINUE TO MONITOR FOR ANY CHANGES.
--- NOTE | 2017-02-09 02:20 | NUR ---
PATIENT REQUESTING TO USE BEDPAN WITH FORMWORK CARPENTER AT BEDSIDE HELPING HER OUT. NO COMPLAINTS OF PAIN AT THIS TIME. WILL CONTINUE TO MONITOR FOR ANY CHANGES.
[2017-02-09] MEDS: NACL 0.9% 1,000 ML IV SCH (05:06)
[2017-02-09] MEDS: HYDROcodone/APAP 10/325 MG 1 TAB TAB PO PRN ×2 (05:41→16:57)
[2017-02-09] MEDS: ONDANSETRON 4 MG/2 ML VIAL IM/IVP PRN (05:50)
--- NOTE | 2017-02-09 07:20 | NUR ---
ENDORSED TO AM SHIFT NURSE FOR CONTINUITY OF CARE IN STABLE CONDITION
--- NOTE | 2017-02-09 07:21 | NUR ---
REPORT RECEIVED FROM NOCTURNIST PHYSICIAN, PT SLEEPING QUIETLY IN NAD, RESP EVEN UNLABORED ON 3L NC O2, SKIN WARM DRY COLOR WNL, PT AROUSED EASILY BY VOICE, DENIES PAIN OR DISCOMFORT, INITIAL ASSESSMENT DONE, PLAN OF CARE REVIEWED, PT VERBALIZED UNDERSTANDING, CALL LITTLE WITHIN REACH, SIDE RAILS UP, BED LOCKED IN LOW POSITION, WILL CONTINUE TO MONTIOR.
--- NOTE | 2017-02-09 07:50 | NUR ---
AWAKE AND ALERT DENIES SOB GOOD CHEST RISE PATIENT C/O OF NASAL DRYNESS ADDED HUMIDIFIER
[2017-02-09 08:00] VITALS: BP 131/53
[2017-02-09] MEDS: PSYLLIUM 12.2 GM/PKT PO SCH (09:00)
[2017-02-09] MEDS: ECOTRIN 81 MG TABEC PO SCH (09:55)
[2017-02-09] MEDS: LORATADINE 10 MG TAB PO SCH (09:55)
[2017-02-09] MEDS: FLUTICASONE NASAL 50 MCG/ACTUATION 16 GM BTL NS SCH ×2 (09:55→20:52)
[2017-02-09] MEDS: CLOPIDOGREL 75 MG TAB PO SCH (09:56)
[2017-02-09] MEDS: BACLOFEN 10 MG TAB PO SCH ×3 (09:56→16:53)
[2017-02-09] MEDS: LACTOBACILLUS RHAMNOSUS GG 1 EACH CAP PO SCH ×2 (09:56→16:53)
[2017-02-09] MEDS: AMIODARONE 200 MG TAB PO SCH (09:56)
[2017-02-09] MEDS: SENNA 8.6 MG TAB PO SCH ×2 (09:56→20:52)
[2017-02-09] MEDS: CARVEDILOL 3.125 MG TAB PO SCH ×2 (09:57→20:51)
[2017-02-09] MEDS: TRIAMCINOLONE 0.025% CRM 15 GM TUBE TP SCH ×2 (09:58→21:30)
[2017-02-09] MEDS: HYDRAGUARD CREAM TP SCH ×2 (09:58→20:53)
[2017-02-09] MEDS: Z-GUARD PASTE TP SCH (09:59)
[2017-02-09] MEDS: LORazepam 0.5 MG TAB PO PRN (12:54)
--- NOTE | 2017-02-09 12:57 | NUR ---
PT REPORT FEELING SOB AND ANXIOUS, PT STATES OXYGEN NC IS NOT WORKING, O2 WALL SUPPLY CHECKED, FUNCTIONING WELL, O2SAT 97% WITH 3L NC, BREATH SOUNDS WITH SLIGHT INSP WZ, RESP TECH CALLED FOR PRN NEB TREATMENT, ATIVAN GIVEN FOR ANXIETY AT THIS TIME, PT PLACED ON BED MARKHAM, [facility]
[2017-02-09] MEDS: ALBUTEROL SULFATE/IPRATROPIU 3 ML SOL IH PRN (13:06)
--- NOTE | 2017-02-09 14:00 | NUR ---
PT REPORTS FEELING BETTER AFTER NEB TX, RESP EVEN UNLABORED IN NAD, PT REMAINS ON 3L NC, O2 SAT 98%, CALL LITTLE WITHIN REACH, SIDE RAILS UP, WILL CONTINUE TO MONITOR.
--- NOTE | 2017-02-09 14:55 | NUR ---
PER MEDICARE APPEAL HAS BEEN APPROVED,FORMAL LETTER TO BE SENT TO HOSP. AND TO THE PT.
--- NOTE | 2017-02-09 15:42 | NUR ---
PATIENT IS SLEEPING COMFORTABLY. NO DISTRESS NOTED. RESPIRATIONS EVEN, UNLABORED. IV PATENT AND INFUSING. CONTINUES TO BE ON O2 AT 3L/MIN VIA NC. DENIES ANY PAIN, NOR ANY DISCOMFORT AT THIS TIME. SURYA CRACKERS GIVEN PER PATIENT REQUEST. SAFETY MEASURES IN PLACE, CALL LIGHT WITHIN REACH. WILL CONTINUE TO MONITOR.
[2017-02-09 16:00] VITALS: BP 129/59
--- NOTE | 2017-02-09 17:05 | NUR ---
PT REPORTS PAIN IN LEFT LOWER EXT, MEDICATED WITH NORCO AT THIS TIME, DUE MEDS GIVEN WELL, PT BELTRAN WELL, DENIES SOB, RESP EVEN UNLABORED ON 3L NC, PT DENIES ANY OTHER NEEDS AT THIS TIME, CALL LITTLE WITHIN REACH, SIDE RAILS UP X2, BED LOCKED IN LOW POSITIN, WILL CONTINUE TO MONITOR.
--- NOTE | 2017-02-09 19:30 | NUR ---
REPORT GIVEN TO PLANNING AIDE NURSE, PT IN STABLE CONDITION.
--- NOTE | 2017-02-09 19:30 | NUR ---
PATIENT IS CURRENTLY RESTING IN BED DENIES PAIN AND DISCOMFORT.IVF INFUSING WELL IV SITE PATENT.PATIENT HAS OXYGEN AT 3L WITH HUMIDIFIED OXYGEN VIA NASAL CANNULA.PATIENT CONTINUES TO BE KEPT CLEAN AND DRY AND PATIENT IS ABLE TO CALL WHEN SHE NEEDS TO USE THE BEDPAN.CALL LIGHT WITHIN REACH WILL CONTINUE TO MONITOR.
--- NOTE | 2017-02-09 19:30 | NUR ---
Patient's Plan of Care was discussed and reviewed with LINK AND LINK KNITTING MACHINE OPERATOR: SHONDA DLALAS
[2017-02-09 20:00] VITALS: BP 98/43
--- NOTE | 2017-02-09 20:47 | NUR ---
PATIENT TOLD ME THAT SHE WAS VERY HUNGRY AND IDENTITY MANAGEMENT DEVELOPER SANDRA WAS INFORMED AND HE BROUGHT A THOMAS AND SHELLY FOR THE PATIENT PER PATIENTS REQUEST.
--- NOTE | 2017-02-09 20:51 | NUR ---
COREG B/P MEDICATION HELD B/P IS 98/43 PATIENT AWARE MED HELD AND WHY AND PATIENT VERBALIZES UNDERSTANDING.
--- NOTE | 2017-02-09 22:53 | NUR ---
PATIENT IS CURRENTLY RESTING IN BED WATCHING TV.NEEDS MET CALL LIGHT WITHIN REACH WILL CONTINUE TO MONITOR.
--- NOTE | 2017-02-10 00:10 | NUR ---
PATIENT SLEEPING IN BED NEEDS MET WILL CONTINUE TO MONITOR.CALL LIGHT WITHIN REACH.
[2017-02-10 00:24] VITALS: BP 106/50
[2017-02-10] MEDS: HYDROcodone/APAP 10/325 MG 1 TAB TAB PO PRN ×4 (01:24→20:52)
--- NOTE | 2017-02-10 02:30 | NUR ---
PATIENT IS CURRENTLY RESTING IN BED CONTINUES TO OFFER THE BEDPAN IVF INFUSING WELL. BEDPAN CONTINUES TO BE GIVEN TO THE PATIENT PER PATIENT REQUEST.PATIENT CONTINUES TO VOID WELL.WILL CONTINUE TO MONITOR.CALL LIGHT WITHIN REACH.
--- NOTE | 2017-02-10 04:25 | NUR ---
PATIENT IS CURRENTLY RESTING IN BED SLEEPING WILL CONTINUE TO MONITOR.CALL LIGHT WITHIN REACH.
[2017-02-10] MEDS: NACL 0.9% 1,000 ML IV SCH (05:29)
[2017-02-10] MEDS: ONDANSETRON 4 MG/2 ML VIAL IM/IVP PRN (05:59)
--- NOTE | 2017-02-10 06:33 | NUR ---
PATIENT IS CURRENTLY STABLE RESTING IN BED IN NO RESPIRATORY DISTRESS NAUSEA IS SUBSIDING WILL CONTINUE TO MONITOR.
--- NOTE | 2017-02-10 07:36 | NUR ---
PATIENT STABLE REPORT ENDORSED TO ANDREA ZAVALA.
--- NOTE | 2017-02-10 07:38 | NUR ---
REPORT RECEIVED FROM ASSEMBLER BRAZER NURSE, PT AWAKE ALERT, RESP EVEN UNLABORED ON 3L NC O2, SKIN WARM DRY COLOR WNL, PT VOICES NO PAIN OR DISCOMFORT, PT STATES SHE FEELS ANXIOUS, REQUESTS ATIVAN, WILL MEDICARE PER ORDER, PLAN OF CARE DISCUSSED, PT VERBALIZED FULL UNDERSTANDING, CALL LITTLE WITHIN REACH SIDE RAIL UPX2, BED LOCKED IN LOW POSITION, WILL CONTINUE TO MONITOR.
[2017-02-10 08:00] VITALS: BP 129/57
[2017-02-10] MEDS: LACTOBACILLUS RHAMNOSUS GG 1 EACH CAP PO SCH ×2 (08:34→16:10)
[2017-02-10] MEDS: AMIODARONE 200 MG TAB PO SCH (08:35)
[2017-02-10] MEDS: BACLOFEN 10 MG TAB PO SCH ×3 (08:35→16:10)
[2017-02-10] MEDS: LORazepam 0.5 MG TAB PO PRN (08:35)
[2017-02-10] MEDS: CLOPIDOGREL 75 MG TAB PO SCH (08:35)
[2017-02-10] MEDS: LORATADINE 10 MG TAB PO SCH (08:36)
[2017-02-10] MEDS: SENNA 8.6 MG TAB PO SCH ×2 (08:36→20:52)
[2017-02-10] MEDS: ECOTRIN 81 MG TABEC PO SCH (08:36)
--- NOTE | 2017-02-10 08:45 | NUR ---
DUE MEDS AND PRN ATIVAN FOR ANXIETY GIVEN, PT BELTRAN WELL, PT PLACED ON BED MARKHAM, CLEAR LIGHT YELLOW URINE VOIDED, PERICARE DONE, PT DENIES ANY OTHER NEEDS, CALL LITTLE WITHIN REACH, SIDE RAILS UP, WILL CONTINUE TO MONTIOR.
[2017-02-10] MEDS: TRIAMCINOLONE 0.025% CRM 15 GM TUBE TP SCH ×2 (08:46→20:55)
[2017-02-10] MEDS: PSYLLIUM 12.2 GM/PKT PO SCH (08:46)
[2017-02-10] MEDS: FLUTICASONE NASAL 50 MCG/ACTUATION 16 GM BTL NS SCH ×2 (08:46→20:52)
[2017-02-10] MEDS: Z-GUARD PASTE TP SCH (08:47)
[2017-02-10] MEDS: HYDRAGUARD CREAM TP SCH ×2 (08:47→20:53)
[2017-02-10] MEDS: CARVEDILOL 3.125 MG TAB PO SCH ×2 (09:09→20:51)
--- NOTE | 2017-02-10 11:40 | NUR ---
PT C/O BILAT LOWER EXT NEUROPATHY PAIN, NORCO GIVEN PER ORDER, PT VOIDED IN BED MARKHAM, PERICARE DONE, WILL CONTINUE TO MONTIOR.
--- NOTE | 2017-02-10 13:33 | NUR ---
DUE MEDS GIVEN, BELTRAN WELL, VISITING WITH FRIENDS, SMILING AND LAUGHING, DENIES ANY IMMEDIATE NEEDS, CALL LITTLE WITHIN REACH, WILL CONTINUE TO MONTIOR.
[2017-02-10 16:00] VITALS: BP 130/62
--- NOTE | 2017-02-10 16:00 | NUR ---
PT RESTING QUIETLY IN NAD, RESP EVEN UNLABORED, SKIN WARM DRY COLOR WNL, PT DENIES PAIN OR DISCOMFORT, VITALS STABLE, DENIES ANY OTHER IMMEDIATE NEEDS, CALL LITTLE WITHIN REACH, SIDE RAILS UP X2, BED LOCKED IN LOW POSITION, WILL CONTINUE TO MONITOR.
--- NOTE | 2017-02-10 19:33 | NUR ---
RECEIVED REPORT FROM AM NURSE FOR CONTINUITY OF CARE. PT IS AAOX4, PT IS ON O2 2L VIA NC, RESP EVEN AND UNLABORED. NO S/S OF DISTRESS, SOB, OR RESTLESSNESS. IV TO R HAND 22 G, INTACT, NO REDNESS OR SWELLING NOTED. SKIN IS WARM AND DRY. ECCHYMOSIS NOTED ON UE, AND SCAB ON LLE. BOWEL SOUNDS ARE PRESENT, PLAN OF CARE DISCUSSED WITH PT, PT VERBALIZED UNDERSTANDING. ALL SAFETY MEASURES IN PLACE,CALL LIGHT WITHIN REACH. BED LOCKED ON LOW POSITION. SIDE RAILS UP. WILL CONTINUE TO MONITOR.
[2017-02-11] VITALS: BP 125/55
--- NOTE | 2017-02-11 04:17 | NUR ---
Patient's Plan of Care was discussed and reviewed with SCIENTIST/ENGINEER: SHONDA DALLAS
--- NOTE | 2017-02-11 04:17 | NUR ---
ENDORSED PT TO SHONDA SALINAS FOR CONTINUITY OF CARE, PT IN STABLE CONDITION.
--- NOTE | 2017-02-11 04:18 | NUR ---
REPORT RECEIVED FROM ANDREA DE LOS SANTOS PATIENT IS SLEEPING WITH OXYGEN IN PLACE VIA NASAL CANNULA PATIENT CONTINUES TO BE KEPT CLEAN AND DRY. IVF INFUSING WELL IV SITE PATENT.WILL CONTINUE TO OBSERVE.
[2017-02-11] MEDS: NACL 0.9% 1,000 ML IV SCH (05:29)
[2017-02-11 05:52] LABS: BASOPHILS # (AUTO) 0.1 K/uL (0.00-0.22); BASOPHILS % (AUTO) 2.2 % (0.0-2.0); EOSINOPHILS # (AUTO) 0.1 K/uL (0-0.4); EOSINOPHILS % (AUTO) 3.9 % (0.0-4.0); HEMATOCRIT 31.5 % (36-48); HEMOGLOBIN 9.9 g/dL (12.0-16.0); LYMPHOCYTES # (AUTO) 1.1 K/uL (2.5-16.5); LYMPHOCYTES % (AUTO) 34.2 % (20.5-51.1); MEAN CORPUSCULAR HEMOGLOBIN 29 pg (27-31); MEAN CORPUSCULAR HGB CONC 32 g/dL (33-37); MEAN CORPUSCULAR VOLUME 93 fL (80-94); MONOCYTES # (AUTO) 0.3 K/uL (0.8-1.0); MONOCYTES % (AUTO) 9.1 % (1.7-9.3); NEUTROPHILS # (AUTO) 1.8 K/uL (1.8-7.7); NEUTROPHILS % (AUTO) 50.6 % (42.2-75.2); PLATELET COUNT (AUTO) 216 K/uL (140-450); RED BLOOD CELL COUNT(AUTO) 3.39 MIL/uL (4.20-5.40); RED CELL DISTRIBUTION WIDTH 16.1 % (11.6-13.7); WHITE BLOOD COUNT (AUTO) 3.4 K/uL (4.8-10.8)
[2017-02-11] MEDS: HYDROcodone/APAP 10/325 MG 1 TAB TAB PO PRN (06:02)
--- NOTE | 2017-02-11 06:25 | NUR ---
PATIENT IS RESTING COMFORTABLY IN BED NO SOB NOTED PATIENT IS WATCHING TV NEEDS MET.CALL LIGHT WITHIN REACH.
[2017-02-11 06:27] LABS: ANION GAP 4.6 (8-16); CARBON DIOXIDE 39.7 mmol/L (21-32); CHLORIDE 105 mmol/L (98-107); CREATININE 0.9 mg/dL (0.6-1.3); GLUCOSE 93 mg/dL (74-106); POTASSIUM 4.3 mmol/L (3.5-5.1); SODIUM SERUM 145 mmol/L (136-145); UREA NITROGEN, BLOOD 10 mg/dL (7-18)
--- NOTE | 2017-02-11 07:03 | NUR ---
PATIENT STABLE REPORT ENDORSED TO ANDREA CHURCH SHE WILL RESUME CARE OF THE PATIENT.
--- NOTE | 2017-02-11 07:04 | NUR ---
RECEIVED BEDSIDE REPORT FROM EVENT MARKETING MANAGER NURSE. PT AWAKE AND ALERT, NO SIGNS OF ACUTE DISTRESS. BOWEL SOUNDS ACTIVE IN ALL 4 QUADRANTS. PT CHAIRFAST, AMBULATORY WITH 2 PERSON ASSIST. IV PATENT AND ASYMPTOMATIC. REDNESS ON PERINEAL AREA AND BETWEEN THIGHS WITH DRYNESS ON BILATERAL LOWER EXTREMITIES. ON OXYGEN 3L VIA NC. PATIENT DENIES PAIN AT THIS TIME. RE-ORIENTED TO HOSPITAL AND TO UNIT, PT VERBALIZED UNDERSTANDING. BED IN LOW POSITION WITH BILATERAL HALF SIDE RAILS UP, CALL LIGHT WITHIN REACH. WILL CONTINUE TO MONITOR.
[2017-02-11 08:00] VITALS: BP 134/62
--- NOTE | 2017-02-11 08:10 | NUR ---
PT COMPLAINING OF NAUSEA, WILL ADMINISTER ZOFRAN PRN ORDERED AND CONTINUE TO MONITOR.
[2017-02-11] MEDS: LORATADINE 10 MG TAB PO SCH (08:12)
[2017-02-11] MEDS: FLUTICASONE NASAL 50 MCG/ACTUATION 16 GM BTL NS SCH ×2 (08:12→21:24)
[2017-02-11] MEDS: LACTOBACILLUS RHAMNOSUS GG 1 EACH CAP PO SCH ×2 (08:12→17:01)
[2017-02-11] MEDS: AMIODARONE 200 MG TAB PO SCH (08:12)
[2017-02-11] MEDS: CLOPIDOGREL 75 MG TAB PO SCH (08:12)
[2017-02-11] MEDS: ECOTRIN 81 MG TABEC PO SCH (08:12)
[2017-02-11] MEDS: CARVEDILOL 3.125 MG TAB PO SCH ×2 (08:13→21:23)
[2017-02-11] MEDS: SENNA 8.6 MG TAB PO SCH ×2 (08:13→21:21)
[2017-02-11] MEDS: ONDANSETRON 4 MG/2 ML VIAL IM/IVP PRN ×2 (08:13→17:59)
[2017-02-11] MEDS: BACLOFEN 10 MG TAB PO SCH ×3 (08:13→17:01)
[2017-02-11] MEDS: HYDRAGUARD CREAM TP SCH ×2 (08:21→21:26)
[2017-02-11] MEDS: PSYLLIUM 12.2 GM/PKT PO SCH (08:21)
[2017-02-11] MEDS: TRIAMCINOLONE 0.025% CRM 15 GM TUBE TP SCH ×2 (08:21→21:26)
[2017-02-11] MEDS: Z-GUARD PASTE TP SCH (08:21)
--- NOTE | 2017-02-11 10:00 | NUR ---
PT DENIES NAUSEA AT THIS TIME, WILL CONTINUE TO MONITOR.
--- NOTE | 2017-02-11 12:10 | NUR ---
PT COMPLAINING OF FEELING ANXIOUS. WILL ADMINISTER PRN ATIVAN ORDERED AND CONTINUE TO MONITOR. FAMILY AT PATIENT BEDSIDE.
[2017-02-11] MEDS: LORazepam 0.5 MG TAB PO PRN (12:12)
--- NOTE | 2017-02-11 12:20 | NUR ---
CHRISTELLE NGUYEN SPOKE WITH PATIENT'S SISTER ELIGIO ON THE NURSING FLOOR PH# [phone], HOME PH# [phone]. ASKED IF FAMILY IS NOW WILLING TO SEND PATIENT TO [facility] ASSISTED LIVING WHEN DISCHARGED AND ELIGIO SAID THEY ARE NOT WILLING TO SEND PATIENT TO A FACILITY MORE THAN 60 MILES BECAUSE FAMILY CAN'T SEE HER. ASKED IF THE FAMILY HAD AN ALTERNATE PLAN OR IF FAMILY CAN TAKE PATIENT HOME AND SHE SAID THAT THEIR OTHER SISTER CANNOT TAKE CARE OF PATIENT AND THAT THE FAMILY IS NOT WILLING TO TAKE PATIENT HOME UNTIL PATIENT CAN WALK. SPOKE WITH MANAV OF [employer] PH# [phone] TO FOLLOW UP ON MEDICAL APPLICATION. PER MANAV, PATIENT'S FAMILY HAVE NOT PRESENTED SOME OF THE PAPERWORK NEEDED TO PROCESS MEDICAL APPLICATION. INFORMED MANAV THAT PATIENT'S SISTER IS NOW BEDSIDE IF HE NEEDS TO SPEAK WITH A FAMILY MEMBER. MANAV SAID THAT HE WILL TALK WITH PATIENT'S SISTER.
--- NOTE | 2017-02-11 15:00 | NUR ---
PT AWAKE AND ALERT, NO SIGNS OF ACUTE DISTRESS. ENDORSED TO STACY MENDEZ FOR CONTINUITY OF CARE.
--- NOTE | 2017-02-11 15:30 | NUR ---
PHYSICAL THERAPY CO-SIGN The Physical Therapy Progress Notes documented by Machine Plug Shaper have been reviewed. I CONCUR W/CYTOPATHOLOGIST NOTE Reviewed/Co-Signed by: Citlalli Carlos PT Documentation Done by: JAYANT PAREDES CYTOPATHOLOGIST PT WEEKLY SUMMARY Pt HAS SHOWN PROGRESS WITH POC, CURRENTLY ABLE TO PERFORM GAIT USING FWW SBA LIMITED BY SOB AND FATIGUE; MIN/CGA WITH TRANSFERS; TO CONT WITH PT SERVICES TO ADDRESS TRANSFER TRAINING, HEP, STRENGTHENING AND GAIT; ONCE DAILY 3X/WK X 1 WEEK; CYTOPATHOLOGIST UPDATED WITH FOLLOWING ADDITIONAL GOALS (1 WEEK): *TO IMPROVE GAIT UP TO 200 FT SBA/SUP USING FWW; IMPROVE TRANSFERS TO CGA USING FWW FOR SAFE USE OF BSC. Addendum: 02/11/17 at 1535 by Citlalli Carlos PT Amended: Links added.
[2017-02-11 16:00] VITALS: BP 127/49
--- NOTE | 2017-02-11 17:59 | NUR ---
PT STATED SHE WAS NAUSEOUS. ADMINISTERED ZOFRAN IVP FOR NAUSEA. PT TOLERATED WELL. PT HAS NO COMPLAINTS AT THIS TIME. WILL CONTINUE TO MONITOR.
--- NOTE | 2017-02-11 19:28 | NUR ---
ENDORSED PT TO DIGITAL STRATEGY SPECIALIST NURSE AT BEDSIDE FOR CONTINUITY OF CARE. PT IS IN STABLE CONDITION.
--- NOTE | 2017-02-11 19:30 | NUR ---
RECEIVED REPORT AT PT BEDSIDE FROM DAY SHIFT RN. PT IS AAOX4, ON O2 AT 3.0L VIA NASAL CANNULA, RESPIRATIONS EVEN AND UNLABORED. 22G IV TO RIGHT HAND, MULTIPLE SCABS ON LEGS, RASH ON THIGHS. BOWEL SOUNDS PRESENT. VITAL SIGNS WNL. PLAN OF CARE DISCUSSED WITH PT, PT VERBALIZED UNDERSTANDING. PT IN STABLE CONDITION, NO SIGNS OF DISTRESS NOTED. BED IN LOW POSITION, CALL LIGHT WITHIN REACH. WILL CONTINUE TO MONITOR.
--- NOTE | 2017-02-11 21:30 | NUR ---
ADMINISTERED SCHEDULED MEDICATIONS, PT TOLERATED WELL. VITAL SIGNS WNL. PT IN STABLE CONDITION, NO SIGNS OF DISTRESS NOTED. BED IN LOW POSITION, CALL LIGHT WITHIN REACH. WILL CONTINUE TO MONITOR.
--- NOTE | 2017-02-11 23:15 | NUR ---
DR JACKSON SPOKE WITH PT ABOUT PAIN MEDICATION. PT STATES SHE HAS NEUROPATHY PAIN BUT ONLY TAKES NORCO FOR THAT AND NOTHING ELSE EVER WORKED. DR TOLD PT HE WOULD CHECK WHY NORCO WAS DISCONTINUED AND IF IT WAS POSSIBLE HE'D ORDER HER SOME NORCO, PT VERBALIZED UNDERSTANDING. PT IN STABLE CONDITION, NO SIGNS OF DISTRESS NOTED. BED IN LOW POSITION, CALL LIGHT WITHIN REACH. WILL CONTINUE TO MONITOR.
[2017-02-11] MEDS ORDERED: HYDROcodone/APAP 10/325 MG 1 TAB TAB PO PRN (23:25)
[2017-02-12] VITALS: BP 137/78
--- NOTE | 2017-02-12 00:30 | NUR ---
ADMINISTERED PAIN MEDICATION NORCO PER DR ORDER AND PT REQUEST. PT TOLERATED WELL. VITAL SIGNS WNL. PT IN STABLE CONDITION, NO SIGNS OF DISTRESS NOTED. BED IN LOW POSITION, CALL LIGHT WITHIN REACH. WILL CONTINUE TO MONITOR.
--- NOTE | 2017-02-12 02:35 | NUR ---
PT SLEEPING. PT IN STABLE CONDITION, NO SIGNS OF DISTRESS NOTED. BED IN LOW POSITION, CALL LIGHT WITHIN REACH. WILL CONTINUE TO MONITOR.
--- NOTE | 2017-02-12 04:45 | NUR ---
PT STILL SLEEPING, IN STABLE CONDITION, NO SIGNS OF DISTRESS NOTED. BED IN LOW POSITION, CALL LIGHT WITHIN REACH. WILL CONTINUE TO MONITOR.
[2017-02-12] MEDS: NACL 0.9% 1,000 ML IV SCH (05:29)
[2017-02-12 06:01] LABS: BASOPHILS # (AUTO) 0.1 K/uL (0.00-0.22); BASOPHILS % (AUTO) 2.1 % (0.0-2.0); EOSINOPHILS # (AUTO) 0.1 K/uL (0-0.4); EOSINOPHILS % (AUTO) 2.6 % (0.0-4.0); HEMATOCRIT 35.6 % (36-48); HEMOGLOBIN 11.2 g/dL (12.0-16.0); LYMPHOCYTES # (AUTO) 1.2 K/uL (2.5-16.5); LYMPHOCYTES % (AUTO) 30.7 % (20.5-51.1); MEAN CORPUSCULAR HEMOGLOBIN 29 pg (27-31); MEAN CORPUSCULAR HGB CONC 32 g/dL (33-37); MEAN CORPUSCULAR VOLUME 93 fL (80-94); MONOCYTES # (AUTO) 0.3 K/uL (0.8-1.0); MONOCYTES % (AUTO) 8.5 % (1.7-9.3); NEUTROPHILS # (AUTO) 2.2 K/uL (1.8-7.7); NEUTROPHILS % (AUTO) 56.1 % (42.2-75.2); PLATELET COUNT (AUTO) 248 K/uL (140-450); RED BLOOD CELL COUNT(AUTO) 3.82 MIL/uL (4.20-5.40); RED CELL DISTRIBUTION WIDTH 16.2 % (11.6-13.7); WHITE BLOOD COUNT (AUTO) 3.9 K/uL (4.8-10.8)
--- NOTE | 2017-02-12 06:30 | NUR ---
PT IN STABLE CONDITION, DENIES PAIN AT THIS TIME. NO SIGNS OF DISTRESS NOTED. BED IN LOW POSITION, CALL LIGHT WITHIN REACH. WILL CONTINUE TO MONITOR.
--- NOTE | 2017-02-12 07:15 | NUR ---
RECEIVED REPORT FROM NIGHT NURSE, PT IS AAOX4, ON O2 3L VIA NC, SKIN: UPPER/LOWE EXTREMITIES SCABS, RASH TO GROIN , IV TO RIGHT HAND 22G, INFUSING WELL, INITIAL ASSESSMENT COMPLETED, REVIEWED PLAN OF CARE WITH PT, PT VERBALIZED UNDERSTANDING, ALL SAFETY PRECAUTIONS MET, CALL LIGHT WITHIN REACH. WILL CONTINUE TO MONITOR.
--- NOTE | 2017-02-12 07:15 | NUR ---
ENDORSED PT TO DAY SHIFT RN. PT IS IN STABLE CONDITION.
[2017-02-12 08:00] VITALS: BP 136/67
[2017-02-12] MEDS: FLUTICASONE NASAL 50 MCG/ACTUATION 16 GM BTL NS SCH ×2 (08:50→21:29)
[2017-02-12] MEDS: ECOTRIN 81 MG TABEC PO SCH (08:50)
[2017-02-12] MEDS: SENNA 8.6 MG TAB PO SCH ×2 (08:50→21:26)
[2017-02-12] MEDS: LORATADINE 10 MG TAB PO SCH (08:51)
[2017-02-12] MEDS: BACLOFEN 10 MG TAB PO SCH ×3 (08:51→17:00)
[2017-02-12] MEDS: LACTOBACILLUS RHAMNOSUS GG 1 EACH CAP PO SCH ×2 (08:51→16:59)
[2017-02-12] MEDS: AMIODARONE 200 MG TAB PO SCH (08:51)
[2017-02-12] MEDS: CLOPIDOGREL 75 MG TAB PO SCH (08:51)
[2017-02-12] MEDS: CARVEDILOL 3.125 MG TAB PO SCH ×2 (08:52→21:26)
[2017-02-12] MEDS: HYDRAGUARD CREAM TP SCH ×2 (08:53→21:00)
[2017-02-12] MEDS: Z-GUARD PASTE TP SCH (08:53)
[2017-02-12] MEDS: TRIAMCINOLONE 0.025% CRM 15 GM TUBE TP SCH ×2 (08:53→21:00)
[2017-02-12] MEDS: PSYLLIUM 12.2 GM/PKT PO SCH (08:54)
[2017-02-12] MEDS: ONDANSETRON 4 MG/2 ML VIAL IM/IVP PRN (08:54)
--- NOTE | 2017-02-12 08:55 | NUR ---
DUE MEDICATIONS GIVEN, PT TOLERATED WELL, PT C/O NAUSEA MEDICATED PER MD ORDERS, PT CURRENTLY RESTING IN BED WATCHING TV, ALL NEEDS MET, CALL LIGHT WITHIN REACH, WILL CONTINUE TO MONITOR.
--- NOTE | 2017-02-12 10:24 | NUR ---
02/12/17 RD FOLLOW-UP ASSESSMENT COMPLETED PLEASE REFER TO NUTRITION ASSESSMENT UNDER CARE ACTIVITY FOR ESTIMATED NUTRITIONAL NEEDS. 1. CONTINUE CARDIAC DIET 2. CONTINUE TO ENCOURAGE INCREASED PO INTAKE TO TOLERANCE 3. RD TO FOLLOW-UP 3-5 DAYS, MODERATE RISK GEORGINA RESENDEZ, KAILA
[2017-02-12] MEDS: HYDROcodone/APAP 7.5/325 MG 1 TAB PO PRN ×2 (11:04→16:59)
--- NOTE | 2017-02-12 12:23 | NUR ---
MEDICATION GIVEN, PT CURRENTLY WATCHING TV, EATING LUNCH, ALL SAFETY PRECAUTIONS MET, CALL LIGHT WITHIN REACH, WILL CONTINUE TO MONITOR.
--- NOTE | 2017-02-12 14:25 | NUR ---
PT CURRENTLY AWAKE RESTING IN BED ALL NEEDS MET. WILL CONTINUE TO MONITOR.
[2017-02-12 16:00] VITALS: BP 123/56
--- NOTE | 2017-02-12 17:06 | NUR ---
DUE MEDICATION GIVEN, PT CURRENTLY RESTING IN BED. ALL NEEDS MET. WILL CONTINUE TO MONITOR.
--- NOTE | 2017-02-12 19:10 | NUR ---
ENDORSED PLAN OF CARE TO NIGHT, PT IN STABLE CONDITION, PT CURRENTLY AWAKE, WATCHING TV.
[2017-02-12] MEDS: LORazepam 0.5 MG TAB PO PRN (19:53)
--- NOTE | 2017-02-12 19:55 | NUR ---
PT C/O ANXIETY AND REQUESTED ATIVAN. PRN ATIVAN ADMINISTERED. PT TOLERATED WELL. PT IN STABLE CONDITION, NO SIGNS OF DISTRESS NOTED. BED IN LOW POSITION, CALL LIGHT WITHIN REACH. WILL CONTINUE TO MONITOR.
--- NOTE | 2017-02-12 20:16 | NUR ---
LATE ENTRY FOR 02/11/17. CHECKED ON [facility] WEB SITE FOR APPEAL DETERMINATION. PER WEB SITE PT'S APPEAL FOR DISCHARGE HAS BEEN UPHELD BY [facility]. REQUEST FOR REDETERMINATION AND REVIEW ENTERED.
--- NOTE | 2017-02-12 20:20 | NUR ---
ENTRY FOR 02/11/17 7480 MET WITH PT AND DISCUSSED WITH HER IF HER FAMILY ARE ASSISTING IN FINDING PLACEMENT AND SHE STATED THEY ARE NOT. ALSO DISCUSSED WITH HER THAT PER JAROD THERE IS STILL PAPERWORK REQUIRED TO PROCESS MEDICAL APPLICATION. PT STATED SHE IS AWARE AND SHE WILL REQUEST THAT HER FAMILY BRING THE PAPERWORK REQUIRED.
--- NOTE | 2017-02-12 22:30 | NUR ---
PT SLEEPING, IN STABLE CONDITION, NO SIGNS OF DISTRESS NOTED. BED IN LOW POSITION, CALL LIGHT WITHIN REACH. WILL CONTINUE TO MONITOR.
[2017-02-13] VITALS: BP 104/43
--- NOTE | 2017-02-13 00:45 | NUR ---
PT RESTING WATCHING TELEVISION. IN STABLE CONDITION, NO SIGNS OF DISTRESS NOTED. BED IN LOW POSITION, CALL LIGHT WITHIN REACH. WILL CONTINUE TO MONITOR.
[2017-02-13] MEDS: HYDROcodone/APAP 7.5/325 MG 1 TAB PO PRN ×4 (00:56→21:14)
[2017-02-13] MEDS: LORazepam 0.5 MG TAB PO PRN ×2 (03:00→10:00)
--- NOTE | 2017-02-13 03:03 | NUR ---
PT ASKED FOR BREATHING TREATMENT BECAUSE SHE FELT SHORT OF BREATH, CHECKED HER O2 SAT AND IT WAS 96%, RESPIRATIONS 24/MIN. CALLED RT AND SONAM (RT) SHOWED UP WITHIN A FEW MINUTES AND INCREASED HER O2 TO 4.OL, BUT HE SAID PT WAS OK BECAUSE SPO2 WAS 98 AT THAT POINT, AND THAT SHE MIGHT BE HAVING ANXIETY. ASKED PT IF SHE WANTED TO SEE IF ATIVAN WOULD HELP, PT SAID "YES I THINK IT COULD BE MY ANXIETY." BEFORE GIVING MEDICATION PT STATED FEELING "A LITTLE BETTER." ADMINISTERED ATIVAN AND PT SEEMED MORE CALM. STAYED WITH PT UNTIL PT BREATHING WAS UNLABORED AND APPEARANCE BECAME MUCH MORE CALM. EDUCATED PT ON USING CALL LIGHT IF SYMPTOMS CAME BACK OR IF ANYTHING CHANGED.
--- NOTE | 2017-02-13 03:11 | NUR ---
Checked on patient because she was complaining of shortness of breath to RN. Patient SPO2 96 heart rate 111 bpm and patient was stable on 4L NC. Patient did not appear in any respiratory distress no shortness of breath. Patient did not need PRN breathing treatment at this time. Patient alert and awake no change in condition. Patient is stable no resp distress.
--- NOTE | 2017-02-13 05:25 | NUR ---
PT IN STABLE CONDITION, NO SIGNS OF DISTRESS NOTED. BED IN LOW POSITION, CALL LIGHT WITHIN REACH. WILL CONTINUE TO MONITOR.
[2017-02-13] MEDS: NACL 0.9% 1,000 ML IV SCH (05:29)
[2017-02-13] MEDS: ONDANSETRON 4 MG/2 ML VIAL IM/IVP PRN (07:15)
--- NOTE | 2017-02-13 07:15 | NUR ---
ENDORSED PT TO DAY SHIFT RN, PT IN STABLE CONDITION, NOS/S OF DISTRESS NOTED.
--- NOTE | 2017-02-13 07:16 | NUR ---
RECEIVED PT FROM ELECTRICIAN RECTIFIER MAINTENANCE NURSE AT BEDSIDE. PT IS A&OX4. PT HAS IV ON R HAND 22 G RUNNING NS@10. PT HAS DRYNESS AND REDNESS ON BL LE AND ON THE BACK AND SACRAL AREA. REQUESTED ANXIETY MED, WILL MEDICATE WHEN DUE. NO OTHER COMPLAINTS AT THIS TIME. ON NC 2L, O2 SAT 99%. CALL LIGHT WITHIN REACH. WILL CONTINUE TO MONITOR.
[2017-02-13 08:00] VITALS: BP 120/47
[2017-02-13] MEDS: ALBUTEROL SULFATE/IPRATROPIU 3 ML SOL IH PRN ×2 (08:04→20:00)
[2017-02-13] MEDS: PSYLLIUM 12.2 GM/PKT PO SCH ×2 (09:00→09:18)
--- NOTE | 2017-02-13 09:00 | NUR ---
PT IN STABLE CONDITION. NO COMPLAINTS AT THIS TIME. CALL LIGHT WITHIN REACH. WILL CONTINUE TO MONITOR.
[2017-02-13] MEDS: CARVEDILOL 3.125 MG TAB PO SCH ×2 (09:14→21:17)
[2017-02-13] MEDS: CLOPIDOGREL 75 MG TAB PO SCH (09:15)
[2017-02-13] MEDS: LACTOBACILLUS RHAMNOSUS GG 1 EACH CAP PO SCH ×2 (09:15→16:54)
[2017-02-13] MEDS: BACLOFEN 10 MG TAB PO SCH ×3 (09:15→16:54)
[2017-02-13] MEDS: LORATADINE 10 MG TAB PO SCH (09:15)
[2017-02-13] MEDS: AMIODARONE 200 MG TAB PO SCH (09:16)
[2017-02-13] MEDS: ECOTRIN 81 MG TABEC PO SCH (09:16)
[2017-02-13] MEDS: SENNA 8.6 MG TAB PO SCH ×2 (09:16→21:17)
[2017-02-13] MEDS: TRIAMCINOLONE 0.025% CRM 15 GM TUBE TP SCH ×2 (09:17→21:18)
[2017-02-13] MEDS: FLUTICASONE NASAL 50 MCG/ACTUATION 16 GM BTL NS SCH ×2 (09:17→21:19)
[2017-02-13] MEDS: Z-GUARD PASTE TP SCH (09:18)
[2017-02-13] MEDS: HYDRAGUARD CREAM TP SCH ×2 (09:18→21:18)
--- NOTE | 2017-02-13 11:45 | NUR ---
PT SAT UP IN BED TO EAT LUNCH. PT IN STABLE CONDITION. TOLERATING WELL. CALL LIGHT WITHIN REACH. WILL CONTINUE TO MONITOR.
--- NOTE | 2017-02-13 13:30 | NUR ---
PT IS IN STABLE CONDITION. CALL LIGHT WITHIN REACH. WILL CONTINUE TO MONITOR.
--- NOTE | 2017-02-13 15:00 | NUR ---
PT IS RESTING COMFORTABLY IN BED. CALL LIGHT WITHIN REACH. WILL CONTINUE TO MONITOR.
[2017-02-13 16:00] VITALS: BP 108/49
--- NOTE | 2017-02-13 16:59 | NUR ---
SPOKE TO DR. RESENDEZ REGARDING PT'S REQUEST FOR SUPPOSITORY.
[2017-02-13] MEDS ORDERED: BISACODYL 10 MG SUPP RC ONE (18:00)
--- NOTE | 2017-02-13 19:28 | NUR ---
ENDORSED CARE OF PT TO MEDICAL INSURANCE BILLER NURSE AT BEDSIDE. PT IN STABLE CONDITION.
--- NOTE | 2017-02-13 19:29 | NUR ---
RECEIVED REPORT FROM AM NURSE FOR CONTINUITY OF CARE. PT IS AAOX4, PT IS ON O2 3L VIA NC, RESP EVEN AND UNLABORED. NO S/S OF DISTRESS, SOB, OR RESTLESSNESS. IV TO R HAND 22 G, INTACT, NO REDNESS OR SWELLING NOTED. SKIN IS WARM AND DRY. ECCHYMOSIS NOTED ON UE, AND SCAB ON LLE. BOWEL SOUNDS ARE PRESENT, PLAN OF CARE DISCUSSED WITH PT, PT VERBALIZED UNDERSTANDING. ALL SAFETY MEASURES IN PLACE,CALL LIGHT WITHIN REACH. BED LOCKED ON LOW POSITION. SIDE RAILS UP. WILL CONTINUE TO MONITOR.
[2017-02-14] VITALS: BP_SYST 111; BP_SYST 99; BP_DIAS 46; BP_DIAS 57
--- NOTE | 2017-02-14 | NUR ---
VS STABLE. NO S/S OF DISTRESS NOTED. ALL SAFETY PRECAUTIONS MET, CALL LIGHT WITHIN REACH, WILL CONTINUE TO MONITOR.
[2017-02-14] MEDS: HYDROcodone/APAP 7.5/325 MG 1 TAB PO PRN ×4 (03:16→21:45)
[2017-02-14] MEDS: NACL 0.9% 1,000 ML IV SCH (05:29)
[2017-02-14 06:45] LABS: BASOPHILS # (AUTO) 0.1 K/uL (0.00-0.22); BASOPHILS % (AUTO) 1.8 % (0.0-2.0); EOSINOPHILS # (AUTO) 0.1 K/uL (0-0.4); EOSINOPHILS % (AUTO) 2.4 % (0.0-4.0); HEMATOCRIT 29.5 % (36-48); HEMOGLOBIN 9.5 g/dL (12.0-16.0); LYMPHOCYTES # (AUTO) 1.3 K/uL (2.5-16.5); LYMPHOCYTES % (AUTO) 30.1 % (20.5-51.1); MEAN CORPUSCULAR HEMOGLOBIN 30 pg (27-31); MEAN CORPUSCULAR HGB CONC 32 g/dL (33-37); MEAN CORPUSCULAR VOLUME 92 fL (80-94); MONOCYTES # (AUTO) 0.5 K/uL (0.8-1.0); MONOCYTES % (AUTO) 11.2 % (1.7-9.3); NEUTROPHILS # (AUTO) 2.3 K/uL (1.8-7.7); NEUTROPHILS % (AUTO) 54.5 % (42.2-75.2); PLATELET COUNT (AUTO) 189 K/uL (140-450); RED BLOOD CELL COUNT(AUTO) 3.22 MIL/uL (4.20-5.40); RED CELL DISTRIBUTION WIDTH 16.4 % (11.6-13.7); WHITE BLOOD COUNT (AUTO) 4.3 K/uL (4.8-10.8)
[2017-02-14] MEDS: ONDANSETRON 4 MG/2 ML VIAL IM/IVP PRN (06:51)
[2017-02-14 07:22] LABS: ANION GAP 3.8 (8-16); CARBON DIOXIDE 39.3 mmol/L (21-32); CHLORIDE 106 mmol/L (98-107); GLUCOSE 86 mg/dL (74-106); POTASSIUM 4.1 mmol/L (3.5-5.1); SODIUM SERUM 145 mmol/L (136-145); UREA NITROGEN, BLOOD 13 mg/dL (7-18)
[2017-02-14 07:24] LABS: PHOSPHORUS 3.4 mg/dL (2.5-4.9)
--- NOTE | 2017-02-14 07:38 | NUR ---
ENDORSED PLAN OF CARE TO AM NURSE AT BEDSIDE, PT IN STABLE CONDITION, NO S/S OF DISTRESS.
--- NOTE | 2017-02-14 07:39 | NUR ---
RECEIVED PT FROM ASSISTANT BRANCH OPERATIONS MANAGER NURSE AT BEDSIDE. PT IS A&OX4. PT HAS IV ON R HAND 22 G RUNNING NS@10. PT IS ON O2 3L O2 SAT 95%. NO COMPLAINTS AT THIS TIME. PT REQUESTED PAIN MED TO BE ADMINISTERED WITH MORNING MEDS. CALL LIGHT WITHIN REACH. WILL CONTINUE TO MONITOR.
[2017-02-14 08:00] VITALS: BP 127/50
[2017-02-14] MEDS: PSYLLIUM 12.2 GM/PKT PO SCH (09:00)
[2017-02-14] MEDS: HYDRAGUARD CREAM TP SCH ×2 (09:04→21:46)
[2017-02-14] MEDS: Z-GUARD PASTE TP SCH (09:04)
[2017-02-14] MEDS: LORATADINE 10 MG TAB PO SCH (09:05)
[2017-02-14] MEDS: CARVEDILOL 3.125 MG TAB PO SCH ×2 (09:05→21:45)
[2017-02-14] MEDS: CLOPIDOGREL 75 MG TAB PO SCH (09:05)
[2017-02-14] MEDS: LACTOBACILLUS RHAMNOSUS GG 1 EACH CAP PO SCH (09:06)
[2017-02-14] MEDS: SENNA 8.6 MG TAB PO SCH ×2 (09:06→21:45)
[2017-02-14] MEDS: BACLOFEN 10 MG TAB PO SCH ×3 (09:06→17:36)
[2017-02-14] MEDS: ECOTRIN 81 MG TABEC PO SCH (09:06)
[2017-02-14] MEDS: TRIAMCINOLONE 0.025% CRM 15 GM TUBE TP SCH ×2 (09:07→21:46)
[2017-02-14] MEDS: FLUTICASONE NASAL 50 MCG/ACTUATION 16 GM BTL NS SCH ×2 (09:07→21:44)
--- NOTE | 2017-02-14 09:10 | NUR ---
PT TOOK MORNING MEDS AND TOLERATED WELL. REQUESTED TO USE BEDPAN. HELPED PT WITH BEDPAN. TOLERATED WELL. CALL LIGHT WITHIN REACH. WILL CONTINUE TO MONITOR.
[2017-02-14] MEDS: AMIODARONE 200 MG TAB PO SCH (09:11)
--- NOTE | 2017-02-14 11:45 | NUR ---
PT REFUSED TO EAT LUNCH AT THIS TIME. WILL RECHECK LATER TO SEE IF PT WANTS TO EAT. CALL LIGHT WITHIN REACH. WILL CONTINUE TO MONITOR.
[2017-02-14] MEDS: LORazepam 0.5 MG TAB PO PRN ×2 (12:43→23:04)
--- NOTE | 2017-02-14 12:43 | NUR ---
ADMINISTERED ATIVAN FOR PT'S ANXIETY. PT TOLERATED WELL. CALL LIGHT WITHIN REACH. WILL CONTINUE TO MONITOR.
--- NOTE | 2017-02-14 14:18 | NUR ---
PT IS SLEEPING COMFORTABLY. NO SIGNS OF DISTRESS NOTED. CALL LIGHT WITHIN REACH. WILL CONTINUE TO MONITOR.
--- NOTE | 2017-02-14 14:50 | NUR ---
STRAIGHT CATHED PT TO GET STERILE URINE SAMPLE. PT TOLERATED WELL. CALL LIGHT WITHIN REACH. WILL CONTINUE TO MONITOR.
[2017-02-14 15:25] LABS: APPEARANCE,URINE HAZY (CLEAR); BILIRUBIN,URINE NEGATIVE (NEGATIVE); BLOOD, URINE TRACE-I (NEGATIVE); COLOR,URINE YELLOW (YELLOW); LEUKOCYTE ESTERASE ,URINE 3+ (NEGATIVE); NITRITE, URINE NEGATIVE (NEGATIVE); PH,URINE 7.5 (5.0-9.0); UGLUCOSE NEGATIVE (NEGATIVE)
[2017-02-14 15:27] LABS: RBC,URINE 0-5 (RARE) /HPF (0-5); WBC,URINE 80-100 /HPF (0-5)
[2017-02-14 16:00] VITALS: BP 127/57
[2017-02-14] MEDS ORDERED: AMIKACIN PER PHARMACY MC PRN (16:10)
--- NOTE | 2017-02-14 16:30 | NUR ---
VS STABLE. NO COMPLAINTS AT THIS TIME. CALL LIGHT WITHIN REACH. WILL CONTINUE TO MONITOR.
[2017-02-14] MEDS: AMIKACIN 400 MG in DEXTROSE 5% 100 ML IV SCH (17:36)
--- NOTE | 2017-02-14 18:00 | NUR ---
PT SAT UP IN BED TO EAT DINNER. TOLERATED WELL. CALL LIGHT WITHIN REACH. WILL CONTINUE TO MONITOR.
--- NOTE | 2017-02-14 19:15 | NUR ---
RECEIVED REPORT FROM AM NURSE. PT IS AAOX4, PT IS ON O2 3L VIA NC, RESP EVEN AND UNLABORED. NO SIGNS OF ACUTE DISTRESS. IV TO R HAND ASYMPTOMATIC AND PATENT. ECCHYMOSIS NOTED ON UE, AND SCAB ON LLE. BOWEL SOUNDS ARE PRESENT. PLAN OF CARE DISCUSSED, PT VERBALIZED UNDERSTANDING. BED ON LOW POSITION, BILATERAL HALF SIDE RAILS UP, CALL LIGHT WITHIN REACH. WILL CONTINUE TO MONITOR.
--- NOTE | 2017-02-14 19:32 | NUR ---
PT IN STABLE CONDITION. NO COMPLAINTS AT THIS TIME. CALL LIGHT WITHIN REACH. WILL CONTINUE TO MONITOR.
[2017-02-15] VITALS: BP 123/62
--- NOTE | 2017-02-15 02:40 | NUR ---
PT IS AWAKE, RESTING COMFORTABLY IN BED. PT DENIES ANY PAIN AT THIS TIME. BED ON LOW POSITION, BILATERAL HALF SIDE RAILS UP, CALL LIGHT WITHIN REACH, WILL CONTINUE TO MONITOR.
[2017-02-15] MEDS: LORazepam 0.5 MG TAB PO PRN ×3 (05:07→23:37)
[2017-02-15] MEDS: NACL 0.9% 1,000 ML IV SCH (05:29)
[2017-02-15] MEDS: HYDROcodone/APAP 7.5/325 MG 1 TAB PO PRN ×3 (05:52→19:24)
[2017-02-15 06:07] LABS: BASOPHILS # (AUTO) 0.1 K/uL (0.00-0.22); BASOPHILS % (AUTO) 2.2 % (0.0-2.0); EOSINOPHILS # (AUTO) 0.1 K/uL (0-0.4); EOSINOPHILS % (AUTO) 2.7 % (0.0-4.0); HEMOGLOBIN 10.4 g/dL (12.0-16.0); LYMPHOCYTES % (AUTO) 26.3 % (20.5-51.1); MEAN CORPUSCULAR HEMOGLOBIN 29 pg (27-31); MEAN CORPUSCULAR HGB CONC 31 g/dL (33-37); MEAN CORPUSCULAR VOLUME 93 fL (80-94); MONOCYTES # (AUTO) 0.4 K/uL (0.8-1.0); MONOCYTES % (AUTO) 9.9 % (1.7-9.3); NEUTROPHILS # (AUTO) 2.2 K/uL (1.8-7.7); NEUTROPHILS % (AUTO) 58.9 % (42.2-75.2); PLATELET COUNT (AUTO) 205 K/uL (140-450); RED BLOOD CELL COUNT(AUTO) 3.56 MIL/uL (4.20-5.40); RED CELL DISTRIBUTION WIDTH 16.2 % (11.6-13.7); WHITE BLOOD COUNT (AUTO) 3.8 K/uL (4.8-10.8)
[2017-02-15 06:51] LABS: ANION GAP 5.4 (8-16); CARBON DIOXIDE 36.9 mmol/L (21-32); CHLORIDE 106 mmol/L (98-107); CREATININE 0.9 mg/dL (0.6-1.3); GLUCOSE 91 mg/dL (74-106); POTASSIUM 4.3 mmol/L (3.5-5.1); SODIUM SERUM 144 mmol/L (136-145); UREA NITROGEN, BLOOD 11 mg/dL (7-18)
--- NOTE | 2017-02-15 07:25 | NUR ---
ENDORSED PT TO AM NURSE FOR CONTINUITY OF CARE. PT IS IN STABLE CONDITION.
[2017-02-15 08:30] VITALS: BP 125/75
[2017-02-15] MEDS: PSYLLIUM 12.2 GM/PKT PO SCH (09:00)
[2017-02-15] MEDS: AMIODARONE 200 MG TAB PO SCH (10:43)
[2017-02-15] MEDS: SENNA 8.6 MG TAB PO SCH ×2 (10:44→21:56)
[2017-02-15] MEDS: LORATADINE 10 MG TAB PO SCH (10:44)
[2017-02-15] MEDS: ECOTRIN 81 MG TABEC PO SCH (10:45)
[2017-02-15] MEDS: LACTOBACILLUS RHAMNOSUS GG 1 EACH CAP PO SCH (10:45)
[2017-02-15] MEDS: CARVEDILOL 3.125 MG TAB PO SCH ×2 (10:46→21:57)
[2017-02-15] MEDS: FLUTICASONE NASAL 50 MCG/ACTUATION 16 GM BTL NS SCH ×2 (10:46→21:55)
[2017-02-15] MEDS: HYDRAGUARD CREAM TP SCH ×2 (10:47→21:56)
[2017-02-15] MEDS: Z-GUARD PASTE TP SCH (10:47)
[2017-02-15] MEDS: TRIAMCINOLONE 0.025% CRM 15 GM TUBE TP SCH ×2 (10:47→21:56)
[2017-02-15] MEDS: CLOPIDOGREL 75 MG TAB PO SCH (10:48)
[2017-02-15] MEDS: BACLOFEN 10 MG TAB PO SCH ×3 (10:49→18:06)
--- NOTE | 2017-02-15 11:00 | NUR ---
Patient received pain med norco 7.5mg po one tab earlier for pain on scale 1-10=6, and pain did resolve to 2/10. Efrain Dudley RN
[2017-02-15] MEDS: AMIKACIN 400 MG in DEXTROSE 5% 100 ML IV SCH (11:40)
[2017-02-15] MEDS: ALBUTEROL SULFATE/IPRATROPIU 3 ML SOL IH PRN (15:28)
[2017-02-15 15:29] VITALS: BP 155/85
--- NOTE | 2017-02-15 19:25 | NUR ---
Patient co back pain, and generalized pain and I did give norco 7.5mg one tab per do for pain on scale 1-10 =6. Efrain Dudley RN
--- NOTE | 2017-02-15 19:26 | NUR ---
RECEIVED HANDOFF REPORT FROM AM RN. PATIENT AWAKE AND ALERT IN BED. PATIENT A&OX4. PATIENT STATES PAIN, AM NURSE PREVIOUSLY MEDICATED. WILL REASSESS. IV SITE PATENT AND INTACT. NO SIGNS OR SYMPTOMS OF ACUTE DISTRESS NOTED. CALL LIGHT WITHIN REACH. WILL CONTINUE TO MONITOR.
--- NOTE | 2017-02-15 21:55 | NUR ---
PM MEDS GIVEN WITH EDUCATION. PATIENT VERBALIZED UNDERSTANDING. PATIENT DENIES SOB. PATIENT DENIES PAIN. NO SIGNS OR SYMPTOMS OF ACUTE DISTRESS NOTED. CALL LIGHT WITHIN REACH. WILL CONTINUE TO MONITOR.
[2017-02-16] VITALS: BP 117/61
[2017-02-16] MEDS: HYDROcodone/APAP 7.5/325 MG 1 TAB PO PRN ×4 (01:04→20:41)
--- NOTE | 2017-02-16 01:05 | NUR ---
PATIENT AWAKE AND ALERT. PATIENT STATES PAIN. MEDICATED ORDERED. PATIENT DENIES SOB. NO SIGNS OR SYMPTOMS OF ACUTE DISTRESS NOTED. CALL LIGHT WITHIN REACH. WILL CONTINUE TO MONITOR.
[2017-02-16 05:07] LABS: ANION GAP 2.1 (8-16); CARBON DIOXIDE 39.1 mmol/L (21-32); CHLORIDE 106 mmol/L (98-107); CREATININE 0.9 mg/dL (0.6-1.3); GLUCOSE 96 mg/dL (74-106); POTASSIUM 4.2 mmol/L (3.5-5.1); SODIUM SERUM 143 mmol/L (136-145); UREA NITROGEN, BLOOD 14 mg/dL (7-18)
[2017-02-16] MEDS: NACL 0.9% 1,000 ML IV SCH (05:09)
[2017-02-16] MEDS: AMIKACIN 400 MG in DEXTROSE 5% 100 ML IV SCH ×2 (05:10→23:16)
[2017-02-16] MEDS: ONDANSETRON 4 MG/2 ML VIAL IM/IVP PRN (06:30)
--- NOTE | 2017-02-16 06:43 | NUR ---
PATIENT RESTING IN BED. PATIENT STATES NAUSEA, MEDICATED ORDERED. PATIENT DENIES SOB. PATIENT DENIES PAIN. NO SIGNS OR SYMPTOMS OF ACUTE DISTRESS NOTED. CALL LIGHT WITHIN REACH. WILL CONTINUE TO MONITOR.
--- NOTE | 2017-02-16 07:12 | NUR ---
ENDORSED PLAN OF CARE TO AM RN. PATIENT IN STABLE CONDITION. NO SIGNS OR SYMPTOMS OF ACUTE DISTRESS NOTED. SAFETY MEASURES ENSURED. CALL LIGHT WITHIN REACH
--- NOTE | 2017-02-16 07:20 | NUR ---
RECEIVED REPORT FROM GL ACCOUNTANT NURSE, PT IS RESTING IN BED, A/OX4, AMBULATES WITH ASSIST, IV IS IN THE RIGHT AC, PATENT, INTACT, FLUSHING WELL, PT HAS BILATERAL LOWER EXT. DRYNESS, PT IS ON O2 3L NC, NO S/S OF RESPIRATORY DISTRESS OR DISCOMFORT NOTED, DISCUSSED PLAN OF CARE WITH PT, PT VERBALIZED UNDERSTANDING, SAFETY/FALL PRECAUTIONS ARE IN PLACE, CALL LIGHT WITHIN REACH, WILL CONTINUE TO MONITOR.
[2017-02-16 08:00] VITALS: BP 113/51
[2017-02-16] MEDS: LACTOBACILLUS RHAMNOSUS GG 1 EACH CAP PO SCH (08:04)
[2017-02-16] MEDS: LORATADINE 10 MG TAB PO SCH (08:05)
[2017-02-16] MEDS: SENNA 8.6 MG TAB PO SCH ×2 (08:05→20:40)
[2017-02-16] MEDS: ECOTRIN 81 MG TABEC PO SCH (08:05)
[2017-02-16] MEDS: BACLOFEN 10 MG TAB PO SCH ×3 (08:05→16:03)
[2017-02-16] MEDS: AMIODARONE 200 MG TAB PO SCH (08:05)
[2017-02-16] MEDS: CLOPIDOGREL 75 MG TAB PO SCH (08:05)
[2017-02-16] MEDS: FLUTICASONE NASAL 50 MCG/ACTUATION 16 GM BTL NS SCH ×2 (08:06→20:40)
[2017-02-16] MEDS: CARVEDILOL 3.125 MG TAB PO SCH ×2 (08:06→20:40)
[2017-02-16] MEDS: LORazepam 0.5 MG TAB PO PRN ×2 (08:38→23:17)
[2017-02-16] MEDS: PSYLLIUM 12.2 GM/PKT PO SCH (08:39)
[2017-02-16] MEDS: TRIAMCINOLONE 0.025% CRM 15 GM TUBE TP SCH ×2 (09:00→20:42)
[2017-02-16] MEDS: Z-GUARD PASTE TP SCH (09:00)
[2017-02-16] MEDS ORDERED: LORATADINE 10 MG TAB PO SCH ×2 (09:00)
[2017-02-16] MEDS: HYDRAGUARD CREAM TP SCH ×2 (09:00→20:41)
--- NOTE | 2017-02-16 09:52 | NUR ---
ASLEEP EASILY AWAKENS RESPONSIVE TO LICENSED LOAN OFFICER RECEIVED ON SUPPLEMENTAL OXYGEN AT 3 LPM VIA NC ON AND FUNCTIONING WELL
--- NOTE | 2017-02-16 10:20 | NUR ---
PT RESTING IN BED, NO S/S OF RESPIRATORY DISTRESS OR DISCOMFORT NOTED, CALL LIGHT WITHIN REACH.
--- NOTE | 2017-02-16 13:20 | NUR ---
PT SLEEPING IN BED AT THIS TIME, CALL LIGHT WITHIN REACH.
--- NOTE | 2017-02-16 13:50 | NUR ---
02/16/17 RD FOLLOW UP COMPLETED PLEASE REFER TO NUTRITION PROGRESS NOTES UNDER CARE ACTIVITY FOR ESTIMATED NUTRITIONAL NEEDS. RD RECOMMENDATIONS: 1. CONTINUE CARDIAC DIET 2. CONTINUE TO ENCOURAGE INCREASED PO INTAKE TO TOLERANCE 3. RD TO FOLLOW-UP 3-5 DAYS, MODERATE RISK ANA ROSA LANDAVERDE MBA, RD
[2017-02-16] MEDS: guaiFENesin 20 MG/ML UDC PO PRN (14:00)
[2017-02-16 16:00] VITALS: BP 112/59
--- NOTE | 2017-02-16 17:25 | NUR ---
ASSISTED PT WITH BEDPAN, ALL NEEDS MET AT THIS TIME, CALL LIGHT WITHIN REACH.
--- NOTE | 2017-02-16 19:15 | NUR ---
ENDORSED PT TO FORKLIFT TRUCK OPERATOR NURSE FOR CONTINUITY OF CARE, PT STABLE AT THIS TIME.
--- NOTE | 2017-02-16 19:20 | NUR ---
RECEIVED REPORT FROM DAY RN. PATIENT RESTING IN BED, AWAKE ALERT ORIENTED X4, NO S/S OF ACUTE DISTRESS NOTED, RESPIRATION EVEN AND UNLABORED, ON O2 NC 3L. IV INTACT AND PATENT, INFUSING NS AT 10ML/HR. CALL LIGHT WITHIN REACH, SAFETY MEASURE ENSURED, WILL CONTINUE TO MONITOR.
--- NOTE | 2017-02-16 20:48 | NUR ---
PATIENT STATED LEFT ANKLE PAIN 5/, BP 110/53, HR 72, PAIN MEDICATION GIVEN ORDERED, WILL CONTINUE TO MONITOR.
--- NOTE | 2017-02-16 23:16 | NUR ---
AMIKIN STARTED, PATIENT TOLERATED WELL. VITAL SIGNS STABLE. T, 98.1 BP 110/74, HR 71, O2SAT 97%, RR 18
--- NOTE | 2017-02-16 23:25 | NUR ---
PATIENT STATED," I WANT ANXIETY PILLS, I FEEL ANXIOUS." MEDICATION GIVEN ORDERED, WILL CONTINUE TO MONITOR.
[2017-02-17] VITALS: BP 110/74
--- NOTE | 2017-02-17 01:18 | NUR ---
STARTED NEW IV ON RT WRIST 22G, PATIENT TOLERATED WELL. OLD IV , TIP INTACT, NO ACTIVE BLEEDING AT THE IV SITE. WILL CONTINUE TO MONITOR.
[2017-02-17] MEDS: HYDROcodone/APAP 7.5/325 MG 1 TAB PO PRN ×4 (03:41→23:30)
--- NOTE | 2017-02-17 03:56 | NUR ---
PATIENT STATED LT ANKLE PAIN 5/10. PAIN MEDICATION GIVEN ORDERED. WILL CONTINUE TO MONITOR.
[2017-02-17] MEDS: NACL 0.9% 1,000 ML IV SCH (05:24)
--- NOTE | 2017-02-17 05:25 | NUR ---
PATIENT SLEEPING IN BED, NO S/S OF ACUTE DISTRESS NOTED ,RESPIRATION EVEN AND UNLABORED, CALL LIGHT WITHIN REACH, SAFETY MEASURE ENSURED, WILL CONTINUE TO MONITOR.
--- NOTE | 2017-02-17 07:26 | NUR ---
ENDORSED PLAN OF CARE TO DAY RN, PATIENT RESTING IN BED, NO S/S OF ACUTE DISTRESS, PATIENT IS IN STABLE CONDITION.
--- NOTE | 2017-02-17 07:30 | NUR ---
RECEIVED REPORT FROM TRANSPORTATION CONSULTANT NURSE, PT IS RESTING IN BED, A/OX4, AMBULATES WITH ASSIST, IV IS IN THE RIGHT WRIST, PATENT, INTACT, FLUSHING WELL, PT HAS BILATERAL LOWER EXT. DRYNESS, PT IS ON O2 3L NC, NO S/S OF RESPIRATORY DISTRESS OR DISCOMFORT NOTED, DISCUSSED PLAN OF CARE WITH PT, PT VERBALIZED UNDERSTANDING, SAFETY/FALL PRECAUTIONS ARE IN PLACE, CALL LIGHT WITHIN REACH, WILL CONTINUE TO MONITOR.
[2017-02-17 07:53] LABS: ANION GAP 3.6 (8-16); CHLORIDE 105 mmol/L (98-107); GLUCOSE 88 mg/dL (74-106); POTASSIUM 4.6 mmol/L (3.5-5.1); SODIUM SERUM 143 mmol/L (136-145); UREA NITROGEN, BLOOD 13 mg/dL (7-18)
[2017-02-17 08:00] VITALS: BP 122/61
[2017-02-17 08:01] LABS: BASOPHILS # (AUTO) 0.1 K/uL (0.00-0.22); BASOPHILS % (AUTO) 2.9 % (0.0-2.0); EOSINOPHILS # (AUTO) 0.1 K/uL (0-0.4); EOSINOPHILS % (AUTO) 2.1 % (0.0-4.0); HEMOGLOBIN 10.3 g/dL (12.0-16.0); LYMPHOCYTES # (AUTO) 1.2 K/uL (2.5-16.5); LYMPHOCYTES % (AUTO) 32.5 % (20.5-51.1); MEAN CORPUSCULAR HEMOGLOBIN 29 pg (27-31); MEAN CORPUSCULAR HGB CONC 32 g/dL (33-37); MEAN CORPUSCULAR VOLUME 92 fL (80-94); MONOCYTES # (AUTO) 0.4 K/uL (0.8-1.0); MONOCYTES % (AUTO) 9.9 % (1.7-9.3); NEUTROPHILS # (AUTO) 1.9 K/uL (1.8-7.7); NEUTROPHILS % (AUTO) 52.6 % (42.2-75.2); PLATELET COUNT (AUTO) 211 K/uL (140-450); RED BLOOD CELL COUNT(AUTO) 3.49 MIL/uL (4.20-5.40); RED CELL DISTRIBUTION WIDTH 15.9 % (11.6-13.7); WHITE BLOOD COUNT (AUTO) 3.8 K/uL (4.8-10.8)
[2017-02-17] MEDS: PSYLLIUM 12.2 GM/PKT PO SCH (08:09)
[2017-02-17] MEDS: Z-GUARD PASTE TP SCH (08:35)
[2017-02-17] MEDS: HYDRAGUARD CREAM TP SCH ×2 (08:35→20:32)
[2017-02-17] MEDS: TRIAMCINOLONE 0.025% CRM 15 GM TUBE TP SCH ×2 (08:35→20:32)
[2017-02-17] MEDS: CLOPIDOGREL 75 MG TAB PO SCH (09:15)
[2017-02-17] MEDS: SENNA 8.6 MG TAB PO SCH ×2 (09:15→20:31)
[2017-02-17] MEDS: AMIODARONE 200 MG TAB PO SCH (09:15)
[2017-02-17] MEDS: LORATADINE 10 MG TAB PO SCH (09:16)
[2017-02-17] MEDS: ECOTRIN 81 MG TABEC PO SCH (09:16)
[2017-02-17] MEDS: BACLOFEN 10 MG TAB PO SCH ×3 (09:16→16:29)
[2017-02-17] MEDS: FLUTICASONE NASAL 50 MCG/ACTUATION 16 GM BTL NS SCH ×2 (09:17→20:31)
[2017-02-17] MEDS: CARVEDILOL 3.125 MG TAB PO SCH ×2 (09:17→20:32)
[2017-02-17] MEDS: LACTOBACILLUS RHAMNOSUS GG 1 EACH CAP PO SCH (09:17)
--- NOTE | 2017-02-17 09:17 | NUR ---
DUE MEDICATIONS GIVEN, PT TOLERATED WELL, CALL LIGHT WITHIN REACH.
[2017-02-17] MEDS: LORazepam 0.5 MG TAB PO PRN ×2 (11:23→19:19)
[2017-02-17] MEDS: guaiFENesin 20 MG/ML UDC PO PRN (11:23)
[2017-02-17] MEDS: ONDANSETRON 4 MG/2 ML VIAL IM/IVP PRN (11:31)
--- NOTE | 2017-02-17 11:40 | NUR ---
PATIENT RESTING IN BED, WATCHING TV, NO S/S OF RESPIRATORY DISTRESS OR DISCOMFORT NOTED, CALL LIGHT WITHIN REACH.
--- NOTE | 2017-02-17 13:50 | NUR ---
PT SLEEPING IN BED AT THIS TIME, CALL LIGHT WITHIN REACH.
[2017-02-17 16:00] VITALS: BP 113/59
--- NOTE | 2017-02-17 16:28 | NUR ---
PATIENT COMPLAINING OF A 5/10 ACHING BACK PAIN, WILL MEDICATE AT THIS TIME.
--- NOTE | 2017-02-17 17:30 | NUR ---
PT SLEEPING IN BED AT THIS TIME, CALL LIGHT WITHIN REACH.
--- NOTE | 2017-02-17 19:20 | NUR ---
ENDORSED PT TO VELVET CUTTER NURSE FOR CONTINUITY OF CARE, PT STABLE AT THIS TIME.
--- NOTE | 2017-02-17 19:25 | NUR ---
RECEIVED REPORT FROM DAY RN, PATIENT WAS SITTING UP IN THE CHAIR, ASSISTED PATIENT BACK TO THE BED. VITAL SIGNS STABLE, T 98, BP 120/56, HR 88, O2SAT 98%, RR 17, ON O2 NC 3L. NO S/S OF ACUTE DISTRESS NOTED, RESPIRATION EVEN AND UNLABORED, CALL LIGHT WITHIN REACH, SAFETY MEASURE ENSURED, WILL CONTINUE TO MONITOR.
--- NOTE | 2017-02-17 20:38 | NUR ---
PM MEDICATION GIVEN, PATIENT TOLERATED WELL. WILL CONTINUE TO MONITOR.
[2017-02-17 23:44] VITALS: BP 122/55
--- NOTE | 2017-02-17 23:58 | NUR ---
LT ANKLE PAIN 5/10, VITAL SIGNS STABLE, PAIN MEDICATION GIVEN ORDERED, WILL CONTINUE TO MONITOR.
[2017-02-18] MEDS: NACL 0.9% 1,000 ML IV SCH (05:08)
--- NOTE | 2017-02-18 05:09 | NUR ---
PATIENT RESTING IN BED, NO S/S OF ACUTE DISTRESS NOTED, RESPIRATION EVEN AND UNLABORED, WILL CONTINUE TO MONITOR.
--- NOTE | 2017-02-18 07:12 | NUR ---
ENDORSED PLAN OF CARE TO DAY RN. PATIENT RESTING IN BED, NO S/S OF ACUTE DISTRESS. PATIENT IS IN STABLE CONDITION.
--- NOTE | 2017-02-18 07:13 | NUR ---
RECEIVED REPORT FROM INVESTMENT BANKER NURSE. PATIENT IS LYING IN BED AND IS IN STABLE CONDITION. NO DISTRESS NOTED. NO COMPLAINTS OF PAIN OR DISCOMFORT AT THIS TIME. RESPIRATIONS EVEN, UNLABORED, ON O2 3L/MIN VIA NC. IV INTACT, PATENT AND INFUSING. SKIN WARM TO TOUCH, COLOR APPROPRIATE TO ETHNICITY, INTACT. SKIN REDNESS ON B/L INNER THIGHS DUE TO INCONTINENCE DERMATITIS. GENERALIZED WEAKNESS ON B/L UE AND LE. PLAN OF CARE REVIEWED WITH PATIENT. SAFETY MEASURES IN PLACE, CALL LIGHT WITHIN REACH, FALL PRECAUTIONS IN PLACE, BED RAILS UP X2, BED WHEELS LOCKED. WILL CONTINUE TO MONITOR.
[2017-02-18 08:00] VITALS: BP 104/50
[2017-02-18] MEDS: ALBUTEROL SULFATE/IPRATROPIU 3 ML SOL IH PRN (08:12)
[2017-02-18] MEDS ORDERED: FUROSEMIDE 20 MG/2 ML VIAL IVP SCH (09:00)
[2017-02-18] MEDS: PSYLLIUM 12.2 GM/PKT PO SCH (09:00)
[2017-02-18] MEDS: CARVEDILOL 3.125 MG TAB PO SCH ×2 (09:00→21:00)
[2017-02-18] MEDS: guaiFENesin 20 MG/ML UDC PO PRN (09:13)
[2017-02-18] MEDS: LORATADINE 10 MG TAB PO SCH (09:13)
[2017-02-18] MEDS: ECOTRIN 81 MG TABEC PO SCH (09:14)
[2017-02-18] MEDS: SENNA 8.6 MG TAB PO SCH ×2 (09:14→21:06)
[2017-02-18] MEDS: CLOPIDOGREL 75 MG TAB PO SCH (09:14)
[2017-02-18] MEDS: AMIODARONE 200 MG TAB PO SCH (09:14)
[2017-02-18] MEDS: BACLOFEN 10 MG TAB PO SCH ×3 (09:15→17:10)
[2017-02-18] MEDS: LORazepam 0.5 MG TAB PO PRN (09:15)
[2017-02-18] MEDS: FLUTICASONE NASAL 50 MCG/ACTUATION 16 GM BTL NS SCH ×2 (09:16→21:06)
[2017-02-18] MEDS: ONDANSETRON 4 MG/2 ML VIAL IM/IVP PRN ×2 (09:16→21:06)
[2017-02-18] MEDS: LACTOBACILLUS RHAMNOSUS GG 1 EACH CAP PO SCH (09:18)
[2017-02-18] MEDS: HYDRAGUARD CREAM TP SCH ×2 (09:18→21:07)
[2017-02-18] MEDS: TRIAMCINOLONE 0.025% CRM 15 GM TUBE TP SCH ×2 (09:19→21:07)
[2017-02-18] MEDS: Z-GUARD PASTE TP SCH (09:20)
--- NOTE | 2017-02-18 09:20 | NUR ---
PATIENT LYING IN BED WATCHING TV. NO DISTRESS NOTED. PAIN WITHIN TOLERABLE AT THIS TIME. RESPIRATIONS EVEN, UNLABORED, ON O2 3L/MIN VIA NC. SKIN IS INTACT. MEDICATIONS DUE GIVEN. IV INTACT, PATENT AND INFUSING. SAFETY MEASURES IN PLACE, CALL LIGHT WITHIN REACH. WILL CONTINUE TO MONITOR.
[2017-02-18] MEDS ORDERED: ACETAMINOPHEN 325 MG TAB PO PRN (10:30)
[2017-02-18] MEDS: HYDROcodone/APAP 7.5/325 MG 1 TAB PO PRN ×3 (10:45→21:05)
--- NOTE | 2017-02-18 10:45 | NUR ---
PT C/O BILAT LOWER EXT PAIN, NORCO GIVEN PER PRN ORDER, SCHEDULED ROCEPHIN IVPB STARTED, IV SITE WNL, CALL LITTLE WITHIN REACH, SIDE RAILS UP, BED LOCKED IN LOW POSITION, WILL CONTINUE TO MONITOR.
--- NOTE | 2017-02-18 13:58 | NUR ---
PATIENT LYING IN BED WATCHING TV. NO DISTRESS NOTED. DENIES ANY PAIN AT THIS TIME. RESPIRATIONS EVEN, UNLABORED, ON O2 3L/MIN VIA NC. MEDICATIONS DUE GIVEN. SAFETY MEASURES IN PLACE, CALL LIGHT WITHIN REACH. WILL CONTINUE TO MONITOR.
--- NOTE | 2017-02-18 15:00 | NUR ---
PT UP TO BEDSIDE COMMODE WITH ASSIST.
--- NOTE | 2017-02-18 15:40 | NUR ---
PATIENT COMPLAINS OF B/L LE PAIN. WILL MEDICATE WITH NORCO PER ORDERS. SAFETY MEASURES IN PLACE, CALL LIGHT WITHIN REACH. WILL CONTINUE TO MONITOR.
[2017-02-18 16:00] VITALS: BP 114/57
--- NOTE | 2017-02-18 17:58 | NUR ---
PATIENT SITTING AT BED EATING DINNER. NO DISTRESS NOTED. PAIN WITHIN TOLERABLE LIMITS. NO COMPLAINTS AT THIS TIME. RESPIRATIONS EVEN, UNLABORED, ON O2 3L/MIN VIA NC. AAOX4, SKIN IS INTACT. SAFETY MEASURES IN PLACE, CALL LIGHT WITHIN REACH. WILL CONTINUE TO MONITOR.
--- NOTE | 2017-02-18 19:25 | NUR ---
REPORT GIVEN TO VOLTMETER OPERATOR NURSE CHANO. PATIENT IN STABLE CONDITION.
--- NOTE | 2017-02-18 19:26 | NUR ---
RECEIVED HANDOFF REPORT FROM AM RN. PATIENT AWAKE AND ALERT IN BED WATCHING TV. PATIENT DENIES PAIN.IV SITE PATENT AND INTACT. NO SOB NOTED. NO SIGNS OR SYMPTOMS OF ACUTE DISTRESS NOTED. CALL LIGHT WITHIN REACH. WILL CONTINUE TO MONITOR.
[2017-02-18] MEDS ORDERED: HYDRAGUARD CREAM TP SCH (21:00)
--- NOTE | 2017-02-18 21:10 | NUR ---
PM MEDS GIVEN WITH EDUCATION. PATIENT VERBALIZES UNDERSTANDING. PATIENT STATED PAIN, MEDICATED ORDERED. PATIENT DENIES SOB. NO SIGNS OR SYMPTOMS OF ACUTE DISTRESS NOTED. CALL LIGHT WITHIN REACH. WILL CONTINUE TO MONITOR.
[2017-02-19] VITALS: BP 120/67
[2017-02-19] MEDS: NACL 0.9% 1,000 ML IV SCH (00:15)
--- NOTE | 2017-02-19 01:05 | NUR ---
PATIENT IV OUT. STARTED NEW IN RIGHT WRIST 22G. NO SIGNS OR SYMPTOMS OF INFILTRATION. NO SIGNS OR SYMPTOMS OF ACUTE DISTRESS NOTED. CALL LIGHT WITHIN REACH. WILL CONTINUE TO MONITOR.
--- NOTE | 2017-02-19 03:17 | NUR ---
PATIENT RESTING IN BED. PATIENT DENIES PAIN. NO SIGNS OR SYMPTOMS OF ACUTE DISTRESS NOTED. CALL LIGHT WITHIN REACH. WILL CONTINUE TO MONITOR.
[2017-02-19] MEDS: HYDROcodone/APAP 7.5/325 MG 1 TAB PO PRN ×3 (04:29→21:15)
--- NOTE | 2017-02-19 06:19 | NUR ---
PATIENT RESTING IN BED. PATIENT DENIES PAIN. NO SIGNS OR SYMPTOMS OF ACUTE DISTRESS NOTED. CALL LIGHT WITHIN REACH. WILL CONTINUE TO MONITOR.
[2017-02-19] MEDS: ONDANSETRON 4 MG/2 ML VIAL IM/IVP PRN ×3 (06:57→17:55)
--- NOTE | 2017-02-19 07:28 | NUR ---
ENDORSED PLAN OF CARE TO AM RN. PATIENT IN STABLE CONDITION. NO SIGNS OR SYMPTOMS OF ACUTE DISTRESS NOTED. SAFETY MEASURES ENSURED. CALL LIGHT WITHIN REACH.
--- NOTE | 2017-02-19 07:29 | NUR ---
RECEIVED REPORT FROM TEMPERING KILN TENDER NURSE. PATIENT IS SITTING IN BED WITH BREAKFAST TRY IN FRONT OF HER. IN STABLE CONDITION, NO DISTRESS NOTED. NO COMPLAINTS OF PAIN OR DISCOMFORT AT THIS TIME. RESPIRATIONS EVEN, UNLABORED, ON O2 3L/MIN VIA NC. IV INTACT, PATENT AND INFUSING. SKIN WARM TO TOUCH, COLOR APPROPRIATE TO ETHNICITY, INTACT. SKIN REDNESS ON B/L INNER THIGHS DUE TO INCONTINENCE DERMATITIS. GENERALIZED WEAKNESS ON B/L UE AND LE. PLAN OF CARE REVIEWED WITH PATIENT. SAFETY MEASURES IN PLACE, CALL LIGHT WITHIN REACH, FALL PRECAUTIONS IN PLACE, BED RAILS UP X2, BED WHEELS LOCKED. WILL CONTINUE TO MONITOR.
[2017-02-19 08:00] VITALS: BP 124/46
[2017-02-19] MEDS: PSYLLIUM 12.2 GM/PKT PO SCH (09:00)
[2017-02-19] MEDS: CARVEDILOL 3.125 MG TAB PO SCH ×2 (09:00→21:15)
--- NOTE | 2017-02-19 09:30 | NUR ---
PATIENT SITTING IN BED WATCHING TV. NO DISTRESS NOTED. RESPIRATIONS EVEN, UNLABORED, ON O2 3L/MIN VIA NC. SKIN INTACT, DERMATITIS ON B/L INNER THIGHS. MEDICATIONS DUE GIVEN. COMPLAINTS OF PAIN RADIATING DOWN TO B/L LE, WILL MEDICATE PER ORDERS. IV SITE INTACT, PATENT AND INFUSING. SAFETY MEASURES IN PLACE, CALL LIGHT WITHIN REACH, FALL PREVENTION MEASURES IN PLACE. WILL CONTINUE TO MONITOR
[2017-02-19] MEDS: LORATADINE 10 MG TAB PO SCH (09:37)
[2017-02-19] MEDS: ECOTRIN 81 MG TABEC PO SCH (09:37)
[2017-02-19] MEDS: SENNA 8.6 MG TAB PO SCH ×2 (09:37→21:15)
[2017-02-19] MEDS: AMIODARONE 200 MG TAB PO SCH (09:38)
[2017-02-19] MEDS: LACTOBACILLUS RHAMNOSUS GG 1 EACH CAP PO SCH (09:38)
[2017-02-19] MEDS: CLOPIDOGREL 75 MG TAB PO SCH (09:39)
[2017-02-19] MEDS: BACLOFEN 10 MG TAB PO SCH ×3 (09:40→17:21)
[2017-02-19] MEDS: FLUTICASONE NASAL 50 MCG/ACTUATION 16 GM BTL NS SCH ×2 (09:40→21:03)
--- NOTE | 2017-02-19 09:40 | NUR ---
PATIENT REPORTS FEELING NAUSEATED AND ANXIOUS. WILL MEDICATE WITH ZOFRAN AND ATIVAN ORDERED.
[2017-02-19] MEDS: HYDRAGUARD CREAM TP SCH ×2 (09:41→21:22)
[2017-02-19] MEDS: Z-GUARD PASTE TP SCH (09:42)
[2017-02-19] MEDS: TRIAMCINOLONE 0.025% CRM 15 GM TUBE TP SCH ×2 (09:42→21:23)
[2017-02-19] MEDS: LORazepam 0.5 MG TAB PO PRN ×2 (09:48→17:25)
--- NOTE | 2017-02-19 11:30 | NUR ---
PT UP WALKING AROUND IN ROOM WITH WALKER WITH PHYSICAL THERAPY.
--- NOTE | 2017-02-19 12:15 | NUR ---
PATIENT SITTING IN BED WATCHING TV. NO DISTRESS NOTED. PAIN WITHIN TOLERABLE LIMITS. RESPIRATIONS EVEN, UNLABORED, ON O2 3L/MIN VIA NC. IV INTACT, PATENT, AND INFUSING. MEDICATIONS DUE GIVEN. PATIENT CLEANED UP AND LINEN CHANGED. SAFETY MEASURES IN PLACE, CALL LIGHT WITHIN REACH, WILL CONTINUE TO MONITOR.
--- NOTE | 2017-02-19 14:14 | NUR ---
P.T. NOTES D/C FROM P.T. AFTER TX TODAY; NURSING TO AMBULATE PATIENT W/ FWW AD CHARLINE.
[2017-02-19 16:00] VITALS: BP 97/49
--- NOTE | 2017-02-19 17:26 | NUR ---
PATIENT LYING IN BED WATCHING TV. NO DISTRESS NOTED. RESPIRATIONS EVEN, UNLABORED, ON O2 3L/MIN VIA NC. REPORTS FEELING ANXIOUS. WILL MEDICATION WITH ATIVAN PER ORDERS. DENIES ANY PAIN AT THE MOMENT. MEDICATIONS DUE GIVEN. SKIN IS INTACT, WARM TO TOUCH. IV IS PATENT, INTACT, AND INFUSING. SAFETY MEASURES IN PLACE, CALL LIGHT WITHIN REACH, FALL PREVENTIONS IN PLACE. WILL CONTINUE TO MONITOR
--- NOTE | 2017-02-19 19:31 | NUR ---
REPORT GIVEN TO ASSISTANT PROGRAM MANAGER NURSE, PT IN STABLE CONDITION.
--- NOTE | 2017-02-19 19:32 | NUR ---
RECD RESTING IN BED, AWAKE, A/OX4. RESPIRATION EVEN AND UNLABORED. ON AT 3 LITERS VIA N/C, 02 SATURATION AT 99%. SAFETY MEASURES ENFORCED. WITH DERMATITIS ON BILATERAL INNER THIGH. PLAN OF CARE FOR THE SHIFT DISCUSSED. VERBALIZED UNDERSTANDING. DENIES PAIN 0/10.
[2017-02-19 20:00] VITALS: BP 144/86
--- NOTE | 2017-02-19 20:00 | NUR ---
Patient's Plan of Care was discussed and reviewed with ELECTRONIC TESTER: OREN OCAMPO
[2017-02-19] MEDS: guaiFENesin 20 MG/ML UDC PO PRN (21:14)
--- NOTE | 2017-02-19 21:15 | NUR ---
DUE PO MEDICATIONS GIVEN, TOLERATED WELL.
--- NOTE | 2017-02-20 | NUR ---
SLEEPING COMFORTABLY IN BED.
[2017-02-20] MEDS: HYDROcodone/APAP 7.5/325 MG 1 TAB PO PRN ×4 (05:23→21:27)
[2017-02-20] MEDS: NACL 0.9% 1,000 ML IV SCH (05:29)
[2017-02-20] MEDS: ONDANSETRON 4 MG/2 ML VIAL IM/IVP PRN (06:10)
--- NOTE | 2017-02-20 06:10 | NUR ---
NAUSEATED, MEDICATED WITH ZOFRAN 4 MG. IVP BY ANDREA LUGO.
[2017-02-20] MEDS: LORazepam 0.5 MG TAB PO PRN ×3 (06:25→17:40)
--- NOTE | 2017-02-20 06:25 | NUR ---
ASSISTED WITH BEDPAN, VOIDED APPROX 150 ML CLEAR YELLOW URINE. WITH ANXIETY, MEDICATED WITH ATIVAN TABLET ORDERED.
--- NOTE | 2017-02-20 07:00 | NUR ---
RESTING IN BED, NO ANXIETY/NAUSEA NOTED. WILL ENDORSE TO AM NURSE FOR CONTINUITY OF CARE.
--- NOTE | 2017-02-20 07:05 | NUR ---
ECEIVED REPORT FROM SNOW REMOVER NURSE, PT IS RESTING IN BED, A/OX4, AMBULATES WITH ASSIST, IV IS IN THE RIGHT WRIST, PATENT, INTACT, FLUSHING WELL, PT HAS BILATERAL LOWER EXT. DRYNESS, PT IS ON O2 3L NC, NO S/S OF RESPIRATORY DISTRESS OR DISCOMFORT NOTED, DISCUSSED PLAN OF CARE WITH PT, PT VERBALIZED UNDERSTANDING, SAFETY/FALL PRECAUTIONS ARE IN PLACE, CALL LIGHT WITHIN REACH, WILL CONTINUE TO MONITOR.
[2017-02-20 08:00] VITALS: BP 140/50
[2017-02-20] MEDS: CLOPIDOGREL 75 MG TAB PO SCH (08:40)
[2017-02-20] MEDS: AMIODARONE 200 MG TAB PO SCH (08:40)
[2017-02-20] MEDS: SENNA 8.6 MG TAB PO SCH ×2 (08:40→20:06)
[2017-02-20] MEDS: LACTOBACILLUS RHAMNOSUS GG 1 EACH CAP PO SCH (08:40)
[2017-02-20] MEDS: ECOTRIN 81 MG TABEC PO SCH (08:40)
[2017-02-20] MEDS: CARVEDILOL 3.125 MG TAB PO SCH ×2 (08:41→20:09)
[2017-02-20] MEDS: FLUTICASONE NASAL 50 MCG/ACTUATION 16 GM BTL NS SCH ×2 (08:41→20:05)
[2017-02-20] MEDS: BACLOFEN 10 MG TAB PO SCH ×3 (08:41→16:45)
[2017-02-20] MEDS: LORATADINE 10 MG TAB PO SCH (08:41)
[2017-02-20] MEDS: Z-GUARD PASTE TP SCH (08:43)
[2017-02-20] MEDS: HYDRAGUARD CREAM TP SCH ×2 (08:43→21:24)
[2017-02-20] MEDS: TRIAMCINOLONE 0.025% CRM 15 GM TUBE TP SCH ×2 (08:44→21:24)
[2017-02-20] MEDS: PSYLLIUM 12.2 GM/PKT PO SCH (08:45)
[2017-02-20] MEDS: guaiFENesin 20 MG/ML UDC PO PRN (11:51)
--- NOTE | 2017-02-20 15:00 | NUR ---
NOTICED PATIENT'S IV ON THE RIGHT WRIST IS LEAKING, REMOVED IV AT THIS TIME, CATHETER TIP INTACT.
[2017-02-20 16:00] VITALS: BP 124/47
--- NOTE | 2017-02-20 16:00 | NUR ---
NEW IV INSERTION ATTEMPTED BY CHARGE NURSE BUT WAS UNSUCCESSFUL.
--- NOTE | 2017-02-20 16:15 | NUR ---
CHARGE NURSE (LISA) CALLED ER TO HAVE ANDREA GOLDSTEIN ATTEMPT TO INSERT A NEW IV ON PT
--- NOTE | 2017-02-20 19:00 | NUR ---
NEW IV STARTED ON RIGHT THUMB, 24G.
--- NOTE | 2017-02-20 19:25 | NUR ---
ENDORSED PT TO 4TH GRADE TEACHER NURSE FOR CONTINUITY OF CARE, PT STABLE AT THIS TIME.
--- NOTE | 2017-02-20 19:26 | NUR ---
PATIENT REPORT RECEIVED AT BEDSIDE FROM MORNING NURSE. PATIENT IS AWAKE, ALERT AND ORIENTED. PATIENT RESTING IN BED COMFORTABLY WATCHING TV. NO SIGNS AND SYMPTOMS OF DISTRESS NOTED. NO COMPLAINTS OF PAIN AT THIS TIME. PATIENT ON O2 3L VIA NC. IV SITE NOTED ON RIGHT HAND, IV SITE ASYMPTOMATIC AND PATENT. BED IN LOWEST POSITION, SIDE RAILS UP AND CALL LIGHT WITHIN REACH. WILL CONTINUE TO MONITOR.
[2017-02-20 21:29] VITALS: BP 125/52
[2017-02-21] VITALS: BP 134/55
--- NOTE | 2017-02-21 | NUR ---
CHECKED ON PATIENT. PATIENT IS ASLEEP, NO SIGNS AND SYMPTOMS OF DISTRESS NOTED. BREATHING EVEN AND UNLABORED. BED IN LOWEST POSITION, SIDE RAILS UP AND CALL LIGHT WITHIN REACH
[2017-02-21] MEDS: NACL 0.9% 1,000 ML IV SCH (05:07)
[2017-02-21 06:07] LABS: BASOPHILS # (AUTO) 0.2 K/uL (0.00-0.22); BASOPHILS % (AUTO) 4.5 % (0.0-2.0); EOSINOPHILS # (AUTO) 0.1 K/uL (0-0.4); EOSINOPHILS % (AUTO) 2.3 % (0.0-4.0); HEMATOCRIT 30.3 % (36-48); HEMOGLOBIN 9.6 g/dL (12.0-16.0); LYMPHOCYTES # (AUTO) 0.8 K/uL (2.5-16.5); LYMPHOCYTES % (AUTO) 19.9 % (20.5-51.1); MEAN CORPUSCULAR HEMOGLOBIN 29 pg (27-31); MEAN CORPUSCULAR HGB CONC 32 g/dL (33-37); MEAN CORPUSCULAR VOLUME 93 fL (80-94); MONOCYTES # (AUTO) 0.4 K/uL (0.8-1.0); MONOCYTES % (AUTO) 9.7 % (1.7-9.3); NEUTROPHILS # (AUTO) 2.6 K/uL (1.8-7.7); NEUTROPHILS % (AUTO) 63.6 % (42.2-75.2); PLATELET COUNT (AUTO) 209 K/uL (140-450); RED BLOOD CELL COUNT(AUTO) 3.26 MIL/uL (4.20-5.40); RED CELL DISTRIBUTION WIDTH 16.4 % (11.6-13.7); WHITE BLOOD COUNT (AUTO) 4.1 K/uL (4.8-10.8)
[2017-02-21] MEDS ORDERED: guaiFENesin 20 MG/ML UDC PO PRN (06:15)
[2017-02-21 06:44] LABS: ANION GAP 3.2 (8-16); CARBON DIOXIDE 39.4 mmol/L (21-32); CHLORIDE 104 mmol/L (98-107); CREATININE 1.1 mg/dL (0.6-1.3); GLUCOSE 85 mg/dL (74-106); POTASSIUM 4.6 mmol/L (3.5-5.1); SODIUM SERUM 142 mmol/L (136-145); UREA NITROGEN, BLOOD 14 mg/dL (7-18)
--- NOTE | 2017-02-21 07:40 | NUR ---
PATIENT REPORT GIVEN TO MORNING NURSE AT BEDSIDE. PATIENT IS IN STABLE CONDITION
[2017-02-21] MEDS ORDERED: SODIUM CHLORIDE 0.65% 45 ML BTL NS PRN (07:45)
[2017-02-21 08:00] VITALS: BP 132/54
[2017-02-21] MEDS: ONDANSETRON 4 MG/2 ML VIAL IM/IVP PRN ×2 (08:21→13:09)
[2017-02-21] MEDS: ECOTRIN 81 MG TABEC PO SCH (08:33)
[2017-02-21] MEDS: AMIODARONE 200 MG TAB PO SCH (08:33)
[2017-02-21] MEDS: SENNA 8.6 MG TAB PO SCH (08:33)
[2017-02-21] MEDS: CARVEDILOL 3.125 MG TAB PO SCH (08:34)
[2017-02-21] MEDS: BACLOFEN 10 MG TAB PO SCH ×2 (08:34→13:22)
[2017-02-21] MEDS: LORATADINE 10 MG TAB PO SCH (08:34)
[2017-02-21] MEDS: HYDROcodone/APAP 7.5/325 MG 1 TAB PO PRN ×2 (08:34→13:22)
[2017-02-21] MEDS: LACTOBACILLUS RHAMNOSUS GG 1 EACH CAP PO SCH (08:35)
[2017-02-21] MEDS: CLOPIDOGREL 75 MG TAB PO SCH (08:35)
[2017-02-21] MEDS: LORazepam 0.5 MG TAB PO PRN ×2 (08:35→13:23)
[2017-02-21] MEDS: PSYLLIUM 12.2 GM/PKT PO SCH (08:36)
[2017-02-21] MEDS ORDERED: FLUTICASONE NASAL 50 MCG/ACTUATION 16 GM BTL NS SCH (09:00)
[2017-02-21] MEDS ORDERED: Z-GUARD PASTE TP SCH (09:00)
[2017-02-21] MEDS: FLUTICASONE NASAL 50 MCG/ACTUATION 16 GM BTL NS SCH (11:19)
[2017-02-21] MEDS: HYDRAGUARD CREAM TP SCH (11:20)
[2017-02-21] MEDS: TRIAMCINOLONE 0.025% CRM 15 GM TUBE TP SCH (11:20)
--- NOTE | 2017-02-21 12:35 | NUR ---
02/21/17 RD FOLLOW-UP ASSESSMENT COMPLETED PLEASE REFER TO NUTRITION ASSESSMENT UNDER CARE ACTIVITY FOR ESTIMATED NUTRITIONAL NEEDS. 1. CHANGE DIET TO REGULAR DIET 2. RD TO FOLLOW-UP 3-5 DAYS, MODERATE RISK GEORGINA RESENDEZ RD
[2017-02-21] MEDS ORDERED: AMIO200T10 PO (12:55)
[2017-02-21] MEDS ORDERED: CLOP75TA26 PO (12:55)
[2017-02-21] MEDS ORDERED: CARV3.122 PO (12:55)
--- NOTE | 2017-02-21 13:00 | NUR ---
DISCHARGE PHOTO TAKEN AND DOCUMENT. DISCHARGE MRSA NARES SWAB COLLECTED AND SENT TO LAB.
--- NOTE | 2017-02-21 14:15 | NUR ---
DISCHARGE INSTRUCTIONS GIVEN TO PT WHICH VERBALIZED FULL UNDERSTANDING OF THE INSTRUCTIONS AND THE REASON PT IS GOING TO SNF. ARM BANDS AND IV REMOVED, CANNULA TIP INTACT.
--- NOTE | 2017-02-21 14:19 | NUR ---
CM NOTE PATIENT INFORMATION FAXED OVER TO [facility] / FAX# [phone], ATTN: ROCKY #[phone] PATIENT WILL BE GOING TO 23B. FOR RN REPORT: [phone]. YENNY KWONG MADE AWARE.
--- NOTE | 2017-02-21 14:30 | NUR ---
PT WHEELED OUT BY [facility] IN STABLE CONDITION VIA WHEELCHAIR. NO COMPLAINTS MADE. NO SOB NOTED, ON 0XYGEN AT 2-3 LITERS VIA NASAL CANNULA. PT IS GOING TO [facility] ROOM 23-B. SPOKE WITH NUNO SHEEP FARM MANAGER REGARDING THE 2 OXYGEN TAB\NKS IN PT'S ROOM. NUNO ALREADY CALLED THE [employer] AND STATED THEY COME AND PICK IT UP. 2 OXYGEN TANKS PLACED IN FRONT OF THE NURSES STATION. SCHOOL ATTENDANCE SECRETARY NURSE AND DRY PRESS OPERATOR HELPER MADE AWARE.
== END 2017-02-21 14:30 | DRG 190 ==
LOC: MED 03:53 → MTU 06:01 → INTOOBSV 06:01 → OBSVTOIN 01-20 10:45
PROVIDERS: ADMIT Family Medicine; ATTEND Family Medicine
DX: J44.1 Chronic obstructive pulmonary disease with (acute) exacerbation (principal); G93.41 Metabolic encephalopathy; E43 Unspecified severe protein-calorie malnutrition; G62.82 Radiation-induced polyneuropathy; I48.91 Unspecified atrial fibrillation; I50.9 Heart failure, unspecified; I11.0 Hypertensive heart disease with heart failure; Z99.81 Dependence on supplemental oxygen; N39.0 Urinary tract infection, site not specified; I42.2 Other hypertrophic cardiomyopathy; D63.8 Anemia in other chronic diseases classified elsewhere; G90.9 Disorder of the autonomic nervous system, unspecified; E66.9 Obesity, unspecified; S71.112A Laceration without foreign body, left thigh, initial encounter; B96.20 Unspecified Escherichia coli [E. coli] as the cause of diseases classified elsewhere; L30.9 Dermatitis, unspecified; F41.1 Generalized anxiety disorder; Z90.5 Acquired absence of kidney; Z68.32 Body mass index [BMI] 32.0-32.9, adult; Z85.3 Personal history of malignant neoplasm of breast; Z90.710 Acquired absence of both cervix and uterus; Z88.2 Allergy status to sulfonamides; Z79.82 Long term (current) use of aspirin; Z79.899 Other long term (current) drug therapy; Z87.891 Personal history of nicotine dependence; Z82.5 Family history of asthma and other chronic lower respiratory diseases; Z82.49 Family history of ischemic heart disease and other diseases of the circulatory system; Z22.39 Carrier of other specified bacterial diseases; X58.XXXA Exposure to other specified factors, initial encounter; Y93.89 Activity, other specified; Y92.89 Other specified places as the place of occurrence of the external cause; Y99.8 Other external cause status
CPT/HCPCS: 36415; 36600; 71010; 80048; 80053; 80150; 81001; 82803; 83735; 84100; 85025; 85610; 87077; 87081; 87086; 87186; 93005; 94640; 96374; 97110; 97116; 97530; 99285; C1758; G0378; J0278; J0696; J1940; J2405; J2930; J7030; J7060; J7620; Q0092